=== PATIENT | female | born 1955 | race Caucasian/White ===

== ENCOUNTER 2022-12-27 07:24 | Outpatient (OUT) | payer OTHER, SELFPAY ==
--- NOTE | 2022-12-27 07:26 | MM_ITS ---
Patient: SEVERIANO ROBERSON Exam Date: 12/27/2022 : 1955 Gender:F Ordering : DR MIKE GOMEZ Admission #: [id number] Family : Order #: [id number] CLICK HERE TO VIEW EXAM RADIOLOGY REPORT PROCEDURE: MM TOMOSYNTHESIS SCREENING BI COMPARISON: MG MAMM SCREEN 3D DANAY CAD, 04/20/2021. MG MAMM SCREEN DANAY W CAD, 01/14/2020. INDICATIONS: Screening mammogram Calculator Name NCI Breast Cancer Risk Assessment Tool 5 Year Breast Cancer Risk 1.70% Lifetime Breast Cancer Risk 5.20% Personal Breast Cancer No Personal Ovarian Cancer No Treatments None Family Cancers Mother with brain cancer at age 57; Sister with lymphoma cancer at age 19; Sister with uterine cancer at age 40. LOCATION: [facility] BREAST COMPOSITION: Scattered areas fibroglandular density. FINDINGS: DIAGNOSTIC CATEGORY 1--NEGATIVE. NO CHANGE FROM COMPARISON ASSESSMENT. Scattered benign-appearing calcifications are present. Scattered benign-appearing lymph nodes are present. RIGHT BREAST: No significant suspicious finding. LEFT BREAST: No significant suspicious finding. RECOMMENDATIONS: ROUTINE MAMMOGRAM AND CLINICAL EVALUATION IN 12 MONTHS. PLEASE NOTE: A NORMAL MAMMOGRAM DOES NOT EXCLUDE THE POSSIBILITY OF BREAST CANCER. A CLINICALLY SUSPICIOUS PALPABLE LUMP SHOULD BE BIOPSIED. Dictated by: Jhonatan Love MD on 12/27/2022 at 09:57 Approved by: Jhonatan Love MD on 12/27/2022 at 09:58
== END 2022-12-27 07:25 | disposition home or self-care (01) ==
LOC: MAMMO 07:24
PROVIDERS: PCP Nurse Practitioner Family; Visit Provider Nurse Practitioner Family
DX: Z12.31 Encounter for screening mammogram for malignant neoplasm of breast (principal); Z80.7 Family history of other malignant neoplasms of lymphoid, hematopoietic and related tissues; Z80.8 Family history of malignant neoplasm of other organs or systems
CPT/HCPCS: 77063; 77067

== ENCOUNTER 2024-01-02 07:56 | Outpatient (OUT) | payer OTHER, SELFPAY ==
--- NOTE | 2024-01-02 07:58 | MM_ITS ---
Patient Name: SEVERIANO ROBERSON MR#: [id number] : 1955 Exam Date: 01/02/2024 Ordering Doctor: YASMINE VARGHESE RADIOLOGY REPORT PROCEDURE: MM TOMOSYNTHESIS SCREENING BI COMPARISON: MG MAMM SCREEN 3D DANAY CAD, 04/20/2021. MM TOMOSYNTHESIS SCREENING BI, 12/27/2022. INDICATIONS: Screening Calculator Name NCI Breast Cancer Risk Assessment Tool 5 Year Breast Cancer Risk 1.70% Lifetime Breast Cancer Risk 5.00% Personal Breast Cancer No Personal Ovarian Cancer No Treatments None Family Cancers Mother with brain cancer at age 57; Sister with lymphoma cancer at age 19; Sister with uterine cancer at age 40. LOCATION: [facility] BREAST COMPOSITION: There are scattered areas of fibroglandular density. FINDINGS: DIAGNOSTIC CATEGORY 1--NEGATIVE. NO CHANGE FROM COMPARISON ASSESSMENT. Scattered benign-appearing nodules are present. Scattered benign-appearing calcifications are present. Scattered benign-appearing lymph nodes are present. RIGHT BREAST: No significant suspicious finding. LEFT BREAST: No significant suspicious finding. RECOMMENDATIONS: ROUTINE MAMMOGRAM AND CLINICAL EVALUATION IN 12 MONTHS. PLEASE NOTE: A NORMAL MAMMOGRAM DOES NOT EXCLUDE THE POSSIBILITY OF BREAST CANCER. A CLINICALLY SUSPICIOUS PALPABLE LUMP SHOULD BE BIOPSIED. Dictated by: Jhonatan Love MD on 01/02/2024 at 10:30 Approved by: Jhonatan Love MD on 01/02/2024 at 10:32
--- OUTSIDE RECORDS SUMMARY | 2024-01-02 08:03 | XMS_ITS | CCD ---
Author Organization [facility] Inform ion [facility] Care Team Providers Care Weather Strip Mechanic Name Role Phone FURLONG, DR JYOTI Fatima Primary Care Unavailable PATRICIA, DR LILIANA Bergman Attending Unavailable PATRICIA, DR LILIANA Bergman Admitting Unavailable ZIEBMOOK, DR MARK Bergman Consulting Unavailable PATRICIA, DR LILIANA Bergman Consulting Unavailable Alix Tavera Unavailable Patricia GENETIC TECHNOLOGIST-CROSS ENTERPRISE INTEGRATOR, Liliana Galindo Primary Care Provider JOSE ROBERTO COLBY Attending Unavailable LILIANA FALCON Referring Unavailable KUNS, ARLETTE Primary Care Unavailable WHEELER, MARCEL Mayela Attending Unavailable WHEELER, MARCEL E Referring Unavailable KUNS, ARLETTE Primary Care Unavailable WHEELER, MARCEL E Admitting Unavailable WHEELER, MARCEL Pedro Attending Unavailable ANUSHA MARCEL Mayela Referring Unavailable KUNS, ARLETTE Primary Care Unavailable LAISHA ANTONIO Attending Unavailable KUNS, ARLETTE Primary Care Unavailable JOSE ROBERTO COLBY Attending Unavailable JOSE ROBERTO COLBY Referring Unavailable KUNS, ARLETTE Primary Care Unavailable JOSE ROBERTO COLBY Attending Unavailable LILIANA FALCON Referring Unavailable KUNS, ARLETTE Primary Care Unavailable JOSE ROBERTO COLBY Attending Unavailable LILIANA FALCON Referring Unavailable KUNS, ARLETTE Primary Care Unavailable NIJOSE ROBERTO PEREZ Attending Unavailable LILIANA FALCON Referring Unavailable MICHELLE, AI L Primary Care Unavailable WHEELER, MARCEL E Attending Unavailable WHEELER, MARCEL E Referring Unavailable YASMINE VILLA Primary Care Unavailable WHEELER, MARCEL E Admitting Unavailable WHEELER, MARCEL Mayela Attending Unavailable LILIANA FALCON Referring Unavailable MICHELLE, AI L Primary Care Unavailable JANET JONES Attending Unavailable YASMINE VILLA Primary Care Unavailable JOSE ROBERTO COLBY Attending Unavailable LILIANA FALCON Referring Unavailable KUNS, ARLETTE Primary Care Unavailable NIENBERGJOSE ROBERTO Attending Unavailable LILIANA FALCON Referring Unavailable LILIANA FALCON Primary Care Unavailable LILIANA FALCON Attending Unavailable LILIANA FALCON Referring Unavailable LILIANA FALCON Primary Care Unavailable YASMINE VILLA Attending Unavailable AI MARTINEZ Referring Unavailable VILLA, YASMINE J Primary Care Unavailable VILLAYASMINE ESCAMILLA J Attending Unavailable VILLA, YASMINE J Referring Unavailable VLILA, YASMINE J Primary Care Unavailable Villa GENETIC TECHNOLOGIST-SHIFT PRODUCTION ASSOCIATE, Yasmine J Primary Care Provid er LILIANA FALCON Referring Unavailable LILIANA FALCON Primary Care Unavailable SELIN VILLAERIE J Referring Unavailable VILLASELIN ESCAMILLAERIE J Primary Care Unavailable LAN VILLAE J Referring Unavailable VILLA, YASMINE J Primary Care Unavailable Rudolph Chicas MD Primary Care Provider Allergies Allergy Classification Reported Allergen(s) Allergy Type Date of Onset Reaction(s) Facility (15 sources) Codeine; Translations: [CODEINE] Drug Allergy 11-13-19 21 Other (See Comments) [employer] Phone: (12 sources) Succinylcholine; Translations: [SUCCINYLCHOLINE] Drug Allergy 11-13-19 anaphylaxis, Other (See Comments), [facility] Other (2 sources) Succinylcholine Drug Allergy 11-13-19 21 [facility] Medications Current Medications Medication Drug Class(es) Dates Sig (Normalized) Sig (Original) acetaminophen 325 mg oral tablet (8 sources) acetaminophen (TYLENOL) 325 mg tablet Take 2 tablets (650 mg total) by mouth as needed. As needed Active [id number] 200 actuat albuterol 0.09 mg/actuat metered dose inhaler (1 source) beta2-Adrenergic Agonist Start: 01-05-2022 take 2 puff(s) by inhalation every four to six hours as needed Albuterol Sulfate HFA 108 (90 Base) MCG/ACT 2 puffs as needed Inhalation every 4-6 hours for 14 days Dec, Active benzonatate 100 mg oral capsule (2 sources) Non-narcotic Antitussive Start: 01-05-2022 take 1 capsule by mouth every eight hours Tessalon Perles 100 MG 1 capsule as needed Orally Three times a day for 7 days Dec, Active Start: 09-24-2021 take 1 capsule by mo ut three times daily as needed Tessalon Perles 100 MG 1 capsule as needed Orally Three times a day for 7 days Aug, Active Budesonide / formoterol (12 sources) Corticosteroid, beta2-Adrenergic Agonist Start: 05-23-2022 take 2 puff(s) by inhalation in the morning budesonide-formoteroL (SYMBICORT) 160-4.5 mcg/actuation inhaler Indications: Mild intermittent asthma without complication Inhale 2 puffs in the morning and 2 puffs before bedtime. 10.2 g 5 05/23/2022 Active budesonide-formo terol (Symbicort) 160-4.5 MCG/ACT inhaler Inhalation for 90 Active take 2 puff(s) by in halation once daily Symbicort 160-4.5 MCG/ACT 2 puffs Inhala tion Once a day Active empagliflozin 25 mg oral tablet (13 sources) Sodium-Glucose Cotransporter 2 Inhibitor Start: 10-15-2023 End: 12-10-2023 take 25 mg by mouth in the morning empagliflozin (Jardiance) 25 MG Take 25 mg by mouth in the morning. 12/10/2023 Active Start: 04-30-2023 take 1 tablet by vargas once daily in the morning JARDIANCE 25 mg tablet tablet take 1 tablet by mouth every morning 30 tablet 5 04/30/2023 Active Start: 11-13-2022 End: 04-30-2023 take 1 tablet by mouth once daily in the morning JARDIANCE 25 mg tablet tablet take 1 tablet by mouth every morning 30 tablet 5 11/13/2022 04/30/2023 Discontinued Jardiance Active losartan potassium 25 mg oral tablet (12 sources) Angiotensin 2 Receptor Gissel Start: 10-15-2023 End: 12-10-2023 take 1 tablet by mouth in the morning losartan (Cozaar) 25 MG tablet Take 25 mg by mouth in the morning. 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 21 tablet 12/18/2023 Active Start: 01-04-2023 End: 04-12-2023 methylPREDNISolone (MEDROL, RICHA,) 4 mg tablet follow package directions 21 tablet 0 01/04/2023 04/12/2023 Discontinued (Therapy completed) Start: 01-04-2023 methylPREDNISo lone (MEDROL, RICHA,) 4 mg tablet follow package directions 21 tablet 0 01/04/2023 Active rosuvastatin calcium 20 mg oral tablet (14 sources) HMG-CoA Reductase Inhibitor Start: 10-15-2023 End: 12-10-2023 take 1 tablet by mouth in the morning rosuvastatin (Crestor) 20 MG tablet Take 20 mg by mouth in the morning. 12/10/2023 Active Start: 12-11-2022 End: 03-05-2023 take 1 tablet by mouth once daily rosuvastatin (CRESTOR) 20 mg tablet take 1 tablet by mouth once daily 30 tablet 5 03/05/2023 Active take 1 tablet by vargas th every twenty-four hours Crestor 20 MG 1 tablet Orally Once a day Active sertraline 100 mg oral tablet (14 sources) Serotonin Reuptake Inhibitor Start: 10-15-2023 End: 12-10-2023 take 1 tablet by mouth in the morning sertraline (Zoloft) 100 MG tablet Take 100 mg by mouth in the morning. 12/10/2023 Active Start: 11-13-2022 End: 04-25-2023 take 1 tablet by mouth once daily in the evening sertraline (ZOLOFT) 100 mg tablet Indications: Depressive disorder take 1 tablet by mouth every evening 30 tablet 5 04/25/2023 Active take 1 tablet by vargas th once daily Sertraline HCl 50 MG 1 tablet Orally Once a day Active Problems Active Problems Problem Classification Problem Date Documented Date Episodic/Chronic Anxiety disorders (8 sources) Anxiety; Translations: [Anxiety disorder, unspecified] Onset: 11-14-2021 11-14-2021 Chronic Asthma (8 sources) Asthma; Translations: [Unspecified asthma, uncomplicated] Onset: 11-14-2021 11-14-2021 Chronic Chronic kidney disease (2 sources) Chronic kidney disease, stage 2 (mild); Translations: [Chronic kidney disease, stage 2 (mild)] Onset: 11-14-2021 Chronic Diabetes mellitus with complications (14 sources) Chronic kidney disease stage 2 due to type 2 diabetes mellitus; Translations: [Type 2 diabetes mellitus with diabetic chronic kidney disease] Onset: 05-23-2021 11-14-2021 Chronic Diabetes mellitus without complication (1 source) Diabetes mellitus Onset: 06-25-2023 Chronic Disorders of lipid metabolism (10 sources) Hyperlipidemia; Translations: [Hyperlipidemia, unspecified] Onset: 11-14-2021 11-14-2021 Chronic Diverticulosis and diverticulitis (8 sources) Diverticulosis of large intestine; Translations: [Diverticulosis of large intestine without perforation or abscess without bleeding] Onset: 12-02-2021 12-02-2021 Chronic Essential hypertension (9 sources) Essential hypertension; Translations: [Essential (primary) hypertension] Onset: 11-14-2021 11-14-2021 Chronic Genitourinary symptoms and ill-defined conditions (1 source) Dysuria; Translations: [Dysuria] Onset: 10-15-2023 Episodic Headache; including migraine (8 sources) Migraine; Translations: [Migraine, unspecified, not intractable, without status migrainosus] Onset: 11-14-2021 11-14-2021 Chronic Hypertension with complications and secondary hypertension (8 sources) Chronic kidney disease stage 2 due to hypertension; Translations: [Hypertensive chronic kidney disease with stage 1 through stage 4 chronic kidney disease, or unspecified chronic kidney disease] Onset: 05-23-2021 11-14-2021 Chronic Mood disorders (10 sources) Depressive disorder; Translations: [Depressive disorder] Onset: 11-14-2021 11-14-2021 Chronic Mood disorders (9 sources) Mood disorders; Translations: [Depression, unspecified] Onset: 12-11-2022 Resolved: 06-25-2023 12-11-2022 Osteoarthritis (15 sources) Osteoarthritis of right knee joint; Translations: [Unilateral primary osteoarthritis, right knee] Onset: 11-14-2021 02-15-2023 Chronic Other acquired deformities (2 sources) Equinus contracture of the ankle; Translations: [Contracture, right ankle] 12-18-2023 Chronic Other connective tissue disease (2 sources) Plantar fasciitis; Translations: [Plantar fascial fibromatosis] 12-18-2023 Episodic Other connective tissue disease (2 sources) Nontraumatic rupture of muscle; Translations: [Other rupture of muscle (nontraumatic), unspecified site] 12-18-2023 Episodic Other connective tissue disease (2 sources) Pain in right foot; Translations: [Pain in right foot] 12-18-2023 Episodic Other nutritional; endocrine; and metabolic disorders (8 sources) Obesity; Translations: [Obesity, unspecified] Onset: 11-14-2021 11-14-2021 Chronic Other nutritional; endocrine; and metabolic disorders (1 source) Body mass index (BMI) 36.0-36.9, adult; Translations: [Body mass index (BMI) 36.0-36.9, adult] Onset: 06-25-2023 Chronic Other screening for suspected conditions (not mental disorders or infectious disease) (6 sources) Encounter for screening mammogram for malignant neoplasm of breast; Translations: [Patient encounter status] Onset: 04-20-2021 Episodic Other skin disorders (1 source) Disorder of pigmentation, unspecified; Translations: [Disorder of pigmentation, unspecified] Onset: 12-10-2023 Episodic Other skin disorders (1 source) Changing color of pigmented skin lesion; Translations: [Disorder of pigmentation, unspecified] 12-10-2023 Episodic Other upper respiratory disease (2 sources) Seasonal allergic rhinitis; Translations: [Seasonal allergic rhinitis] Chronic Residual codes; unclassified (8 sources) Obstructive sleep apnea syndrome; Translations: [Obstructive sleep apnea (adult) (pediatric)] Onset: 11-14-2021 11-14-2021 Chronic Residual codes; unclassified (1 source) Family history of malignant neoplasm of other genital organs; Translations: [FAM HX MALIG NEOPLSM OTH GENIT ORGN] Onset: 04-21-2021 Episodic Residual codes; unclassified (1 source) Family history of other malignant neoplasms of lymphoid, hematopoietic and related tissues; Translations: [FAM HX OTH MAL ALEXIA LYMPH HEMATPOETC] Onset: 04-21-2021 Episodic Residual codes; unclassified (1 source) Family history of malignant neoplasm of other organs or systems; Translations: [FAM HX MALIG NEOPLASM OTH ORGN/SYS] Onset: 04-21-2021 Episodic Spondylosis; intervertebral disc disorders; other back problems (2 sources) Spondylosis without myelopathy or radiculopathy, lumbosacral region; Translations: [Other intervertebral disc displacement, lumbar region] Onset: 06-21-2023 Chronic Unclassified (1 source) Primary osteoarthritis of right knee [M17.11] Onset: 06-29-2023 Unclassified (1 source) discuss medication Onset: 10-15-2023 Urinary tract infections (2 sources) Acute cystitis without hematuria; Translations: [Acute cystitis without hematuria] Onset: 10-15-2023 Episodic Viral infection (2 sources) Viral disease; Translations: [Viral illness] Episodic Past or Other Problems Problem Classification Problem Date Documented Da te Episodic/Chronic Joint disorders and dislocations; trauma-related (8 sources) Tear of meniscus of knee; Translations: [Unspecified tear of unspecified meniscus, current injury, unspecified knee, initial encounter] Onset: 11-14-2021 11-14-2021 Episodic Other and unspecified benign neoplasm (8 sources) Polyp of ascending colon; Translations: [Polyp of colon] Onset: 12-02-2021 12-02-2021 Episodic Other and unspecified benign neoplasm (8 sources) Polyp of transverse colon; Translations: [Polyp of colon] Onset: 12-02-2021 12-02-2021 Episodic Other bone disease and musculoskeletal deformities (8 sources) Osteopenia; Translations: [Other specified disorders of bone density and structure, unspecified site] Onset: 10-29-2015 11-14-2021 Episodic Other non-traumatic joint disorders (1 source) Knee pain Onset: 06-21-2023 Episodic Other non-traumatic joint disorders (1 source) Hip pain Onset: 06-21-2023 Episodic Other upper respiratory infections (1 source) Acute upper respiratory infection, unspecified Onset: 09-24-2021 Resolved: 09-24-2021 Episodic Spondylosis; intervertebral disc disorders; other back problems (2 sources) Backache; Translations: [Sacrococcygeal disorders, not elsewhere classified] Onset: 06-21-2023 Episodic Unclassified (2 sources) Cough R05.9 Onset: 09-24-2021 Resolved: 07-30-2022 Unclassified (8 sources) Onset: 12-11-2022 Resolved: 12-10-2023 12-11-2022 Viral infection (1 source) COVID-19 Results Test Name Value Interpretation Reference Range Facility XR Foot - left 3 [facility] Result: AP, medial oblique, lateral views are weight-bearing. Small enthesophyte at the insertion of the plantar fascia. Mild joint space narrowing and periarticular osteophytes as well as subchondral sclerosis of the midfoot especially the 2nd and 3rd tarsometatarsal joints. Slight metatarsus adductus. [facility] Radiology Study observation (narrative) [facility] CBC AND AUTO DIFFon 12-10-19 ABSOLUTE BASOPHIL 0.0 X10E9/L Normal 0.0-0.2 [facility] Comment on above: Performed By: #### Ania DHALIWAL CMP, 25024-7, 3016-3 #### [facility] ([id number]) [address], [address] [place] [address] ABSOLUTE NEUTROPHIL 2.5 X10E9/L Normal 1.5-6.6 Comment on above: Performed By: #### Ania DHALIWAL CMP, 89713-1, 3016-3 #### [facility] ([id number]) [address], [address] [place] [address] Basophils/100 WBC (Bld) 0.7 % Normal Comment on above: Performed By: #### Ania DHALIWAL CMP, 29267-8, 6-3 #### [facility] ([id number]) [address], [address] [place] [address] Eosinophils (Bld) [#/Vol] 0.1 10*3/uL Normal 0.0-0.4 Comment on above: Performed By: #### Ania DHALIWAL CMP, 13191-1, 3016-3 #### [facility] ([id number]) [address], [address] [place] [address] Eosinophils/100 WBC (Bld) 1.9 % Normal Comment on above: Performed By: #### C JULIAN DHALIWAL, , 3015-04 #### [facility] ([id number]) [address] [address] [place] [address] Erythrocyte distribution width (RBC) [Ratio] 17.3 % High 11.5-15.0 Comment on above: Performed By: #### C JULAIN DHALIWAL, , 3015-3 #### [facility] ([id number]) [address], [facility] [address] [place] [address] Hematocrit (Bld) [Volume fraction] 38.3 % Normal 35-47 [facility] Comment on above: Performed By: #### Ania DHALIWAL CMP, , 3015-04 #### [facility] ([id number]) [address] [place] [address] Hemoglobin (Bld) [Mass/Vol] 12.3 g/dL Normal 11.7-15.5 Comment on above: Performed By: #### Ania DHALIWAL CMP, , 3015-04 #### [facility] ([id number]) [address] [address] [place] [address] Lymphocytes (Bld) [#/Vol] 1.0 10*3/uL Normal 1.0-3.5 Comment on above: Performed By: #### C ISRA CMP, , 3015-04 #### [facility] ([id number]) [address], [address] [place] [address] Lymphocytes/100 WBC (Bld) 26.3 % Normal Comment on above: Performed By: #### C ISRA CMP, , 3015- #### [facility] ([id number]) [address], [address] [place] [address] MCH (RBC) [Entitic mass] 25.8 pg Low 27-34 Comment on above: Performed By: #### C ISRA CMP, 67208-7, 3015-3 #### [facility] ([id number]) [address], [address] [place] [address] MCHC (RBC) [Mass/Vol] 32.0 g/dL Normal 32-36 Comment on above: Performed By: #### C ISRA, CMP, 22173-5, 3015- #### [facility] ([id number]) [address], [facility] [address] [place] [address] MCV (RBC) [Entitic vol] 81 fL Normal 80-100 Comment on above: Performed By: #### C ISRA CMP, , 3015-04 #### [facility] ([id number]) [address], [address] [place] [address] Monocytes (Bld) [#/Vol] 0.3 10*3/uL Normal 0-0.9 Comment on above: Performed By: #### C ISRA, CMP, , 3015-04 #### [facility] ([id number]) [address], [address] [place] [address] Monocytes/100 WBC (Bld) 7.0 % Normal Comment on above: Performed By: #### C BCA, CMP, , 3015-04 #### [facility] ([id number]) [address], [address] [place] [address] Neutrophils/100 WBC (Bld) 64.1 % Normal Comment on above: Performed By: #### C BCA, CMP, , 3015-3 #### [facility] ([id number]) [address], [address] [place] [address] Platelet mean volume (Bld) [Entitic vol] 9.7 fL Normal 7-12 Comment on above: Performed By: #### C BCA, CMP, 68318-5, 3015-3 #### [facility] ([id number]) [address], [address] [place] [address] Platelets (Bld) [#/Vol] 196 10*3/uL Normal 150-450 Comment on above: Performed By: #### C BCA, CMP, 77072-7, 3015-3 #### [facility] ([id number]) [address], [address] [place] [address] RBC COUNT 4.76 X10E12/L Normal 3.80-5.20 [facility] Comment on above: Performed By: #### C BCA, CMP, 43747-0, 3015-3 #### [facility] ([id number]) [address], [address] [place] [address] WBC (Bld) [#/Vol] 4.0 10*3/uL Normal 4.0-11.0 [facility] Comment on above: Performed By: #### C BCA, CMP, 94158-2, 3015-3 #### [facility] ([id number]) [address], [address] [place] [address] COMPREHENSIVE METABOLIC PANE Clint 12-10-2023 Albumin [Mass/Vol] 4.1 g/dL Normal 3.2-5.3 [facility] Comment on above: Performed By: #### C BCA, CMP, 35534-5, 3015-3 #### [facility] ([id number]) [address], [address] [place] [address] ALP [Catalytic activity/Vol] 71 U/L Normal 39-130 Comment on above: Performed By: #### C BCA, CMP, 52573-0, 6-3 #### [facility] ([id number]) [address], [address] [place] [address] ALT [Catalytic activity/Vol] 20 U/L Normal 0-31 Comment on above: Performed By: #### C BCA, CMP, 12426-9, 3016-3 #### [facility] ([id number]) [address], [address] [place] [address] Anion gap [Moles/Vol] 8 mmol/L Normal 5-15 Comment on above: Performed By: #### C BCA, CMP, 73832-0, 6-3 #### [facility] ([id number]) [address], [address] [place] [address] AST [Catalytic activity/Vol] 21 U/L Normal 0-41 Comment on above: Performed By: #### C BCA, CMP, 74731-2, 6-3 #### [facility] ([id number]) [address], [address] [place] [address] Bilirubin [Mass/Vol] 0.3 mg/dL Normal 0.3-1.2 Comment on above: Performed By: #### C BCA, CMP, 38495-8, 3015-3 #### [facility] ([id number]) [address], [address] [place] [address] Calcium [Mass/Vol] 9.1 mg/dL Normal 8.5-10.5 [facility] Comment on above: Performed By: #### C BCA, CMP, 58001-3, 6-3 #### [facility] ([id number]) [address], [address] [place] [address] Chloride [Moles/Vol] 104 mmol/L Normal 98-109 Comment on above: Performed By: #### C BCA, CMP, 64744-3, 6-3 #### [facility] ([id number]) [address], [address] [place] [address] CO2 [Moles/Vol] 30 mmol/L Normal 22-32 Comment on above: Performed By: #### C JULIAN DHALIWAL, 09899-2, 3015-3 #### [facility] ([id number]) [address], [address] [place] [address] Creatinine [Mass/Vol] 0.76 mg/dL Normal 0.40-1.00 Comment on above: Result Comment: METH OD TRACEABLE TO IDMS STANDARD Performed By: #### C JULIAN DHALIWAL, 57014-5, 3015- #### [facility] ([id number]) [address] [address] [place] [address] GFR/1.73 sq M.predicted among non-blacks MDRD (S/P/Bld) [Vol rate/Area] 84 mL/min/{1.73_m2} Normal >59 [facility] Comment on above: Result Comment: Reported eGFR is based on the CKD-EPI 2020 equation that does not use a race coefficient. Performed By: #### C JULIAN DHALIWAL, , 3015-3 #### [facility] ([id number]) [address] [address] [place] [address] Glucose [Mass/Vol] 94 mg/dL Normal 65-99 [facility] Comment on above: Performed By: #### C JULIAN DHALIWAL, , 3015-3 #### [facility] ([id number]) [address] [address] [place] [address] Potassium [Moles/Vol] 3.8 mmol/L Normal 3.5-5.0 Comment on above: Performed By: #### C JULIAN DHALIWAL, 52918-9, 3015-3 #### [facility] ([id number]) [address], [address] [place] [address] Protein [Mass/Vol] 6.8 g/dL Normal 6.0-8.0 [facility] Comment on above: Performed By: #### C JULIAN DHALIWAL, 08065-4, 6-3 #### [facility] ([id number]) [address], [address] [place] [address] Sodium [Moles/Vol] 142 mmol/L Normal 134-146 [facility] Comment on above: Performed By: #### C ISRA, CMP, 75837-1, 3015-3 #### [facility] ([id number]) [address], [facility] [address] [place] [address] Urea nitrogen [Mass/Vol] 12 mg/dL Normal 5-27 Comment on above: Performed By: #### C JULIAN DHALIWAL, 40240-2, 6-3 #### [facility] ([id number]) [address], [address] [place] [address] Lipid 1996 panelon 4 Cholesterol [Mass/Vol] 223 mg/dL High 150-200 Comment on above: Performed By: #### Ania DHALIWAL, JULIAN, 65350-6, 3016-3 #### [facility] ([id number]) [address], [address] [address] Cholesterol in HDL [Mass/Vol] 99 mg/dL Normal >39 Comment on above: Result Comment: HDL <40 mg/dL - High Risk HDL > or = 40mg/dL- Desirable HDL >60 mg/dL - Negative Risk Performed By: #### C BCA, CMP, 79229-6, 6-3 #### [facility] ([id number]) [address], [address] [place] [address] Cholesterol in LDL [Mass/Vol] 103 mg/dL Normal <130 Comment on above: Result Comment: LDL <100 mg/dL - Desirable LDL >160 mg/dL - High Risk Performed By: #### C BCA, CMP, 22512-9, 3016-3 #### [facility] ([id number]) [address] [address] [place] [address] Cholesterol in VLDL [Mass/Vol] 21 mg/dL Normal 0-30 Comment on above: Performed By: #### C BCA, CMP, 86708-0, 3016-3 #### [facility] ([id number]) [address] [address] CHOLESTEROL:HDL 2.3 Normal 1.0-5.0 Comment on above: Performed By: #### C BCA, CMP, 35072-7, 3016-3 #### [facility] ([id number]) [address] [address] Triglyceride [Mass/Vol] 103 mg/dL Normal 27-150 Comment on above: Performed By: #### C BCA, CMP, 03284-6, 3016-3 #### [facility] ([id number]) [address] [address] MICROALBUMIN - ALBUMIN:CREAT ININE URINE RATIOon 12-10-2023 ALB/CREAT RATIO 16.8 mg/g creat Normal 0.0-30.0 [facility] Comment on above: Performed By: #### M ALBU #### [facility] ([id number]) [address] [place] [address] Albumin DL <= 20 mg/L (U) [Mass/Vol] 2.1 mg/dL High 0.0-1.9 Comment on above: Performed By: #### M ALBU #### [facility] ([id number]) [address] [place] [address] URINE CREAT 124.87 mg/dL Normal [facility] Comment on above: Performed By: #### M ALBU #### [facility] ([id number]) [address] [place] [address] POCT Hemoglobin Z0vDhqwion B y: Corin Emerita on 12-10-2023 HbA1c (Bld) [Mass fraction] 6.4 % 4 - 7 % [facility] TSH Qnon 12-10-2023 TSH 2.07 uIU/mL Normal 0.49-4.67 [facility] Comment on above: Performed By: #### C BCA, [facility], 66503-9, 3016-3 #### [facility] ([id number]) [address], [address] [place] [address] Glucose Glucometer (BldC) [M ass/Vol]on 11-09-2023 Glucose [Mass/Vol] 101 mg/dL High 65-99 [facility] URINE CULTUREon 10-15-2023 Bacteria identified Cx Nom (U) CULTURE RESULTS >100,000 ORGANISMS/mL STREPTOCOCCUS AGALACTIAE (GROUP B) <10,000 ORGANISMS/mL NORMAL URO GENITAL FRAN Normal Comment on above: Performed By: #### 6 30-4 #### [facility] ([id number]) [address], [address] [place] [address] MR LUMBAR SPINE WO CONTon MR LUMBAR SPINE WO CONT MR LUMBAR SPINE WO CONT HISTORY: A 68-year-old female with the history of the chronic low back pain. Spondyloarthropathy is suspected. Disc degenerative disease. TECHNIQUE: Multiplanar and multisequence MRI examination of the lumbar spine is performed. COMPARISON: No relevant prior studies are available for comparison. FINDINGS: Vertebral heights are normal. There is a minimal anterolisthesis at L5-S1. There is increased lumbar lordosis. There are degenerative changes in the lumbar spine. There is a heterogeneous marrow signal from degenerative arthritis. No acute bony pathology is identified. Bone marrow changes in the L1 vertebral body suggestive of benign hemangioma. Both sacroiliac joints are intact. No significant paravertebral soft tissue abnormality seen. At L1-L2, there is no evidence of disc herniation, spinal stenosis or narrowing of the neural foramina. At L2-L3, there is a disc bulging without evidence of significant spinal stenosis or narrowing of the neural foramina. At L3-L4, there is a broad-based disc bulging causing mild degree of central canal narrowing but neural foramina are patent. At L4-L5, there is some minimal anterolisthesis. No evidence of disc herniation is seen. Neural foramina are patent. Facet arthropathy seen bilaterally with mild degree of central canal narrowing. At L5-S1, there is no evidence of disc herniation. Facet arthropathy seen bilaterally with mild degree of spinal stenosis but neural foramina are patent. Conus is seen at the level of L1. No intrathecal signal abnormality seen. 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 Mild degree of spinal stenosis is seen at a few levels as described above. * Disc bulging at L2-L3 and L3-L4. No masood disc herniation is seen in the lumbar region. * Minimal anterolisthesis at L4-L5 and L5-S1. Finalized by Lan Salas MD on 07/03/2023 8:22 PM Normal [facility] Glucose Glucometer (BldC) [M ass/Vol]on 06-29-2023 Glucose [Mass/Vol] 89 mg/dL Normal 65-99 [facility] COMPREHENSIVE METABOLIC PANE Clint 06-25-2023 Albumin [Mass/Vol] 4.3 g/dL Normal 3.2-5.3 [facility] Comment on above: Performed By: #### C , 60910-0, 3016-3, HA1C #### [facility] ([id number]) [address], [address] [place] [address] ALP [Catalytic activity/Vol] 74 U/L Normal 39-130 Comment on above: Performed By: #### C JASMIN, 47583-8, 3015-3, HA1C #### [facility] ([id number]) [address], [address] [place] [address] ALT [Catalytic activity/Vol] 20 U/L Normal 0-31 Comment on above: Performed By: #### C JASMIN, 25033-3, 3015-3, HA1C #### [facility] ([id number]) [address], [address] [place] [address] Anion gap [Moles/Vol] 11 mmol/L Normal 5-15 Comment on above: Performed By: #### C JASMIN, 63269-8, 3015-3, NABEEL #### [facility] ([id number]) [address], [address] [place] [address] AST [Catalytic activity/Vol] 21 U/L Normal 0-41 Comment on above: Performed By: #### C JASMIN, 51906-2, 3015-3, HAJc #### [facility] ([id number]) [address], [address] [place] [address] Bilirubin [Mass/Vol] 0.4 mg/dL Normal 0.3-1.2 Comment on above: Performed By: #### C JASMIN, 71853-2, 3015-3, SPENCER1C #### [facility] ([id number]) [address], [address] [place] [address] Calcium [Mass/Vol] 9.1 mg/dL Normal 8.5-10.5 [facility] Comment on above: Performed By: #### C JASMIN, 79765-2, 3015-3, NABEEL #### [facility] ([id number]) [address], [address] [place] [address] Chloride [Moles/Vol] 104 mmol/L Normal 98-109 Comment on above: Performed By: #### Ania CASTELLANOS, 46575-1, 3015-3, SPENCER1C #### [facility] ([id number]) [address], [address] [place] [address] CO2 [Moles/Vol] 28 mmol/L Normal 22-32 Comment on above: Performed By: #### Ania CASTELLANOS, 44324-1, 3015-, SPENCER1C #### [facility] ([id number]) [address], [address] [place] [address] Creatinine [Mass/Vol] 0.79 mg/dL Normal 0.40-1.00 Comment on above: Result Comment: METH OD TRACEABLE TO IDMS STANDARD Performed By: #### Ania CASTELLANOS, 74032-9, 3015-04, NABEEL #### [facility] ([id number]) [address] [place] [address] GFR/1.73 sq M.predicted among non-blacks MDRD (S/P/Bld) [Vol rate/Area] 80 mL/min/{1.73_m2} Normal >59 [facility] Comment on above: Result Comment: Reported eGFR is based on the CKD-EPI 2020 equation that does not use a race coefficient. Performed By: #### Ania CASTELLANOS, 32052-2, 3015-3, NABEEL #### [facility] ([id number]) [address], [address] [place] [address] Glucose [Mass/Vol] 96 mg/dL Normal 65-99 [facility] Comment on above: Performed By: #### Ania CASTELLANOS, 00324-6, 3015-, NABEEL #### [facility] ([id number]) [address], [address] [place] [address] Potassium [Moles/Vol] 4.0 mmol/L Normal 3.5-5.0 Comment on above: Performed By: #### C JASMIN, 31128-2, 6-3, HA1C #### [facility] ([id number]) [address], [facility] [address] [place] [address] Protein [Mass/Vol] 7.0 g/dL Normal 6.0-8.0 [facility] Comment on above: Performed By: #### Ania CASTELLANOS, 45733-5, 6-3, HA1C #### [facility] ([id number]) [address], [facility] [address] [place] [address] Sodium [Moles/Vol] 143 mmol/L Normal 134-146 [facility] Comment on above: Performed By: #### Ania CASTELLANOS, 95376-4, 3015-3, HA1C #### [facility] ([id number]) [address], [facility] [address] [place] [address] Urea nitrogen [Mass/Vol] 15 mg/dL Normal 5-27 Comment on above: Performed By: #### Ania CASTELLANOS, 00952-0, 3015-3, HA1C #### [facility] ([id number]) [address], [facility] [address] [place] [address] HGB A1C (GLYCO-HGB)on 2023 Glucose [Mass/Vol] 137 mg/dL Normal [facility] Comment on above: Performed By: #### Ania CASTELLANOS, 07757-2, 3015-3, HA1C #### [facility] ([id number]) [address] [place] [address] HbA1c (Bld) [Mass fraction] 6.4 % High 4.4-5.6 Comment on above: Result Comment: NOTE ADA Guidelines Result HgbA1c Normal : less than 5.7 % Prediabetes : 5.7 % to 6.4 % Diabetes : > 6.4 % Use with caution in patients with abnormal hemoglobin variants as the half-life of red blood cells and in vivo glycation rates are affected. Performed By: #### Ania CASTELLANOS, 99205-2, 3015-3, NABEEL #### [facility] ([id number]) [address] [place] [address] Lipid 1996 panelon 4 Cholesterol [Mass/Vol] 206 mg/dL High 150-200 Comment on above: Performed By: #### Ania CASTELLANOS, 99920-9, 3015-, NABEEL #### [facility] ([id number]) [address], [facility] [address] [place] [address] Cholesterol in HDL [Mass/Vol] 94 mg/dL Normal >39 Comment on above: Result Comment: HDL <40 mg/dL - High Risk HDL > or = 40mg/dL- Desirable HDL >60 mg/dL - Negative Risk Performed By: #### Ania CASTELLANOS, 03388-2, 3015-04, NABEEL #### [facility] ([id number]) [address], [facility] [address] [place] [address] Cholesterol in LDL [Mass/Vol] 95 mg/dL Normal <130 Comment on above: Result Comment: LDL <100 mg/dL - Desirable LDL >160 mg/dL - High Risk Performed By: #### Ania CASTELLANOS, 76279-6, 3, SPENCER1C #### [facility] ([id number]) [address], [facility] [address] [place] [address] Cholesterol in VLDL [Mass/Vol] 17 mg/dL Normal 0-30 Comment on above: Performed By: #### C JASMIN, 29307-7, 3016-3, HA1C #### [facility] ([id number]) [address], [address] [place] [address] CHOLESTEROL:HDL 2.2 Normal 1.0-5.0 Comment on above: Performed By: #### C JASMIN, 86339-8, 3016-3, HA1C #### [facility] ([id number]) [address] [place] [address] Triglyceride [Mass/Vol] 85 mg/dL Normal 27-150 Comment on above: Performed By: #### C JASMIN, 48599-2, 3016-3, HA1C #### [facility] ([id number]) [address], [address] [place] [address] TSH Qnon 06-25-2023 TSH 2.49 uIU/mL Normal 0.49-4.67 [facility] Comment on above: Performed By: #### C JASMIN, 57304-6, 3016-3, HA1C #### [facility] ([id number]) [address], [address] [place] [address] COVID/FLU/RSV RT-PCRon 01-05 SARS-CoV-2 (COVID-19) RNA DOMINIC+probe Ql (Unsp spec) Positive [employer] [facility] [employer] Other COVID/FLU/RSV RT-PCR Negative [employer] [facility] [employer] Other COVID/FLU/RSV RT-PCR [employer] Other COVID Quick Testingon 2021 Result Negative [employer] [facility] [employer] Other COMPREHENSIVE METABOLIC PANE Clint 05-23-2021 Albumin [Mass/Vol] 4.2 g/dL Normal 3.6-5.1 [facility] Comment on above: Performed By: #### 7 600, 86771, 496 #### [facility] of [address], [address] [place] [address] Fuse Maker: Madhav Ornelas MD Albumin/Globulin [Mass ratio] 1.8 {ratio} Normal 1.0-2.5 [facility] Comment on above: Performed By: #### 7 600, 00525, 496 #### [facility] of [address], [address] [place] [address] Fuse Maker: Madhav Ornelas MD ALP [Catalytic activity/Vol] 115 U/L Normal 37-153 [facility] Comment on above: Performed By: #### 7 600, 68435, 496 #### [facility] of [place] [address] Fuse Maker: Madhav Ornelas MD ALT [Catalytic activity/Vol] 14 U/L Normal 6-29 [facility] Comment on above: Performed By: #### 7 600, 16176, 496 #### [facility] of [place] [address] Fuse Maker: Madhav Ornelas MD AST [Catalytic activity/Vol] 16 U/L Normal 10-35 [facility] Comment on above: Performed By: #### 7 600, 04727, 496 #### [facility] of [place] [address] Fuse Maker: Madhav Ornelas MD Bilirubin [Mass/Vol] 0.4 mg/dL Normal 0.2-1.2 [facility] Comment on above: Performed By: #### 7 600, 68531, 496 #### [facility] of [place] [address] Fuse Maker: Madhav Ornelas MD BUN/CREATININE RATIO NOT APPLICABLE Normal 6-22 [facility] Comment on above: Performed By: #### 7 600, 64129, 496 #### [facility] of [place] [address] Fuse Maker: Madhav Ornelas MD Calcium [Mass/Vol] 9.5 mg/dL Normal 8.6-10.4 [facility] Comment on above: Performed By: #### 7 600, 18491, 496 #### [facility] [place] [address] Fuse Maker: Madhav Ornelas MD Chloride [Moles/Vol] 103 mmol/L Normal 98-110 [facility] Comment on above: Performed By: #### 7 600, 77647, 496 #### [facility] [place] [address] Fuse Maker: Madhav Ornelas MD CO2 [Moles/Vol] 33 mmol/L High 20-32 [facility] Comment on above: Performed By: #### 7 600, 27662, 496 #### [facility] [place] [address] Fuse Maker: Madhav Ornelas MD Creatinine [Mass/Vol] 0.74 mg/dL Normal 0.50-0.99 [facility] Comment on above: Result Comment: For patients >49 years of age, the reference limit for Creatinine is approximately 13% higher for people identified as -Jordanian. Performed By: #### 7 600, 87561, 496 #### [facility] [place] [address] Fuse Maker: Madhav Ornelas MD eGFR NON-AFR. NEPALESE 83 mL/min/1.73m2 Normal > OR = 60 [facility] Comment on above: Performed By: #### 7 600, 50558, 496 #### [facility] [place] [address] Fuse Maker: Madhav Ornelas MD GFR/1.73 sq M.predicted among blacks MDRD (S/P/Bld) [Vol rate/Area] 96 mL/min/{1.73_m2} Normal > OR = 60 [facility] Comment on above: Performed By: #### 7 600, 53454, 496 #### [facility] [place] [address] Fuse Maker: Madhav Ornelas MD Globulin (S) [Mass/Vol] 2.4 g/dL Normal 1.9-3.7 [facility] Comment on above: Performed By: #### 7 600, 17565, 496 #### [facility] [place] [address] Fuse Maker: Madhav Ornelas MD Glucose [Mass/Vol] 95 mg/dL Normal 65-99 [facility] Comment on above: Result Comment: Fasting reference interval Performed By: #### 7 600, 32740, 496 #### [facility] [place] [address] Fuse Maker: Madhav Ornelas MD Potassium [Moles/Vol] 3.8 mmol/L Normal 3.5-5.3 [facility] Comment on above: Performed By: #### 7 600, 74034, 496 #### [facility] [place] [address] Fuse Maker: Madhav Ornelas MD Protein [Mass/Vol] 6.6 g/dL Normal 6.1-8.1 [facility] Comment on above: Performed By: #### 7 600, 04303, 496 #### [facility] [place] [address] Fuse Maker: Madhav Ornelas MD Sodium [Moles/Vol] 141 mmol/L Normal 135-146 [facility] Comment on above: Performed By: #### 7 600, 22014, 496 #### [facility] [place] [address] Fuse Maker: Madhav Ornelas MD Urea nitrogen [Mass/Vol] 11 mg/dL Normal 7-25 [facility] Comment on above: Performed By: #### 7 600, 98474, 496 #### [facility] of [place] [address] Fuse Maker: Madhav Ornelas MD HEMOGLOBIN A1con 05-23-2021 HEMOGLOBIN A1c 6.2 % of total Hgb High <5.7 [facility] Comment on above: Result Comment: For someone without known diabetes, a hemoglobin A1c value between 5.7% and 6.4% is consistent with prediabetes and should be confirmed with a follow-up test. For someone with known diabetes, a value <7% indicates that their diabetes is well controlled. A1c targets should be individualized based on duration of diabetes, age, comorbid conditions, and other considerations. This assay result is consistent with an increased risk of diabetes. Currently, no consensus exists regarding use of hemoglobin A1c for diagnosis of diabetes for children. Performed By: #### 7 600, 81132, 496 #### [facility] [address], [address] [place] [address] Fuse Maker: Madhav Ornelas MD LIPID PANEL, [facility] 04-27 Cholesterol [Mass/Vol] 303 mg/dL High <200 [facility] Comment on above: Order Comment: FASTI NG:YES FASTING: YES Performed By: #### 7 600, 68355, 496 #### [facility] [address], [address] [place] [address] Fuse Maker: Madhav Ornelas MD Cholesterol in HDL [Mass/Vol] 88 mg/dL Normal > OR = 50 [facility] Comment on above: Order Comment: FASTI NG:YES FASTING: YES Performed By: #### 7 600, 94878, 496 #### [facility] [address], [address] [place] [address] Fuse Maker: Madhav Ornelas MD Cholesterol in LDL [Mass/Vol] 193 mg/dL High [facility] Comment on above: Order Comment: FASTI NG:YES FASTING: YES Result Comment: LDL- C levels > or = 190 mg/dL may indicate familial hypercholesterolemia (FH). Clinical assessment and measurement of blood lipid levels should be considered for all first degree relatives of patients with an FH diagnosis. For questions about testing for familial hypercholesterolemia, please call [employer] at [phone]. Iza Herbert, et al. J National Lipid Association Recommendations for Patient-Centered Management of Dyslipidemia: Part 1 Journal of Clinical Lipidology 2015;9(2), 129-169. Reference range: <100 Desirable range <100 mg/dL for primary prevention; <70 mg/dL for patients with CHD or diabetic patients with > or = 2 CHD risk factors. LDL-C is now calculated using the Armida calculation, which is a validated novel method providing better accuracy than the Friedewald equation in the estimation of LDL-C. Ash CRAWLEY et al. LISBETH. 2013;310(19): 5770-6983 (http://education.FAB BAG/faq/NSF328) Performed By: #### 7 600, 87873, 496 #### [facility] [address], [address] [place] [address] Fuse Maker: Madhav Ornelas MD Cholesterol.total/ Cholesterol in HDL [Mass ratio] 3.4 {ratio} Normal <5.0 [facility] Comment on above: Order Comment: FASTI NG:YES FASTING: YES Performed By: #### 7 600, 84539, 496 #### [facility] [address], [address] [place] [address] Fuse Maker: Madhav Ornelas MD NON HDL CHOLESTEROL 215 mg/dL (calc) High <130 [facility] Comment on above: Order Comment: FASTI NG:YES FASTING: YES Result Comment: For patients with diabetes plus 1 major ASCVD risk factor, treating to a non-HDL-C goal of <100 mg/dL (LDL-C of <70 mg/dL) is considered a therapeutic option. Performed By: #### 7 600, 03051, 496 #### [facility] [address], [address] [place] [address] Fuse Maker: Madhav Ornelas MD Triglyceride [Mass/Vol] 97 mg/dL Normal <150 [facility] Comment on above: Order Comment: FASTI NG:YES FASTING: YES Performed By: #### 7 600, 69584, 496 #### [facility] [place] [address] Fuse Maker: Madhav Ornelas MD MG MAMM SCREEN 3D BALJIT CADon 04-20-2021 MG MAMM SCREEN 3D BALJIT CAD Patient: SEVERIANO ROBERSON Exam Date: 04/20/2021 : 1955 Gender:F Ordering : DR LILIANA FALCON Admission #: [id number] Family : Order #: [id number] CLICK HERE TO VIEW EXAM RADIOLOGY REPORT PROCEDURE: MAMMOGRAM SCREENING 3D BILATERAL CAD COMPARISON: MG MAMM SCREEN BALJIT W CAD, 01/14/2020. MG MAMM SCREEN BALJIT W CAD, 06/05/2018. INDICATIONS: Screening mammography Calculator Name NCI Breast Cancer Risk Assessment Tool 5 Year Breast Cancer Risk 1.70% Lifetime Breast Cancer Risk 5.50% Personal Breast Cancer No Personal Ovarian Cancer No Treatments None Family Cancers Mother with brain cancer at age 57; Sister with lymphoma cancer at age 19; Sister with uterine cancer at age 40. LOCATION: [facility] BREAST COMPOSITION: Scattered areas fibroglandular density. FINDINGS: DIAGNOSTIC CATEGORY 2--BENIGN FINDING: RIGHT BREAST: No significant suspicious finding. Scattered benign-appearing lymph nodes are present. No significant change has occurred. LEFT BREAST: No significant suspicious finding. No significant change has occurred. RECOMMENDATIONS: ROUTINE MAMMOGRAM AND CLINICAL EVALUATION IN 12 MONTHS. PLEASE NOTE: A NORMAL MAMMOGRAM DOES NOT EXCLUDE THE POSSIBILITY OF BREAST CANCER. A CLINICALLY SUSPICIOUS PALPABLE LUMP SHOULD BE BIOPSIED. Dictated by: Mark Rosales M.D. on 04/20/2021 at 10:46 Approved by: Mark Rosales M.D. on 04/20/2021 at 10:56 Normal [facility] ALBUMIN, RANDOM URINE W/CREA ISABELLmaurice 11-11-2020 ALBUMIN, URINE 1.2 mg/dL Normal See Note: [facility] Comment on above: Result Comment: Refe rence Range: Reference Range Not established Performed By: #### 1 0231, 6160, 8117 #### [facility] [address] [address] Fuse Maker: Madhav Ornelas MD #### 28824, 32762 #### [facility] [place] [address] Fuse Maker: Madhav Ornelas MD ALBUMIN/CREATININE RATIO, RANDOM URINE 5 mcg/mg creat Normal <30 [facility] Comment on above: Result Comment: The ADA defines abnormalities in albumin excretion as follows: Albuminuria Category Result (mcg/mg creatinine) Normal to Mildly increased <30 Moderately increased 30-299 Severely increased > OR = 300 The ADA recommends that at least two of three specimens collected within a 3-6 month period be abnormal before considering a patient to be within a diagnostic category. Performed By: #### 1 230, 7599, 17 #### [facility] [address], [address] [place] [address] Fuse Maker: Madhav Ornelas MD #### 40446, 67497 #### [facility] [address] Fuse Maker: Madhav Ornelas MD Creatinine (U) [Mass/Vol] 228 mg/dL Normal 20-275 [facility] Comment on above: Performed By: #### 1 230, 7599, 17 #### [facility] [place] [address] Fuse Maker: Madhav Ornelas MD #### 90099, 84531 #### [facility], [address] [place] [address] Fuse Maker: Madhav Ornelas MD [facility] METABOLIC PANE [facility] 11-11-2020 Albumin [Mass/Vol] 4.3 g/dL Normal 3.6-5.1 [facility] Comment on above: Performed By: #### 1 230, 7599, 17 #### [facility] [place] [address] Fuse Maker: Madhav Ornelas MD #### 71120, 59281 #### [facility] [address] Fuse Maker: Madhav Ornelas MD Albumin/Globulin [Mass ratio] 1.8 {ratio} Normal 1.0-2.5 [facility] Comment on above: Performed By: #### 1 230, 7599, 6517 #### [facility] [address], [address] [place] [address] Fuse Maker: Madhav Ornelas MD #### 61962, 56803 #### [facility]-[address], [address] [place] [address] Fuse Maker: Madhav Ornelas MD ALP [Catalytic activity/Vol] 107 U/L Normal 37-153 [facility] Comment on above: Performed By: #### 1 0231, 7600, 6517 #### [facility] [address], [address] [place] [address] Fuse Maker: Madhav Ornelas MD #### 73422, 60566 #### [facility]-[address], [address] [place] [address] Fuse Maker: Madhav Ornelas MD ALT [Catalytic activity/Vol] 14 U/L Normal 6-29 [facility] Comment on above: Performed By: #### 1 0231, 1520, 6517 #### [facility] [address], [address] [place] [address] Fuse Maker: Madhav Ornelas MD #### 34828, 45018 #### [facility]-[address], [address] [place] [address] Fuse Maker: Madhav Ornelas MD AST [Catalytic activity/Vol] 16 U/L Normal 10-35 [facility] Comment on above: Performed By: #### 1 0231, 0, 9517 #### [facility] [address], [address] [place] [address] Fuse Maker: Madhav Ornelas MD #### 34995, 87354 #### [facility]-[address], [address] [place] [address] Fuse Maker: Madhav Ornelas MD Bilirubin [Mass/Vol] 0.4 mg/dL Normal 0.2-1.2 [facility] Comment on above: Performed By: #### 1 0231, 7600, 6517 #### [facility] [address], [address] [place] [address] Fuse Maker: Madhav Ornelas MD #### 36434, 29753 #### [facility], [address] [place] [address] Fuse Maker: Madhav Ornelas MD BUN/CREATININE RATIO NOT APPLICABLE Normal 6-22 [facility] Comment on above: Performed By: #### 1 0231, 0, 6517 #### [facility] [address], [address] [place] [address] Fuse Maker: Madhav Ornelas MD #### 60025, 34275 #### [facility]-[address], [address] [place] [address] Fuse Maker: Madhav Ornelas MD Calcium [Mass/Vol] 9.6 mg/dL Normal 8.6-10.4 [facility] Comment on above: Performed By: #### 1 023, 7599, 6517 #### [facility] [address], [address] [place] [address] Fuse Maker: Madhav Ornelas MD #### 97787, 11688 #### [facility] [address] Fuse Maker: Madhav Ornelas MD Chloride [Moles/Vol] 105 mmol/L Normal 98-110 [facility] Comment on above: Performed By: #### 1 023, 7599, 6517 #### [facility] [address], [address] [place] [address] Fuse Maker: Madhav Ornelas MD #### 83020, 84671 #### [facility]-[address], [address] [place] [address] Fuse Maker: Madhav Ornelas MD CO2 [Moles/Vol] 29 mmol/L Normal 20-32 [facility] Comment on above: Performed By: #### 1 0231, 0, 6517 #### [facility] [facility] [address], [address] [place] [address] Fuse Maker: Madhav Ornelas MD #### [id number], [id number] #### [facility] [address] Fuse Maker: Madhav Ornelas MD Creatinine [Mass/Vol] 0.94 mg/dL Normal 0.50-0.99 [facility] Comment on above: Result Comment: For patients >49 years of age, the reference limit for Creatinine is approximately 13% higher for people identified as -Jordanian. Performed By: #### 1 230, 7599, 6517 #### [facility] [address], [address] [place] [address] Fuse Maker: Madhav Ornelas MD #### [id number], [id number] #### [facility] [address] Fuse Maker: Madhav Ornelas MD eGFR NON-AFR. NEPALESE 63 mL/min/1.73m2 Normal > OR = 60 [facility] Comment on above: Performed By: #### 1 230, 7599, 6517 #### [facility] [address], [address] [place] [address] Fuse Maker: Madhav Ornelas MD #### [id number], [id number] #### [facility] [address] Fuse Maker: Madhav Ornelas MD GFR/1.73 sq M.predicted among blacks MDRD (S/P/Bld) [Vol rate/Area] 73 mL/min/{1.73_m2} Normal > OR = 60 [facility] Comment on above: Performed By: #### 1 230, 7599, 6517 #### [facility] [address], [address] [place] [address] Fuse Maker: Madhav Ornelas MD #### [id number], [id number] #### [facility] [address] Fuse Maker: Madhav Ornelas MD Globulin (S) [Mass/Vol] 2.4 g/dL Normal 1.9-3.7 [facility] Comment on above: Performed By: #### 1 230, 7599, 6517 #### [facility] [address], [address] [place] [address] Fuse Maker: Madhav Ornelas MD #### [id number], [id number] #### [facility] [address] Fuse Maker: Madhav Ornelas MD Glucose [Mass/Vol] 100 mg/dL High 65- [facility] Comment on above: Result Comment: Fasting reference interval For someone without known diabetes, a glucose value between 100 and 125 mg/dL is consistent with prediabetes and should be confirmed with a follow-up test. Performed By: #### 1 230, 7599, 17 #### [facility] [address], [address] [place] [address] Fuse Maker: Madhav Ornelas MD #### [id number], [id number] #### [facility] [address] Fuse Maker: Madhav Ornelas MD Potassium [Moles/Vol] 4.0 mmol/L Normal 3.5-5.3 [facility] Comment on above: Performed By: #### 1 230, 7599, 17 #### [facility] [place] [address] Fuse Maker: Madhav Ornelas MD #### [id number], [id number] #### [facility] [address] Fuse Maker: Madhav Ornelas MD Protein [Mass/Vol] 6.7 g/dL Normal 6.1-8.1 [facility] Comment on above: Performed By: #### 1 230, 7599, 6517 #### [facility] [address], [address] [place] [address] Fuse Maker: Madhav Ornelas MD #### [id number], [id number] #### [facility], [address] [place] [address] Fuse Maker: Madhav Ornelas MD Sodium [Moles/Vol] 142 mmol/L Normal 135-146 [facility] Comment on above: Performed By: #### 1 0231, 7600, 6517 #### [facility] [address], [address] [place] [address] Fuse Maker: Madhav Ornelas MD #### [id number], 69090 #### [facility], [address] [place] [address] Fuse Maker: Madhav Ornelas MD Urea nitrogen [Mass/Vol] 13 mg/dL Normal 7-25 [facility] Comment on above: Performed By: #### 1 0231, 7600, 6517 #### [facility] [address], [address] [place] [address] Fuse Maker: Madhav Ornelas MD #### [id number], [id number] #### [facility], [address] [place] [address] Fuse Maker: Madhav Ornelas MD IMAGE-GUIDED PAP W/AGE BASED SCR PROTOCOLSon 11-11-2020 COMMENT Normal [facility] Comment on above: Result Comment: This order for age-based cervical cancer and STI screening follows ACOG guidelines(PB 168, 140, VJX727). See individual assays for performing site location. Performed By: #### 1 0231, 7600, 6517 #### [facility] [address], [address] [place] [address] Fuse Maker: Madhav Ornelas MD #### [phone], [id number] #### [facility], [address] [place] [address] Fuse Maker: Madhav Ornelas MD Result Comment: EXPL ANATORY NOTE: The Pap is a screening test for cervical cancer. It is not a diagnostic test and is subject to false negative and false positive results. It is most reliable when a satisfactory sample, regularly obtained, is submitted with relevant clinical findings and history, and when the Pap result is evaluated along with historic and current clinical information. NO COLLECTION DATE RECEIVED. WE HAVE USED THE DATE THE SPECIMEN WAS RECEIVED BY THIS LABORATORY THE COLLECTION DATE. IF THIS IS INCORRECT, PLEASE CONTACT CLIENT SERVICES. PHONE NUMBER: [phone] LIPID PANEL, STANDARDon 10-27 Cholesterol [Mass/Vol] 234 mg/dL High <200 [facility] Comment on above: Performed By: #### 1 0231, 7600, 6517 #### [facility] [address], [address] [place] [address] Fuse Maker: Madhav Ornelas MD #### [id number], [id number] #### [facility] [address] Fuse Maker: Madhav Ornelas MD Cholesterol in HDL [Mass/Vol] 100 mg/dL Normal > OR = 50 [facility] Comment on above: Performed By: #### 1 0231, 0, 6517 #### [facility] [address], [address] [place] [address] Fuse Maker: Madhav Ornelas MD #### [id number], [phone] #### [facility] [address] Fuse Maker: Madhav Ornelas MD Cholesterol in LDL [Mass/Vol] 112 mg/dL High [facility] Comment on above: Result Comment: Refe rence range: <100 Desirable range <100 mg/dL for primary prevention; <70 mg/dL for patients with CHD or diabetic patients with > or = 2 CHD risk factors. LDL-C is now calculated using the Armida calculation, which is a validated novel method providing better accuracy than the Friedewald equation in the estimation of LDL-C. Ash CRAWLEY et al. LISBETH. 2013;310(19): 7024-8145 (http://education.[employer]/faq/JZF703) Performed By: #### 1 0231, 7600, 6517 #### [facility] [address], [address] [place] [address] Fuse Maker: Madhav Ornelas MD #### [phone], [id number] #### [facility] [address] Fuse Maker: Madhav Ornelas MD Cholesterol.total/ Cholesterol in HDL [Mass ratio] 2.3 {ratio} Normal <5.0 [facility] Comment on above: Performed By: #### 1 230, 7599, 17 #### [facility] [address], [address] [place] [address] Fuse Maker: Madhav Ornelas MD #### [id number], [id number] #### [facility], [address] [place] [address] Fuse Maker: Madhav Ornelas MD NON HDL CHOLESTEROL 134 mg/dL (calc) High <130 [facility] Comment on above: Result Comment: For patients with diabetes plus 1 major ASCVD risk factor, treating to a non-HDL-C goal of <100 mg/dL (LDL-C of <70 mg/dL) is considered a therapeutic option. Performed By: #### 1 230, 7599, 17 #### [facility] [address], [address] [place] [address] Fuse Maker: Madhav Ornelas MD #### [phone], 50662 #### [facility], [address] [place] [address] Fuse Maker: Madhav Ornelas MD Triglyceride [Mass/Vol] 110 mg/dL Normal <150 [facility] Comment on above: Performed By: #### 1 230, 7599, 17 #### [facility] [address], [address] [place] [address] Fuse Maker: Madhav Ornelas MD #### [id number], [id number] #### [facility], [address] [place] [address] Fuse Maker: Madhav Ornelas MD THINPREP TIS PAPon CLINICAL INFORMATION: Normal [facility] Comment on above: Result Comment: Rout ine exam Performed By: #### 1 230, 7599, 65 #### [facility] [address], [address] [place] [address] Fuse Maker: Madhav Ornelas MD #### [phone], 65579 #### [facility], [address] [place] [address] Fuse Maker: Madhav Ornelas MD COMMENT: Normal [facility] Comment on above: Result Comment: This Pap test has been evaluated with computer assisted technology. Parabasal cells in smears that lack maturation due to atrophy or other hormonal reasons cannot be differentiated from transformation zone cells. Accordingly, presence or absence of endocervical or transformation zone components cannot be reported in this patient. Performed By: #### 1 230, 7599, 6516 #### [facility] [address], [address] [place] [address] Fuse Maker: Madhav Ornelas MD #### [id number], 60609 #### [facility] [address] Fuse Maker: Madhav Ornelas MD FILTER MACHINE OPERATOR: Normal [facility] Comment on above: Result Comment: BGG, SCT(ASCP) CT screening location: [place] [address]. Performed By: #### 1 230, 7599, 6516 #### [facility] [address], [address] [place] [address] Fuse Maker: Madhav Ornelas MD #### [id number], [phone] #### [facility], [address] [place] [address] Fuse Maker: Madhav Ornelas MD INTERPRETATION/RES ULT: Normal [facility] Comment on above: Result Comment: Nega tive for intraepithelial lesion or malignancy. Atrophic pattern; predominantly parabasal cells Performed By: #### 1 0231, 7600, 6517 #### [facility] [address], [address] [place] [phone] Fuse Maker: Madhav Ornelas MD #### [phone], 64737 #### [facility], [address] [place] [phone] Fuse Maker: Madhav Ornelas MD LMP: Normal [facility] Comment on above: Result Comment: None given Performed By: #### 1 0231, 7600, 6517 #### [facility] [address], [address] [place] [phone] Fuse Maker: Madhav Ornelas MD #### [id number], 59491 #### [facility], [address] [place] [phone] Fuse Maker: Madhav Ornelas MD PREV. BX: Normal [facility] Comment on above: Result Comment: None given Performed By: #### 1 0231, 7600, 6517 #### [facility] [address], [address] [place] [phone] Fuse Maker: Madhav Ornelas MD #### [id number], 45710 #### [facility], [address] [place] [phone] Fuse Maker: Madhav Ornelas MD PREV. PAP: Normal [facility] Comment on above: Result Comment: None given Performed By: #### 1 0231, 7600, 6517 #### [facility] [address], [address] [place] [phone] Fuse Maker: Madhav Ornelas MD #### [phone], [id number] #### [facility], [address] [place] [phone] Fuse Maker: Madhav Ornelas MD REVIEW FILTER MACHINE OPERATOR: Normal [facility] Comment on above: Result Comment: JEH, CT(ASCP) CT screening location: [place] [address]. Performed By: #### 1 0231, 7600, 6517 #### [facility] [address], [address] [place] [address] Fuse Maker: Madhav Ornelas MD #### [id number], [phone] #### [facility], [address] [place], [place] [id number] Fuse Maker: Madhav Ornelas MD SOURCE: Normal [facility] Comment on above: Result Comment: None given Performed By: #### 1 0231, 7600, 6517 #### [facility] [address], [address] [place] [address] Fuse Maker: Madhav Ornelas MD #### [id number], [phone] #### [facility], [address] [place] [address] Fuse Maker: Madhav Ornelas MD STATEMENT OF ADEQUACY: Normal [facility] Comment on above: Result Comment: SATI SFACTORY FOR EVALUATION Performed By: #### 1 0231, 7600, 6517 #### [facility] [address], [address] [place] [address] Fuse Maker: Madhav Ornelas MD #### [id number], [phone] #### [facility], [address] [place] [address] Fuse Maker: Madhav Ornelas MD Vital Signs Date Time Vital Sign Value Performing Clinician Facility 12-18-2023 15:16-0400 Body height 160 cm Josue Church DPM Work Phone: [facility] 12-18-2023 15:16-0400 Body mass index (BMI) [Ratio] 36.31 kg/m2 Josue Church DPM Work Phone: [facility] 12-18-2023 15:16-0400 Body weight 92.99 kg Josue Church DPM Work Phone: [facility] 12-10-2023 09:06-0400 Body height 160 cm Yasmine Villa APRN-ALEKSANDR Work Phone: [facility] [employer] [facility] 12-10-2023 09:06-0400 Body mass index (BMI) [Ratio] 37.06 kg/m2 Yasmine Villa APRN-ALEKSANDR Work Phone: [facility] [employer] [facility] 12-10-2023 09:06-0400 Body temperature 97.9 [degF] Yasmine Villa APRN-ALEKSANDR Work Phone: [facility] [employer] [facility] 12-10-2023 09:06-0400 Body weight 94.89 kg Yasmine Villa APRN-ALEKSANDR Work Phone: [facility] [employer] [facility] 12-10-2023 09:06-0400 Diastolic blood pressure 70 mm[Hg] Yasmine Villa APRN-ALEKSANDR Work Phone: [facility] [employer] [facility] 12-10-2023 09:06-0400 Heart rate 55 /min Yasmine Villa APRN-ALEKSANDR Work Phone: [facility] [employer] [facility] 12-10-2023 09:06-0400 Respiratory rate 18 /min Yasmine Villa APRN-ALEKSANDR Work Phone: [facility] [employer] [facility] 12-10-2023 09:06-0400 SaO2% (BldA) [Mass fraction] 98 % Yasmine Villa APRN-ALEKSANDR Work Phone: [facility] [employer] [facility] 12-10-2023 09:06-0400 Systolic blood pressure 120 mm[Hg] Yasmine Villa APRN-ALEKSANDR Work Phone: [facility] [employer] [facility] 04-12-2023 09:19-0500 Diastolic blood pressure 74 mm[Hg] Jose Roberto CASEY [facility] 04-12-2023 09:19-0500 Systolic blood pressure 144 mm[Hg] Jose Roberto CASEY [facility] 04-12-2023 09:10-0500 Body height 160 cm Jose Roberto Nienberg PA Work Phone: [facility] [employer] [facility] 04-12-2023 09:10-0500 Body mass index (BMI) [Ratio] 35.61 kg/m2 Jose Roberto Nienberg PA Work Phone: [facility] [employer] [facility] 04-12-2023 09:10-0500 Body weight 91.17 kg Jose Roberto Nienberg PA Work Phone: [facility] [employer] 04-12-2023 09:10-0500 Heart rate 66 /min Jose Roberto Nienberg PA Work Phone: [facility] [employer] 04-12-2023 09:10-0500 Respiratory rate 18 /min Jose Roberto Nienberg PA Work Phone: [facility] [employer] [facility] 04-12-2023 09:10-0500 SaO2% (BldA) [Mass fraction] 98 % Jose Roberto Nienberg PA Work Phone: [facility] [employer] [facility] 03-01-2023 08:11-0500 Diastolic blood pressure 78 mm[Hg] Jose Roberto Nienberg PA Work Phone: [facility] [employer] [facility] 03-01-2023 08:11-0500 Heart rate 57 /min Jose Roberto Nienberg PA Work Phone: [facility] [employer] [facility] 03-01-2023 08:11-0500 Respiratory rate 20 /min Jose Roberto Nienberg PA Work Phone: [facility] [employer] [facility] 03-01-2023 08:11-0500 Systolic blood pressure 144 mm[Hg] Jose Roberto Nienberg PA Work Phone: [facility] [employer] [facility] 02-15-2023 09:48-0500 Body height 160 cm Jose Roberto Nienberg PA [facility] 02-15-2023 09:48-0500 Body mass index (BMI) [Ratio] 34.72 kg/m2 Jose Roberto Nienberg PA [facility] 02-15-2023 09:48-0500 Body weight 88.91 kg Jose Roberto Nienberg PA Work Phone: [employer] 02-15-2023 09:48-0500 Diastolic blood pressure 69 mm[Hg] Jose Roberto CASEY Work Phone: [employer] 02-15-2023 09:48-0500 Heart rate 62 /min Jose Roberto Colby PA Work Phone: [employer] 02-15-2023 09:48-0500 SaO2% (BldA) [Mass fraction] 95 % Jose Roberto Colby PA Work Phone: [employer] 02-15-2023 09:48-0500 Systolic blood pressure 149 mm[Hg] Jose Roberto Colby PA Work Phone: [employer] 01-05-2022 12:20-0500 Body height 160.02 cm Alix Tavera Other [employer] Other 01-05-2022 12:20-0500 Body mass index (BMI) [Ratio] 38.97 kg/m2 Alix Tavera Other [employer] Other 01-05-2022 12:20-0500 Body temperature 99.7 [degF] Alix Tavera Other [employer] Other 01-05-2022 12:20-0500 Body weight 99.79 kg Alix Tavera Other [employer] Other 01-05-2022 12:20-0500 Respiratory rate 18 /min Alix Tavera Other [employer] Other 01-05-2022 12:20-0500 SaO2% (BldA) [Mass fraction] 92 % Alix Tavera Other [employer] Other 09-24-2021 10:15-0400 Body height 160.02 cm Alix Tavera Other [employer] Other 09-24-2021 10:15-0400 Body temperature 99.1 [degF] Alix Tavera Other [employer] Other 09-24-2021 10:15-0400 Respiratory rate 18 /min Alix Tavera Other [employer] Other 09-24-2021 10:15-0400 SaO2% (BldA) [Mass fraction] 93 % Alix Tavear Other [employer] Other Encounters Encounter Date Encounter Type Care Provider Facility Start: 12-18-2023 End: 12-18-2023 Office outpatient new 45 minutes Josue Church DPM Work Phone: [facility] Comment on above: Plantar fasciitis (P rimary Dx); Rupture of muscle, nontraumatic; Right foot pain; Equinus contracture of right ankle Start: 12-18-2023 End: 12-18-2023 Bamboo flowsheet Josue Church DPM Work Phone: [facility] Start: 12-18-2023 End: 12-18-2023 Bamboo flowsheet Josue Church DPM Work Phone: [facility] Start: 12-10-2023 End: 12-10-2023 ambulatory YASMINE VILAL Start: 12-10-2023 End: 12-10-2023 Office outpatient visit 25 minutes Yasmine Villa GENETIC TECHNOLOGIST-SHIFT PRODUCTION ASSOCIATE Work Phone: [facility] Comment on above: 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 (CMS-HCC) (Primary Dx); Type 2 diabetes mellitus with hyperglycemia, without long-term current use of insulin ([facility]); Depressive disorder; Primary osteoarthritis of both knees; Change in color of pigmented skin lesion; Encounter for screening mammogram for malignant neoplasm of breast Start: 12-10-2023 End: 12-10-2023 ambulatory [facility] Start: 11-10-2023 End: 11-10-2023 ambulatory JANET JONES [facility] Start: 11-09-2023 End: 11-09-2023 ambulatory [facility] Start: 10-15-2023 End: 10-15-2023 ambulatory [facility] Start: 10-15-2023 End: 10-15-2023 ambulatory [facility] Start: 09-18-2023 End: 09-18-2023 ambulatory [facility] Start: 08-02-2023 End: 08-02-2023 ambulatory [facility] Start: 07-03-2023 End: 07-03-2023 ambulatory [facility] Start: 06-30-2023 End: 06-30-2023 ambulatory LAISHA ANTONIO [facility] Start: 06-29-2023 End: 06-29-2023 ambulatory [facility] Start: 06-25-2023 End: 06-25-2023 ambulatory LILIANA GALINDO [facility] Start: 06-25-2023 End: 06-25-2023 ambulatory [facility] Start: 06-21-2023 End: 06-21-2023 ambulatory [facility] Start: 04-29-2023 Refill Liliana Sandovaljing GENETIC TECHNOLOGIST-CROSS ENTERPRISE INTEGRATOR Work Phone: [facility] Start: 04-25-2023 Refill Liliana Falcon GENETIC TECHNOLOGIST-CROSS ENTERPRISE INTEGRATOR Work Phone: [facility] Comment on above: Depressive disorder; 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 ([facility]) Start: 04-20-2023 Orders Only Liliana Falcon GENETIC TECHNOLOGIST-CROSS ENTERPRISE INTEGRATOR Work Phone: [facility] Comment on above: Special screening fo r malignant neoplasm of colon (Primary Dx) Start: 04-12-2023 End: 04-12-2023 Office outpatient visit 15 minutes Jose Roberto Colby PA Work Phone: [facility] Comment on above: Localized osteoarthr itis of right knee (Primary Dx) Start: 04-12-2023 End: 04-12-2023 ambulatory [facility] Start: 03-02-2023 Refill Liliana Sandovaljing GENETIC TECHNOLOGIST-CROSS ENTERPRISE INTEGRATOR Work Phone: [facility] Start: 03-01-2023 End: 03-01-2023 Office outpatient visit 25 minutes Jose Roberto Colby PA Work Phone: [facility] Comment on above: Localized osteoarthr itis of right knee (Primary Dx) Start: 03-01-2023 End: 03-01-2023 ambulatory [facility] Start: 02-15-2023 End: 02-15-2023 ambulatory [facility] Start: 02-15-2023 End: 02-15-2023 Office outpatient visit 15 minutes Jose Roberto Colby PA Work Phone: [facility] Comment on above: Localized osteoarthr itis of right knee (Primary Dx) Start: 01-05-2022 End: 01-05-2022 ambulatory Alix Benderler Other [employer] [facility] [employer] Other Start: 01-05-2022 Office outpatient vi sit 25 minutes Alix Liang [facility] Start: 09-24-2021 End: 09-24-2021 ambulatory Alix Tavera Other [employer] Other Start: 09-24-2021 Office outpatient vi sit 25 minutes Alix Tavera [facility] Start: 04-20-2021 End: 04-21-[address] JYOTI العراقي Facility:[facility] Procedures Date Procedure Procedure Detail Performing Clinician Start: 12-18-2023 Radex foot complete minimum 3 views Josue Church DPM Work Phone: Start: 12-10-2023 Hemoglobin glycosyla rogers a1c Yasmine Villa GENETIC TECHNOLOGIST-SHIFT PRODUCTION ASSOCIATE Work Phone: Start: 06-25-2023 Adult depression scr eening assessment Yasmine Villa GENETIC TECHNOLOGIST-SHIFT PRODUCTION ASSOCIATE Work Phone: Start: 12-27-2022 Mammography Jose Roberto perez PA Work Phone: Start: 12-11-2022 Adult depression scr eening assessment Jose Roberto CASEY Work Phone: Start: 07-13-2022 Diabetic retinal eye exam Jose Roberto CASEY Work Phone: Start: 12-02-2021 Colonoscopy Jose Roberto CASEY Work Phone: Plan of Treatment Date Care Activity Detail Author Start: 12-03-2031 Screening for malign ant neoplasm of colon [facility] Start: 09-23-2025 DTaP,Tdap and Td Vaccines (2 - Td or Tdap) DTaP,Tdap and Td Vaccines (2 - Td or Tdap) [facility] Start: 12-09-2024 Adult BMI Screening Adult BMI Screen ing [facility] Start: 12-09-2024 Tobacco Screening Tobacco Screening [facility] Start: 10-14-2024 Adult BMI Follow Up Plan Adult BMI F ollow Up Plan [facility] Start: 06-24-2024 Depression Screening Depression Scre ening [facility] Start: 06-24-2024 Diabetic foot examination Diabetic Foot Exam [facility] Start: 06-24-2024 Fall Risk Screening Fall Risk Screen ing [facility] Start: 06-09-2024 End: 06-09-2024 Patient encounter procedure 06/09/2024 8:20 AM EDT Office Visit [facility] [address] [place] [id number] Yasmine Villa, GENETIC TECHNOLOGIST-SHIFT PRODUCTION ASSOCIATE [address] [place] [phone] [facility] Start: 04-12-2024 Adult BMI Screening Adult BMI Screen ing [facility] Start: 04-12-2024 Tobacco Screening Tobacco Screening [facility] Start: 03-01-2024 Tobacco Screening Tobacco Screening [facility] Start: 02-16-2024 Adult BMI Screening Adult BMI Screen ing [facility] Start: 2024 End: 2024 Patient encounter procedure 2024 3:15 PM EST Office Visit [facility] [address] [place] [address] Josue Church, DAVIDM [address] [place] [address] [facility] Start: 01-05-2024 Tobacco Screening Tobacco Screening [facility] Start: 12-28-2023 Screening for malign ant neoplasm of breast Mammogram [facility] Start: 12-18-2023 End: 12-18-2023 Patient encounter procedure 12/18/2023 3:15 PM EDT Office Visit [facility] [address] [place] [id number] Josue hCurch, DAVIDM [address] [place] [address] Arrived [facility] Comment on above: Arrived Start: 12-12-2023 Adult BMI Follow Up Plan Adult BMI F ollow Up Plan [facility] Start: 12-12-2023 Depression Screening Depression Scre ening [facility] Start: 12-12-2023 Fall Risk Screening Fall Risk Screen ing [facility] Start: 12-10-2023 End: 12-09-2024 DBT Breast - bilateral screening Mammography screening bilateral with CAD Imaging Routine Encounter for screening mammogram for malignant neoplasm of breast Expected: 12/10/2023, Expires: 12/09/2024 [facility] Comment on above: Expected: 12/10/2023 , Expires: 12/09/2024 Start: 12-10-2023 Medicare Annual Well ness Visit Medicare Annual Wellness Visit [facility] Comment on above: Postponed from 01/15 (Patient Refused) Start: 10-28-2023 Influenza vaccination Influenza Vacc ine (#1) [facility] Start: 07-14-2023 Glaucoma screening Diabetic Op hthalmology Exam [facility] Start: 06-25-2023 End: 06-25-2023 Patient encounter procedure 06/25/2023 8:00 AM EDT Office Visit [facility] - [facility] Medicine [address] [place] [address] Liliana Falcon, GENETIC TECHNOLOGIST-CROSS ENTERPRISE INTEGRATOR [address] [place] [address] [facility] Start: 06-03-2023 Administration of varicella zoster vaccine Zoster (Shingles) Vaccine (2 of 3) [facility] Comment on above: Postponed from 04/02 (Insurance / Financial) Start: 05-31-2023 Diabetic foot examination Diabetic Foot Exam [facility] Start: 03-29-2023 End: 03-29-2023 Patient encounter procedure 03/29/2023 9:30 AM EST Office Visit [facility] [address] [place] [id number] Jose Roberto Colby PA [address] [facility], [address] [place], [place] [id number] [facility] Start: 11-03-2022 Screening for malign ant neoplasm of colon FIT-DNA [facility] Start: 01-23-2022 Pneumococcal Vaccine : 65+ Years (3 of 3 - PPSV23 or PCV20) Pneumococcal Vaccine: 65+ Years (3 of 3 - PPSV23 or PCV20) [facility] Start: 04-02-2013 Administration of varicella zoster vaccine Zoster (Shingles) Vaccine (2 of 3) [facility] Start: [facility] Screening for malign ant neoplasm of breast Mammogram [facility] Start: 1955 Screening for malign ant neoplasm of colon [facility] End: 12-09-2024 CBC W Auto Differential panel - Blood CBC auto differential Lab Routine 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 ([facility]) 1 Occurrences starting 12/10/2023 until 12/09/2024 [facility] [employer] [facility] Comment on above: 1 Occurrences starti ng 12/10/2023 until 12/09/2024 Cologuard [facility] Cologuar d [facility] Lab Routine Special screening for malignant neoplasm of colon Ordered: 04/20/2023 [facility] Work Phone: Comment on above: Ordered: 04/20/2023 End: 12-09-2024 Comprehensive metabolic 2000 panel - Serum or Plasma Comprehensive metabolic panel Lab Routine 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 ([facility]) 1 Occurrences starting 12/10/2023 until 12/09/2024 [facility] Work Phone: Comment on above: 1 Occurrences starti ng 12/10/2023 until 12/09/2024 Destruction neurolyt ic agt genicular nerve w/img RADIOFREQUENCY ABLATION GENICULAR Localized osteoarthritis of right knee [facility] End: 12-09-2024 Lipid 1996 panel - Serum or Plasma Lipid profile Lab Routine 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 ([facility]) 1 Occurrences starting 12/10/2023 until 12/09/2024 [facility] [employer] Comment on above: 1 Occurrences starti ng 12/10/2023 until 12/09/2024 End: 12-09-2024 Microalbumin - Albumin: Creatinine Urine Ratio Microalbumin - Albumin: Creatinine Urine Ratio Lab Routine 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 ([facility]) 1 Occurrences starting 12/10/2023 until 12/09/2024 [facility] [employer] Comment on above: 1 Occurrences starti ng 12/10/2023 until 12/09/2024 End: 12-09-2024 Thyrotropin [Units/volume] in Serum or Plasma TSH Lab Routine 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 ([facility]) 1 Occurrences starting 12/10/2023 until 12/09/2024 [facility] Comment on above: 1 Occurrences starti ng 12/10/2023 until 12/09/2024 Immunizations Immunization Date Immunization Notes Care Provider Fa [facility] 11-23-2020 Influenza, High-dose , Quadrivalent Jose Roberto CASEY Work Phone: [facility] 11-23-2020 influenza virus vacc ine, unspecified formulation Josue Church DPM Work Phone: [facility] 05-18-2020 COVID-19, mRNA, LNP- S, PF, 30mcg/0.3mL Dose Jose Roberto CASEY Work Phone: [facility] 05-11-2020 COVID-19, mRNA, LNP- S, PF, 30mcg/0.3mL Dose Jose Roberto CASEY Work Phone: [facility] 04-27-2020 COVID-19, mRNA, LNP- S, PF, 30mcg/0.3mL Dose Jose Roberto CASEY Work Phone: [facility] 04-20-2020 COVID-19, mRNA, LNP- S, PF, 30mcg/0.3mL Dose Jose Roberto CASEY Work Phone: [facility] 04-24-2018 Influenza, injectabl e, Madin [place] Canine Kidney, preservative free, quadrivalent Jose Roberto CASEY Work Phone: [facility] 01-23-2017 pneumococcal polysaccharide vaccine, 23 valent Jose Roberto CASEY Work Phone: [facility] 01-22-2017 Influenza, injectabl e, Madin [place] Canine Kidney, preservative free, quadrivalent Jose Roberto CASEY Work Phone: [facility] 01-03-2017 influenza, injectabl e, quadrivalent, preservative free Jose Roberto CASEY Work Phone: [facility] 02-06-2016 influenza, seasonal, injectable, preservative free Jose Roberto Colby PA Work Phone: [facility] 10-28-2015 influenza, injectabl e, quadrivalent, preservative free Jose Roberto Colby PA Work Phone: [facility] 09-24-2015 tetanus toxoid, redu petey diphtheria toxoid, and acellular pertussis vaccine, adsorbed Jose Roberto Colby PA Work Phone: [facility] 11-13-2014 influenza, seasonal, injectable, preservative free Jose Roberto Colby PA Work Phone: [facility] 04-08-2013 pneumococcal conjuga te vaccine, 13 valent Jose Roberto CASEY Work Phone: [facility] 02-05-2013 zoster vaccine, live Jose Roberto CASEY Work Phone: [facility] 02-05-2013 zoster vaccine, unspecified formulation Jose Roberto Colby PA Work Phone: [facility] 01-28-2013 zoster vaccine, live Jose Roberto Colby PA Work Phone: [facility] 11-19-2012 influenza virus vacc ine, unspecified formulation Jose Roberto CASEY Work Phone: [facility] 04-19-2009 novel influenza-H1N1 -09, preservative-free, injectable Jose Roberto CASEY Work Phone: [facility] 04-01-2004 pneumococcal polysaccharide vaccine, 23 valent Jose Roberto Colby PA Work Phone: [facility] Payers Date Payer Category Payer Private Health Insurance [employer] [id number] 2016 Unknown [facility] [employer] [id number] 2016-Present [phone] [address] [place] [address] [id number] 2016 Unknown [id number] 1959 Unknown [id number] 1953 Unknown [id number] 2.16.840.1.733601.3.579.2. 593 1953 Unknown [id number] 2.16840.1.427382.3.579.2. 128 1953 Unknown [id number] 2.16840.1.137308.3.579.2. 1286 1953 Unknown [id number] 2.16.840.1.717566.3.579.2. 128 1953 Unknown [id number] 2.16.840.1.643997.3.579.2. 128 1953 Unknown [id number] 2.16840.1.725108.3.579.2. 128 1953 Unknown [id number] 2.16.840.1.064987.3.579.2. 128 1953 Unknown [id number] 2.16.840.1.868549.3.579.2. 128 1953 Unknown [id number] 2.16.840.1.559964.3.579.2. 128 1953 Unknown [id number] 2.16840.1.468927.3.579.2. 128 1953 Unknown [id number] 2.16.840.1.461188.3.579.2. 1286 1953 Unknown [id number] 2.16.840.1.115010.3.579.2. 6 1953 Unknown [id number] 2.16.840.1.510116.3.579.2. 6 1953 Unknown [id number] 2.16.840.1.822373.3.579.2. 1286 1953 Unknown [id number] 2.16.840.1.694506.3.579.2. 1285 1953 Unknown [id number] 2.16.840.1.655867.3.579.2. 1285 1953 Unknown [id number] 2.16.840.1.577199.3.579.2. 128 1953 Unknown [id number] 2.16.840.1.102120.3.579.2. 1285 1953 Unknown [id number] 2.16.840.1.443272.3.579.2. 1285 1953 Unknown [id number] 2.16.840.1.495237.3.579.2. 1285 1953 Unknown [id number] 2.16.840.1.220398.3.579.2. 1285 1953 Unknown [id number] 2.16.840.1.134620.3.579.2. 1286 Social History Date Type Detail Facility Unknown if ever smoked [employer] Other Start: 11-23-2021 End: 09-18-2023 Sex Assigned At [facility] [employer] Start: 11-14-2021 End: 11-24-2022 Tobacco smoking status CAIS Never smoked tobacco [facility] Start: 11-14-2021 Tobacco use and exposure Smokeless tobacco non-user [facility] Start: 02-15-2023 End: 12-18-2023 Alcohol intake Lifetime non-drinker (finding) [facility] [employer] [facility] Start: 11-23-2021 End: 09-18-2023 History of Social function [facility] Do you belong to any clubs or organizations such as nondenominational groups, unions, fraternal or athletic groups, or school groups? Yes [facility] Are you now , , , , never or living with a partner? [facility] How often to you hav e a drink containing alcohol? Never [facility] How many standard dr inks containing alcohol do you have on a typical day? Patient does not drink [facility] Do you feel stress - tense, restless, nervous, or anxious, or unable to sleep at night because your mind is troubled all the time - these days [OSQ] Not at all [facility] Start: 11-23-2021 Education 12 [facility] [employer] Start: 1955 [facility] 09-24-2021 to 12-18-2023 Josue Church DPM - 12/18/2023 3:15 PM ALISON Marin - 12/10/2023 9:20 AM CARMELA Hernandez - 04/12/2023 9:00 AM CARMELA Louie - 03/01/2023 8:00 AM EST Note Date & Type Note Facility 12-18-2023 History of Present illness Narrative Images from the original note were not included. Subjective Patient ID: Severiano Roberson is a 68 y.o. female who presents for Foot Pain (Severiano Roberson 68yo New patient relates right foot pain, patient heard a pop while walking 12/09/2023. lainey Isaac, resting. Patient typically wears tennis shoes, slippers with powersteps because of Plantar Fasciitis history. BS 6.4 Yuhas 12/10/2023 SS7). HPI This is a new patient who presents to clinic with concern of right foot pain. Patient states that about a week and a half ago she was walking and felt a popping sensation on the plantar aspect of the right foot. She had immediate pain to the area and difficulty bearing weight. She had some slight swelling but no significant bruising. She states that she stayed off of it and iced her foot for about 4 days. It started to feel slightly better. She continues to have pain daily especially with walking, standing. Review of Systems Constitutional: Positive for activity change. Negative for appetite change. Respiratory: Negative for chest tightness and shortness of breath. Cardiovascular: Negative for chest pain. Musculoskeletal: Positive for arthralgias and gait problem. Skin: Negative for color change and wound. Neurological: Negative for weakness and numbness. Psychiatric/Behavioral: Negative for agitation and behavioral problems. Hematological: Does not bruise/bleed easily. Endocrine: Negative for cold intolerance and heat intolerance. Allergic/Immunologic: Negative for immunocompromised state. Past medical History Past Medical History: Diagnosis Date Asthma ([facility]) Diabetes ([facility]) Diverticulitis History of bariatric surgery 08/2017 Hyperlipidemia ([facility]) Medications Current Outpatient Medications: empagliflozin (Jardiance) 25 MG, Take 25 mg by mouth in the morning., Disp: , Rfl: losartan (Cozaar) 25 MG tablet, Take 25 mg by mouth in the morning., Disp: , Rfl: rosuvastatin (Crestor) 20 MG tablet, Take 20 mg by mouth in the morning., Disp: , Rfl: sertraline (Zoloft) 100 MG tablet, Take 100 mg by mouth in the morning., Disp: , Rfl: budesonide-formoterol (Symbicort) 160-4.5 MCG/ACT inhaler, Inhalation for 90, Disp: , Rfl: methylPREDNISolone (Medrol Dospak) 4 MG tablets, Take as directed on package., Disp: 21 tablet, Rfl: 0 Allergies Codeine and Succinylcholine Past Surgical History Past Surgical History: Procedure Laterality Date CHOLECYSTECTOMY COLONOSCOPY 5 polyps removed [place] KNEE SCOPE,DIAGNOSTIC Right 2005 Dr. Jimenez STEROID INJECTION KNEE Right 2022 3 places in knee TONSILLECTOMY TUBAL LIGATION Family History Family History Problem Relation Name Age of Onset Cancer Mother Cancer Father Objective Physical Exam Constitutional: Appearance: She is obese. Comments: Presents to clinic with antalgic gait favoring the right foot. Presents in sandals. HENT: Head: Normocephalic and atraumatic. Cardiovascular: Comments: DP, PT pulses palpable 1/4. Pulmonary: Effort: Pulmonary effort is normal. No respiratory distress. Abdominal: Palpations: There is no mass. Musculoskeletal: Cervical back: No rigidity. Comments: Weightbearing examination reveals rectus morphology. Unable to perform double heel rise test due to tenderness on the right foot. Right foot: Isolated and maximal tenderness along the medial and central bands of the plantar fascia at the mid arch. Mild edema of the right midfoot. No ecchymosis. Muscle strength 5/5 for all quadrants with tenderness on resisted inversion. Ankle dorsiflexion 0 degrees with the knee extended, flexed. Mild tenderness to the medial calcaneal tubercle. Negative heel squeeze test. Very minimal tenderness to the posterior tibial tendon and spring ligament complex. Skin: Capillary Refill: Capillary refill takes less than 2 seconds. Findings: No lesion or rash. Neurological: Mental Status: She is alert. Comments: No loss of protective sensation, gross sensation intact. Psychiatric: Mood and Affect: Mood normal. Behavior: Behavior normal. XR foot 3+ views left Imaging Result: AP, medial oblique, lateral views are weight-bearing. Small enthesophyte at the insertion of the plantar fascia. Mild joint space narrowing and periarticular osteophytes as well as subchondral sclerosis of the midfoot especially the 2nd and 3rd tarsometatarsal joints. Slight metatarsus adductus. Assessment/Plan ICD-10-CM 1. Plantar fasciitis M72.2 XR foot 3+ views left methylPREDNISolone (Medrol Dospak) 4 MG tablets 2. Rupture of muscle, nontraumatic M62.10 XR foot 3+ views left 3. Right foot pain M79.671 XR foot 3+ views left 4. Equinus contracture of right ankle M24.571 Patient examined and evaluated. Three views of the right foot taken in office and I discussed my findings. Clinical exam concerning for partial tear of the plantar fascia. Symptoms seem to be improving but she does continue to have pain on a daily basis with difficulty walking. In light of this I recommend moving forward with a Medrol Dosepak. I will hold off on meloxicam given her kidney failure stage II. I recommend ice and heat of the plantar fascia daily to help reduce inflammatory changes of the fascia. Discussed the importance of orthotic therapy. Patient wears power steps daily and I recommend that she wear these and avoid barefoot walking. Lastly I recommend home exercise program focusing on gastrocnemius contracture and intrinsic muscle strengthening. Home exercise program printed off and given to the patient today. Follow up 1 month. This note was created with the assistance of a speech recognition program. While intending to generate a timely document that accurately reflects the content of the visit, no guarantee can be provided that every grammatical or spelling mistake has been or will be identified or corrected. Thank you for your understanding. Josue Church DPM documented in this encounter [facility] 12-10-2023 History of Present illness Narrative Images from the original note were not included. [address] [place] [address] SUBJECTIVE: Patient ID: Severiano Roberson is a 68 y.o. female. Chief Complaint Patient presents with Diabetes Presents for DM follow up today. She is taking Jardiance for treatment of her DM. Tolerating well. She would like a referral to dermatology for skin check for change in lesions. Diabetes She presents for her follow-up diabetic visit. She has type 2 diabetes mellitus. Her disease course has been stable. There are no hypoglycemic associated symptoms. There are no diabetic associated symptoms. Pertinent negatives for diabetes include no chest pain. There are no hypoglycemic complications. Symptoms are stable. There are no diabetic complications. Risk factors for coronary artery disease include diabetes mellitus, dyslipidemia, family history, hypertension, obesity and post-menopausal. Current diabetic treatment includes oral agent (monotherapy). She is compliant with treatment all of the time. She is following a low fat/cholesterol and generally healthy diet. Meal planning includes avoidance of concentrated sweets. She participates in exercise intermittently. Home blood sugar record trend: Does not routinely check blood sugars. Eye exam is current. Hypertension This is a chronic problem. The current episode started more than 1 year ago. The problem is controlled. Pertinent negatives include no chest pain, palpitations or shortness of breath. There are no associated agents to hypertension. Risk factors for coronary artery disease include diabetes mellitus, dyslipidemia, family history, obesity and post-menopausal state. Past treatments include calcium channel blockers. The current treatment provides significant improvement. There are no compliance problems. Hyperlipidemia This is a chronic problem. Recent lipid tests were reviewed and are variable. Exacerbating diseases include diabetes and obesity. There are no known factors aggravating her hyperlipidemia. Pertinent negatives include no chest pain or shortness of breath. Current antihyperlipidemic treatment includes statins. The current treatment provides significant improvement of lipids. There are no compliance problems. The following portions of the patient's history were reviewed and updated as appropriate: allergies, current medications, past family history, past medical history, past social history, past surgical history and problem list. Past Surgical History: Procedure Laterality Date COLONOSCOPY 07/15/2009 COLONOSCOPY N/A 12/02/2021 Performed by Rudolph Chicas DO at [facility] 09/11/2017 INJECTION BLOCK NERVE KNEE Right Genicular - Therapeutic Right 06/29/2023 Performed by Marcel Wheeler MD at [facility] INJECTION BLOCK NERVE KNEE Right Genicular Right 12/08/2022 Performed by Marcel Wheeler MD at [facility] INJECTION BLOCK NERVE KNEE Right Genicular Right 09/15/2022 Performed by Marcel Wheeler MD at [facility] INJECTION BLOCK NERVE KNEE: right genicular Right 11/09/2023 Performed by Marcel Wheeler MD at [facility] KNEE ARTHROSCOPY Right 01/2005 OTHER SURGICAL HISTORY 10/07/2019 Repair of Left Retina TUBAL LIGATION 07/03/2000 Past Medical History: Diagnosis Date Asthma Chronic pain disorder CKD stage 2 due to type 2 diabetes mellitus ([facility]) Depression Hyperlipidemia Joint pain Migraine Neck pain Obesity Osteoarthritis of knee Osteopenia Rheumatoid arthritis ([facility]) Stage 2 chronic kidney disease due to benign hypertension Tear of meniscus of knee Visual impairment Immunization History Administered Date(s) Administered COVID-19, mRNA, LNP-S, PF, 30mcg/0.3mL Dose 04/20/2020, 04/27/2020, 05/11/2020, 05/18/2020, 11/23/2020 H1N1 Inj Preservative Free 04/19/2009 Influenza (IM) Preservative Free 11/13/2014, 02/06/2016 Influenza, High-dose, Quadrivalent 11/23/2020 Influenza, Injectable, Mdck, Preservative Free, Quad 01/22/2017, 04/24/2018 Influenza, Injectable, quadrivalent (PF) 10/28/2015, 01/03/2017 Influenza, Unspecified 11/19/2012 Pneumococcal Conjugate 13-Valent 04/08/2013 Pneumococcal Polysaccharide 04/01/2004, 01/23/2017 Tdap 09/24/2015 Zoster Live 01/28/2013, 02/05/2013 REVIEW OF SYSTEMS: Review of Systems Constitutional: Negative for chills and fever. HENT: Negative. Eyes: Negative for visual disturbance. Respiratory: Negative for chest tightness and shortness of breath. Cardiovascular: Negative for chest pain and palpitations. Gastrointestinal: Negative. Endocrine: Negative. Genitourinary: Negative for menstrual problem and pelvic pain. Musculoskeletal: Negative. Skin: Negative. Allergic/Immunologic: Negative. Neurological: Negative for syncope and facial asymmetry. Hematological: Does not bruise/bleed easily. Psychiatric/Behavioral: Negative. PHYSICAL EXAMINATION: Vitals: 12/10/23 0906 BP: 120/70 BP Site: Left Arm BP Postition: Sitting Pulse: 55 Resp: 18 Temp: 36.6 C (97.9 F) TempSrc: Oral SpO2: 98% Weight: 94.9 kg (209 lb 3.2 oz) Height: 160 cm (5' 3 ) Patient noted to have elevated BMI and the following intervention(s) were applied: encouragement to exercise. Physical Exam Vitals and nursing note reviewed. Constitutional: General: She is not in acute distress. Appearance: She is well-developed. She is not diaphoretic. HENT: Head: Normocephalic and atraumatic. Right Ear: Tympanic membrane and external ear normal. Left Ear: Tympanic membrane and external ear normal. Nose: Nose normal. Mouth/Throat: Mouth: Mucous membranes are moist. Pharynx: No oropharyngeal exudate. Eyes: General: Right eye: No discharge. Left eye: No discharge. Conjunctiva/sclera: Conjunctivae normal. Pupils: Pupils are equal, round, and reactive to light. Neck: Thyroid: No thyromegaly. Vascular: No JVD. Cardiovascular: Rate and Rhythm: Normal rate and regular rhythm. Heart sounds: Normal heart sounds. No murmur heard. No friction rub. No gallop. Pulmonary: Effort: Pulmonary effort is normal. Breath sounds: Normal breath sounds. Abdominal: General: Bowel sounds are normal. There is no distension. Palpations: Abdomen is soft. There is no mass. Tenderness: There is no abdominal tenderness. Musculoskeletal: General: Normal range of motion. Cervical back: Normal range of motion and neck supple. Lymphadenopathy: Cervical: No cervical adenopathy. Skin: General: Skin is warm and dry. Capillary Refill: Capillary refill takes less than 2 seconds. Neurological: Mental Status: She is alert and oriented to person, place, and time. Deep Tendon Reflexes: Reflexes are normal and symmetric. Psychiatric: Mood and Affect: Mood normal. Behavior: Behavior normal. Thought Content: Thought content normal. Judgment: Judgment normal. ASSESSMENT/PLAN: Severiano was seen today for diabetes. 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 - losartan (COZAAR) 25 mg tablet; Take 1 tablet (25 mg total) by mouth in the morning. Type 2 diabetes mellitus with hyperglycemia, without long-term current use of insulin ([facility]) - rosuvastatin (CRESTOR) 20 mg tablet; Take 1 tablet (20 mg total) by mouth every morning. Depressive disorder - sertraline (ZOLOFT) 100 mg tablet; Take 1 tablet (100 mg total) by mouth in the morning. Primary osteoarthritis of both knees - Disability/Handicap Placard Change in color of pigmented skin lesion - Ambulatory referral to Dermatology (Non[facility]); Future Encounter for screening mammogram for malignant neoplasm of breast - Mammography screening bilateral with CAD; Future Depression: Not at risk (06/25/2023) PHQ-2 PHQ-2 Score: 0 Mood is stable Continue sertraline 100 mg oral daily Type 2 DM A1c 6.4%. Stable Continue empagliflozin 25 mg oral daily Patient is taking statin Encourage routine home blood sugar monitoring, diet modification, and exercise regimen. Is taking statin Encourage yearly eye exams or as directed by eye provider Daily self skin foot checks TSH, CBC, CMP drawn today Microalbumin creatine ratio urine collected Mixed hyperlipidemia Lipid panel Continue rosuvastatin 20 mg oral daily HTN Controlled 120/70 Continue losartan 25 mg oral daily Body mass index is 37.06 kg/m . Patient noted to have elevated BMI and the following intervention(s) were applied: Discussed current weight today. Consider healthy food choices, portion control. Avoid sugary beverages and high concentrated sweets. Routine exercise regimen encouraged. Labs drawn in office today Mammogram ordered Declined influenza and COVID vaccines today ALL QUESTIONS ANSWERED Total time spent was 30 minutes: Preparing to see the patient (e.g., review of tests) Obtaining and/or reviewing separately obtained history Performing a medically appropriate examination and/or evaluation Counseling and educating the patient/family/caregiver Ordering medications, tests, or procedures Follow-up: 6 months Type 2 DM. Patient is overdue for Medicare wellness- schedule with ALISON Cat 12/10/23 1010 documented in this encounter [facility] 04-12-2023 History of Present illness Narrative [facility] [address] [place] [address] Patient: Severiano Roberson Sex: female : 1955 Age: 68 y.o. PCP: EFRAIN MOLINA 04/12/2023 Severiano Roberson is here for a(n) follow up for right knee pain and left hip pain. Patient brought in denial papers for Right Genicular RFA ordered at last visit. Papers were given to insurance staff member. Patient reports she has filed an appeal with her insurance and is awaiting a decision. Chief Complaint Patient presents with Hip Pain Knee Pain HPI: PT/HEP (aquatics too) 2019 with little relief Knee: 09/15/22 Rt Gen NB w/100% relief for 1 day, 90% relief continued 12/08/22 Right Gen NB 60% lasting relief Knee Pain Incident location: 2003. There was no injury mechanism. The pain is present in the right knee. The quality of the pain is described as aching. The pain is at a severity of 7/10 (increases to 9/10 with activity). The pain is moderate. The pain has been Worsening (increases w/walking) since onset. Associated symptoms include an inability to bear weight and muscle weakness (right knee). Pertinent negatives include no numbness or tingling. She reports no foreign bodies present. The symptoms are aggravated by movement and weight bearing (standing, walking, stairs, bending, lifting, twisting, pushing/pulling). She has tried acetaminophen, ice, heat and NSAIDs (HEP, ibuprofen, voltaren gel, PT(2019 aqua- [facility]), dolterra, 06/26/22 inj with ortho, MDP) for the symptoms. The treatment provided moderate relief. Hip Pain Incident onset: 2-3 months ago 2022. There was no injury mechanism. The pain is present in the left hip and right hip. The quality of the pain is described as aching. The pain is at a severity of 7/10. The pain is mild. The pain has been Improving (worse at night) since onset. Associated symptoms include an inability to bear weight and muscle weakness (right knee). Pertinent negatives include no numbness or tingling. She reports no foreign bodies present. The symptoms are aggravated by movement and weight bearing. She has tried acetaminophen, NSAIDs and ice (HEP, voltaren gel, MDP) for the symptoms. The treatment provided moderate relief. The effect of pain on patient's ADLS: Moderate Impairment. Past Medical History: Diagnosis Date Asthma Chronic pain disorder CKD stage 2 due to type 2 diabetes mellitus ([facility]) Depression Hyperlipidemia Joint pain Migraine Neck pain Obesity Osteoarthritis of knee Osteopenia Rheumatoid arthritis ([facility]) Stage 2 chronic kidney disease due to benign hypertension Tear of meniscus of knee Visual impairment Past Surgical History: Procedure Laterality Date COLONOSCOPY 07/15/2009 COLONOSCOPY N/A 12/02/2021 Performed by Rudolph Chicas DO at [facility]IC BYPASS 09/11/2017 INJECTION BLOCK NERVE KNEE Right Genicular Right 12/08/2022 Performed by Marcel Wheeler MD at [facility] INJECTION BLOCK NERVE KNEE Right Genicular Right 09/15/2022 Performed by Marcel Weheler MD at [facility] KNEE ARTHROSCOPY Right 01/2005 OTHER SURGICAL HISTORY 10/07/2019 Repair of Left Retina TUBAL LIGATION 07/03/2000 Allergies Allergen Reactions Codeine Other (See Comments) Succinylcholine Other (See Comments) and pain Family History Problem Relation Age of Onset Prostate cancer Father Hodgkin's lymphoma Sister Uterine cancer Sister Cancer Brother Malignant Lymphoma Heart attack Brother Cancer Brother Cancer Brother Social History Socioeconomic History Marital status: Spouse name: Not on file Number of children: Not on file Years of education: Not on file Highest education level: 12th grade Occupational History Not on file Tobacco Use Smoking status: Never Smokeless tobacco: Never Vaping Use Vaping Use: Never used Substance and Sexual Activity Alcohol use: Never Drug use: Never Sexual activity: Defer Partners: Male control/protection: None Other Topics Concern Not on file Social History Narrative Not on file Social Determinants of Health Financial Resource Strain: Not on file Food Insecurity: No Food Insecurity (04/12/2023) Hunger Screening Food Insecurity - Worry: Never True Food Insecurity - Inability: Never True Transportation Needs: No Transportation Needs (11/23/2021) PRAPARE - Transportation Lack of Transportation (Medical): No Lack of Transportation (Non-Medical): No Physical Activity: Sufficiently Active (11/23/2021) Exercise Vital Sign Days of Exercise per Week: 3 days Minutes of Exercise per Session: 70 min Stress: No Stress Concern Present (11/23/2021) [employer] - Occupational Stress Questionnaire Feeling of Stress : Not at all Social Connections: Socially Integrated (11/23/2021) Social Connection and Isolation Panel [NHANES] Frequency of Communication with Friends and Family: More than three times a week Frequency of Social Gatherings with Friends and Family: Twice a week Attends Denominational Services: More than 4 times per year Active Member of Clubs or Organizations: Yes Attends Club or Organization Meetings: More than 4 times per year Marital Status: Interpersonal Safety: Not At Risk (11/23/2021) Humiliation, Afraid, Rape, and Kick questionnaire Fear of Current or Ex-Partner: No Emotionally Abused: No Physically Abused: No Sexually Abused: No Housing Instability: Not on file Review of Systems Constitutional: Negative. Negative for chills, fatigue and fever. HENT: Negative. Eyes: Negative. Respiratory: Negative. Negative for cough and shortness of breath. Cardiovascular: Negative. Negative for chest pain. Gastrointestinal: Negative. Endocrine: Negative. Genitourinary: Negative. Musculoskeletal: Positive for arthralgias (Rt knee, Baljit Hips). Skin: Negative. Negative for wound. Allergic/Immunologic: Negative. Neurological: Negative. Negative for tingling, weakness and numbness. Hematological: Negative. Does not bruise/bleed easily. Psychiatric/Behavioral: Negative. Negative for suicidal ideas. Vital Signs: BP 144/74 Pulse 66 Resp 18 Ht 160 cm (5' 3 ) Wt 91.2 kg (201 lb) SpO2 98% BMI 35.61 kg/m Physical Exam: GENERAL - Healthy patient that appears stated age. HEENT - Normocephalic / Atraumatic, Extraoccular movements intact, trachea midline, thyroid within normal limits. CV - pulse regular, Warm extremities with appropriate color of nailbeds. RESP - No obvious wheezing, No Shortness of Breath, No overexertion response to exam maneuvers. COORDINATION - remains intact. PSYCH - Alert and Oriented x4, Attentive and appropriate, constitutionally normal, displays normal mood and affect per situation, answered questions appropriately during examination, demonstrated appropriate attention during discussion, demonstrated appropriate cognitive reasoning and understanding of the medical condition by asking appropriate questions regarding the diagnosis and risks/benefits/alternatives of treatment modalities. No obvious deficits in memory, reasoning, or intellect. Distal Joint Exam - Lower Extremity: SKIN - No rashes or bruising in the area of the patient s pain. EXTREMITIES - Lower extremities are warm, with minimal edema and palpable pulses. Strength is 5/5 all muscle groups of the bilateral lower extremities. There is no obvious atrophy, fasciculations, or spasms. There are no notable sensory deficits in the overlying dermatomal distributions. Gait remains normal. Examination of the Right knee reveals tenderness to palpation over the superior, inferior, lateral, and medial aspect of the knee. Some swelling is noted without significant erythema. Pain is elicited with flexion and extension of the knee both actively and passively. Some grinding is noted with these motions. There is no notable ligamental laxity or instability and drawer test is negative. Assessment/Treatment Plan: Severiano was seen today for hip pain and knee pain. Diagnoses and all orders for this visit: Localized osteoarthritis of right knee Await insurance appeal decision Follow up PRN The medications prescribed have been reviewed for medication interactions/contraindications and/or for upcoming procedures: continue current medication regimen without any changes. DISCUSSION: Treatment options discussed with patient and all questions answered to patient's satisfaction. Discussed the rules and regulations surrounding prescription of opioids and compliance at length. Failure to follow the rules and regulation will result in tapering and discontinuation of medications if applicable. Prescribed medication that requires intensive monitoring for toxicity We do not currently prescribe any controlled substance from this practice. Treatment plans discussed but not opted for at this time: Repeat Genicular nerve block injections. Patient would like to proceed with the current outlined treatment plan before moving forward with any other options. At this time it does not appear that the patient s pain is under adequate control with conservative care. Her insurance has denied request for Right Genicular RFA. Patient has filed an appeal and we are awaiting that decision. It is felt that we should continue this approach and continue to monitor these symptoms and address them again in the future if they become more problematic. This approach was discussed with the patient and they are in agreement. Xray was reviewed and used to explain the condition. OARRS: Reviewed. Scribe Statement: Scribed for and in the presence of CARMELA LOERA by Arlen Farah CNA. Provider Statement: I, CARMELA LOERA, personally performed the services described in the documentation, as scribed by Arlen Farah CNA in my presence, and it is both accurate and complete. Arlen Farah CNA 04/12/23 1139 CARMELA Loera 04/12/23 1205 documented in this encounter [facility] 03-01-2023 History of Present illness Narrative [facility] [address] [place] [address] Patient: Severiano Roberson Sex: female : 1955 Age: 68 y.o. PCP: EFRAIN MOLINA 03/01/2023 Severiano Pacheco Kobi is here for a(n) follow up. Chief Complaint Patient presents with Knee Pain HPI: PT/HEP (aquatics too) 2018 with little relief Knee: 09/15/22 Rt Gen NB w/100% relief for 1 day, 90% relief continued 12/08/22 Right Gen NB 60% lasting relief Knee Pain Incident location: 2003. There was no injury mechanism. The pain is present in the right knee. The quality of the pain is described as aching. Pain scale: 5/10 currently but increases to 9/10 with activity. The pain is moderate. The pain has been Worsening (increases w/walking) since onset. Associated symptoms include an inability to bear weight and muscle weakness (right knee). Pertinent negatives include no numbness or tingling. She reports no foreign bodies present. The symptoms are aggravated by movement and weight bearing (standing, walking, stairs, bending, lifting, twisting, pushing/pulling). She has tried acetaminophen, ice, heat and NSAIDs (HEP, ibuprofen, voltaren gel, PT(2019 aqua- [facility]), dolterra, 06/26/22 inj with ortho, MDP) for the symptoms. The treatment provided moderate relief. Hip Pain Incident onset: 2-3 months ago 2022. There was no injury mechanism. The pain is present in the left hip and right hip. The quality of the pain is described as aching. The pain is at a severity of 4/10. The pain is mild. The pain has been Improving (worse at night) since onset. Associated symptoms include an inability to bear weight and muscle weakness (right knee). Pertinent negatives include no numbness or tingling. She reports no foreign bodies present. The symptoms are aggravated by movement and weight bearing. She has tried acetaminophen, NSAIDs and ice (HEP, voltaren gel, MDP) for the symptoms. The treatment provided moderate relief. The effect of pain on patient's ADLS: Moderate Impairment. Past Medical History: Diagnosis Date Asthma Chronic pain disorder CKD stage 2 due to type 2 diabetes mellitus ([facility]) Depression Hyperlipidemia Joint pain Migraine Neck pain Obesity Osteoarthritis of knee Osteopenia Rheumatoid arthritis ([facility]) Stage 2 chronic kidney disease due to benign hypertension Tear of meniscus of knee Visual impairment Past Surgical History: Procedure Laterality Date COLONOSCOPY 07/15/2009 COLONOSCOPY N/A 12/02/2021 Performed by Rudolph Chicas DO at [facility] 09/11/2017 INJECTION BLOCK NERVE KNEE Right Genicular Right 12/08/2022 Performed by Marcel Wheeler MD at [facility] INJECTION BLOCK NERVE KNEE Right Genicular Right 09/15/2022 Performed by Marcel [facility] MD at [facility] KNEE ARTHROSCOPY Right 01/2005 OTHER SURGICAL HISTORY 10/07/2019 Repair of Left Retina TUBAL LIGATION 07/03/2000 Allergies Allergen Reactions Codeine Other (See Comments) Succinylcholine Other (See Comments) and pain Family History Problem Relation Age of Onset Prostate cancer Father Hodgkin's lymphoma Sister Uterine cancer Sister Cancer Brother Malignant Lymphoma Heart attack Brother Cancer Brother Cancer Brother Social History Socioeconomic History Marital status: Spouse name: Not on file Number of children: Not on file Years of education: Not on file Highest education level: 12th grade Occupational History Not on file Tobacco Use Smoking status: Never Smokeless tobacco: Never Vaping Use Vaping Use: Never used Substance and Sexual Activity Alcohol use: Never Drug use: Never Sexual activity: Defer Partners: Male control/protection: None Other Topics Concern Not on file Social History Narrative Not on file Social Determinants of Health Financial Resource Strain: Not on file Food Insecurity: No Food Insecurity (03/01/2023) Hunger Screening Food Insecurity - Worry: Never True Food Insecurity - Inability: Never True Transportation Needs: No Transportation Needs (11/23/2021) PRAPARE - Transportation Lack of Transportation (Medical): No Lack of Transportation (Non-Medical): No Physical Activity: Sufficiently Active (11/23/2021) Exercise Vital Sign Days of Exercise per Week: 3 days Minutes of Exercise per Session: 70 min Stress: No Stress Concern Present (11/23/2021) [employer] - Occupational Stress Questionnaire Feeling of Stress : Not at all Social Connections: Socially Integrated (11/23/2021) Social Connection and Isolation Panel [NHANES] Frequency of Communication with Friends and Family: More than three times a week Frequency of Social Gatherings with Friends and Family: Twice a week Attends Denominational Services: More than 4 times per year Active Member of Clubs or Organizations: Yes Attends Club or Organization Meetings: More than 4 times per year Marital Status: Interpersonal Safety: Not At Risk (11/23/2021) Humiliation, Afraid, Rape, and Kick questionnaire Fear of Current or Ex-Partner: No Emotionally Abused: No Physically Abused: No Sexually Abused: No Review of Systems Constitutional: Negative. Negative for chills, fatigue and fever. HENT: Negative. Eyes: Negative. Respiratory: Negative. Negative for cough and shortness of breath. Cardiovascular: Negative. Negative for chest pain and palpitations. Gastrointestinal: Negative. Endocrine: Negative. Genitourinary: Negative. Musculoskeletal: Rt knee, Baljit Hips Skin: Negative. Allergic/Immunologic: Negative. Neurological: Negative. Negative for tingling and numbness. Hematological: Negative. Psychiatric/Behavioral: Negative. Vital Signs: BP 144/78 (BP Site: Right Arm, BP Postition: Sitting) Pulse 57 Resp 20 Physical Exam: GENERAL - Healthy patient that appears stated age. HEENT - Normocephalic / Atraumatic, Extraoccular movements intact, trachea midline, thyroid within normal limits. CV - pulse regular, Warm extremities with appropriate color of nailbeds. RESP - No obvious wheezing, No Shortness of Breath, No overexertion response to exam maneuvers. COORDINATION - remains intact. PSYCH - Alert and Oriented x4, Attentive and appropriate, constitutionally normal, displays normal mood and affect per situation, answered questions appropriately during examination, demonstrated appropriate attention during discussion, demonstrated appropriate cognitive reasoning and understanding of the medical condition by asking appropriate questions regarding the diagnosis and risks/benefits/alternatives of treatment modalities. No obvious deficits in memory, reasoning, or intellect. Distal Joint Exam - Lower Extremity: SKIN - No rashes or bruising in the area of the patient s pain. EXTREMITIES - Lower extremities are warm, with minimal edema and palpable pulses. Strength is 5/5 all muscle groups of the bilateral lower extremities. There is no obvious atrophy, fasciculations, or spasms. There are no notable sensory deficits in the overlying dermatomal distributions. Gait remains antalgic. Examination of the Right knee reveals tenderness to palpation over the superior, inferior, lateral, and medial aspect of the knee. Some swelling is noted without significant erythema. Pain is elicited with flexion and extension of the knee both actively and passively. Some grinding is noted with these motions. There is no notable ligamental laxity or instability and drawer test is negative. Assessment/Treatment Plan: Severiano was seen today for knee pain. Diagnoses and all orders for this visit: Localized osteoarthritis of right knee - Case request operating room: RADIOFREQUENCY ABLATION GENICULAR: right Right Genicular Radiofrequency Ablation - under fluoroscopy It is hopeful that the described procedure will provide symptomatic pain relief. It is felt to be medically necessary noting that the patient has tried and failed more conservative modalities of therapy and this is the next most appropriate step. The procedure was described in detail to the patient as well as the potential benefits of pain reduction alongside risks of the procedure and alternatives. Risks were described as including, but not limited to bleeding, infection, nerve damage, spinal cord injury, paralysis, stroke, dural puncture headache, and medication reaction. The patient expressed understanding regarding the risks and benefits and wishes to proceed. The patient has undergone diagnostic Genicular Nerve injections targeting their knee pain. Following the injection, there was significant improvement in the patient s pain and functionality for the duration of the local anesthetic (approximately 2 hours) with return of the original symptoms after that time. For this reason, it is felt that the patient is a good candidate to undergo thermal Radio Frequency Lesioning of the Superior-medial, superior-lateral, and inferior-medial genicular nerves at 80 degrees celsius for 90 seconds. This will effectively denervate the area previously targeted with the diagnostic injection. It is noted that the procedure often requires 3-4 weeks to provide benefit, but the benefit usually lasts for approximately 1 year and can then be repeated if necessary. Patients undergoing this procedure often have mild post-procedural pain for 3-4 days which is generally relieved with application of heat and over the counter pain relievers. Follow up 4 weeks after procedure The medications prescribed have been reviewed for medication interactions/contraindications and/or for upcoming procedures: continue current medication regimen without any changes. DISCUSSION: Treatment options discussed with patient and all questions answered to patient's satisfaction. Discussed the rules and regulations surrounding prescription of opioids and compliance at length. Failure to follow the rules and regulation will result in tapering and discontinuation of medications if applicable. Prescribed medication that requires intensive monitoring for toxicity We do not currently prescribe any controlled substance from this practice. Xray was reviewed and used to explain the condition. Chronic conditions not treated during this visit that affected my overall medical decision making: Comorbidity- Obesity The patient does have a comorbid condition of obesity. This will be taken into account in that obesity will contribute to certain pain conditions. It can contribute to pain from degenerative disc disease as well as osteoarthritis of the joints. Many neuropathic symptoms are also amplified due to axial spine loading. Special benefits will also need to be given to procedures. Many procedures are technically more difficult in the light of severe obesity. I will also consider the possibility of undiagnosed obstructive sleep apnea (which often accompanies obesity) when prescribing any narcotic medications. I will weigh the risks and benefits and fully discuss them with the patient for these reasons. Comorbidity- Diabetes The patient has a history of diabetes mellitus currently managed with medications. This will need to be considered prior to any procedure that would require the injection of steroid in that the patient may experience a transient increase in glucose as a result. Additional consideration will need to be given to timing the procedure early in the morning in that the patient will need to be fasting prior to the administration of anesthesia. Every effort will be made to perform the procedure as a 1st case due to this condition. And the patient will be instructed to hold their diabetic medications on that morning. If necessary, a blood glucose test can also be performed that morning. The risks/ benefits/ and alternatives will be weighed and explained to the patient prior to any procedure. OARRS: Reviewed. Scribe Statement: Scribed for and in the presence of CARMELA LOERA by Arlen Farah CNA. Provider Statement: I, CARMELA LOERA, personally performed the services described in the documentation, as scribed by Arlen Farah CNA in my presence, and it is both accurate and complete. Arlen Farah CNA 03/01/23 0923 CARMELA Loera 03/01/23 1420 documented in this encounter [facility] 03-01-2023 Instructions Arlen Farah CNA - 03/01/2023 8:00 AM EST Radiofrequency Ablation (RFA) Radiofrequency ablation (or RFA) is a procedure used to reduce pain. An electrical current produced by a radio wave is used to heat up a small area of nerve tissue, thereby decreasing pain signals from that specific area. Which Conditions Are Treated With Radiofrequency Ablation? RFA can be used to help patients with chronic (long-lasting) back and neck pain and pain related to the degeneration of joints from arthritis. How Long Does Pain Relief from Radiofrequency Ablation Last? The degree of pain relief varies, depending on the cause and location of the pain. Pain relief from RFA can last from six to 12 months and in some cases, relief can last for years. More than 70% of patients treated with RFA experience pain relief. Is Radiofrequency Ablation Safe? RFA has proven to be a safe and effective way to treat some forms of pain. It also is generally well-tolerated, with very few associated complications. There is a slight risk of infection and bleeding at the insertion site. Your doctor can advise you about your particular risk. Can I Resume My Normal Activities After Radiofrequency Ablation? You will have a few restrictions immediately following radiofrequency ablation: Do not drive or operate machinery for at least 24 hours after the procedure. You may resume your normal diet and prescribed medications (including blood thinners) when you get home. Do not engage in any strenuous activity for the first 24 hours after the procedure. You may remove any bandages in the evening before going to bed. You may experience the following effects after RFA: Leg numbness: If you have any leg numbness, walk only with assistance. This should only last a few hours and is due to the local anesthesia given during the procedure. Mild back discomfort: This may occur when the local anesthetic wears off and usually lasts two or three days. Apply heat to the area the day of the procedure and the day after the procedure. You may also use your usual pain medications and NSAID medications such as ibuprofen, naproxen, Aleve, Motrin, etc. if you are able. Expectations: Results will be gradual. It may take 3-4 weeks for full relief. If you feel severe pain at the injection site with swelling and redness, increased leg weakness, a fever of 101 or higher, headache (or worsening headache), changes in vision or urinary retention: Please call the office at , or have someone take you to the nearest emergency room. Tell the emergency room staff that you just had RFA. A doctor must evaluate you for bleeding and injection complications. If you lose control over bowel, bladder, or legs: Go to the nearest emergency room. If you are diabetic, the steroids used in this procedure can increase your blood sugar. If your blood sugar is 250mg/dL or higher, contact your primary care physician, or the doctor who manages your diabetes, to discuss how to get it back to normal. documented [facility] History of Present illness Narrative [facility] [address] [address] Patient: Severiano Roberson Sex: female : 1955 Age: 68 y.o. PCP: EFRAIN MOLINA 02/15/2023 Severiano Roberson is here for a(n) follow up after completing hip Xrays. She reports good relieffrom Ice, Voltaren gel and Medrol dose pack prescribed at last visit. Chief Complaint Patient presents with Hip Pain Knee Pain HPI: PT/HEP (aquatics too) 2018 with little relief Knee: . 09/15/22 Rt Gen NB w/100% relief for 1 day, 90% relief continued 12/08/22 Right Gen NB 60% lasting relief Hip Pain Incident onset: 2-3 months ago 2022. There was no injury mechanism. The pain is present in the left hip and right hip (Lt > Rt). The quality of the pain is described as aching (especially with stairs or lying on Left side). The pain is at a severity of 4/10. The pain is moderate. The pain has been Improving (increases w/lying down or stairs) since onset. Associated symptoms include an inability to bear weight. Pertinent negatives include no muscle weakness, numbness or tingling. She reports no foreign bodies present. The symptoms are aggravated by movement and weight bearing. She has tried acetaminophen, NSAIDs and ice (HEP, voltaren gel, MDP) for the symptoms. The treatment provided moderate relief. Knee Pain Incident location: 2003. There was no injury mechanism. The pain is present in the right knee. The quality of the pain is described as aching and stabbing. The pain is at a severity of 2/10. The pain is mild. The pain has been Fluctuating (increases w/walking) since onset. Associated symptoms include an inability to bear weight. Pertinent negatives include no muscle weakness, numbness or tingling. She reports no foreign bodies present. The symptoms are aggravated by movement and weight bearing (standing, walking, stairs, bending, lifting, twisting, pushing/pulling). She has tried acetaminophen, ice, heat and NSAIDs (HEP, ibuprofen, voltaren gel, PT(2019 aqua- [place]), dolterra, 06/26/22 inj with ortho, MDP) for the symptoms. The treatment provided moderate relief. The effect of pain on patient's ADLS: Mild Impairment. Past Medical History: Diagnosis Date Asthma Chronic pain disorder CKD stage 2 due to type 2 diabetes mellitus ([facility]) Depression Hyperlipidemia Joint pain Migraine Neck pain Obesity Osteoarthritis of knee Osteopenia Rheumatoid arthritis ([facility]) Stage 2 chronic kidney disease due to benign hypertension Tear of meniscus of knee Visual impairment Past Surgical History: Procedure Laterality Date COLONOSCOPY 07/15/2009 COLONOSCOPY N/A 12/02/2021 Performed by Rudolph Chicas DO at [facility] ENDOSCOPY GASTRIC BYPASS 09/11/2017 INJECTION BLOCK NERVE KNEE Right Genicular Right 12/08/2022 Performed by Marcel Wheeler MD at [facility] PAIN INJECTION BLOCK NERVE KNEE Right Genicular Right 09/15/2022 Performed by Marcel Wheeler MD at [facility] PAIN KNEE ARTHROSCOPY Right 01/2005 OTHER SURGICAL HISTORY 10/07/2019 Repair of Left Retina TUBAL LIGATION 07/03/2000 Allergies Allergen Reactions Codeine Other (See Comments) Succinylcholine Other (See Comments) and pain Family History Problem Relation Age of Onset Prostate cancer Father Hodgkin's lymphoma Sister Uterine cancer Sister Cancer Brother Malignant Lymphoma Heart attack Brother Cancer Brother Cancer Brother Social History Socioeconomic History Marital status: Spouse name: Not on file Number of children: Not on file Years of education: Not on file Highest education level: 12th grade Occupational History Not on file Tobacco Use Smoking status: Never Smokeless tobacco: Never Vaping Use Vaping Use: Never used Substance and Sexual Activity Alcohol use: Never Drug use: Never Sexual activity: Defer Partners: Male control/protection: None Other Topics Concern Not on file Social History Narrative Not on file Social Determinants of Health Financial Resource Strain: Not on file Food Insecurity: No Food Insecurity (02/15/2023) Hunger Screening Food Insecurity - Worry: Never True Food Insecurity - Inability: Never True Transportation Needs: No Transportation Needs (11/23/2021) PRAPARE - Transportation Lack of Transportation (Medical): No Lack of Transportation (Non-Medical): No Physical Activity: Sufficiently Active (11/23/2021) Exercise Vital Sign Days of Exercise per Week: 3 days Minutes of Exercise per Session: 70 min Stress: No Stress Concern Present (11/23/2021) [employer] - Occupational Stress Questionnaire Feeling of Stress : Not at all Social Connections: Socially Integrated (11/23/2021) Social Connection and Isolation Panel [NHANES] Frequency of Communication with Friends and Family: More than three times a week Frequency of Social Gatherings with Friends and Family: Twice a week Attends Denominational Services: More than 4 times per year Active Member of Clubs or Organizations: Yes Attends Club or Organization Meetings: More than 4 times per year Marital Status: Interpersonal Safety: Not At Risk (11/23/2021) Humiliation, Afraid, Rape, and Kick questionnaire Fear of Current or Ex-Partner: No Emotionally Abused: No Physically Abused: No Sexually Abused: No Review of Systems Constitutional: Negative for chills and fever. HENT: Negative. Eyes: Negative. Respiratory: Negative for cough and shortness of breath. Cardiovascular: Negative for chest pain. Gastrointestinal: Negative. Endocrine: Negative. Genitourinary: Negative. Musculoskeletal: Rt knee, Baljit Hips Skin: Negative. Allergic/Immunologic: Negative. Neurological: Negative. Negative for tingling and numbness. Hematological: Negative. Psychiatric/Behavioral: Negative. Vital Signs: BP 149/69 Pulse 62 Ht 160 cm (5' 3 ) Wt 88.9 kg (196 lb) SpO2 95% BMI 34.72 kg/m Physical Exam: GENERAL - Healthy patient that appears stated age. HEENT - Normocephalic / Atraumatic, Extraoccular movements intact, trachea midline, thyroid within normal limits. CV - pulse regular, Warm extremities with appropriate color of nailbeds. RESP - No obvious wheezing, No Shortness of Breath, No overexertion response to exam maneuvers. COORDINATION - remains intact. PSYCH - Alert and Oriented x4, Attentive and appropriate, constitutionally normal, displays normal mood and affect per situation, answered questions appropriately during examination, demonstrated appropriate attention during discussion, demonstrated appropriate cognitive reasoning and understanding of the medical condition by asking appropriate questions regarding the diagnosis and risks/benefits/alternatives of treatment modalities. No obvious deficits in memory, reasoning, or intellect. Distal Joint Exam - Lower Extremity: SKIN - No rashes or bruising in the area of the patient s pain. EXTREMITIES - Lower extremities are warm, with minimal edema and palpable pulses. Strength is 5/5 all muscle groups of the bilateral lower extremities. There is no obvious atrophy, fasciculations, or spasms. There are no notable sensory deficits in the overlying dermatomal distributions. Gait remains normal. Examination of the Right knee reveals tenderness to palpation over the superior, inferior, lateral, and medial aspect of the knee. Some swelling is noted without significant erythema. Pain is elicited with flexion and extension of the knee both actively and passively. Some grinding is noted with these motions. There is no notable ligamental laxity or instability and drawer test is negative. Assessment/Treatment Plan: Severiano was seen today for hip pain and knee pain. Diagnoses and all orders for this visit: Localized osteoarthritis of right knee Monitor Follow up 4-6 weeks The medications I have prescribed have been reviewed for medication interactions/contraindications and/or for upcoming procedures: continue current medication regimen without any changes. DISCUSSION: Treatment options discussed with patient and all questions answered to patient's satisfaction. Discussed the rules and regulations surrounding prescription of opioids and compliance at length. Failure to follow the rules and regulation will result in tapering and discontinuation of medications if applicable. Prescribed medication that requires intensive monitoring for toxicity We do not currently prescribe any controlled substance from this practice. Treatment plans discussed but not opted for at this time: Gennicular RFA. Pain is under adequate control. At this time it does appear that the patient s pain is under adequate control with conservative care. It is felt that we should continue this approach and continue to monitor these symptoms and address them again in the future if they become more problematic. This approach was discussed with the patient and they are in agreement. Xray was reviewed and used to explain the condition. OARRS: Reviewed. Scribe Statement: Scribed for and in the presence of CARMELA LOERA by Arlen Farah CNA. Provider Statement: I, CARMELA LOERA, personally performed the services described in the documentation, as scribed by Arlen Farah CNA in my presence, and it is both accurate and complete. Arlen Farah CNA 02/15/23 1048 CARMELA Loera 02/22/23 1158 documented in this encounter [facility]2022 Evaluation note Encounter Date Diagnosis Assessment Notes Dec, Cough (ICD-10 - R05.9) Dec, COVID-19 (ICD-10 - U07.1) COVID test performed in office today. Advised patient that test was positive. Influenza A/B test negative. Instructed patient to isolate per CDC guidelines for 5 days from symptom onset, mask 5 days following. May return to work/activities outside home after isolation period as long as symptoms are improving and has been afebrile for 24 hours without use of antipyretic. Advised patient that treatment of COVID is with viral supportive care, OTC cold medications as directed, Tylenol/Motrin as needed for body aches/fever, rx of Tessalon Perles and Albuterol Inhaler as needed. Increase fluids and rest. Encouraged use of cool mist humidifier. Follow-up with PCP to advise of positive result and further management and to see if she is candidate for Paxlovid medication. Immediate eval for SOB, difficulty, chest pain, fevers that do not break with antipyretic or any other concerning symptoms as reviewed on patient education handout. Patient verbalizes understanding and is agreeable to treatment plan. Patient left in stable condition [employer] Other 07-30-2022 Evaluation note* Encounter Date Diagnosis Assessment Notes Treatment Notes Treatment Clinical Notes Aug, Cough (ICD-10 - R05.9) Aug, Viral URI (ICD-10 - J06.9) Advised patient that COVID antigen test was negative today. Advised patient that will treat as viral URI. Supportive care as directed, increase fluids and rest, Tylenol/Motrin as directed, OTC cough/cold remedies as directed on packaging, cool mist humidifier, throat lozenges. May use rx of Tessalon Perles as directed as needed. Discussed infection control practices such as good hand washing and mask wearing. Patient to follow up with PCP if symptoms persist or worsen despite treatment. Immediate eval for SOB, difficulty, chest pain, fevers that do not break with antipyretic or any other concerning symptoms as reviewed on patient education handout. Patient verbalizes understanding and is agreeable to treatment plan. Patient left in stable condition [employer] Other Evaluation note* Diagnosis Localized osteoarthritis of right knee- Primary [facility] Diagnosis Localized osteoarthritis of right knee- Primary documented in this encounter [facility] [employer] SystemEvaluation note* Diagnosis Localized osteoarthritis of right knee- Primary [facility]* Diagnosis Special screening for malignant neoplasm of colon- Primary Special screening for malignant neoplasms, colon [facility]* Diagnosis Depressive disorder Depressive disorder, not elsewhere classified 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 ([facility]) [facility]* Diagnosis 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 ([facility])- Primary Type 2 diabetes mellitus with hyperglycemia, without long-term current use of insulin ([facility]) Depressive disorder Depressive disorder, not elsewhere classified Primary osteoarthritis of both knees Change in color of pigmented skin lesion Encounter for screening mammogram for malignant neoplasm of breast documented in this encounter [facility]* Diagnosis Plantar fasciitis- Primary Plantar fascial fibromatosis Rupture of muscle, nontraumatic Right foot pain Pain in soft tissues of limb Equinus contracture of right ankle documented [facility] this encounter [facility] N[facility] - Reported* Type Description Date Medical History Depression Medical History Hypercholesterolemia Medical History Diabetes Medical History asthma Medical History Hx of pneumonia X3 Surgical History cholecystectomy Surgical History tubal ligation Surgical History knee arthroscopy Surgical History gastric sleeve Hospitalization History see above [employer] Other InstructionsNot on filedocumented in this encounter [facility] in [facility] filedocumented in this encounter [facility] filedocumented in this encounter [facility] on filedocumented in this encounter [facility] System[facility]ructionsNot on filedocumented in this encounter [facility]* Attachments The following attachments cannot be sent through Care Everywhere. * Moles on the Skin ([place]) [facility] for [facility] (narrative)* Consultation (Routine) - Pending Review Specialty Diagnoses / Procedures Referred By Luna herbert Referred To Contact Dermatology Diagnoses Change in color of pigmented skin lesion Yasmine Villa, GENETIC TECHNOLOGIST-SHIFT PRODUCTION ASSOCIATE [address] [place] [address] Tali Dunn MD [address], [facility] [address] [place] [address] Referral ID Status Reason Start Date Expiration Date Visits Requested Visits Authorized [id number] Pending Review Specialty Services Required 12/09/2024 1 1 * Misc (Routine) - Pending Review Specialty Diagnoses / Procedures Referred By Luna t Referred To Contact Diagnoses Primary osteoarthritis of both knees Procedures Disability/Handicap Yasmine Ortega, GENETIC TECHNOLOGIST-SHIFT PRODUCTION ASSOCIATE [address] [place] [address] Referral ID Status Reason Start Date Expiration Date V isits Requested Visits Authorized [id number] Pending Review 12/10/2023 12/09/2024 1 1 [facility] Summary Purpose Family History No Family History Records FoundNo Family History Records FoundNo Family History Records FoundNo Family History Records FoundNo Family History Records Found Advance Directives No Advanced Directives Records FoundNo Advanced Directives Records FoundNo Advanced Directives Records FoundNo Advanced Directives Records FoundNo Advanced Directives Records Found Reason for Referral Specialty Diagnoses / Procedures Referred By Luna t Referred To Contact Diagnoses Localized osteoarthritis of right knee Procedures Case request operating room: RADIOFREQUENCY ABLATION GENICULAR: right Jose Roberto Colby PA [address] [facility] [place] [address] Referral ID Status Reason Start Date Expiration Date V isits Requested Visits Authorized [id number] Pending Review 03/01/2023 02/29/2024 1 1 Additional Source Comments INFORMATION SOURCE (unrecogn ized section and content) DATE CREATED AUTHOR 04/21/2021 [facility] DATE CREATED AUTHOR AUTHOR'S ORGANIZ ATION 05/22/2021 [facility] DATE CREATED AUTHOR AUTHOR'S ORGANIZ ATION 11/11/2023 [facility] DATE CREATED AUTHOR AUTHOR'S ORGANIZ ATION 12/11/2023 [facility] DATE CREATED AUTHOR AUTHOR'S ORGANIZ ATION 12/12/2023 REASON FOR VISIT (unrecogniz ed section and content) Reason Comments Hip Pain Knee Pain Reason Comments Knee Pain Reason Comments Med Refill Reason Comments Diabetes Reason Comments Foot Pain Severiano Kobi 68yo Ne w patient relates right foot pain, patient heard a pop while walking 12/09/2023. Icing, voltaren, resting. Patient typically wears tennis shoes, slippers with powersteps because of Plantar Fasciitis history. BS 6.4 Yuhas 12/10/2023 SS7 Care Teams (unrecognized sec tion and content) Weather Strip Mechanic Relationship Specialty Start Date End Date Liliana Falcon GENETIC TECHNOLOGIST-CROSS ENTERPRISE INTEGRATOR [address] [place] [address] PCP - General 05/25/17 Weather Strip Mechanic Relationship Specialty Start Date End Date Liliana FalconROSEMARY-CROSS ENTERPRISE INTEGRATOR [address] [place] [address] PCP - General 05/25/17 Weather Strip Mechanic Relationship Specialty Start Date End Date Liliana Falcon GENETIC TECHNOLOGIST-CROSS ENTERPRISE INTEGRATOR [address] [facility] [place] [address] PCP - General 05/25/17 Weather Strip Mechanic Relationship Specialty Start Date End Date Liliana FalconROSEMARY-CROSS ENTERPRISE INTEGRATOR [address] [facility] [place] [address] PCP - General 05/25/17 Weather Strip Mechanic Relationship Specialty Start Date End Date Liliana Falcon GENETIC TECHNOLOGIST-CROSS ENTERPRISE INTEGRATOR [address] [facility] [place] [address] PCP - General 05/25/17 Weather Strip Mechanic Relationship Specialty Start Date End Date Liliana Falcon GENETIC TECHNOLOGIST-CROSS ENTERPRISE INTEGRATOR [address] [place] [place] [address] PCP - General 05/25/17 Weather Strip Mechanic Relationship Specialty Start Date End Date Yasmine Villa, GENETIC TECHNOLOGIST-SHIFT PRODUCTION ASSOCIATE [address] [place] [address] PCP - General Family Medicine 10/15/23 Weather Strip Mechanic Relationship Specialty Start Date End Date Rudolph Chicas MD [address] [place] [address] PCP - General Internal Medicine 12/14/23 Weather Strip Mechanic Relationship Specialty Start Date End Date Rudolph Chicas MD [address] [place] [address] PCP - General Internal Medicine 12/14/23 FOR RECORDS PERTAINING TO PATIENTS WHO ARE OR HAVE BEEN ENROLLED IN A CHEMICAL DEPENDENCY/SUBSTANCEABUSE PROGRAM, SOME INFORMATION MAY BE OMITTED. This clinical summary was aggregated from multiple sources. Caution should be exercised in using it in the provision of clinical care. This summary normalizes information from multiple sources, and as a consequence, information in this document may materially change the coding, format and clinical context of patient data. In addition, data may be omitted in some cases. CLINICAL DECISIONS SHOULD BE BASED ON THE PRIMARY CLINICAL RECORDS. [employer] [facility]. provides no warranty or guarantee of the accuracy or completeness of information in this document.
== END 2024-01-02 07:57 | disposition home or self-care (01) ==
LOC: MAMMO 07:56
PROVIDERS: PCP Nurse Practitioner Family; Visit Provider Nurse Practitioner
DX: Z12.31 Encounter for screening mammogram for malignant neoplasm of breast (principal); Z80.7 Family history of other malignant neoplasms of lymphoid, hematopoietic and related tissues; Z80.8 Family history of malignant neoplasm of other organs or systems
CPT/HCPCS: 77063; 77067

== ENCOUNTER 2025-01-14 07:55 | Outpatient (OUT) | payer OTHER, SELFPAY ==
--- OUTSIDE RECORDS SUMMARY | 2024-12-31 07:58 | XMS_ITS | Clinical Summary ---
Author Organization [employer] [facility] [employer] tem Address [facility] [id number] [address] [place] [address] Care Team Providers Care Management Architect Name Role Phone William Payton APRN-DIESEL AUTOMOTIVE TECHNICIAN Primary Care Provider + Allergies Active AllergyReactionsCriticalityNoted DateCommentsCodeineOther (See Comments) 11/12/2020Oxycodone-EyuktywcumxabCirgnzsZxtbdg74/08/2025 Medications MedicationSigDispense QuantityRefillsLast FilledStart DateEnd DateStatus acetaminophen (TYLENOL) 325 mg tablet Take 2 tablets (650 mg total) by mouth as needed. As neededActive budesonide-formoteroL (SYMBICORT) 160-4.5 mcg/actuation inhaler Indications:Mild intermittent asthma without complicationInhale 2 puffs in the morning and 2 puffs before bedtime. 10.2 g 5Active semaglutide (OZEMPIC) 0.25 mg or 0.5 mg (2 mg/3 mL) pen injector Indications:DM type 2 with diabetic mixed hyperlipidemia ([facility])Inject 0.5 mg under the skin once a week. 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 90 tablet 5Active rosuvastatin (CRESTOR) 20 mg tablet Indications:Type 2 diabetes mellitus with hyperglycemia, without long-term current use of insulin ([facility])Take 1 tablet (20 mg total) by mouth every morning. 90 tablet 5Active sertraline (ZOLOFT) 100 mg tablet Indications:Depressive disorderTake 1 tablet (100 mg total) by mouth in the morning. 90 tablet 5Active amLODIPine (NORVASC) 5 mg tablet Indications:Essential hypertensionTake 1 tablet (5 mg total) by mouth in the morning. REFILL. 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 90 tablet Discontinued rosuvastatin (CRESTOR) 20 mg tablet Indications:Type 2 diabetes mellitus with hyperglycemia, without long-term current use of insulin ([facility])Take 1 tablet (20 mg total) by mouth every morning. 90 tablet Discontinued sertraline (ZOLOFT) 100 mg tablet Indications:Depressive disorderTake 1 tablet (100 mg total) by mouth in the morning. 90 tablet Discontinued amLODIPine (NORVASC) 5 mg tablet Take 1 tablet (5 mg total) by mouth in the morning. REFILL.12/16/2024 Discontinued(Reorder) Active Problems ProblemNoted DateDiagnosed DateLocalized osteoarthritis of right knee09/18/2023 Polyp of ascending colon12/02/2021olyp of transverse colon12/02/2021 Diverticulosis large intestine w/o perforation or abscess w/o spxigkgq71/07/2022 Yzzzfsk3511/14/20217195Kfejkg33/19/2022Essential erufdzgvrvco47/19/2022Hyperlipidemia 11/14/2021Migraine cyzwjdip61/19/2022lass 3 severe obesity due to excess calories with serious comorbidity and body mass index (BMI) of40.0 to 44.9 in adult11/14/2021bstructive sleep apnea wlhpktra82/19/2022steoarthritis of knee 11/14/2021Tear of meniscus of knee11/14/2021Hypertensive kidney disease, stage II05/23/2021KD stage 2 due to type 2 diabetes cgvyblzy36/28/2022steopenia 10/29/2015 Resolved Problems ProblemNoted DateDiagnosed DateResolved DateDepressive fwyavdqh07/19/2022 12/10/2023 Encounters DateTypeDepartmentCare MfbaKlbzkzqnkbt76/21/2025 9:00 AM EDTOffice Visit [facility] [address] [place] [address] William Payton, ORNAMENTAL METAL WORKER-DIESEL AUTOMOTIVE TECHNICIAN DM type 2 with diabetic mixed hyperlipidemia ([facility]) (Primary Dx); Essential hypertension; 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 ([facility]); Type 2 diabetes mellitus with hyperglycemia, without long-term current use of insulin ([facility]); Depressive disorder; Encounter for screening mammogram for malignant neoplasm of breast; Class 2 obesity due to excess calories without serious comorbidity with body mass index (BMI) of 37.0 to 37.9 in adult12/16/20240957Dwuubi22/10/2025 12:30 PM EDT [facility] [address] [place] [address] Rudolph Chicas DO Conjunctival hemorrhage of left eye (Primary Dx); Essential hypertension; Ocular imohueum95/08/2025 6:28 AM EDT - 11/03/2024 10:[address] [facility] [address] [place] [address] Luca Clark MD Subconjunctival hemorrhage of left eye (Primary Dx); Secondary hypertension Discharge Disposition: Home11/03/2024Travelfrom Last 3 Months Immunizations ImmunizationAdministration DatesNext DueCOVID-19, mRNA, LNP-S, PF, 30mcg/0.3mL Dose05/18/2020,05/11/2020,04/27/2020,04/20/2020H1N1 Inj Preservative Free 04/19/2009Influenza (IM) Preservative Free02/06/2016,11/13/2014Influenza, High- dose, Quuolkvgyohi42/28/2021Influenza, Injectable, Mdck, Preservative Free, Quad 04/24/2018,01/22/2017Influenza, Injectable, quadrivalent (PF)01/03/2017, 10/28/2015Influenza, Jhpqleoaine89/24/2013Pneumococcal Conjugate 13-Valent 04/08/2013Pneumococcal Wdhncotfsumffb19/28/2017,04/01/2004Tdap09/24/2015Zoster Live02/05/2013,01/28/2013 Family History Medical HistoryRelationNameCommentsCancerBrother 1Malignant LymphomaHeart attack Brother 1CancerBrother 2CancerBrother 3Prostate cancerFatherHodgkin's lymphoma SisterUterine cancerSisterRelationNameStatusCommentsBrother 1DeceasedBrother 2 AliveBrother 3AliveFatherSister Social History Tobacco UseTypesPacks/DayYears UsedDateSmoking Tobacco: NeverSmokeless Tobacco: Never Tobacco Cessation:Counseling Given: Not Answered Alcohol UseStandard Drinks/WeekCommentsNever0 (1 standard drink = 0.6 oz pure alcohol)Social Connection and Isolation PanelAnswerDate RecordedIn a typical week, how many times do you talk on the phone with family, friends, or neighbors?More than three times a week11/23/2021How often do you get together with friends or relatives?Twice a week11/23/2021How often do you attend jew or methodist services?More than 4 times per year2Do you belong to any clubs or organizations such as jew groups, unions, fraternal or athletic corie ups, or school groups?Yes11/23/2021How often do you attend meetings of the clubs or organizations you belong to?More than 4 times per year11/23/2021re you , , , , never , or living with a partner? Ccmmbuv5711/23/2021UDIT-CAnswerDate RecordedQ1: How often do you have a drink containing alcohol?Never11/23/2021Q2: How many drinks containing alcohol do you have on a typical day when you are drinking?Patient does not drink11/23/2021Q3: How often do you have six or more drinks on one occasion?Never2Overall Financial Resource Strain (CARDIA)AnswerDate RecordedHow hard is it for you to pay for the very basics like food, housing, medical care, and heating?Not hard at all06/20/2023HQ-2AnswerDate RecordedTotal Hbnvj164Finuniversity of [facility] [place] of Occupational Health - Occupational Stress QuestionnaireAnswerDate RecordedDo you feel stress - tense, restless, nervous, or anxious, or unable to sleep at night because yourmind is troubled all the time - these days?Not at all 11/23/2021Exercise Vital SignAnswerDate RecordedOn average, how many days per week do you engage in moderate to strenuous exercise (like a brisk walk)?3 days 11/23/2021n average, how many minutes do you engage in exercise at this level? 70 min11/23/2021RAPARE - TransportationAnswerDate RecordedIn the past 12 months, has lack of transportation kept you from medical appointments or from getting medications?No06/20/2023In the past 12 months, has lack of transportation kept you from meetings, work, or from getting things needed for daily living?No06/20/2023Housing InstabilityAnswerDate RecordedAre you worried or concerned that in the next two months you may not have stable housing that you own, rent or stay in as a part of a household?No06/20/2023hildcareAnswer Date RecordedDo problems getting children librarian make it difficult for you to work or study?No11/23/2021EmploymentAnswerDate RecordedDo you need help finding a local career center and/or a training program?No11/23/2021Hunger ScreeningAnswerDate RecordedWithin the past 12 months we worried whether our food would run out before we got money to buy more.Never True12/16/2024Within the past 12 months the food we bought just didn't last and we didn't have money to get more.Never True12/16/2024Purpose - LifeAnswerDate RecordedI have a purpose and direction in my life.Strongly Agree11/23/2021EducationAnswerDate RecordedWhat is the highest level of school you have completed or the highest degree you have received?12th grade09/28/2022CommentsNoSex and Gender InformationValueDate RecordedSex Assigned at BirthNot on fileLegal HxmHfmqnp97/06/2015 11:58 AM EDTGender IdentityNot on fileSexual OrientationNot on file Last Filed Vital Signs Vital SignReadingTime TakenCommentsBlood Qvzchxnt507/7012/16/2024 8:54 AM EDT Zrybr577812/16/2024 8:54 AM AMERifjlogfdrw71.7 ??C (98 ??F)12/16/2024 8:54 AM EDT Respiratory Oozw3630 8:54 AM EDTOxygen Jwdtqdayyx72%12/16/2024 8:54 AM EDTInhaled Oxygen Concentration--Wrdqkv16.4 kg (212 lb 9.6 oz)12/16/2024 8:54 AM KJPSebfvz375 cm (5' 2.99 )12/16/2024 8:54 AM EDTBody Mass Index37.6712/16/2024 8:54 AM EDT Plan of Treatment DateTypeDepartmentCare Team (Latest Contact Info)Idbaoriuaoj46/11/2025 8:[address] [facility] [address] [place] [address] Zane Colby, PA [address] [facility], [address] [place] [address] 03/19/2025 7:30 AM ESTOffice Visit [facility] [address] [place] [address] William Payton, ORNAMENTAL METAL WORKER-DIESEL AUTOMOTIVE TECHNICIAN [address], [address] [address] Health MaintenanceDue DateLast DoneCommentsRSV ( or age 60+ yrs) (1 - Risk 60-74 years 1-dose series)2013Zoster (Shingles) Vaccine (2 of 3) , 01/28/2013Diabetic Ophthalmology Exam/ Diabetic Foot Exam504/, 06/25/2023, 05/30/2022, Additional history upyxtkPfqllqcnc38/06/202511/07/2023, 12/27/2022, 04/20/2021dult BMI Follow Up PlanDTaP,Tdap and Td Vaccines (2 - Td or Tdap) Adult BMI Znhgopyuj98Depression Screening Fall Risk Lqyqjwuul93Statin Use: Diabetic Tobacco Lcwdqvyja775Colonoscopy12/03/2031 12/02/2021, 12/02/2021OVID-19 AcjktqpKsmehfuvooeo16/28/2021, 05/18/2020, 05/11/2020, Additional history existsInfluenza AigkdrkFnahmqwjwhzn36/12/2025, 11/23/2020, 04/24/2018, Additional history exists Medical Devices Not on file Procedures Procedure NamePriorityDate/TimeAssociated DiagnosisCommentsPOCT HEMOGLOBIN A1C Igazmxf3312/16/2024 9:03 AM EDT DM type 2 with diabetic mixed hyperlipidemia ([facility]) TROP I, HIGH SENSITIVITY 1 STDBMDZG33/08/2025 7:48 AM EDT ECG 12-QLGYLQLA83/08/2025 6:[address] CTA DXENBGKBEMU07/08/2025 6:[address] CTA IJIZBQHH09/08/2025 6:[address] BRAIN WO CONT STROKE EILUTVQFY91/08/2025 6:47 AM EDT PM ED CRITICAL BTXGLzoygzx40/08/2025 6:41 AM EDT ED PHYSICIAN NIHSS AND THROMBOLYTIC YHKQRAXNIhhimla70/08/2025 6:41 AM EDT C-REACTIVE PROTEINAdd-On11/03/2024 6:37 AM EDT ERYTHROCYTE SEDIMENTATION RATE (ESR)Add-On11/03/2024 6:37 AM EDT NYZPWSTKPJBQH57/08/2025 6:37 AM EDT LIVER YTIZLZRIG65/08/2025 6:37 AM EDT TROPONIN I, HIGH SENSITIVITY 0 FSBBLPZJ33/08/2025 6:37 AM EDT CBC WITH AUTO USLELWVURFPGVENG83/08/2025 6:37 AM EDT VGLOQUPI13/08/2025 6:37 AM EDT PROTIME & SSVGMDS6111/03/2024 6:37 AM EDT BASIC METABOLIC LMQUHAQRZ07/08/2025 6:37 AM EDT TROPONIN I, HIGH SENSITIVITY 0 KAUIQWJY75/08/2025 6:37 AM EDT BEDSIDE OAXBKVNUfnjpyv51/08/2025 6:28 AM EDT MAMM SCREENING BILATERAL W DTKCeqxccw60/06/2024 7:33 AM EST Encounter for screening mammogram for malignant neoplasm of breast [facility] DIABET[facility] E[facility] ACYDGnwucmh87/18/2023PROVATION CSMBUQQCNHRSjjhwwx12/07/2022 9:14 AM EDT from Last 3 Months or Most Recently Relevant to Health Maintenance Results * POCT Hemoglobin A1c (12/16/2024 9:03 AM EDT)ComponentValueRef RangeTest Method Analysis TimePerformed AtPathologist SignatureExternal Poct Hgb A1C6.04 - 7 % MANUALLY TRANSCRIBED RESULTSSpecimen (Source)Anatomical Location / Laterality Collection Method / VolumeCollection TimeReceived HyzjLhrsb77/21/2025 9:03 AM EDT Narrative Authorizing ProviderResult TypeResult Diogo Payton ORNAMENTAL METAL WORKER-CNPPOINT OF CARE TEST ORDERABLESFinal ResultPerforming OrganizationAddressCity/State/ZIP Code Phone Number MANUALLY TRANSCRIBED RESULTS * Troponin I, High Sensitivity 1 Hour (11/03/2024 7:48 AM EDT)ComponentValueRef RangeTest MethodAnalysis TimePerformed AtPathologist SignatureTROPONIN I, HIGH SENSITIVITY5<16 ng/L11/03/2024 8:20 AM EDTPROM[facility] Specimen (Source)Anatomical Location / LateralityCollection Method / Volume Collection TimeReceived TimeBloodVenous blood / UnknownVenipuncture / Unknown 11/03/2024 7:48 AM EDT11/03/2024 7:53 AM EDT Narrative Authorizing ProviderResult TypeResult StatusLuca Clark MDLAB BLOOD ORDERABLESFinal ResultPerforming OrganizationAddressty/State/ZIP CodePhone Number [place] [phone] [place] [address], * EKG 12 lead (11/03/2024 6:57 AM EDT)Specimen (Source)Anatomical Location / LateralityCollection Method / VolumeCollection TimeReceived Time11/03/2024 6:57 AM EDT Narrative [facility] - 11/03/2024 7:53 AM EDT Authorizing ProviderResult TypeResult Gerardo Clark MDECG ORDERABLES Final ResultPerforming OrganizationAddressCity/State/ZIP CodePhone Number TRACEMASTERVUE * CT angiogram head (11/03/2024 6:54 AM EDT)Anatomical RegionLateralityModality Head, Neuro, Vascular, Head and Neck, Neuro CoveraN/AComputed Tomography Specimen (Source)Anatomical Location / LateralityCollection Method / Volume Collection TimeReceived Time11/03/2024 7:11 AM EDT Narrative 11/03/2024 7:11 AM EDT History: L decreased vision, headache, hypertension, dizziness, eval stroke Procedure: CT CTA HEAD Multidetector CT angiogram performed with IV contrast through the [place] using 3 -D Maximum intensity projection reconstructions constructed under concurrent physician supervision on a independent workstation. Arterial blood flow was measured to assist the stroke clinical team in the diagnosis of large vessel occlusion in patients undergoing screening for acute ischemic stroke using Rapid AI software when clinically indicated. Automated exposure control was utilized. All CT scans at this facility use dose modulation, iterative reconstruction, and/or weight based dosing when appropriate to reduce radiation dose to as low as reasonably achievable. Findings: ?? There is grossly no aneurysm or major vessel occlusion of the [place], within limitations of CT. Flow is demonstrated within the vertebral arteries, basilar artery, bilateral posterior cerebral arteries, middle cerebral arteries and anterior cerebral arteries. ?? 3D reformatted images confirm the source data findings. IMPRESSION: * ??Unremarkable CT angiogram [place]. * ??If you have high clinical suspicion for occult process such as an infarct consider CT perfusionand brain MRI and MRA. Finalized by Francesco Champagne MD on 11/03/2024 7:11 AM Procedure Note Francesco Champagne MD - 11/03/2024 History: L decreased vision, headache, hypertension, dizziness, eval stroke Procedure: CT CTA HEAD Multidetector CT angiogram performed with IV contrast through the circleof [place] using 3 -D Maximum intensity projection reconstructionsconstructed under concurrent physician supervision on a independentworkstation. Arterial blood flow was measured to assist the strokeclinical team in the diagnosis of large vessel occlusion in patients undergoing screening foracute ischemic stroke using Rapid AI software when clinically indicated.Automated exposure control was utilized. All CT scans at this facility use dose modulation, iterativereconstruction, and/or weight based dosing when appropriate to reduceradiation dose to as low as reasonably achievable. Findings: There is grossly no aneurysm or major vessel occlusion of the [place], within limitations of CT. Flow is demonstrated within the vertebral arteries, basilar artery,bilateral posterior cerebral arteries, middle cerebral arteries andanterior cerebral arteries. 3D reformatted images confirm the source data findings. IMPRESSION: * Unremarkable CT angiogram [place]. * If you have high clinical suspicion for occult process such as aninfarct consider CT perfusion and brain MRI and MRA. Finalized by Francesco Champagne MD on 11/03/2024 7:11 AM Authorizing ProviderResult TypeResult StatusLuca Clark MDKushal CT ORDERABLES Final Result * CT angiogram carotid (11/03/2024 6:54 AM EDT)Anatomical RegionLaterality ModalityNeuro, Neck, Vascular, Neuro CoveraN/AComputed TomographySpecimen (Source)Anatomical Location / LateralityCollection Method / VolumeCollection TimeReceived Time11/03/2024 7:04 AM EDT Narrative 11/03/2024 7:07 AM EDT Examination: ??CTA carotids Clinical History: L decreased vision, headache, hypertension, dizziness, eval stroke Comparison: ??None CT CTA CAROTID Procedure: Multidetector CT angiogram performed through the cervical portion of the carotid arteries without complication, including source images and maximum intensity projection 3-D images displayed and reviewed on an independent PACS workstation by the radiologist. Automated exposure control was utilized. The [place] Symptomatic Carotid Endarterectomy Trial (NASCET)calculation of ICA stenosis percentage using the following formula with a threshold of 60 to 70%: % ICA stenosis = (1 - [narrowest ICA diameter/diameter normal distal cervical ICA]) x 100 Findings: ?? 3-D images confirm the source images. Within the limitations of CT angiography, the vessels are normal in course and caliber with no aneurysm, dissection, or occlusion. No hemodynamically significant stenosis of the cervical portion of internal carotid artery relativeto the distal internal carotid artery diameter. Flow is demonstrated within bilateral vertebral arteries, and bilateral internal, external, and common carotid arteries. IMPRESSION: No hemodynamically significant stenosis of the cervical portion of the internal carotid artery identified. All CT scans at this facility use dose modulation, iterative reconstruction, and/or weight based dosing when appropriate to reduce radiation dose to as low as reasonably achievable. For Reference: Carotid Doppler: For Carotid doppler reports, click Chart review, then cardiovascular tab at top Normal: 0% - PSV <150 cm/sec (No visible atherosclerosis) Plaque with no significant stenosis: (<50% ICA stenosis: PSV < 150 cm/sec ( <50% stenosis carotid atherosclerosis by B-mode image 50-69% ICA Stenosis: PSV > 150 cm /sec and EDV < 100 cm/sec; ICA/CCA Ratio < 4.0 > 70% ICA Stenosis: PSV > 230 cm/sec and EDV > 100 cm/sec; ICA/CCA Ratio > 4.0 ICA Occlusion: ??Absent PW Doppler and color flow signal; ??High resistive CCA flow velocity signal >70 % Post Cartoid Endarterectomy Stenosis: PSV >275 cm/sec and EDV >110 cm/sec >70 Post Carotid Stent Stenosis: PSV >325 cm/sec and EDV >120 cm/sec *PSV- Peak Systolic Velocity *EDV- End Diastolic Velocity Finalized by Francesco Champagne MD on 11/03/2024 7:07 AM Procedure Note Francesco Champagne MD - 11/03/2024 Examination: CTA carotids Clinical History: L decreased vision, headache, hypertension, dizziness, eval stroke Comparison: None CT CTA CAROTID Procedure: Multidetector CT angiogram performed through the cervicalportion of the carotid arteries without complication, including sourceimages and maximum intensity projection 3-D images displayed and reviewedon an independent PACS workstation by the radiologist. Automated exposure control was utilized. The [place] Symptomatic Carotid Endarterectomy Trial(NASCET)calculation of ICA stenosis percentage using the following formulawith a threshold of 60 to 70%: % ICA stenosis = (1 - [narrowest ICA diameter/diameter normal distalcervical ICA]) x 100 Findings: 3-D images confirm the source images. Within the limitations of CT angiography, the vessels are normal in courseand caliber with no aneurysm, dissection, or occlusion. No hemodynamically significant stenosis of the cervical portion ofinternal carotid artery relative to the distal internal carotid arterydiameter. Flow is demonstrated within bilateral vertebral arteries, and bilateralinternal, external, and common carotid arteries. IMPRESSION: No hemodynamically significant stenosis of the cervical portion of theinternal carotid artery identified. All CT scans at this facility use dose modulation, iterativereconstruction, and/or weight based dosing when appropriate to reduceradiation dose to as low as reasonably achievable. For Reference: Carotid Doppler: For Carotid doppler reports, click Chart review, then cardiovascular tabat top Normal: 0% - PSV <150 cm/sec (No visible atherosclerosis) Plaque with no significant stenosis: (<50% ICA stenosis: PSV < 150 cm/sec( <50% stenosis carotid atherosclerosis by B-mode image 50-69% ICA Stenosis: PSV > 150 cm /sec and EDV < 100 cm/sec; ICA/CCARatio < 4.0 > 70% ICA Stenosis: PSV > 230 cm/sec and EDV > 100 cm/sec; ICA/CCA Ratio> 4.0 ICA Occlusion: Absent PW Doppler and color flow signal; High resistiveCCA flow velocity signal >70 % Post Cartoid Endarterectomy Stenosis: PSV >275 cm/sec and EDV >110cm/sec >70 Post Carotid Stent Stenosis: PSV >325 cm/sec and EDV >120 cm/sec *PSV- Peak Systolic Velocity *EDV- End Diastolic Velocity Finalized by Francesco Champagne MD on 11/03/2024 7:07 AM Authorizing ProviderResult TypeResult StatusLuca Clark MDTHE [facility]ILDR[facility] ORDERABLES Final Result * CT brain without contrast stroke alert (11/03/2024 6:47 AM EDT)Anatomical RegionLateralityModalityNeuro, Head, Head and Neck, Neuro CoveraN/AComputed TomographySpecimen (Source)Anatomical Location / LateralityCollection Method / VolumeCollection TimeReceived Time11/03/2024 6:50 AM EDT Narrative 11/03/2024 6:[address] BRAIN WO CONT STROKE ALERT CLINICAL HISTORY: Lightheadedness. Headache. COMPARISON: ??No relevant prior studies available. TECHNIQUE: CT brain without intravenous contrast. ??Automated exposure control was utilized. All CTscans at this facility use dose modulation, iterative reconstruction, and/or weight based dosing when appropriate to reduce radiation dose to as low as reasonably achievable. FINDINGS: No acute intracranial hemorrhage, mass effect, shift of midline structures, or abnormal extra axialfluid collection. No evidence of acute large vessel territorial ischemia. Mild overall brain volumeloss. Patchy areas of hypoattenuation within the supratentorial white matter are nonspecific but most commonly associated with chronic microvascular ischemic change. Ventricular system size and morphology are normal, basal cisterns are patent. Orbits are symmetric. No depressed or displaced calvarial fracture. Hyperostosis frontalis interna.Mucosal thickening of the right greater than left maxillary alveolar recess. Mastoid air cells are well-aerated. Degenerative changes of the temporomandibular joints. IMPRESSION: * ??No acute intracranial findings, by CT. * ??Nonspecific patchy areas of hypoattenuation within the supratentorial white matter, most commonly associated with chronic microvascular ischemic change. If there is concern for acute ischemia/infarct, MRI can be considered. Finalized by Jonh Liao MD on 11/03/2024 6:53 AM Procedure Note Jonh Liao MD - 11/03/2024 CT BRAIN WO CONT STROKE ALERT CLINICAL HISTORY: Lightheadedness. Headache. COMPARISON: No relevant prior studies available. TECHNIQUE: CT brain without intravenous contrast. Automated exposurecontrol was utilized. All CT scans at this facility use dose modulation,iterative reconstruction, and/or weight based dosing when appropriate toreduce radiation dose to as low as reasonably achievable. FINDINGS: No acute intracranial hemorrhage, mass effect, shift of midlinestructures, or abnormal extra axial fluid collection. No evidence of acutelarge vessel territorial ischemia. Mild overall brain volume loss. Patchyareas of hypoattenuation within the supratentorial white matter arenonspecific but most commonly associated with chronic microvascular ischemic change.Ventricular system size and morphology are normal, basal cisterns arepatent. Orbits are symmetric. No depressed or displaced calvarial fracture.Hyperostosis frontalis interna. Mucosal thickening of the right greaterthan left maxillary alveolar recess. Mastoid air cells are well-aerated.Degenerative changes of the temporomandibular joints. IMPRESSION: * No acute intracranial findings, by CT. * Nonspecific patchy areas of hypoattenuation within the supratentorialwhite matter, most commonly associated with chronic microvascular ischemicchange. If there is concern for acute ischemia/infarct, MRI can beconsidered. Finalized by Jonh Liao MD on 11/03/2024 6:53 AM Authorizing ProviderResult TypeResult StatusLuca Clark MDKushal CT ORDERABLES Final Result * Critical Care (11/03/2024 6:41 AM EDT) Luca Madden MD - 11/03/2024 6:41 AM EDT Luca Clark MD 11/05/2024 3:55 AM Critical Care Performed by: Luca Clark MD Authorized by: Luca Clark MD ?? Critical care provider statement: ??Critical care time (minutes): ??31 ??Critical care time was exclusive of: ??Separately billable procedures and treating other patients and teaching time ??Critical care was necessary to treat or prevent imminent or life-threatening deterioration of the following conditions: ??MANAGER IN TRAINING failure or compromise ??Critical care was time spent personally by me on the following activities: ??Development of treatment plan with patient or surrogate, discussions with consultants, evaluation of patient's response to treatment, examination of patient, obtaining history from patient or surrogate, ordering and performing treatments and interventions, ordering and review of radiographic studies, ordering and review of laboratory studies, pulse oximetry, re-evaluation of patient's condition, review of old charts and blood draw for specimens ??I assumed direction of critical care for this patient from another provider in my specialty: no ?Care discussed with: admitting provider ?? Authorizing ProviderResult TypeResult StatusLuca Clark MDPROCEDURE/MINOR SURGICAL ORDERABLESFinal Result * ED NIHSS And Thrombolytic MD Screening (11/03/2024 6:41 AM EDT) Luca Madden MD - 11/03/2024 6:41 AM EDT Luca Clark MD 11/05/2024 3:55 AM ED NIHSS And Thrombolytic MD Screening Performed by: Luca Clark MD Authorized by: Luca Clark MD ?? Interval: ??Baseline LOC: 0 - Alert ?? LOC Questions: 0 - Answers both correctly ?? LOC Commands: 0 - Performs both tasks correctly ?? Best Gaze: 0 - Normal horizontal movements ?? Visual Nunez: 1 - Partial hemianopia ?? Facial Movements: 0 - Normal ?? Motor Function Right Arm: 0 - No drift right arm holds for 10 seconds ?? Motor Function Left Arm: 0 - No drift left arm holds for 10 seconds ?? Motor Function Right Le - No drift right leg holds for full 5 seconds ?? Motor Function Left Le - No drift left leg, holds for full 5 seconds ?? Limb Ataxia: 0 - No limb ataxia ?? Sensory: 0 - No sensory loss ?? Language: 0 - Language normal ?? Articulation: 0 - Articulation normal ?? Extinction or Inattention: 0 - Extinction or inattention absent ?? Confirmed Time of Onset or Last Known Well: Date: ??11/02/2024 ?? Time: ??22:30 EDT NIHSS stroke scale completed ?? TOTAL NIHSS SCORE: ??1 Do presenting disabilities interfere with lifestyle(i.e. work, hobbies, entertainment etc.?: No ?? Stroke team initiated ?? Absolute Contraindications: ??Onset greater than 4.5 hours - Patient not eligible for Thrombolytic. Other Contraindications: ??Low NIHSS with s/s that do not interfere with quality of life Decision for Thrombolytics: ??Thrombolytics will not be given based on the history and assessment of the patient. Authorizing ProviderResult TypeResult StatusLuca Clark MDPROCEDURE/MINOR SURGICAL ORDERABLESFinal Result * Troponin I, High Sensitivity 0 Hour (11/03/2024 6:37 AM EDT)ComponentValueRef RangeTest MethodAnalysis TimePerformed AtPathologist SignatureTROPONIN I, HIGH SENSITIVITY5<16 ng/L11/03/2024 7:11 AM [facility] Specimen (Source)Anatomical Location / LateralityCollection Method / Volume Collection TimeReceived TimeBloodVenous blood / UnknownVenipuncture / Unknown 11/03/2024 6:37 AM EDT11/03/2024 6:39 AM EDT Narrative Authorizing ProviderResult TypeResult StatusLuca Clark MDLAB BLOOD ORDERABLESFinal ResultPerforming OrganizationAddressCity/State/ZIP CodePhone Number [facility] [address] [place] [address], * (ABNORMAL) Erythrocyte Sedimentation Rate (ESR) (11/03/2024 6:37 AM EDT) ComponentValueRef RangeTest MethodAnalysis TimePerformed AtPathologist SignatureESR, Erythrocyte Sedimentation Rate42(H)0 - 30 mm/h011/03/2024 1:37 PM [facility] LABORATORYSpecimen (Source)Anatomical Location / LateralityCollection Method / VolumeCollection TimeReceived TimeBloodVenous blood / UnknownVenipuncture / Josgfym6011/03/2024 6:37 AM EDT11/03/2024 6:39 AM EDT Narrative Authorizing ProviderResult TypeResult StatusLuca VASQUEZ BLOOD ORDERABLESFinal ResultPerforming OrganizationAddressCity/State/ZIP CodePhone Number [facility] [address] [place] [address], * (ABNORMAL) CBC auto differential (11/03/2024 6:37 AM EDT)ComponentValueRef RangeTest MethodAnalysis TimePerformed AtPathologist SignatureWBC5.54 - 11 x10E9/L11/03/2024 6:44 AM [facility]ENTERRBC Count4.66 3.8 - 5.2 X10E12/L11/03/2024 6:44 AM [facility] Vgdpokixpx37.011.7 - 15.5 g/dL11/03/2024 6:44 AM [facility]ENTERHematocrit37.135 - 47 %11/03/2024 6:44 AM [facility]ENTERMCV8080 - 100 fL11/03/2024 6:44 AM [facility]ENTERMCH25.7(L)27 - 34 pg11/03/2024 6:44 AM EDTPHENRY COUNTY HOSPITALMCHC32.332 - 36 g/dL11/03/2024 6:44 AM EDTPHENRY COUNTY HOSPITALRDW16.0(H)11.5 - 15 %11/03/2024 6:44 AM EDTPHENRY COUNTY HOSPITALPlatelet Arxeb179087 - 450 X10E9/L11/03/2024 6:44 AM EDT [facility]MPV9.07 - 12 fL11/03/2024 6:44 AM EDT [facility]ITALNeutrophils %58.5%11/03/2024 6:44 AM EDT [facility]ymphocytes %28.6%11/03/2024 6:44 AM EDT [facility] %7.8%11/03/2024 6:44 AM EDT [facility]osinophils %4.1%11/03/2024 6:44 AM EDT [facility]Basophils %1.0%11/03/2024 6:44 AM EDT [facility]ITALNeutrophils Absolute (A)3.21.5 - 6.6 10*3/uL11/03/2024 6:44 AM EDTPHENRY COUNTY HOSPITALLymphocytes Absolute1.61.0 - 3.5 10*3/uL11/03/2024 6:44 AM EDTPCLEVELAND CLINIC CHIL[facility]HABIL[facility]ATION HOSPITALMonocytes Absolute0.40.0 - 0.9 10*3/uL11/03/2024 6:44 AM EDTPCLEVELAND CLINIC CH[facility] REHABILITATION HOSPITALEosinophils Absolute0.20.0 - 0.4 10*3/uL11/03/2024 6:44 AM EDTPHENRY COUNTY HOSPITALBasophils Absolute0.10.0 - 0.2 10*3/uL11/03/2024 6:44 AM [facility] CENTERDifferential TypeAUTOMATED IHKBHGMKZUUO88/08/2025 6:44 AM [facility]ITALpecimen (Source)Anatomical Location / LateralityCollection Method / VolumeCollection TimeReceived TimeBloodVenous blood / UnknownVenipuncture / Cjihqwy0011/03/2024 6:37 AM EDT11/03/2024 6:39 AM EDT Narrative Authorizing ProviderResult TypeResult StatusEliadele Clark MDLAB BLOOD ORDERABLESFinal ResultPerforming OrganizationAddressCity/State/ZIP CodePhone Number [facility] [address] [place] [address], * APTT (11/03/2024 6:37 AM EDT)ComponentValueRef RangeTest MethodAnalysis Time Performed AtPathologist PdvhfsyqnYFDH8881 - 37 sec11/03/2024 6:52 AM EDT [facility] (Source)Anatomical Location / LateralityCollection Method / VolumeCollection TimeReceived TimeBloodVenous blood / UnknownVenipuncture / Cqorvua8911/03/2024 6:37 AM EDT11/03/2024 6:39 AM EDT Narrative Authorizing ProviderResult TypeResult StatusLuca VASQUEZ BLOOD ORDERABLESFinal ResultPerforming OrganizationAddressCity/State/ZIP CodePhone Number [address] [place] [address], [place] * Protime & INR (11/03/2024 6:37 AM EDT)ComponentValueRef RangeTest Method Analysis TimePerformed AtPathologist CqdluyusxBYHWXVQ34.89.8 - 13.2 sec 11/03/2024 6:[address] [facility] HOSPITALINR1.00.9 - 1.2 11/03/2024 6:52 AM [facility] (Source) Anatomical Location / LateralityCollection Method / VolumeCollection Time Received TimeBloodVenous blood / UnknownVenipuncture / Ukesrqd7411/03/2024 6:37 AM EDT11/03/2024 6:39 AM EDT Narrative Authorizing ProviderResult TypeResult StatusLuca VASQUEZ BLOOD ORDERABLESFinal ResultPerforming OrganizationAddressty/State/ZIP CodePhone Number [address] [place] [address], [place] * C-reactive protein (11/03/2024 6:37 AM EDT)ComponentValueRef RangeTest Method Analysis TimePerformed AtPathologist SignatureC REACTIVE PROTEIN<0.5<=0.7 mg/dL11/03/2024 8:13 AM [facility] (Source)Anatomical Location / LateralityCollection Method / VolumeCollection TimeReceived TimeBloodVenous blood / UnknownVenipuncture / Ugewmvh4411/03/2024 6:37 AM EDT09/09/2024 6:39 AM EDT Narrative Authorizing ProviderResult TypeResult StatusEliadeel Clark MDLAB BLOOD ORDERABLESFinal ResultPerforming OrganizationAddressty/State/ZIP CodePhone Number [address] [place] [address], [place] * Magnesium (11/03/2024 6:37 AM EDT)ComponentValueRef RangeTest MethodAnalysis TimePerformed AtPathologist SignatureMAGNESIUM2.21.8 - 2.6 mg/dL11/03/2024 7:06 AM [facility]ITALpecw[facility] centern (Source)Anatomical Location / LateralityCollection Method / VolumeCollection TimeReceived Time BloodVenous blood / UnknownVenipuncture / Nyipfda4611/03/2024 6:37 AM EDT 11/03/2024 6:39 AM EDT Narrative Authorizing ProviderResult TypeResult StatusLuca VASQUEZ BLOOD ORDERABLESFinal ResultPerforming OrganizationAddressty/State/ZIP CodePhone Number [address] [place] [address], [place] * Liver panel (11/03/2024 6:37 AM EDT)ComponentValueRef RangeTest MethodAnalysis TimePerformed AtPathologist SignatureTOTAL PROTEIN7.46.0 - 8.0 g/dL11/03/2024 7:06 AM [facility] CENTERALBUMIN3.93.2 - 5.3 g/dL 11/03/2024 7:06 AM [facility] CENTERBILIRUBIN,TOTAL0.50.3 - 1.2 mg/dL11/03/2024 7:06 AM [facility]ENTERALKALINE WGZECVMQSSP6558 - 130 U/L11/03/2024 7:06 AM [facility]ENTERAST24<=41 U/L11/03/2024 7:06 AM [facility] ALT25<=31 U/L11/03/2024 7:06 AM [facility] BILIRUBIN,DIRECT0.1<=0.4 mg/dL11/03/2024 7:06 AM [facility]ITALpecimen (Source)Anatomical Location / LateralityCollection Method / VolumeCollection TimeReceived TimeBloodVenous blood / UnknownVenipuncture / Ffrbgxa0111/03/2024 6:37 AM EDT11/03/2024 6:39 AM EDT Narrative Authorizing ProviderResult TypeResult StatusLuca VASQUEZ BLOOD ORDERABLESFinal ResultPerforming OrganizationAddressCity/State/ZIP CodePhone Number [facility] [address] [place] [address], * (ABNORMAL) Basic Metabolic Panel (11/03/2024 6:37 AM EDT)ComponentValueRef RangeTest MethodAnalysis TimePerformed AtPathologist ElogwitgfLCHASS424693 - 146 mmol/L11/03/2024 7:06 AM [facility] CENTERPOTASSIUM 4.03.5 - 5.0 mmol/L11/03/2024 7:06 AM [facility] OBTXPSLS61496 - 109 mmol/L11/03/2024 7:06 AM [facility] CENTERCARBON OIYLTBF9280 - 32 mmol/L11/03/2024 7:06 AM [facility] CENTERANION GAP75 - 15 mmol/L11/03/2024 7:06 AM [facility] CENTERBLOOD UREA ZTSVKPUU686 - 27 mg/dL11/03/2024 7:06 AM [facility] CENTERCREATININE0.800.40 - 1.00 mg/dL 11/03/2024 7:06 AM [facility] CENTERComment:METHOD TRACEABLE TO IDMS LXDITTLNJMXFXHQ690(H)65 - 99 mg/dL11/03/2024 7:06 AM EDT [facility]ITALCALCIUM9.08.5 - 10.5 mg/dL11/03/2024 7:06 AM [facility] CENTEREGFR Non-Race Yxaeletvf51>=60 ml/min/1.73sq.m011/03/2024 7:06 AM [facility] Comment: eGFR not reported due to non-numeric value for Creatinine. Reported eGFR is based on the CKD-EPI 2020 equation that does not use a race coefficient. Specimen (Source)Anatomical Location / LateralityCollection Method / Volume Collection TimeReceived TimeBloodVenous blood / UnknownVenipuncture / Unknown 11/03/2024 6:37 AM EDT11/03/2024 6:39 AM EDT Narrative Authorizing ProviderResult TypeResult StatusLuca VASQUEZ BLOOD ORDERABLESFinal ResultPerforming OrganizationAddressCity/State/ZIP CodePhone Number [address] [address], * (ABNORMAL) Bedside Glucose *Place/Obtain serum glucose if >500 per glucometer. (11/03/2024 6:28 AM EDT)ComponentValueRef RangeTest MethodAnalysis Time Performed AtPathologist SignatureBedside Glucose (POC)112(H)65 - 99 mg/dL 11/03/2024 6:34 AM EDTPROMEDICA KAIS[facility]REM[facility] CENTERpecimen (Source) Anatomical Location / LateralityCollection Method / VolumeCollection Time Received Timearterial/elylrlduc43/08/2025 6:28 AM EDT11/03/2024 6:34 AM EDT Narrative Authorizing ProviderResult TypeResult StatusPOINT OF CARE TEST ORDERABLESFinal ResultPerforming OrganizationAddressCity/State/ZIP CodePhone Number [address] [address], * Mammography screening bilateral with CAD (01/02/2024 7:33 AM EST)Anatomical RegionLateralityModalityBreastBilateralMammography Narrative Authorizing ProviderResult TypeResult StatusValeriruben Villa ORNAMENTAL METAL WORKER-CNPIMG MAMMOGRAPHY ORDERABLESFinal Result * DIABETES EYE EXAM (07/13/2022) Narrative Authorizing ProviderResult TypeResult StatusScanning Provider ExternalHEALTH MAINTENANCEFinal ResultPerforming OrganizationAddressCity/State/ZIP CodePhone Number MANUALLY TRANSCRIBED RESULTS * Colonoscopy Report (12/02/2021 9:14 AM EDT)Specimen (Source)Anatomical Location / LateralityCollection Method / VolumeCollection TimeReceived Time Narrative SYSTEMGENERATED, DOCUMENTATION - 12/02/2021 9:14 AM EDT This order has been auto-finalized for image and report archival in PACs. *For full report details, please reach out to your physician. ??Effective 07/13/20 this image will be visible to you in MyChart.* Authorizing ProviderResult TypeResult StatusJohn L Martins DOIMG OR IMG ORDERABLES Final Result from Last 3 Months or Most Recently Relevant to Health Maintenance Insurance Care Teams Team MemberRelationshipSpecialtyStart DateEnd Date William Payton, ORNAMENTAL METAL WORKER-DIESEL AUTOMOTIVE TECHNICIAN [address] [place] [address] PCP - GeneralInternal Medicine11/03/24
--- OUTSIDE RECORDS SUMMARY | 2024-12-31 07:58 | XMS_ITS | Clinical Summary ---
Author Organization [facility] Healthcare Address [address] [place] [address] Care Team Providers Care Supervisor Sterile Processing Name Role Phone Rudolph Chicas MD Primary Care Provider [phone] Allergies Active AllergyReactionsCriticalityNoted XtduRtuzmkzwOunpkmi83/17/2021 Other Reaction(s): makes me crazy, I want to climb the [place]aca , Other (See Comments), Unknown QsreivmpaihyfpaJun06/17/2021 Other Reaction(s): Other (See Comments), pain, Pain, Unknown Medications MedicationSigDispense QuantityRefillsLast FilledStart DateEnd DateStatus budesonide-formoterol (Symbicort) 160-4.5 MCG/ACT inhaler Inhalation for 90Active empagliflozin (Jardiance) 25 MG Take 25 mg by mouth in the morning.12/10/2023ctive losartan (Cozaar) 25 MG tablet Take 25 mg by mouth in the morning.12/10/2023ctive rosuvastatin (Crestor) 20 MG tablet Take 20 mg by mouth in the morning.12/10/2023ctive sertraline (Zoloft) 100 MG tablet Take 100 mg by mouth in the morning.12/10/2023ctive methylPREDNISolone (Medrol Dospak) 4 MG tablets Indications:Plantar fasciitisTake as directed on package. 21 tablet 12/18/2023ctive Family History Medical HistoryRelationNameCommentsCancerFatherCancerMotherRelationNameStatus CommentsFatherDeceasedMotherDeceased Social History Tobacco UseTypesPacks/DayYears UsedDateSmoking Tobacco: Never Tobacco Cessation:Counseling Given: Not Answered Alcohol UseStandard Drinks/WeekCommentsNever0 (1 standard drink = 0.6 oz pure alcohol)CommentsUnknownSex and Gender InformationValueDate RecordedSex Assigned at BirthNot on fileLegal WqaSjdlcr79/15/2023 7:29 PM EDTGender Identity Not on fileSexual OrientationNot on file Last Filed Vital Signs Vital SignReadingTime TakenCommentsBlood Kxnrgfwf919/7311 12:00 PM EST Pulse--Temperature--Respiratory Rate--Oxygen Saturation--Inhaled Oxygen Concentration--Ligazx23 kg (205 lb)12/18/2023 3:16 PM NEROasgwk790 cm (5' 3 ) 12/18/2023 3:16 PM EDTBody Mass Index36.311 3:16 PM EDT Plan of Treatment Not on file Insurance Care Teams Team MemberRelationshipSpecialtyStart DateEnd Rudolph Chicas MD PCP - GeneralInternal Zudyukok63/18/24
--- OUTSIDE RECORDS SUMMARY | 2024-12-31 08:02 | XMS_ITS | CCD ---
Author Organization [facility] InformReplaced by [facility] Care Team Providers Care Pyrotechnic Mixer Name Role Phone FURLONG, DR JYOTI Fatima Primary Care Unavailable PATRICIA, DR LILIANA Bergman Attending Unavailable PATRICIA, DR LILIANA Bergman Admitting Unavailable ZIEBER, DR MARK Bergman Consulting Unavailable PTARICIA, DR LILIANA Bergman Consulting Unavailable Alix Tavera Unavailable LILIANA GOMEZ Referring Unavailable LILIANA GOMEZ Primary Care Unavailable YASMINE VILLA Referring Unavailable YASMINE VILLA Primary Care Unavailable YASMINE VILLA Referring Unavailable YASMINE VILLA Primary Care Unavailable Pawel Culver MD Primary Care Provider [phone] Patricia POOLROOM TABLE ATTENDANT-TAKER OFF DRYING KILNLiliana Primary Care Provider Patricia POOLROOM TABLE ATTENDANT-TAKER OFF DRYING KILNLiliana Primary Care Provider Roberta POOLROOM TABLE ATTENDANT-WHEEL ALIGNERAi Primary Care Provider Allen POOLROOM TABLE ATTENDANT-WHEEL ALIGNERYasmine Primary Care Provid er Allen POOLROOM TABLE ATTENDANT-WHEEL ALIGNERYasmine Primary Care Provid er Allen POOLROOM TABLE ATTENDANT-WHEEL ALIGNERYasmine Primary Care Provid er YASMINE VILLA Primary Care Unavailable NEYMAR HIGGINS Attending Unavailable KATINA PROMCHARMAINE STROKE Consulting JOSE ROBERTO Hooks Attending Unavailable YASMINE VILLA Referring Unavailable YASMINE VILLA Primary Care Unavailable MARCEL WHEELER Admitting Unavailable MARCEL WHEELER Attending Unavailable YASMINE VILLA Referring Unavailable YASMINE VILLA Primary Care Unavailable JOSE ROBERTO CORONA Attending Unavailable YASMINE VILLA Referring Unavailable YASMINE VILLA Primary Care Unavailable JOSE ROBERTO CORONA Attending Unavailable VILLA, YASMINE J Referring Unavailable VILLA, YASMINE J Primary Care Unavailable JANET JONES Attending Unavailable VILLA, YASMINE J Primary Care Unavailable MARCEL WHEELER Admitting Unavailable MARCEL WHEELER Attending Unavailable LILIANA GOMEZ Referring Unavailable AI MARTINEZ Primary Care Unavailable ANUSHA, MARCEL Pedro Attending Unavailable ANUSHA, MARCEL Pedro Referring Unavailable VILLA, YASMINE Nunez Primary Care Unavailable WHEELER, MARCEL Pedro Attending Unavailable WHEELER, MARCEL Pedro Referring Unavailable VILLA, YASMINE J Primary Care Unavailable WHEELER, MARCEL Pedro Attending Unavailable WHEELER, MARCEL Pedro Referring Unavailable VILLA, YASMINE J Primary Care Unavailable WHEELER, MARCEL Perdo Admitting Unavailable WHEELER, MARCEL Pedro Attending Unavailable VILLA, YASMINE J Referring Unavailable VILLA, YASMINE J Primary Care Unavailable Krotzer ROSEMARY-ALEKSANDR Payton D Primary Care Provider YASMINE VILLA Attending Unavailable VILLA, YASMINE J Referring Unavailable VILLA, YASMINE J Primary Care Unavailable VILLA, YASMINE J Attending Unavailable VILLA, YASMINE J Referring Unavailable VILLA, YASMINE J Primary Care Unavailable VILLA, YASMINE J Attending Unavailable VILLA, YASMINE J Referring Unavailable VILLA, YASMINE J Primary Care Unavailable PAWEL CULVER Attending Unavailable KROTZER, PAYTON D Referring Unavailable KROTZER, PAYTON D Primary Care Unavailable KROTZER, PAYTON D Attending Unavailable KROTZER, PAYTON D Referring Unavailable KROTZER, PAYTON D Primary Care Unavailable Allergies Allergy ClassificationReported Allergen(s)Allergy TypeDate of OnsetReaction(s) Facility (20 sources)Codeine; Translations: [CODEINE]Drug Yxyuqbn62-25-5494Stvhh (See Comments)[facility] (20 sources)Succinylcholine; Translations: [SUCCINYLCHOLINE]Drug Allergy 94-67-9081ahqyeuwrtvp, Other (See Comments), painProMedica [facility]ository (2 sources)SuccinylcholineDrug Cyglddp30-04-1850[facility] (8 sources)Acetaminophen / oxyCODONE; Translations: [OXYCODONE-ACETAMINOPHEN] Drug Rnoihht76-23-6758DdxmrvbPekXditdj Health System Medications Current Medications MedicationDrug Class(es)DatesSig (Normalized)Sig (Original)acetaminophen 325 mg oral tablet (20 sources)acetaminophen (TYLENOL) 325 mg tablet Take 2 tablets (650 mg total) by mouth as needed. As needed [id number] 200 actuat albuterol 0.09 mg/actuat metered dose inhaler (1 source)beta2-Adrenergic AgonistStart: 15-48-0482fuvb 2 puff(s) by inhalation every four to six hours as neededAlbuterol Sulfate HFA 108 (90 Base) MCG/ACT 2 puffs as needed Inhalation every 4-6 hours for 14 days Dec, Active amLODIPine 5 mg oral tablet (3 sources)Dihydropyridine Calcium Channel BlockerStart: 08-57-0505pmwl 1 tablet by mouth in the morningamLODIPine (NORVASC) 5 mg tablet Indications: Essential hypertension Take 1 tablet (5 mg total) by mouth in the morning. REFILL. 90 tablet 1 12/16/2024 ActiveStart: 11-03-2024 End: 59-56-2090gywr 1 tablet by mouth in the morningamLODIPine (NORVASC) 5 mg tablet Take 1 tablet (5 mg total) by mouth in the morning for 10 days. 10tablet 11/03/2024 11/13/2024 Activebenzonatate 100 mg oral capsule (2 sources)Non-narcotic AntitussiveStart: 45-97-2403npvr 1 capsule by mouth every eight hoursTessalon Perles 100 MG 1 capsule as needed Orally Three times a day for 7 days Dec, ActiveStart: 77-74-5638luop 1 capsule by mouth three times daily as neededTessalon Perles 100 MG 1 capsule as needed Orally Three times a day for 7 days Aug, ActiveBudesonide / formoterol (20 sources)Corticosteroid, beta2-Adrenergic AgonistStart: 60-79-5750nrei 2 puff(s) by inhalation in the morningbudesonide-formoteroL (SYMBICORT) 160-4.5 mcg/actuation inhaler Indications: Mild intermittent asthma without complication Inhale 2 puffs in the morning and 2 puffs before bedtime. 10.2 g 5 04/14/2024 ActiveStart: 05-23-2022 End: 95-43-1885wbfr 2 puff(s) by inhalation in the morningbudesonide-formoteroL (SYMBICORT) 160-4.5 mcg/actuation inhaler Indications: Mild intermittent asthma without complication Inhale 2 puffs in the morning and 2 puffs before bedtime. 10.2 g 5 05/23/2022 04/14/2024 Discontinued (Reorder)Start: 28-11-1712vsop 2 puff(s) by inhalation in the morningbudesonide-formoteroL (SYMBICORT) 160-4.5 mcg/actuation inhaler Indications: Mild intermittent asthma without complication Inhale 2 puffs in the morning and 2 puffs before bedtime. 10.2 g 5 05/23/2022 Activebudesonide-formoterol (Symbicort) 160-4.5 MCG/ACT inhaler Inhalation for 90 Activetake 2 puff(s) by inhalation once dailySymbicort 160-4.5 MCG/ACT 2 puffs Inhalation Once a day Activelosartan potassium 25 mg oral tablet (20 sources)Angiotensin 2 Receptor BlockerStart: 89-78-4672ktgtdevm (COZAAR) 25 mg tablet Indications: 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 2 diabetes me llitus ([facility]) Take 1 tablet (25 mg total) by mouth in the morning. 90 tablet 1 12/16/2024 ActiveStart: 11-13-2022 End: 05-37-0415kamcebsj (COZAAR) 25 mg tablet Indications: 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 ([facility]) Take 1 tablet (25 mg total) by mouth in the morning. 90 tablet 1 04/14/2024 12/16/2024 Discontinued methylPREDNISolone (6 sources)CorticosteroidStart: 84-07-8119gjigksXQHZGYVgsszd (Medrol Dospak) 4 MG tablets Indications: Plantar fasciitis Take as directed on package. 21 tablet 12/18/2023 ActiveStart: 01-04-2023 End: 71-30-5700rgvonrYADGQDOpiapw (MEDROL, RICHA,) 4 mg tablet follow package directions 21 tablet 0 01/04/2023 04/12/2023 Discontinued (Therapy completed) Start: 75-15-7538gxzpchBDUVGLXoxonw (MEDROL, RICHA,) 4 mg tablet follow package directions 21 tablet 0 01/04/2023 Activenitrofurantoin, macrocrystals 25 mg / nitrofurantoin, monohydrate 75 mg oral capsule (1 source)Nitrofuran AntibacterialStart: 10-15-2023 End: 33-34-3757yuql 1 capsule by mouth in the morning, then take 1 capsule by mouth at bedtimenitrofurantoin, macrocrystal-monohydrate, (MACROBID) 100 mg capsule Indications: Acute cystitis without hematuria Take 1 capsule (100 mg total) by mouth in the morning and 1 capsule (100 mg total) before bedtime. Do all this for 7 days. 14 capsule 10/15/2023 10/22/2023 Activerosuvastatin calcium 20 mg oral tablet (20 sources)HMG-CoA Reductase InhibitorStart: 09-66-0966lchp 1 tablet by mouth once daily in the morningrosuvastatin (CRESTOR) 20 mg tablet Indications: Type 2 diabetes mellitus with hyperglycemia, without long-term current use of insulin ([facility]) Take 1 tablet (20 mg total) by mouth every morning. 90tablet 1 12/16/2024 ActiveStart: 12-11-2022 End: 51-32-6064brrn 1 tablet by mouth once daily in the morningrosuvastatin (CRESTOR) 20 mg tablet Indications: Type 2 diabetes mellitus with hyperglycemia, without long-term current use of insulin ([facility]) Take 1 tablet (20 mg total) by mouth every morning. 90tablet 1 04/14/2024 12/16/2024 Discontinuedtake 1 tablet by mouth every twenty-four hoursCrestor 20 MG 1 tablet Orally Once a day Activesemaglutide (OZEMPIC) 0.25 mg or 0.5 mg (2 mg/3 mL) pen injector (12 sources)Start: 93-09-4752jjhops 0.5 mg by subcutaneous injection every week semaglutide (OZEMPIC) 0.25 mg or 0.5 mg (2 mg/3 mL) pen injector Indications: DM type 2 with diabetic mixed hyperlipidemia ([facility]) Inject 0.5 mg under the skin once a week. 3 mL 6 07/03/2024 ActiveStart: 06-09-2024 End: 27-34-8639vogbsg 0.5 mg by subcutaneous injection every weeksemaglutide (OZEMPIC) 0.25 mg or 0.5 mg (2 mg/3 mL) pen injector Indications: DM type 2 with diabetic mixed hyperlipidemia (CMS-HCC) Inject 0.5 mg under the skin once a week. 3 mL 06/09/2024 07/03/2024 Discontinued (Reorder)Start: 09-45-8286qffndn 0.5 mg by subcutaneous injection every weeksemaglutide (OZEMPIC) 0.25 mg or 0.5 mg (2 mg/3 mL) pen injector Indications: DM type 2 with diabetic mixed hyperlipidemia (CMS-HCC) Inject 0.5 mg under the skin once a week. 3 mL 06/09/2024 ActiveStart: 04-14-2024 End: 31-62-3747llvikqebynv (OZEMPIC) 0.25 mg or 0.5 mg (2 mg/3 mL) pen injector Indications: Type 2 diabetes mellitus with hyperglycemia, without long-term current use of insulin (CMS-HCC) Inject 0.5 mg under the skin every 7 days. 3 mL 1 04/14/2024 06/09/2024 Discontinued (Duplicate Listing)Start: 04-14-2024 semaglutide (OZEMPIC) 0.25 mg or 0.5 mg (2 mg/3 mL) pen injector Indications: Type 2 diabetes mellitus with hyperglycemia, without long-term current use of insulin (CMS-HCC) Inject 0.5 mg under the skin every 7 days. 3 mL 1 04/14/2024 Activesertraline 100 mg oral tablet (20 sources)Serotonin Reuptake InhibitorStart: 33-18-8696rymj 1 tablet by mouth in the morningsertraline (ZOLOFT) 100 mg tablet Indications: Depressive disorder Take 1 tablet (100 mg total) by mouth in the morning. 90 tablet 1 12/16/2024 ActiveStart: 11-13-2022 End: 80-07-2590twld 1 tablet by mouth in the morningsertraline (ZOLOFT) 100 mg tablet Indications: Depressive disorder Take 1 tablet (100 mg total) by mouth in the morning. 90 tablet 1 04/14/2024 12/16/2024 Discontinuedtake 1 tablet by mouth once dailySertraline HCl 50 MG 1 tablet Orally Once a day Active Completed/Discontinued Medications MedicationDrug Class(es)DatesSig (Normalized)Sig (Original)empagliflozin 25 mg oral tablet (20 sources)Sodium-Glucose Cotransporter 2 InhibitorStart: 11-13-2022 End: 90-22-2569udqxxjphaxkxx (JARDIANCE) 25 mg tablet tablet Indications: 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 ([facility]) Take 1 tablet (25 mg total) by mouth in the morning. 90 tablet 1 04/14/2024 07/03/2024 Discontinued (Therapy completed)Jardiance Active Problems Active Problems Problem ClassificationProblemDateDocumented DateEpisodic/ChronicAnxiety disorders (20 sources)Anxiety; Translations: [Anxiety disorder, unspecified]Onset: 994545-03-9933TrzamnvQrthoc (20 sources)Asthma; Translations: [Unspecified asthma, uncomplicated]Onset: 946638-53-3349KdzunupMojkjmy kidney disease (2 sources)Chronic kidney disease, stage 2 (mild); Translations: [Chronic kidney disease, stage 2 (mild)]Onset: 27-46-4320SajnxisBebochkvtr associated with dizziness or vertigo (2 sources)Dizziness and giddiness; Translations: [Dizziness]Onset: 11-03-2024 EpisodicConditions associated with dizziness or vertigo (1 source)Conditions associated with dizziness or vertigoOnset: 11-03-2024 Diabetes mellitus with complications (20 sources)Type 2 diabetes mellitus with diabetic chronic kidney disease; Translations: [Chronic kidney disease stage 2 due to type 2 diabetes mellitus] Onset: 597487-61-1820KzzrdfrHyunlnuo mellitus without complication (1 source)Diabetes mellitusOnset: 54-18-5676RkakextWbhkaadrt of lipid metabolism (20 sources)Mixed hyperlipidemia; Translations: [Hyperlipidemia]Onset: 391846-42-9060AdmbsrnEqdvzwflgmfjkj and diverticulitis (20 sources)Diverticulosis of large intestine; Translations: [Diverticulosis of large intestine without perforation or abscess without bleeding]Onset: 745147-09-8485ZobzybzZvrxbrsxj hypertension (20 sources)Essential hypertension; Translations: [Essential (primary) hypertension]Onset: 939186-71-6399JdagprsDhblbntt; including migraine (20 sources)Migraine; Translations: [Migraine, unspecified, not intractable, without status migrainosus]Onset: 779082-47-1745TjuehqmExveaiyh; including migraine (1 source)HeadacheOnset: 75-67-4080OllqemunMoqzyuzmadkq with complications and secondary hypertension (20 sources)Chronic kidney disease stage 2 due to hypertension; Translations: [Hypertensive chronic kidney disease with stage 1 through stage 4 chronic kidney disease, or unspecified chronic kidney disease]Onset: ChronicMood disorders (20 sources)Depressive disorder; Translations: [Depressive disorder]Onset: 11-14-2021 Resolved: 834104-86-2000FtqldlaCcsr disorders (20 sources)Mood disorders; Translations: [Depression, unspecified]Onset: 12-11-2022 Resolved: 826728-30-3680Yypwujuzcglzcz (20 sources)Osteoarthritis of right knee joint; Translations: [Unilateral primary osteoarthritis, right knee]Onset: 637619-40-2429ZmtezxdIjgra acquired deformities (2 sources)Equinus contracture of the ankle; Translations: [Contracture, right ankle]15-23-0061WsmeqevLxmrv connective tissue disease (2 sources)Plantar fasciitis; Translations: [Plantar fascial fibromatosis] 63-65-4280AmggxldxIcvlj connective tissue disease (2 sources)Nontraumatic rupture of muscle; Translations: [Other rupture of muscle (nontraumatic), unspecified site]35-93-3069YuwcawvkYhrnm connective tissue disease (2 sources)Pain in right foot; Translations: [Pain in right foot]12-18-2023 EpisodicOther eye disorders (2 sources)Conjunctival hemorrhage, left eye; Translations: [Conjunctival hemorrhage, left eye]Onset: 58-71-1000ZdhycfdpGkymd eye disorders (1 source)Conjunctival hemorrhage of left eye; Translations: [Conjunctival hemorrhage, left eye]70-65-0574HgncasazVcgbk non-traumatic joint disorders (1 source)Hip painOnset: 53-48-6263DlgqexjeZyvld non-traumatic joint disorders (1 source)Knee painOnset: 66-52-0682AiylzmoaCagfi nutritional; endocrine; and metabolic disorders (19 sources)Obesity; Translations: [Obesity, unspecified]Onset: 11-14-2021 98-16-1550RupuljqWtjjn nutritional; endocrine; and metabolic disorders (1 source)Body mass index 30+ - obesity; Translations: [Body mass index (BMI) 36.0-36.9, adult]63-21-4643TafuppoQtcfc nutritional; endocrine; and metabolic disorders (12 sources)Severe obesity; Translations: [Class 3 severe obesity due to excess calories with serious comorbidity and body mass index (BMI) of 40.0 to 44.9 in adult ([facility])]Onset: 239122-46-2169GdqrqqqLloyw nutritional; endocrine; and metabolic disorders (1 source)Obesity caused by energy imbalance; Translations: [Class 2 obesity due to excess calories without serious comorbidity with body mass index (BMI) of 37.0 to 37.9 in adult]95-62-3235NxdeqvkOpksu nutritional; endocrine; and metabolic disorders (1 source)Other obesity due to excess calories; Translations: [Other obesity due to excess calories]Onset: 64-24-4680GzrvkppEgvjj nutritional; endocrine; and metabolic disorders (1 source)Body mass index (BMI) 37.0-37.9, adult; Translations: [Body mass index (BMI) 37.0-37.9, adult]Onset: 18-86-9466WyikqpeXqufw nutritional; endocrine; and metabolic disorders (1 source)Morbid (severe) obesity due to excess calories; Translations: [Morbid (severe) obesity due to excess calories]Onset: 14-98-8103YgqxclgQqyle nutritional; endocrine; and metabolic disorders (1 source)Body mass index (BMI) 40.0-44.9, adult; Translations: [Body mass index (BMI) 40.0-44.9, adult]Onset: 33-53-4373IqjywiqRpkkn screening for suspected conditions (not mental disorders or infectious disease) (8 sources)Encounter for screening mammogram for malignant neoplasm of breast; Translations: [Patient encounter status]Onset: 84-31-1150QxxwlzdxJggen upper respiratory disease (2 sources)Seasonal allergic rhinitis; Translations: [Seasonal allergic rhinitis]ChronicResidual codes; unclassified (20 sources)Obstructive sleep apnea syndrome; Translations: [Obstructive sleep apnea (adult) (pediatric)]Onset: 584142-19-2547MbqddmlWpfeufxp codes; unclassified (1 source)Family history of malignant neoplasm of other genital organs; Translations: [FAM HX CORIN NEOPLSM OT GENIT ORGN]Onset: 96-43-9217Tssgdzde Residual codes; unclassified (1 source)Family history of other malignant neoplasms of lymphoid, hematopoietic and related tissues; Translations: [FAM HX OTH MAL ALEXIA LYMPH HEMATPOETC]Onset: 35-28-2405TojxgtosLcjsbkda codes; unclassified (1 source)Family history of malignant neoplasm of other organs or systems; Translations: [FAM HX FERNANDOIG NEOPLASM OT ORGN/SYS]Onset: 56-40-1749Nbktqqao Spondylosis; intervertebral disc disorders; other back problems (3 sources)Lumbosacral spondylosis without myelopathy; Translations: [Spondylosis without myelopathy or radiculopathy, lumbosacral region]06-21-2023 ChronicUnclassified (1 source)Eye PainOnset: 83-47-2359Afgbsgvgxuhq (1 source)Obesity, class 2; Translations: [Obesity, class 2]Onset: 12-16-2024 Unclassified (1 source)Obesity, class 3; Translations: [Obesity, class 3]Onset: 04-14-2024 Unclassified (1 source)medicationsOnset: 23-76-2929Kxaiatg tract infections (2 sources)Acute cystitis without hematuria; Translations: [Acute cystitis] Onset: 883412-33-3774OocvupsuIigud infection (2 sources)Viral disease; Translations: [Viral illness]Episodic Past or Other Problems Problem ClassificationProblemDateDocumented DateEpisodic/ChronicJoint disorders and dislocations; trauma-related (20 sources)Tear of meniscus of knee; Translations: [Unspecified tear of unspecified meniscus, current injury, unspecified knee, initial encounter]Onset: 842809-66-3879GjczkttuGbqbn and unspecified benign neoplasm (20 sources)Polyp of ascending colon; Translations: [Polyp of colon]Onset: 153867-19-7091LubiixdhIhujw and unspecified benign neoplasm (20 sources)Polyp of transverse colon; Translations: [Polyp of colon]Onset: 295163-61-3659LrrbctgkQnuon bone disease and musculoskeletal deformities (20 sources)Osteopenia; Translations: [Other specified disorders of bone density and structure, unspecified site]Onset: 924694-93-8291KrjyzptjWeapr skin disorders (1 source)Changing color of pigmented skin lesion; Translations: [Disorder of pigmentation, unspecified]62-73-6925WuqrmjrmOfatp upper respiratory infections (1 source)Acute upper respiratory infection, unspecifiedOnset: 09-24-2021 Resolved: 26-62-9710FkamrxbxQkatifbtijb; intervertebral disc disorders; other back problems (2 sources)Disorder of sacrum; Translations: [Sacrococcygeal disorders, not elsewhere classified]Onset: 377856-93-9038NqedjrhoDjuiltnjvoxc (2 sources)Cough R05.9Onset: 09-24-2021 Resolved: 73-29-9253Cujeypvkwyor (20 sources)Onset: 12-11-2022 Resolved: Viral infection (1 source)COVID-19 Results Test NameValueInterpretationReference RangeFacilityPOCT Hemoglobin A1con 49-92-3396UuM4a (Bld) [Mass fraction]6.0 %4 - 7 %[facility] SystemAPTTon 82-35-6618bJBK Coag (Bld) [Time]27 hVpusga86-27 [facility] HospitalComment on above:Performed By: #### PTT #### [facility] ([facility]) [address] [place] [address] [place] [address] VIRBASIC METABOLIC PANELon 10-47-2117Gnikw gap [Moles/Vol]7 mmol/LNormal5-15[facility], SacramentoComment on above:Performed By: #### BMP #### [facility] ([address] [address] VIRCalcium [Mass/Vol]9.0 mg/dLNormal8.5-10.5PRegency Hospital Cleveland EastComment on above:Performed By: #### BMP #### [facility] ([address] [place] [address] VIRChloride [Moles/Vol]104 mmol/WAdwjqw44-946TviOtxokeDell Seton Medical Center At The University Of TexasComment on above:Performed By: #### BMP #### [facility] ([address] [place] [address] VIRCO2 [Moles/Vol]29 mmol/ACiyzsq50-72DnnZxtvuwRegency Hospital Cleveland EastComment on above:Performed By: #### BMP #### [facility] ([address] [address] VIRCreatinine [Mass/Vol]0.80 mg/dLNormal0.40-1.00ProDell [facility] Center At The University Of TexasComment on above:Result Comment: METHOD TRACEABLE TO IDMS STANDARDPerformed By: #### BMP #### [facility] ([address] [address] VIRGFR/1.73 sq M.predicted among non-blacks MDRD (S/P/Bld) [Vol rate/Area]79 mL/min/{1.73_m2}Normal>=60ProDell [facility] Center At The University Of TexasComment on above:Result Comment: eGFR not reported due to non-numeric value for Creatinine. Reported eGFR is based on the CKD-EPI 2021 equation that does not use a race coefficient.Performed By: #### BMP #### [facility] ([address] [address] VIRGlucose [Mass/Vol]107 mg/qVXxmm29-34NdsLnqnbpDell Set[facility] At The University Of TexasComment on above:Performed By: #### BMP #### [facility] ([address] [address] VIRPotassium [Moles/Vol]4.0 mmol/LNormal3.5-5.0ProDell [facility] The University Of TexasComment on above:Performed By: #### BMP #### [facility] ([address] [place] [address] VIRSodium [Moles/Vol]140 mmol/TPphhvb443-098DlsXnopfo Fremont HospitalComment on above:Performed By: #### BMP #### [facility] ([address] [place] [address] VIRUrea nitrogen [Mass/Vol]11 mg/dLNormal5-27ProDell [facility] The University Of TexasComment on above:Performed By: #### BMP #### [facility] ([address] [address] VIRBEDSIDE GLUCOSEon 43-61-0684Hmmwngc [Mass/Vol]112 mg/dLHigh 65-99ProDell [facility] The University Of TexasComment on above:Performed By: #### BEDG #### [facility] ([address] [address] VIRC-REACTIVE PROTEINon 47-03-2703VZO [Mass/Vol]mg/LNormal <=0.7[facility] HospitalComment on above:Performed By: #### CRP ####[facility] ([address] [address] VIRCBC WITH AUTO DIFFERENTIALon 76-09-6446YBSZWMLOH ABSOLUTE COUNT (10*3/UL) BY AUTOMATED COUNT0.1 10*3/uLNormal0.0-0.2PRegency Hospital Cleveland East Comment on above:Performed By: #### CBCA #### [facility] ([address] [address] VIRBASOPHILS RELATIVE PERCENT BY AUTOMATED COUNT1.0 %Normal [facility] HospitalComment on above:Performed By: #### CBCA #### [facility] ([address] [address] VIRCELLAVISION DIFFERENTIAL TYPEAUTOMATED DIFFERENTIALNormal [facility] HospitalComment on above:Performed By: #### CBCA #### [facility] ([address] [place] [address] VIREosinophils (Bld) [#/Vol]0.2 10*3/uLNormal0.0-0.4[facility] HospitalComment on above:Performed By: #### CBCA #### [facility] ([address] [place] [address] VIREOSINOPHILS RELATIVE PERCENT BY AUTOMATED COUNT4.1 %Normal [facility] HospitalComment on above:Performed By: #### CBCA #### [address] [place] [address] VIRErythrocyte distribution width (RBC) [Ratio]16.0 %High 11.5-15ProDell Seton Medical Center At The University Of TexasComment on above:Performed By: #### CBCA #### [facility] ([address] [place] [address] VIRHematocrit (Bld) [Volume fraction]37.1 %Vnzkxv37-33 [facility] HospitalComment on above:Performed By: #### CBCA #### [facility] ([address] [place] [address] VIRHemoglobin (Bld) [Mass/Vol]12.0 g/cSIlqoqj49.7-15.5 [facility] HospitalComment on above:Performed By: #### CBCA #### [facility] ([address] [place] [address] VIRLYMPHOCYTES ABSOLUTE COUNT (10*3/UL) BY AUTOMATED COUNT1.6 10*3/uLNormal1.0-3.5PRegency Hospital Cleveland EastComment on above:Performed By: #### CBCA #### [facility] (JAMIE) [address] [place] [address] [place] [address] VIRLYMPHOCYTES RELATIVE PERCENT BY AUTOMATED COUNT28.6 %Normal [facility] HospitalComment on above:Performed By: #### CBCA #### [facility] ([facility]) [address] [place] [address] [place] [address] VIRMCH (RBC) [Entitic mass]25.7 dcVda66-36BrqTxadwsDell Seton Medical Center At The University Of TexasComment on above:Performed By: #### CBCA #### [facility] ([address] [place] [address] VIRMCHC (RBC) [Mass/Vol]32.3 g/oVWsbukr62-79MonNrqojpDell Seton Medical Center At The University Of TexasComment on above:Performed By: #### CBCA #### [facility] ([address] [place] [address] VIRMCV (RBC) [Entitic vol]80 oWMqvwso89-992VwpBgvolq [facility] HospitalComment on above:Performed By: #### CBCA #### [facility] ([address] [place] [address] VIRMONOCYTES ABSOLUTE COUNT (10*3/UL) BY AUTOMATED COUNT0.4 10*3/uLNormal0.0-0.9[facility] HospitalComduane l. waters hospital on above:Performed By: #### CBCA #### [facility] ([address] [place] [address] VIRMONOCYTES RELATIVE PERCENT BY AUTOMATED COUNT7.8 %Normal [facility] HospitalComduane l. waters hospital on above:Performed By: #### CBCA #### [facility] ([address] [place] [address] VIRNEUTROPHILS ABSOLUTE COUNT BY AUTOMATED COUNT3.2 10*3/uL Normal1.5-6.6[facility] HospitalComment on above:Performed By: #### CBCA #### [facility] ([address] [place] [address] VIRNEUTROPHILS RELATIVE PERCENT BY AUTOMATED COUNT58.5 %Normal [facility] HospitalComment on above:Performed By: #### CBCA #### [facility] ([address] [place] [address] VIRPlatelet mean volume (Bld) [Entitic vol]9.0 fLNormal7-12 [facility] HospitalComment on above:Performed By: #### CBCA #### [facility] ([address] [place] [address] VIRPlatelets (Bld) [#/Vol]251 10*3/jRBtmfik942-853DsxXnslwk [facility], SacramentoComment on above:Performed By: #### CBCA #### [facility] ([address] [place] [address] VIRRBC COUNT4.66 X10E12/LNormal3.8-5.2ProMedica [facility], SacramentoComment on above:Performed By: #### CBCA #### [facility] ([address] [place] [address] VIRWBC (Bld) [#/Vol]5.5 10*3/uLNormal4-11ProDell Seton Medical Center At The University Of TexasComment on above:Performed By: #### CBCA #### [facility] ([address] [place] [address] VIRCT BRAIN WO CONT STROKE ALERTon 18-81-2120VA BRAIN WO CONT STROKE ALERTCT BRAIN WO CONT STROKE ALERT CT BRAIN WO CONT STROKE ALERT CLINICAL HISTORY: Lightheadedness. Headache. COMPARISON: No relevant prior studies available. TECHNIQUE: CT brain without intravenous contrast. Automated exposure control was utilized. All CT scans at this facility use dose modulation, iterative reconstruction, and/or weight based dosing whenappropriate to reduce radiation dose to as low [...] Nonspecific patchy areas of hypoattenuation within the supratentorial white matter, most commonlyassociated with chronic microvascular ischemic change. If there is concern for acute ischemia/infarct, MRI can be considered. Finalized by Jonh Liao MD on 11/03/2024 6:53 AMNormalProGalion Community Hospitalca [facility], SacramentoCT CTA CAROTIDon 50-23-9823RS CTA CAROTIDCT CTA CAROTID Examination: CTA carotids Clinical History: L decreased vision, headache, hypertension, dizziness, eval stroke Comparison: None CT CTA CAROTID Procedure: Multidetector CT angiogram performed through the cervical portion of the carotid arteries without complication, including source images and maximum intensity projection 3-D images displayed and reviewed on an independent PACS workstation by the radiologist. Automated exposure control was utilized. The [place] Symptomatic Carotid Endarterectomy Trial (NASCET)calculation of ICA stenosis percentage using the following formula with a threshold of 60 to 70%: % ICA stenosis = (1 - [narrowest ICA diameter/diameter normal distal cervical ICA]) x 100 Findings: 3-D images confirm [...] cm/sec; ICA/CCA Ratio > 4.0 ICA Occlusion: Absent PW Doppler and color flow signal; High resistive CCA flow velocity signal >70 % Post Cartoid Endarterectomy Stenosis: PSV >275 cm/sec and EDV >110 cm/sec >70 Post Carotid Stent Stenosis: PSV >325 cm/sec and EDV >120 cm/sec *PSV- Peak Systolic Velocity *EDV- End Diastolic Velocity Finalized by Francesco Champagne MD on 11/03/2024 7:[address] [facility] [address] CTA HEADon 51-58-4162QW CTA HEADCT CTA HEAD History: L decreased vision, headache, hypertension, dizziness, eval stroke Procedure: CT CTA HEAD Multidetector CT angiogram performed with IV contrast through the [place] using 3 -D Maximum intensity [...] aneurysm or major vessel occlusion of the [place], within limitations of CT. Flow is demonstrated within the vertebral arteries, basilar artery, bilateral posterior cerebral arteries, middle cerebral arteries and anterior cerebral arteries. 3D reformatted images confirm the source data findings. IMPRESSION: * Unremarkable CT angiogram [place]. * If you have high clinical suspicion for occult process such as an infarct consider CT perfusion and brain MRI and MRA. Finalized by Francesco Champagne MD on 11/03/2024 7:11 [facility] ERYTHROCYTE SEDIMENTATION RATE (ESR)on 45-35-8429IRQ, ERYTHROCYTE SEDIMENTATION RATE42 mm/hHigh0-30ProDell Seton Medical Center At The University Of TexasComment on above:Performed By: #### ESR ####[facility] (TT)[address], [place] [address] VIRLIVER PANELon 85-49-2292Lmtbxfb [Mass/Vol]3.9 g/dLNormal3.2-5.3 [facility] HospitalComment on above:Performed By: #### LIVR ####[facility] ([facility] [address] [place], [id number] VIRALP [Catalytic activity/Vol]85 U/LVtylun95-456PagIjrimnDell Seton Medical Center At The University Of TexasComment on above:Performed By: #### LIVR ####[facility] ([place] [address], [place] VIRALT [Catalytic activity/Vol]25 U/LNormal<=31 [facility] HospitalComment on above:Performed By: #### LIVR ####[facility] ([place] [address] [place], [id number] VIRAST [Catalytic activity/Vol]24 U/LNormal<=41ProDell Set[facility] Medical Center At The University Of TexasComment on above:Performed By: #### LIVR ####[facility] ([place] [address], [place] VIRBilirubin [Mass/Vol]0.5 mg/dLNormal0.3-1.2 [facility] HospitalComment on above:Performed By: #### LIVR ####[facility] ([address] [place], [id number] VIR Bilirubin.indirect [Mass/Vol]0.1 mg/dLNormal<=0.4[facility] on above:Performed By: #### LIVR ####[facility] ([address] [id number] VIRProtein [Mass/Vol]7.4 g/dLNormal 6.0-8.0ProDell Set[facility] Medical Center At The University Of TexasComment on above:Performed By: #### LIVR ####[facility] ([address], [place] VIRMAGNESIUMon 28-07-7569Engdklazx [Mass/Vol]2.2 mg/dLNormal1.8-2.6ProDell Set[facility] Medical Center At The University Of TexasComment on above:Performed By: #### MG #### [facility] ([address] [place] [address] VIRPROTIME AND INRon 02-65-7978WCC0.5Jqaaqz7.9-1.2PRegency Hospital Cleveland EastComment on above:Performed By: #### PINR #### [facility] ([address] [place] [address] VIRPT Coag (PPP) [Time]10.8 sNormal9.8-13.2PRegency Hospital Cleveland EastComment on above:Performed By: #### PINR #### [facility] ([address] [place] [address] VIRTROP I, HIGH SENSITIVITY 1 HOURon 47-48-3510HAKMITEY I, HIGH SENSITIVITY5 ng/LNormal<16ProDell [facility] Medical Center At The University Of TexasComment on above: Performed By: #### TNIHS1 ####[facility] ([address] [place] [address] VIRTROPONIN I, HIGH SENSITIVITY 0 HOURon 11-03-2024 TROPONIN I, HIGH SENSITIVITY5 ng/LNormal<16ProDell [facility] Center At The University Of TexasComment on above:Performed By: #### TNIHS0 ####[facility] ([address] [address] VIRBEDSIDE GLUCOSEon 19-08-6149Nqeacag [Mass/Vol]115 mg/fCNfmn18-12GyvZoqhxnDell Seton Medical Center At The University Of TexasComment on above:Performed By: #### BEDG #### [facility]) [address] [place] [address] VIRPOCT Hemoglobin A1con 13-10-7765SvD4e (Bld) [Mass fraction] 6.9 %4 - 7 %[facility] CenterProWayne Hospital SystemGlucose Glucometer (BldC) [Mass/Vol]on 60-34-8623Pdcpmye [Mass/Vol]88 mg/bHRpffqa32-54MyrCyiwuiMercy Health Perrysburg HospitalXR Foot - left 3 Viewson 02-89-9423Bfvdhtx Result: AP, medial oblique, lateral views are weight-bearing. Small enthesophyte at the insertion of the plantar fascia. Mild joint space narrowing and periarticular osteophytes as well as subchondral sclerosis of the midfoot especially the 2nd and 3rd tarsometatarsal joints. Slight metatarsus adductus.[facility] HealthcareRadiology Study observation (narrative) [facility] HospitalCBC AND AUTO DIFFon 26-98-5486DLACISAI BASOPHIL0.0 X10E9/LNormal 0.0-0.2ProMedAshtabula County Medical CenterComment on above:Performed By: #### JULIAN RUCKER, 88647-7, 3016-3 #### [facility] ([id number]) [address], [address] [place], [place] [address]HOCICFJB NEUTROPHIL2.5 X10E9/LNormal1.5-6.6ProAshtabula General HospitalComment on above:Performed By: #### JULIAN RUCKER, 27577-9, 3016-3 #### [facility] ([id number]) [address], [address] [place], [place] [address]Gkeppqfek/100 WBC (Bld)0.7 %NormalProCleveland Clinic Marymount Hospital Hospital Comment on above:Performed By: #### JULIAN RUCKER, 02381-3, 3016-3 #### [facility] ([id number]) [address], [address] [place], [place] [address]Ngreejyxggj (Bld) [#/Vol]0.1 10*3/uLNormal0.0-0.4ProCleveland Clinic Marymount Hospital HospitalComment on above:Performed By: #### CBCA, CMP, 92921-3, 6-3 #### [facility] ([id number]) [address], [address] [place], [place] [address]Rtvolsslsss/100 WBC (Bld)1.9 %NormalProCleveland Clinic Marymount Hospital Hospital Comment on above:Performed By: #### CBCA, CMP, 10548-6, 3015-3 #### [facility] ([id number]) [address], [address] [place], [place] [address]Qjwmqhukcij distribution width (RBC) [Ratio]17.3 %High11.5-15.0 [facility] HospitalComment on above:Performed By: #### CBCA, CMP, 16833-4, 3015-3 #### [facility] ([id number]) [address], [address] [place], [place] [address]Ivumyfidxu (Bld) [Volume fraction]38.3 %Jncwoe45-87WptOuvrji [place] HospitalComment on above:Performed By: #### CBCA, CMP, 08913-9, 6-3 #### [facility] ([id number]) [address], [address] [place], [place] [address]Pkgmlravat (Bld) [Mass/Vol]12.3 g/xNQjpelj95.7-15.5ProMedHarrison Community Hospital HospitalComment on above:Performed By: #### CBCA, CMP, 20383-9, 6-3 #### [facility] ([id number]) [address], [address] [place], [place] [address]Cypbnthcyrl (Bld) [#/Vol]1.0 10*3/uLNormal1.0-3.5ProMedHarrison Community Hospital HospitalComment on above:Performed By: #### CBCA, CMP, 62889-3, 3015-3 #### [facility] ([id number]) [address], [address] [place] [address]Ivaptlxawwb/100 WBC (Bld)26.3 %NormalLake County Memorial Hospital - West Comment on above:Performed By: #### CBCA, CMP, 55633-3, 3015-3 #### [facility] ([id number]) [address], [address] [place], [place] [address]XFC (RBC) [Entitic mass]25.8 rcXqf41-66KctWhcpxsLake County Memorial Hospital - West Comment on above:Performed By: #### CBCA, CMP, 80482-1, 3015- #### [facility] ([id number]) [address], [address] [place], [place] [address]WKPB (RBC) [Mass/Vol]32.0 g/sLXktmav54-64EsdYpirdp [place] HospitalComment on above:Performed By: #### CBCA, CMP, 62015-5, 3015-3 #### [facility] ([id number]) [address], [address] [place], [place] [address]QCB (RBC) [Entitic vol]81 ePSdetoy46-322UkzWrkzcc [place] HospitalComment on above:Performed By: #### CBCA, CMP, 99010-8, 3015-3 #### [facility] ([id number]) [address] [place], [place] [address]Gptrtlutv (Bld) [#/Vol]0.3 10*3/uLNormal0-0.9L[facility] Memorial Hospital - WestComment on above:Performed By: #### CBCA, CMP, 55162-2, 6-3 #### [facility] ([id number]) [address] [place], [place] [address]Kmfwgbpfm/100 WBC (Bld)7.0 %NormalLake County Memorial Hospital - West Comment on above:Performed By: #### CBCKaren CMP, 64804-8, 3015-3 #### [facility] ([id number]) [address] [place], [place] [address]Rqcmaqtsufh/100 WBC (Bld)64.1 %NormalLake County Memorial Hospital - West Comment on above:Performed By: #### CBCA, CMP, 37688-9, 3015-3 #### [facility] ([id number]) [address] [place], [place] [address]Mjxdzwdf mean volume (Bld) [Entitic vol]9.7 fLNormal7-12 [facility] HospitalComment on above:Performed By: #### CBCKaren, CMP, , 3015- #### [facility] ([id number]) [address] [place], [place] [address]Dhsltnvnp (Bld) [#/Vol]196 10*3/yBIffeyr842-418EieJjrkqz [place] HospitalComment on above:Performed By: #### CBCKaren, CMP, , 3015- #### [facility] ([id number]) [address] [place], [place] [address]JEH COUNT4.76 X10E12/LNormal3.80-5.20[facility] Comment on above:Performed By: #### CBCA, CMP, 20366-8, 3015-3 #### [facility] ([id number]) [address] [place], [place] [address]IUS (Bld) [#/Vol]4.0 10*3/uLNormal4.0-11.0ProCleveland Clinic [facility]mount Hospital HospitalComment on above:Performed By: #### CBCA, CMP, 94315-9, 3015-3 #### [facility] ([id number]) [address] [place], [place] [address]MZLIAFAYEFKQK METABOLIC PANELon 05-31-3845Kcdgbvt [Mass/Vol]4.1 g/dLNormal3.2-5.3Pro[facility]ica [facility] Jesus HospitalComment on above:Performed By: #### JULIAN RUCKER, 89232-7, 3016-3 #### [facility] ([id number]) [address] [place], [place] [address]POH [Catalytic activity/Vol]71 U/GJvwnfe64-796FmdAqczjn De Jesus HospitalComment on above:Performed By: #### JULIAN RUCKER, 14096-8, 6-3 #### [facility] ([id number]) [address] [place], [place] [address]EEL [Catalytic activity/Vol]20 U/LNormal0-31[facility] HospitalComment on above:Performed By: #### JULIAN RUCKER, 23615-5, 6-3 #### [facility] ([id number]) [address] [place], [place] [address]Zzdwj gap [Moles/Vol]8 mmol/LNormal5-15[facility] Comment on above:Performed By: #### JULIAN RUCKER, 28526-7, 3016-3 #### [facility] ([id number]) [address] [place], [place] [address]ATL [Catalytic activity/Vol]21 U/LNormal0-41[facility] HospitalComment on above:Performed By: #### CHAIM CMP, 29243-0, 3016-3 #### [facility] ([id number]) [address] [place], [place] [address]Mnyhqvozg [Mass/Vol]0.3 mg/dLNormal0.3-1.2Pro[facility]ica De Jesus HospitalComment on above:Performed By: #### CBCA, CMP, 26915-0, 3016-3 #### [facility] ([id number]) [address] [place], [place] [address]Tauqlus [Mass/Vol]9.1 mg/dLNormal8.5-10.5PTriHealth Bethesda Butler HospitalComment on above:Performed By: #### JULIAN RUCKER, 41517-2, 3015-3 #### [facility] ([id number]) [address] [place], [place] [address]Sfulmezf [Moles/Vol]104 mmol/VCxhcqq53-566ThxSbclfq [place] HospitalComment on above:Performed By: #### JULIAN RUCKER, 48182-9, 3015-04 #### [facility] ([id number]) [address] [place], [place] [address]BW4 [Moles/Vol]30 mmol/NNkgsjy90-70VnhKjkthl [facility] Comment on above:Performed By: #### JULIAN RUCKER, 36616-0, 3015-04 #### [facility] ([id number]) [address] [place], [place] [address]Mmverksalm [Mass/Vol]0.76 mg/dLNormal0.40-1.00ProAshtabula General HospitalComment on above:Result Comment: METHOD TRACEABLE TO IDMS STANDARD Performed By: #### JULIAN RUCKER, 78900-0, 3 #### [facility] ([id number]) [address] [place], [place] [address]UKG/1.73 sq M.predicted among non-blacks MDRD (S/P/Bld) [Vol rate/Area]84 mL/min/{1.73_m2}Normal>59ProAshtabula General HospitalComment on above: Result Comment: Reported eGFR is based on the CKD-EPI 2020 equation that does not use a race coefficient.Performed By: #### JULIAN RUCKER, 44913-3, 3015-3 #### [facility] ([id number]) [address] [place], [place] [address]Uoinqkg [Mass/Vol]94 mg/vKHtdjaz28-83BlbNkxxaj [facility] Comment on above:Performed By: #### JULIAN RUCKER, 74689-1, 3016-3 #### [facility] ([id number]) [address] [place], [place] [address]Yajojphjy [Moles/Vol]3.8 mmol/LNormal3.5-5.0ProGalion Community Hospitalca [place] HospitalComment on above:Performed By: #### JULIAN RUCKER, 31371-2, 6-3 #### [facility] ([id number]) [address], [address] [place], [place] [address]Sfmxfch [Mass/Vol]6.8 g/dLNormal6.0-8.0[facility] Comment on above:Performed By: #### JULIAN RUCKER, 93936-0, 3015-3 #### [facility] ([id number]) [address] [place], [place] [address]Adhixb [Moles/Vol]142 mmol/CMhsbem984-571JvqFzhvlz [place] HospitalComment on above:Performed By: #### JULIAN RUCKER, 43010-6, 3015-3 #### [facility] ([id number]) [address], [address] [place], [place] [address]Yyyf nitrogen [Mass/Vol]12 mg/dLNormal5-27ProC[facility] HospitalComment on above:Performed By: #### JULIAN RUCKER, 76103-0, 6-3 #### [facility] ([id number]) [address] [place], [place] [address]Cajav 1996 panelon 46-43-2420Lycjsenxpeg [Mass/Vol]223 mg/dLHigh 150-200Pro[facility]ica [facility]ville HospitalComment on above:Performed By: #### ÁNGELA, CMP, 13877-5, 3015- #### [facility] ([id number]) [address], [address] [place], [place] [address]Gfslzkxufui in HDL [Mass/Vol]99 mg/dLNormal>39Pro[facility] Jesus HospitalComment on above:Result Comment: HDL <40 mg/dL - High Risk HDL > or = 40mg/dL- Desirable HDL >60 mg/dL - Negative Risk Performed By: ###Chandler RUCKER CMP, 08377-1, 6- #### [facility] ([id number]) [address] [place], [place] [address]Jylplixiabv in LDL [Mass/Vol]103 mg/dLNormal<130ProMediKnox Community Hospital HospitalComment on above:Result Comment: LDL <100 mg/dL - Desirable LDL >160 mg/dL - High Risk Performed By: ###Chandler RUCKER CMP, 90672-2, 3015- #### [facility] ([id number]) [address] [place], [place] [address]Vxgceoqeakg in VLDL [Mass/Vol]21 mg/dLNormal0-30ProMediKnox Community Hospital HospitalComment on above:Performed By: ###Chandler RUCKER CMP, 17656-4, 3015- #### [facility] ([id number]) [address] [place], [place] [address]XTDWJUIALRV:HDL2.6Wfdtbi8.0-5.0Pro[facility]ica [facility] Jesus HospitalComment on above:Performed By: ###Chandler RUCKER CMP, 00782-6, 3015-3 #### [facility] ([id number]) [address] [address]Anmgehorwcrh [Mass/Vol]103 mg/bYNethom01-972LaxWcvbcd [place] HospitalComment on above:Performed By: #### CBCA, CMP, 52266-8, 6-3 #### [facility] ([id number]) [address] [address]VWYRGXJTTAJM - ALBUMIN:CREATININE URINE RATIOon 12-10-2023 ALB/CREAT RATIO16.8 mg/g creatNormal0.0-30.0Pro[facility] HospitalComment on above:Performed By: #### ANTHONY #### [facility] ([id number]) [address] [address]Kqbygdx DL <= 20 mg/L (U) [Mass/Vol]2.1 mg/dLHigh0.0-1.9 [facility] HospitalComment on above:Performed By: #### MALBU #### [facility] ([id number]) [address] [address]WLVLA LYABE306.87 mg/dLNormalProCleveland Clinic [facility] HospitalComment on above:Performed By: #### MALBU #### [facility] ([id number]) [address] [address]CVWA Hemoglobin V5xMonhequ By: Corin Felder on 57-63-3823QuD7m (Bld) [Mass fraction]6.4 %4 - 7 %[facility] CenterPro[facility] TSH Qnon 29-90-4431BQW6.07 uIU/mLNormal0.49-4.67Pro[facility] HospitalComment on above:Performed By: #### CBCA, CMP, 11063-9, 6-3 #### [facility] ([id number]) [address] [address]Ljuaoic Glucometer (BldC) [Mass/Vol]on 07-95-7958Updsboe [Mass/Vol]101 mg/aSJuhk02-32UkjZsahmlWVUMedicine [facility] Hospital urinalysis dipstick onlyOrdered By: Corin Felder on 91-02-3492Dagxhzpmvh (U)clearProWayne Hospital SystemExternal Poct Urine BilirubinNegativeCorey Hospital SystemExternal Poct Urine BloodNegativeCorey Hospital SystemExternal Poct Urine Coloryellow [facility] CenterExternal Poct Urine Glucose1+[facility] Comment on above:1000mgExternal Poct Urine KetonesNegativeCorey Hospital SystemExternal Poct Urine Leukocyte EsteraseTracePCherrington Hospital SystemExternal Poct Urine NitriteNegativeCorey Hospital SystemExternal Poct Urine Ph5.5 [facility] CenterExternal Poct Urine ProteinNegativeCorey Hospital SystemExternal Poct Urine Specific Gravity1.015[facility] SystemExternal Poct Urine Urobilinogen0.2PWashington Health SystemURINE CULTUREon 22-30-7520Dlrqmxkf identified Cx Nom (U)CULTURE RESULTS >100,000 ORGANISMS/mL STREPTOCOCCUS AGALACTIAE (GROUP B) <10,000 ORGANISMS/mL NORMAL URO GENITAL FLORANormalProAshtabula General HospitalComment on above: Performed By: #### 630-4 #### [facility] ([id number]) [address] [facility] [address] [place], [place] [address]QUDCRTOWPTFFH METABOLIC PANELon 64-66-2192Mxxmhdy [Mass/Vol]4.3 g/dLNormal3.2-5.3PTriHealth Bethesda Butler HospitalComment on above:Performed By: #### JULIAN, 83272-5, 3016-3, HA1C #### [facility] ([id number]) [address], [address] [place], [place] [address]MZL [Catalytic activity/Vol]74 U/FYtzriz86-042IkwZttafi [place] HospitalComment on above:Performed By: #### JULIAN, 67869-0, 3016-3, HA1C #### [facility] ([id number]) [address], [address] [place], [place] [address]UPU [Catalytic activity/Vol]20 U/LNormal0-31ProMedica De Jesus HospitalComment on above:Performed By: #### JULIAN, 76972-2, 6-3, HA1C #### [facility] ([id number]) [address], [address] [place], [place] [address]Fovao gap [Moles/Vol]11 mmol/LNormal5-15Pro[facility] De Jesus HospitalComment on above:Performed By: #### JULIAN, 70545-3, 3015-04, HA1C #### [facility] ([id number]) [address], [address] [place], [place] [address]QST [Catalytic activity/Vol]21 U/LNormal0-41Pro[facility] De Jesus HospitalComment on above:Performed By: #### JULIAN, , 3, HA1C #### [facility] ([id number]) [address], [address] [place], [place] [address]Hywsjoznq [Mass/Vol]0.4 mg/dLNormal0.3-1.2ProMedica De Jesus HospitalComment on above:Performed By: #### JULIAN, , 3, HA1C #### [facility] ([id number]) [address], [address] [place], [place] [address]Bionbkf [Mass/Vol]9.1 mg/dLNormal8.5-10.5ProMedica De Jesus HospitalComment on above:Performed By: #### JULIAN, 52013-1, 3015-3, HA1C #### [facility] ([id number]) [address], [address] [place], [place] [address]Eaelbjlo [Moles/Vol]104 mmol/ORtetxi27-862KmtKdgyjw De Jesus HospitalComment on above:Performed By: #### JULIAN, 32784-2, 3015-04, HA1C #### [facility] ([id number]) [address], [address] [place], [place] [address]GX7 [Moles/Vol]28 mmol/XUaoibn10-00MrgSwivqiTriHealth Bethesda Butler Hospital Comment on above:Performed By: #### JULIAN, 40224-9, 3015-, HA1C #### [facility] ([id number]) [address], [address] [place], [place] [address]Yqagdryrph [Mass/Vol]0.79 mg/dLNormal0.40-1.00ProAshtabula General HospitalComment on above:Result Comment: METHOD TRACEABLE TO IDMS STANDARD Performed By: #### JULIAN, 92088-8, 3015-04, NABEEL #### [facility] ([id number]) [address], [address] [place], [place] [address]AHN/1.73 sq M.predicted among non-blacks MDRD (S/P/Bld) [Vol rate/Area]80 mL/min/{1.73_m2}Normal>59ProAshtabula General HospitalComment on above: Result Comment: Reported eGFR is based on the CKD-EPI 2020 equation that does not use a race coefficient.Performed By: #### JULIAN, 61803-7, 3, SPENCER1C #### [facility] ([id number]) [address], [address] [place], [place] [address]Lingtas [Mass/Vol]96 mg/pQPilwxq78-41WubCmjtidLake County Memorial Hospital - West Comment on above:Performed By: #### JULIAN, 47866-0, 3, HA1C #### [facility] ([id number]) [address], [address] [place], [place] [address]Uvqlspyzf [Moles/Vol]4.0 mmol/LNormal3.5-5.0ProAshtabula General HospitalComment on above:Performed By: #### JULIAN, 86061-8, 3015-3, HA1C #### [facility] ([id number]) [address], [address] [place], [place] [address]Dvnhwpl [Mass/Vol]7.0 g/dLNormal6.0-8.0[facility] Comment on above:Performed By: #### JULIAN, 50532-7, 3016-3, HA1C #### [facility] ([id number]) [address], [address] [place], [place] [address]Nbxdwn [Moles/Vol]143 mmol/MHyhaww920-817RplYknmyi [place] HospitalComment on above:Performed By: #### JULIAN, 57544-9, 3016-3, HA1C #### [facility] ([id number]) [address], [address] [place], [place] [address]Ndkx nitrogen [Mass/Vol]15 mg/dLNormal5-27ProAshtabula General HospitalComment on above:Performed By: #### JULIAN, 75436-0, 3016-3, HA1C #### [facility] ([id number]) [address], [address] [place], [place] [address]Ysqgxreswweux metabolic panelon 74-66-6625Bjsxzoc [Mass/Vol]4.3 g/dL3.2 - 5.3 g/dLProMedica Health SystemALP [Catalytic activity/Vol]74 U/L39 - 130 U/LProMedica Health SystemALT No additional P-5'-P [Catalytic activity/Vol] 20 U/L0 - 31 U/LProMedica Health SystemAnion gap [Moles/Vol]11 mmol/L5 - 15 mmol/LProMedica Health SystemAST [Catalytic activity/Vol]21 U/L0 - 41 U/L ProMedica Health SystemBilirubin [Mass/Vol]0.4 mg/dL0.3 - 1.2 mg/dLProMedica Health SystemCalcium [Mass/Vol]9.1 mg/dL8.5 - 10.5 mg/dLProMedica Health System Chloride [Moles/Vol]104 mmol/L98 - 109 mmol/LProMedica Health SystemCO2 [Moles/Vol]28 mmol/L22 - 32 mmol/[facility] SystemCreatinine [Mass/Vol] 0.79 mg/dL0.40 - 1.00 mg/dLCoshocton Regional Medical CenterComment on above:METHOD TRACEABLE TO IDNH STANDARDeGFR (CKD-EPI)non-race rcseucgsh18- [facility] County Regional HealthcareComment on above: Reported eGFR is based on the CKD-EPI 2020 equation that does not use a race coefficient. Glucose [Mass/Vol]96 mg/dL65 - 99 mg/dLCoshocton Regional Medical CenterPotassium [Moles/Vol]4.0 mmol/L3.5 - 5.0 mmol/[facility] SystemProtein [Mass/Vol] 7.0 g/dL6.0 - 8.0 g/dLUNC Medical Centerodium [Moles/Vol]143 mmol/L134 - 146 mmol/[facility] SystemUrea nitrogen [Mass/Vol]15 mg/dL5 - 27 mg/dL [facility] Regional Medical CenterHGB A1C (GLYCO-HGB)on 16-84-5146Arhyulv [Mass/Vol]137 mg/dLNormalLake County Memorial Hospital - WestComment on above:Performed By: #### JULIAN, 61928-0, 3016-3, SPENCER1C #### [facility] ([id number]) [address] [place] [address], [facility] [address] [place], [place] [address]WxQ6l (Bld) [Mass fraction]6.4 %High4.4-5.6L[facility] County Memorial Hospital - WestComment on above:Result Comment: NOTE ADA Guidelines Result HgbA1c Normal : less than 5.7 % Prediabetes : 5.7 % to 6.4 % Diabetes : > 6.4 % Use with caution in patients with abnormal hemoglobin variants as the half-life of red blood cells and in vivo glycation rates are affected.Performed By: #### JULIAN, 00070-1, 3016-3, HA1C #### [facility] ([id number]) [address] [place] [address], [address] [place], [place] [address]Dsdghbvjoi A1con 80-94-2562Wysfhal glucose Estimated from glycated hemoglobin (Bld) [Mass/Vol]137 mg/dLCoshocton Regional Medical CenterHbA1c (Bld) [Mass fraction]6.4 %High4.4 - 5.6 %Cos[facility] Regional Medical CenterComment on above:NOTE ADA Guidelines Result HgbA1c Normal : less than 5.7 % Prediabetes : 5.7 % to 6.4 % Diabetes : > 6.4 % Use with caution in patients with abnormal hemoglobin variants as the half-life of red blood cells and in vivo glycation rates are affected. Interpretation and review of laboratory resultsAbGundersen Lutheran Medical CenterLipid 1996 panelon 29-62-0519Yufxvoafvey [Mass/Vol]206 mg/eGIhhq104 - 200 mg/dLCoshocton Regional Medical CenterCholesterol in HDL [Mass/Vol]94 mg/dL39 - PINF mg/dLCoshocton Regional Medical CenterComment on above: HDL <40 mg/dL - High Risk HDL > or = 40mg/dL- Desirable HDL >60 mg/dL - Negative Risk Cholesterol in LDL [Mass/Vol]95 mg/dLNINF - 130 mg/dLCoshocton Regional Medical Center Comment on above: LDL <100 mg/dL - Desirable LDL >160 mg/dL - High Risk Cholesterol in VLDL [Mass/Vol]17 mg/dL0 - 30 mg/dLCoshocton Regional Medical Center Cholesterol.total/Cholesterol in HDL [Mass ratio]2.2 {ratio}1.0 - 5.0Cos[facility] Regional Medical CenterInterpretation and review of laboratory resultsAbInterfaith Medical CenterTriglyceride [Mass/Vol]85 mg/dL27 - 150 mg/dLProMedica Health SystemCholesterol [Mass/Vol]206 mg/dCMosa733-136GvnAmkasr [place] HospitalComment on above:Performed By: #Nan JORDAN, 91963-5, 6-3, NABEEL #### [facility] ([id number]) [address], [address] [place], [place] [address]Ipprxxtiybt in HDL [Mass/Vol]94 mg/dLNormal>39ProAshtabula General HospitalComment on above:Result Comment: HDL <40 mg/dL - High Risk HDL > or = 40mg/dL- Desirable HDL >60 mg/dL - Negative Risk Performed By: Marimar JORDAN, 54437-2, 3015-3, NABEEL #### [facility] ([id number]) [address], [address] [place], [place] [address]Eubbxygkyng in LDL [Mass/Vol]95 mg/dLNormal<130ProAshtabula General HospitalComment on above:Result Comment: LDL <100 mg/dL - Desirable LDL >160 mg/dL - High Risk Performed By: ###Chandler JORDAN, 61683-9, 3015-3, NABEEL #### [facility] ([id number]) [address], [address] [place], [place] [address]Xqvrcwozjiz in VLDL [Mass/Vol]17 mg/dLNormal0-30ProAshtabula General HospitalComment on above:Performed By: #Nan JORDAN, 44879-3, 6-3, NABEEL #### [facility] ([id number]) [address], [address] [place], [place] [address]IJVWDBNAVUE:HDL2.6Otayge3.0-5.0ProCleveland Clinic Marymount Hospital HospitalComment on above:Performed By: #### JULIAN, 19278-3, 3016-3, HA1C #### [facility] ([id number]) [address] [facility], [address] [place], [place] [address]Qknvkgrninxr [Mass/Vol]85 mg/qAMypuqo04-766QklQdnupe [place] HospitalComment on above:Performed By: #### JULIAN, 67485-8, 3016-3, HA1C #### [facility] ([id number]) [address] [facility], [address] [place], [place] [address]Yh Panel Informationon 42-19-5764UuiBdsfpuLakeHealth Beachwood Medical CenterTS Qnon 55-91-8527RUP2.49 uIU/mLNormal0.49-4.67ProAshtabula General HospitalComment on above:Performed By: #### JULIAN, 61916-6, 3016-3, SPENCER1C #### [facility] ([id number]) [address] [facility], [address] [place], [place] [address]WZKTF/FLU/RSV RT-PCRon 23-10-8824KYWL-CoV-2 (COVID-19) RNA DOMINIC+probe Ql (Unsp spec)PositiveMarlow [facility] Other COVID/FLU/RSV RT-PCRNegativeMarlow [employer] [facility] Other COVID/FLU/RSV RT-PCRNosaint luke's [facility] [employer] Other COVID Quick Testingon 22-17-3160YkvgzxVitmjpcbRnteo [employer] Other COMPREHENSIVE METABOLIC PANELon 29-22-0963Eyhxmms [Mass/Vol]4.2 g/dLNormal3.6-5.1Quest DiagnosticsComment on above:Performed By: #### 7600, 24908, 496 #### [facility] [address], [address] [place] [address] Legal Librarian: Madhav Ornelas MDAlbumin/Globulin [Mass ratio]1.8 {ratio}Normal 1.0-2.5Quest DiagnosticsComment on above:Performed By: #### 7600, 57940, 496 #### [facility] [place] [address] Legal Librarian: Madhav Ornelas MDALP [Catalytic activity/Vol]115 U/LNormal 37-153Quest DiagnosticsComment on above:Performed By: #### 7600, 92283, 496 #### [facility] [place] [address] Legal Librarian: Madhav Ornelas MDALT [Catalytic activity/Vol]14 U/LNormal6-29 Quest DiagnosticsComment on above:Performed By: #### 7600, 43570, 496 #### [facility] [place] [address] Legal Librarian: Madhav Ornelas MDAST [Catalytic activity/Vol]16 U/NTlgnzk84-03 [facility] DiagnosticsComment on above:Performed By: #### 7600, 87332, 496 #### [facility] [place] [address] Legal Librarian: Madhav Ornelas MDBilirubin [Mass/Vol]0.4 mg/dLNormal0.2-1.2 Quest DiagnosticsComment on above:Performed By: #### 7600, 97101, 496 #### [facility] [place] [address] Legal Librarian: Madhav Ornelas MDBUN/CREATININE RATIONOT APPLICABLENormal6-22 Quest DiagnosticsComment on above:Performed By: #### 7600, 48207, 496 #### [facility] [place] [address] Legal Librarian: Madhav Ornelas MDCalcium [Mass/Vol]9.5 mg/dLNormal8.6-10.4Quest DiagnosticsComment on above:Performed By: #### 7600, 75854, 496 #### [facility] of [address], [address] [place] [address] Legal Librarian: Madhav ANDREWhloride [Moles/Vol]103 mmol/JNkxewe56-588 [facility] DiagnosticsComment on above:Performed By: #### 7600, 09811, 496 #### [facility] of [address], [address] [place] [address] Legal Librarian: Madhav Ornelas MDCO2 [Moles/Vol]33 mmol/EHhcj15-88Mpxia DiagnosticsComment on above:Performed By: #### 7600, 98265, 496 #### [facility] [place] [address] Legal Librarian: Madhav ANDREWreatinine [Mass/Vol]0.74 mg/dLNormal0.50-0.99 Quest DiagnosticsComment on above:Result Comment: For patients >49 years of age, the reference limit for Creatinine is approximately 13% higher for people identified as -[place].Performed By: #### 7600, 68181, 496 #### [facility] [place] [address] Legal Librarian: Madhav Ornelas MDeGFR NON-AFR. QQKCXTFU88 mL/min/1.66t5Qwlvhl> OR = 60Quest DiagnosticsComment on above:Performed By: #### 7600, 94588, 496 #### [facility] [address], [address] [place] [address] Legal Librarian: Madhav Ornelas MDGFR/1.73 sq M.predicted among blacks MDRD (S/P/Bld) [Vol rate/Area]96 mL/min/{1.73_m2}Normal> OR = 60[facility] Comment on above:Performed By: #### 7600, 35327, 496 #### [facility] [address], [address] [place] [address] Legal Librarian: Madhav Ornelas MDGlobulin (S) [Mass/Vol]2.4 g/dLNormal1.9-3.7 Quest DiagnosticsComment on above:Performed By: #### 7600, 47917, 496 #### [facility] [place] [address] Legal Librarian: Madhav Ornelas MDGlucose [Mass/Vol]95 mg/gKHecjwm37-09Ysxjh DiagnosticsComment on above:Result Comment: Fasting reference intervalPerformed By: #### 7600, 13924, 496 #### [facility] [place] [address] Legal Librarian: Madhav Ornelas MDPotassium [Moles/Vol]3.8 mmol/LNormal3.5-5.3 Quest DiagnosticsComment on above:Performed By: #### 7600, 85937, 496 #### [facility] [place] [address] Legal Librarian: Madhav Ornelas MDProtein [Mass/Vol]6.6 g/dLNormal6.1-8.1Quest DiagnosticsComment on above:Performed By: #### 7600, 32410, 496 #### [facility] [place] [address] Legal Librarian: Madhav Ornelas MDSodium [Moles/Vol]141 mmol/EQpywoa384-897Vberh DiagnosticsComment on above:Performed By: #### 7600, 71217, 496 #### [facility] [place] [address] Legal Librarian: Madhav Ornelas MDUrea nitrogen [Mass/Vol]11 mg/dLNormal7-25 Quest DiagnosticsComment on above:Performed By: #### 7600, 79413, 496 #### [facility] [place] [address] Legal Librarian: Madhav Ornelas MDHEMOGLOBIN A1con 85-60-5942DVTBDCARAK A1c6.2 % of total HgbHigh<5.7Quest DiagnosticsComment on above:Result Comment: For someone without known diabetes, a [...] hemoglobin A1c for diagnosis of diabetes for children.Performed By: #### 7600, 44992, 496 #### [facility] [address], [address] [place] [address] Legal Librarian: Madhav Ornelas MDLIPID PANEL, [facility] 41-79-6482Dvnmcizesqo [Mass/Vol]303 mg/dLHigh<200Quest DiagnosticsComment on above:Order Comment: FASTING:YES FASTING: YESPerformed By: #### 7600, 93230, 496 #### [facility] [address], [address] [place] [address] Legal Librarian: Madhav Ornelas MDCholesterol in HDL [Mass/Vol]88 mg/dLNormal> OR = 50Quest DiagnosticsComment on above:Order Comment: FASTING:YES FASTING: YESPerformed By: #### 7600, 07915, 496 #### [facility] [address], [address] [place] [address] Legal Librarian: Madhav Ornelas MDCholesterol in LDL [Mass/Vol]193 mg/dLHigh [facility] DiagnosticsComment on above:Order Comment: FASTING:YES FASTING: YESResult Comment: LDL-C levels > or = 190 mg/dL may indicate familial hypercholesterolemia (FH). Clinical assessment and measurement of blood lipid levels should be considered for all first degree relatives of patients with an FH diagnosis. For questions about testing for familial hypercholesterolemia, please call [employer] [facility] at [phone].GENE.INFO. Iza T, et al. J National Lipid Association Recommendations [...] equation in the estimation of LDL-C. Ash SS et al. LISBEHT. 2013;310(19): 6026-4012 (http://education.[facility]/faq/UWQ553)Performed By: #### 7600, 43640, 496 #### [facility] [address], [address] [place] [address] Legal Librarian: Madhav ANDREWholesterol.total/Cholesterol in HDL [Mass ratio]3.4 {ratio}Normal<5.0Quest DiagnosticsComment on above:Order Comment: FASTING:YES FASTING: YESPerformed By: #### 7600, 62136, 496 #### [facility] [address], [address] [place] [address] Legal Librarian: Madhav OROURKE HDL ZPYXBHTBAWI203 mg/dL (calc)High<130 Quest DiagnosticsComment on above:Order Comment: FASTING:YES FASTING: YESResult Comment: For patients with diabetes plus 1 major ASCVD risk factor, treating to a non-HDL-C goal of <100 mg/dL (LDL-C of <70 mg/dL) is considered a therapeutic option.Performed By: #### 7600, 77782, 496 #### [facility] [address], [address] [place] [address] Legal Librarian: Madhav Ornelas MDTriglyceride [Mass/Vol]97 mg/dLNormal<150Quest DiagnosticsComment on above:Order Comment: FASTING:YES FASTING: YESPerformed By: #### 7600, 60014, 496 #### [facility] [address], [address] [place] [address] Legal Librarian: Madhav Ornelas MDMG MAMM SCREEN 3D BALJIT CADon 07-50-8301JV MAMM SCREEN 3D BALJIT CADPatient: SEVERIANO PEACE Exam Date: 04/20/2021 : 1955 Gender:F Ordering : DR LILIANA GOMEZ Admission #: [id number] Family : Order #: [id number] CLICK HERE TO VIEW EXAM RADIOLOGY REPORT [...] uterine cancer at age 38. LOCATION: [facility] BREAST COMPOSITION: Scattered areas fibroglandular density. FINDINGS: [...] by: Mark Rosales M.D. on 04/20/2021 at 10:56[facility] HospitalALBUMIN, RANDOM URINE W/CREATININEon 05-18-8174ELDNGAU, URINE1.2 mg/dL NormalSee Note:Quest DiagnosticsComment on above:Result Comment: Reference Range: Reference Range Not establishedPerformed By: #### 22843, 7600, 6517 #### [facility]-[address], [address] [place] [address] Legal Librarian: Madhav Ornelas MD #### 43474, 45584 #### [facility]-[address] [place] [address] Legal Librarian: Madhav Ornelas MDALBUMIN/CREATININE RATIO, RANDOM URINE5 mcg/mg creatNormal<30Quest DiagnosticsComment on above:Result Comment: The ADA defines abnormalities in albumin excretion as follows: Albuminuria Category Result (mcg/mg creatinine) Normal to Mildly increased <30 Moderately increased 30-299 Severely increased > OR = 300 The ADA recommends that at least two of three specimens collected within a 3-6 month period be abnormal before considering a patient to be within a diagnostic category.Performed By: #### 93630, 7599, 6517 #### [facility] [address], [address] [place] [address] Legal Librarian: Madhav Ornelas MD #### 96357, 22[address] #### [facility] [address] Legal Librarian: Madhav Ornelas MDCreatinine (U) [Mass/Vol]228 mg/zTThxtxl83-121 [facility] DiagnosticsComment on above:Performed By: #### 88693, 7599, 6517 #### [facility] [address], [address] [place] [address] Legal Librarian: Madhav Ornelas MD #### 04375, 64233 #### [facility] [address] Legal Librarian: Madhav ANDREWOMPREHENSIVE METABOLIC PANELon 11-11-2020 Albumin [Mass/Vol]4.3 g/dLNormal3.6-5.1Quest DiagnosticsComment on above: Performed By: #### 19642, 7599, 6517 #### [facility] [address], [address] [place] [address] Legal Librarian: Madhav Ornelas MD #### 59820, 23640 #### [facility] [address] Legal Librarian: Madhav Ornelas MDAlbumin/Globulin [Mass ratio]1.8 {ratio}Normal 1.0-2.5Quest DiagnosticsComment on above:Performed By: #### 60420, 7599, 6517 #### [facility] [address], [address] [place], [place] [address] Legal Librarian: Madhav Ornelas MD #### 25117, 94841 #### [facility], [address] [place] [address] Legal Librarian: Madhav Ornelas MDALP [Catalytic activity/Vol]107 U/LNormal 37-153Quest DiagnosticsComment on above:Performed By: #### 57390, 7600, 6517 #### [facility] [address], [address] [place], [place] [address] Legal Librarian: Madhav Ornelas MD #### 59230, 64982 #### [facility], [address] [place], [place] [address] Legal Librarian: Madhav Ornelas MDALT [Catalytic activity/Vol]14 U/LNormal6-29 [facility] DiagnosticsComment on above:Performed By: #### 82397, 7600, 6517 #### [facility] [address], [address] [place], [place] [address] Legal Librarian: Madhav Ornelas MD #### 64020, 11372 #### [facility], [address] [place], [place] [address] Legal Librarian: Madhav Ornelas MDAST [Catalytic activity/Vol]16 U/GWygjty65-81 [facility] DiagnosticsComment on above:Performed By: #### 75783, 7600, 6517 #### [facility] [address], [address] [place], [place] [address] Legal Librarian: Madhav Ornelas MD #### 33264, 53484 #### [facility]-[address], [address] [place] [address] Legal Librarian: Madhav Ornelas MDBilirubin [Mass/Vol]0.4 mg/dLNormal0.2-1.2 [facility] DiagnosticsComment on above:Performed By: #### 77630, 7600, 6517 #### [facility] [address], [address] [place] [address] Legal Librarian: Madhav Ornelas MD #### 38704, 59402 #### [facility]-[address], [address] [place] [address] Legal Librarian: Madhav Ornelas MDBUN/CREATININE RATIONOT APPLICABLENormal6-22 [facility] DiagnosticsComment on above:Performed By: #### 27608, 7600, 6517 #### [facility] [address], [address] [place] [address] Legal Librarian: Madhav Ornelas MD #### 19902, 77223 #### [facility], [address] [place] [address] Legal Librarian: Madhav Ornelas MDCalcium [Mass/Vol]9.6 mg/dLNormal8.6-10.4Quest DiagnosticsComment on above:Performed By: #### 57870, 0, 6517 #### [facility] [address], [address] [place] [address] Legal Librarian: Madhav Ornelas MD #### 04504, 60101 #### [facility]-[address], [address] [place] [address] Legal Librarian: Madhav Ornelas MDChloride [Moles/Vol]105 mmol/PCsqwug07-207 [facility] DiagnosticsComment on above:Performed By: #### 26919, 7600, 6517 #### [facility] [address], [address] [place] [address] Legal Librarian: Madhav Ornelas MD #### 30797, 08539 #### [facility]-[address], [address] [place] [address] Legal Librarian: Madhav Ornelas MDCO2 [Moles/Vol]29 mmol/XKmhyqw20-26Ypfgr DiagnosticsComment on above:Performed By: #### 39189, 0, 6517 #### [facility] [address], [address] [place] [address] Legal Librarian: Madhav Ornelas MD #### 37002, 36003 #### [facility]-[place] [address] Legal Librarian: Madhav Ornelas MDCreatinine [Mass/Vol]0.94 mg/dLNormal0.50-0.99 [facility] DiagnosticsComment on above:Result Comment: For patients >49 years of age, the reference limit for Creatinine is approximately 13% higher for people identified as -[place].Performed By: #### 55642, 7599, 6517 #### [facility] [address], [address] [place] [address] Legal Librarian: Madhav Ornelas MD #### 97841, 80372 #### [facility]-[address], [address] [place] [address] Legal Librarian: Madhav Ornelas MDeGFR NON-AFR. CJVIHHFH82 mL/min/1.95t9Ajwcih> OR = 60Quest DiagnosticsComment on above:Performed By: #### 50586, 7599, 6517 #### [facility] [place] [address] Legal Librarian: Madhav Ornelas MD #### 21108, 35471 #### [facility]-[place] [address] Legal Librarian: Madhav Ornelas MDGFR/1.73 sq M.predicted among blacks MDRD (S/P/Bld) [Vol rate/Area]73 mL/min/{1.73_m2}Normal> OR = 60[facility] Comment on above:Performed By: #### 62292, 0, 6517 #### [facility] [address] [address], [address] [place] [address] Legal Librarian: Madhav Ornelas MD #### [id number], [id number] #### [facility], [address] [place] [address] Legal Librarian: Madhav Ornelas MDGlobulin (S) [Mass/Vol]2.4 g/dLNormal1.9-3.7 [facility]osticsComment on above:Performed By: #### 57124, 7600, 6517 #### [facility] [address], [address] [place] [address] Legal Librarian: Madhav Ornelas MD #### [id number], 45362 #### [facility], [address] [place] [address] Legal Librarian: Madhav Ornelas MDGlucose [Mass/Vol]100 mg/xUUnji24-70Wxnbd DiagnosticsComment on above:Result Comment: Fasting reference interval For someone without known diabetes, a glucose value between 100 and 125 mg/dL is consistent with prediabetes and should be confirmed with a follow-up test.Performed By: #### 80171, 7600, 6517 #### [facility] [address], [address] [place] [address] Legal Librarian: Madhav Ornelas MD #### [id number], 62503 #### [facility], [address] [place] [address] Legal Librarian: Madhav Ornelas MDPotassium [Moles/Vol]4.0 mmol/LNormal3.5-5.3 [facility] DiagnosticsComment on above:Performed By: #### 86553, 7600, 6517 #### [facility] [address], [address] [place] [address] Legal Librarian: Madhav Ornelas MD #### [id number], 53179 #### [facility], [address] [place] [address] Legal Librarian: Madhav Ornelas MDProtein [Mass/Vol]6.7 g/dLNormal6.1-8.1Quest DiagnosticsComment on above:Performed By: #### 09398, 7600, 6517 #### [facility] [address], [address] [place] [address] Legal Librarian: Madhav Ornelas MD #### [id number], 86482 #### [facility], [address] [place] [address] Legal Librarian: Madhav FOSTERodium [Moles/Vol]142 mmol/UQrukrh282-171Qhzba DiagnosticsComment on above:Performed By: #### 59807, 7600, 6517 #### [facility] [address], [address] [place] [address] Legal Librarian: Madhav Ornelas MD #### [id number], 92189 #### [facility], [address] [place] [address] Legal Librarian: Madhav Ornelas MDUrea nitrogen [Mass/Vol]13 mg/dLNormal7-25 [facility]osticsComment on above:Performed By: #### 64825, 7600, 6517 #### [facility] [place] [address] Legal Librarian: Madhav Ornelas MD #### 60025, 15336 #### [facility], [address] [place] [address] Legal Librarian: Madhav Ornelas MDIMAGE-GUIDED PAP W/AGE BASED SCR PROTOCOLSon [id number] DiagnosticsComment on above:Result Comment: This order for age-based cervical cancer and STI screening follows ACOG guidelines(PB 168, 140, AYE827). See individual assays for performing site location.Performed By: #### 10399, 7600, 6517 #### [facility] [address], [address] [place] [address] Legal Librarian: Madhav Ornelas MD #### 51226, 98597 #### [facility] [address] Legal Librarian: Madhav Del Castillo Comment: EXPLANATORY NOTE: The Pap is a screening test [...] INCORRECT, PLEASE CONTACT CLIENT SERVICES. PHONE NUMBER: [phone] PANEL, STANDARDon [id number] [Mass/Vol]234 mg/dLHigh<200Quest DiagnosticsComment on above:Performed By: #### 06356, 7600, 6517 #### [facility] [address], [address] [place] [address] Legal Librarian: Madhav Ornelas MD #### 11549, 30647 #### [facility] [address] Legal Librarian: Madhav Ornelas MDCholesterol in HDL [Mass/Vol]100 mg/dLNormal> OR = 50Quest DiagnosticsComment on above:Performed By: #### 81519, 3350, 6517 #### [facility] [place] [address] Legal Librarian: Madhav Ornelas MD #### 26874, 28778 #### [facility] [address] Legal Librarian: Madhav Ornelas MDCholesterol in LDL [Mass/Vol]112 mg/dLHigh [facility]osticsComment on above:Result Comment: Reference range: <100 Desirable range <100 mg/dL for primary prevention; <70 mg/dL for patients with CHD or diabetic patients with > or = 2 CHD risk factors. LDL-C is now calculated using the Ash-Steinberg calculation, which is a validated novel method providing better accuracy than the Friedewald equation in the estimation of LDL-C. Ash SS et al. LISBETH. 2013;310(19): 8389-7858 (http://education.BuzzDoes.[employer]/faq/MUQ940)Performed By: #### 49853, 0, 6517 #### [facility] [address], [address] [place] [address] Legal Librarian: Madhav Ornelas MD #### 53126, 26582 #### [facility]-[address], [address] [place] [address] Legal Librarian: Madhav ANDREWholesterol.total/Cholesterol in HDL [Mass ratio]2.3 {ratio}Normal<5.0Quest DiagnosticsComment on above:Performed By: #### 75185, 7599, 6517 #### [facility] [address], [address] [place] [address] Legal Librarian: Madhav Ornelas MD #### 12224, 96414 #### [facility] [address] Legal Librarian: Madhav Ornelas MDNON HDL PYNJSETWOUD705 mg/dL (calc)High<130 [facility] DiagnosticsComment on above:Result Comment: For patients with diabetes plus 1 major ASCVD risk factor, treating to a non-HDL-C goal of <100 mg/dL (LDL-C of <70 mg/dL) is considered a therapeutic option.Performed By: #### 42462, 760, 6517 #### [facility] [address], [address] [place] [address] Legal Librarian: Madhav Ornelas MD #### 69159, 69734 #### [facility], [address] [place] [address] Legal Librarian: Madhav Ornelas MDTriglyceride [Mass/Vol]110 mg/dLNormal<150 [facility]osticsComment on above:Performed By: #### 90203, 0, 6517 #### [facility] [address], [address] [place] [address] Legal Librarian: Madhav Ornelas MD #### 05919, 82955 #### [facility], [address] [place] [address] Legal Librarian: Madhav Ornelas MDTHINPREP TIS PAPon [id number] INFORMATION:NormalQuest DiagnosticsComment on above:Result Comment: Routine exam Performed By: #### 43679, 0, 6517 #### [facility] [address], [address] [place] [address] Legal Librarian: Madhav Ornelas MD #### 63163, 56890 #### [facility], [address] [place] [address] Legal Librarian: Madhav Ornelas MDCOMMENT:NormalQuest DiagnosticsComment on above:Result Comment: This Pap test has been evaluated with computer assisted technology. Parabasal cells in smears that lack maturation due to atrophy or other hormonal reasons cannot be differentiated from transformation zone cells. Accordingly, presence or absence of endocervical or transformation zone components cannot be reported in this patient.Performed By: #### 83202, 7599, 6517 #### [facility] [address], [address] [place] [address] Legal Librarian: Madhav Ornelas MD #### 14537, 78999 #### [facility], [address] [place] [address] Legal Librarian: Madhav Ornelas MDCYTOTECHNOLOGIST:NormalQuest [facility]ostics Comment on above:Result Comment: BGG, SCT(ASCP) CT screening location: [place] [address].Performed By: #### 03770, 7600, 6517 #### [facility] [address], [address] [place] [address] Legal Librarian: Madhav Ornelas MD #### 83091, 84790 #### [facility], [address] [place] [address] Legal Librarian: Madhav Ornelas MDINTERPRETATION/RESULT:NormalQuest [facility] Comment on above:Result Comment: Negative for intraepithelial lesion or malignancy. Atrophic pattern; predominantly parabasal cellsPerformed By: #### 67236, 7600, 6517 #### [facility] [address], [address] [place] [address] Legal Librarian: Madhav Ornelas MD #### 09852, 91545 #### [facility], [address] [place] [address] Legal Librarian: Madhav Ornelas MDLMP:NormalQuest DiagnosticsComment on above: Result Comment: None givenPerformed By: #### 54749, 7600, 6517 #### [facility] [address], [address] [place] [address] Legal Librarian: Madhav Ornelas MD #### 41274, 37025 #### [facility], [address] [place] [address] Legal Librarian: Madhav ALVARADO. BX:NormalQuest DiagnosticsComment on above:Result Comment: None givenPerformed By: #### 77967, 7600, 6517 #### [facility] [address], [address] [place] [address] Legal Librarian: Madhav Ornelas MD #### 78215, 30261 #### [facility], [address] [place] [address] Legal Librarian: Madhav ALVARADO. PAP:NormalQuest DiagnosticsComment on above:Result Comment: None givenPerformed By: #### 18990, 7600, 6517 #### [facility] [address], [address] [place] [address] Legal Librarian: Madhav Ornelas MD #### 36118, 15493 #### [facility], [address] [place], [place] [id number] Legal Librarian: Madhav FRANCO CHIP SILO TENDER:NormalQuest DiagnosticsComment on above:Result Comment: MARYAM CT(ASCP) CT screening location: [place] [address].Performed By: #### 68986, 7600, 6517 #### [facility] [address], [address] [place], [place] [id number] Legal Librarian: Madhav Ornelas MD #### 13567, 58939 #### [facility], [address] [place] [address] Legal Librarian: Madhav Ornelas MDSOURCE:NormalQuest DiagnosticsComment on above:Result Comment: None givenPerformed By: #### 74255, 7600, 6517 #### [facility] [address], [address] [place], [place] [id number] Legal Librarian: Madhav Ornelas MD #### 86394, 64002 #### [facility], [address] [place], [place] [id number] Legal Librarian: Madhav Ornelas MDSTATEMENT OF ADEQUACY:NormalQuest [facility] Comment on above:Result Comment: SATISFACTORY FOR EVALUATIONPerformed By: #### 63191, 7600, 6517 #### [facility] [address], [address] [place], [place] [id number] Legal Librarian: Madhav Ornelas MD #### 61879, 67684 #### [facility], [address] [place], [place] [id number] Legal Librarian: Madhav Ornelas MD Vital Signs Date TimeVital SignValuePerforming GcraypmlxDxzcalvb20-81-8928 08:54-0400Body lqmkij587 cmKyann Payton APRN-WHEEL ALIGNER Work Phone: [facility] Perhix47-71-3971 08:54-0400Body mass index (BMI) [Ratio]37.67 kg/m2Payton Payton POOLROOM TABLE ATTENDANT-WHEEL ALIGNER Work Phone: [facility] Eixtex86-85-1720 08:54-0400Body ultbtkydqyr15.01 [degF]Payton Payton POOLROOM TABLE ATTENDANT-WHEEL ALIGNER Work Phone: [facility] Gdjhob65-63-9627 08:54-0400Body bcuqxu85.44 kgPayton Payton POOLROOM TABLE ATTENDANT-WHEEL ALIGNER Work Phone: [facility] Iwfvzl63-81-5080 08:54-0400Diastolic blood opesaics55 mm[Hg]Payton Payton POOLROOM TABLE ATTENDANT-WHEEL ALIGNER Work Phone: [facility] Tikidk21-64-2469 08:54-0400Heart rate 76 /minPayton Mendezzer POOLROOM TABLE ATTENDANT-WHEEL ALIGNER Work Phone: [facility] Ziapmj97-24-0598 08:54-0400 Respiratory rate18 /minPayton Mendezzer POOLROOM TABLE ATTENDANT-WHEEL ALIGNER Work Phone: [facility] Nvxuvh39-54-7500 08:54-9659NbV8% (BldA) [Mass fraction]94 %Payton Payton POOLROOM TABLE ATTENDANT-WHEEL ALIGNER Work Phone: [facility] Tpsras23-92-4315 08:54-0400Systolic blood ewktenmo905 mm[Hg]Payton Payton POOLROOM TABLE ATTENDANT-WHEEL ALIGNER Work Phone: [facility] Orntfk12-93-2698 13:30-0400Diastolic blood gcmfabmv12 mm[Hg]Pawel Culver DO Work Phone: [facility] Dpyczb75-49-5261 13:30-0400Systolic blood tcgbjbud175 mm[Hg]Paewl Culver DO Work Phone: [facility] Ouassm74-83-1289 12:37-0400Body oimjgz798 cmJohn Yuhas DO Work Phone: [facility]09-10-2025 12:37-0400Body mass index (BMI) [Ratio]37.81 kg/m2Pawel Salazars DO Work Phone: [facility]09-10-2025 12:37-0400Body xbmqvppulxd15.49 [degF]Pawel Culver DO Work Phone: [facility]09-10-2025 12:37-0400Body utnujk01.8 kgJodamon Salazars DO Work Phone: [facility]09-10-2025 12:37-0400Heart rate 75 /minJodamon Salazars DO Work Phone: [facility]09-10-2025 12:37-0400 Respiratory rate20 /minJodamon Salazars DO Work Phone: [facility]09-10-2025 12:37-5268WdG2% (BldA) [Mass fraction]96 %Pawel Culver DO Work Phone: [facility]07-22-2025 08:39-0400Body mass index (BMI) [Ratio]38.2 kg/a1Nrzgdsf Nienberg PA Work Phone: [facility]07-22-2025 08:39-0400Body gryscq87.8 kgMatthew Nienberg PA Work Phone: [facility]07-22-2025 08:39-0400Diastolic blood ihzmrdla75 mm[Hg]Jose Roberto Corona PA Work Phone: [facility]07-22-2025 08:39-0400Heart rate 70 /minMatthew Nienberg PA Work Phone: [facility] CenterFooduc[facility] Kygxge66-09-2236 08:39-0400 Respiratory rate20 /minMatthew Nienberg PA Work Phone: [facility]07-22-2025 08:39-0439KeG4% (BldA) [Mass fraction]94 %Jose Roberto CASEY Work Phone: [facility]07-22-2025 08:39-0400Systolic blood lfoawvru432 mm[Hg]Jose Roberto CASEY Work Phone: [facility]05-08-2025 11:07-0400Body sckyis937 cmValejoshua Villa POOLROOM TABLE ATTENDANT-WHEEL ALIGNER Work Phone: [facility]05-08-2025 11:07-0400Body mass index (BMI) [Ratio]39.46 kg/r0GkekirkYasmine Hartillo POOLROOM TABLE ATTENDANT-WHEEL ALIGNER Work Phone: [facility]05-08-2025 11:07-0400Body eoyscdcofno04.01 [degF]Yasmine Hartillo POOLROOM TABLE ATTENDANT-WHEEL ALIGNER Work Phone: [facility]05-08-2025 11:07-0400Body uxwfhy811.02 kgYasmine Hartillo POOLROOM TABLE ATTENDANT-WHEEL ALIGNER Work Phone: [facility]05-08-2025 11:07-0400Diastolic blood xyawzgit63 mm[Hg]Yasmine Hartillo POOLROOM TABLE ATTENDANT-WHEEL ALIGNER Work Phone: [facility]05-08-2025 11:07-0400Heart rate 73 /minYasmine Hartillo POOLROOM TABLE ATTENDANT-WHEEL ALIGNER Work Phone: [facility]05-08-2025 11:07-0400 Respiratory rate18 /minAnnettee Villa POOLROOM TABLE ATTENDANT-WHEEL ALIGNER Work Phone: [facility]05-08-2025 11:07-1126IdU1% (BldA) [Mass fraction]96 %Yasmine Hartillo POOLROOM TABLE ATTENDANT-WHEEL ALIGNER Work Phone: [facility]05-08-2025 11:07-0400Systolic blood xvabfvxp690 mm[Hg]Yasmine Hartillo POOLROOM TABLE ATTENDANT-WHEEL ALIGNER Work Phone: [facility] Xvgwgz34-31-4780 08:23-0400Body cmMatthew Nienberg PA Work Phone: [facility] Rgzxai43-88-2660 08:23-0400Body mass index (BMI) [Ratio]39.68 kg/g9Cjzlpdj Nienberg PA Work Phone: [facility] Oflcun69-47-5452 08:23-0400Body akflsu774.61 kgMatthew Nienberg PA Work Phone: [facility] Qfnffj49-36-3028 08:23-0400Diastolic blood xlpmnenn08 mm[Hg]Jose Roberto Corona PA Work Phone: [facility] Zqlrse37-08-3014 08:23-0400Heart rate 70 /minMatthew Nienberg PA Work Phone: [facility] Nasqoh72-45-4319 08:23-0400 Respiratory rate18 /minMatthew Nienberg PA Work Phone: [facility] Cvslxu60-89-8372 08:23-9793GxX8% (BldA) [Mass fraction]99 %Jose Roberto Juliethmarj PA Work Phone: [facility] Nhijpl57-55-3479 08:23-0400Systolic blood pqfybsdl814 mm[Hg]Jose Roberto Corona PA Work Phone: [facility] Akyhxq02-14-2799 08:24-0400Body dzjsxi441 cmVjoão Villa POOLROOM TABLE ATTENDANT-WHEEL ALIGNER Work Phone: [facility] Nirvch46-02-3374 08:24-0400Body mass index (BMI) [Ratio]39.53 kg/y8EhbeeqtYasmine Villa POOLROOM TABLE ATTENDANT-WHEEL ALIGNER Work Phone: [facility] Mxoayl69-07-1357 08:24-0400Body hajznvhgxak51.2 [degF]Yasmine Villa POOLROOM TABLE ATTENDANT-WHEEL ALIGNER Work Phone: [facility] Rgbukj93-46-5540 08:24-0400Body .2 kgYasmine Villa APRN-WHEEL ALIGNER Work Phone: [facility] [employer] Gnsfgb77-63-4816 08:24-0400Diastolic blood uoxtnkqq84 mm[Hg]Yasmine Villa POOLROOM TABLE ATTENDANT-WHEEL ALIGNER Work Phone: [facility] [employer] Ouqtrv36-61-3353 08:24-0400Heart rate 71 /minYasmine Villa POOLROOM TABLE ATTENDANT-WHEEL ALIGNER Work Phone: [facility]04-14-2025 08:24-0400 Respiratory rate18 /minYasmine Villa POOLROOM TABLE ATTENDANT-WHEEL ALIGNER Work Phone: [facility]04-14-2025 08:24-1846QdI0% (BldA) [Mass fraction]96 %Yasmine Villa APRN-WHEEL ALIGNER Work Phone: [facility] [employer] Duvtsm79-31-2639 08:24-0400Systolic blood yylvnjbc903 mm[Hg]Yasmine Villa APRN-WHEEL ALIGNER Work Phone: [facility] [employer] Mjsxpj46-18-9344 13:20-0400Diastolic blood dghbsalf89 mm[Hg]Jose Roberto CASEY Work Phone: [facility]03-27-2025 13:20-0400Heart rate 67 /minMatthew Earnestine CASEY Work Phone: [facility] [employer] Yxxlot16-25-1247 13:20-0387UkQ6% (BldA) [Mass fraction]95 %Jose Roberto CASEY Work Phone: [facility]03-27-2025 13:20-0400Systolic blood gcwysysm139 mm[Hg]Jose Roberto CASEY Work Phone: [facility]02-17-2025 08:45-0500Body upzjby106 cmVjoão Villa APRN-WHEEL ALIGNER Work Phone: [facility] [employer] Iybceu84-79-7349 08:45-0500Body mass index (BMI) [Ratio]38.72 kg/k6AcpjucqYasmine Villa APRN-WHEEL ALIGNER Work Phone: [phone]02-17-2025 08:45-0500Body kjrnawosjgq55.81 [degF]Yasmine Villa APRN-WHEEL ALIGNER Work Phone: [phone]02-17-2025 08:45-0500Body etdvye17.16 kgYasmine Villa APRN-WHEEL ALIGNER Work Phone: [phone]02-17-2025 08:45-0500Diastolic blood rdfuanyv29 mm[Hg]Yasmine Villa APRN-WHEEL ALIGNER Work Phone: 1(530)552-[address] [place], [place] [address]402-17-2025 08:45-0500Heart rate 65 /minYasmine Villa APRN-WHEEL ALIGNER Work Phone: [phone] [place], [place] 30[address]-17-2025 08:45-0500 Respiratory rate18 /minYasmine Villa APRN-WHEEL ALIGNER Work Phone: [phone]02-17-2025 08:45-6195VdO0% (BldA) [Mass fraction]99 %Yasmine Villa APRN-WHEEL ALIGNER Work Phone: [phone]02-17-2025 08:45-0500Systolic blood wuixsthz316 mm[Hg]Yasmine Villa APRN-WHEEL ALIGNER Work Phone: [phone]10-22-2024 15:16-0400Body wyuonp471 cmAnthony Rusher DPM Work Phone: [phone]Vgiscsjktc05-07-6024 15:16-0400Body mass index (BMI) [Ratio]36.31 kg/k1Erpggdy Rusher DPM Work Phone: [phone] HospitalUvokuttrdi24-41-1579 15:16-0400Body ugkbps59.99 kgAnthony Rusher DPM Work Phone: [phone] HospitalUsqeemfmzl84-70-9555 09:06-0400Body exozto668 cm Yasmine Villa APRN-WHEEL ALIGNER Work Phone: [facility] [employer] Mcflov03-28-5050 09:06-0400Body mass index (BMI) [Ratio]37.06 kg/h3ZpagkxjYasmine Villa APRN-WHEEL ALIGNER Work Phone: [facility] [employer] Spvwtq19-31-6946 09:06-0400Body ofcnrujiwye72.9 [degF]Yasmine Villa APRN-WHEEL ALIGNER Work Phone: [facility]10-14-2024 09:06-0400Body mijlgs24.89 kgYasmine Villa APRN-WHEEL ALIGNER Work Phone: [facility]10-14-2024 09:06-0400Diastolic blood fjdibhid86 mm[Hg]Yasmine Villa APRN-WHEEL ALIGNER Work Phone: [facility] [employer] Jolbdg51-62-7663 09:06-0400Heart rate 55 /minYasmine Villa APRN-WHEEL ALIGNER Work Phone: [facility] [employer] Tbfzul92-28-4158 09:06-0400 Respiratory rate18 /minYasmine Villa APRN-WHEEL ALIGNER Work Phone: [facility]10-14-2024 09:06-8972CyN2% (BldA) [Mass fraction]98 %Yasmine Villa APRN-WHEEL ALIGNER Work Phone: [facility]10-14-2024 09:06-0400Systolic blood boihjdaa371 mm[Hg]Yasmine Villa APRN-WHEEL ALIGNER Work Phone: [facility] [employer] Wdytez25-43-1350 10:56-0400Body cmVjoão Villa APRN-WHEEL ALIGNER Work Phone: [facility]08-19-2024 10:56-0400Body mass index (BMI) [Ratio]36.88 kg/p6DjhmldgYasmine Villa APRN-WHEEL ALIGNER Work Phone: [facility]08-19-2024 10:56-0400Body gtahrbdfvyg99.71 [degF]Yasmine Villa APRN-WHEEL ALIGNER Work Phone: [facility]08-19-2024 10:56-0400Body upsctk31.44 kgYasmine Villa POOLROOM TABLE ATTENDANT-WHEEL ALIGNER Work Phone: [facility]08-19-2024 10:56-0400Diastolic blood lyxqvpgf85 mm[Hg]Yasmine Villa APRN-WHEEL ALIGNER Work Phone: [facility]08-19-2024 10:56-0400Heart rate 70 /minYasmine Villa APRN-WHEEL ALIGNER Work Phone: [facility]08-19-2024 10:56-0400 Respiratory rate18 /minYasmine Villa APRN-WHEEL ALIGNER Work Phone: [facility]08-19-2024 10:56-3056OmP6% (BldA) [Mass fraction]96 %Yasmine Villa APRN-WHEEL ALIGNER Work Phone: [facility] [employer] Abtbmu31-23-5934 10:56-0400Systolic blood mm[Hg]Yasmine Villa APRN-WHEEL ALIGNER Work Phone: [facility] [employer] Qqtfyk44-60-2584 09:22-0400Body cmMatttali CASEY Work Phone: [facility] [employer] Klhykk48-17-7287 09:22-0400Body mass index (BMI) [Ratio]36.67 kg/i3Vgxnkgdtali CASEY Work Phone: [facility] Ibdyag48-04-2054 09:22-0400Body ytkery39.89 kgMatttali CASEY Work Phone: [facility]07-23-2024 09:22-0400Diastolic blood gmveltmx94 mm[Hg]Jose Roberto CASEY Work Phone: [facility]07-23-2024 09:22-0400Heart rate 70 /minMatthew Nienberg PA Work Phone: [facility] [employer] Vbrzpt14-01-0472 09:22-0400 Respiratory rate18 /minMatthew Nienberg PA Work Phone: [facility]07-23-2024 09:22-3321VlA6% (BldA) [Mass fraction]95 %Jose Roberto Nienberg PA Work Phone: [facility]07-23-2024 09:22-0400Systolic blood vbbyleat752 mm[Hg]Jose Roberto Nienberg PA Work Phone: [facility]06-06-2024 09:40-0400Diastolic blood bccrmiet39 mm[Hg]Jose Roberto Nienberg PA Work Phone: [facility] [employer] Datwfe08-78-0024 09:40-0400Heart rate 60 /minMatthew Nienberg PA Work Phone: [facility]06-06-2024 09:40-0400 Respiratory rate18 /minMatthew Nienberg PA Work Phone: [facility]06-06-2024 09:40-2960JgC7% (BldA) [Mass fraction]95 %Jose Roberto Nienberg PA Work Phone: [facility] [employer] Rbevkd34-07-1385 09:40-0400Systolic blood feghqblt744 mm[Hg]Jose Roberto Nienberg PA Work Phone: [facility] [employer] Lafijv08-34-5874 08:02-0400Body njtuni533 cmLiliana Rodriguezjing POOLROOM TABLE ATTENDANT-TAKER OFF DRYING KILN Work Phone: [facility] Zouthv70-12-1981 08:02-0400Body mass index (BMI) [Ratio]36.53 kg/m2Liliana Rodriguezjing POOLROOM TABLE ATTENDANT-TAKER OFF DRYING KILN Work Phone: [facility] Zushxa41-79-4063 08:02-0400Body mqcshanqubq09.4 [degF]Liliana Gomez POOLROOM TABLE ATTENDANT-TAKER OFF DRYING KILN Work Phone: [facility] Zujcmv00-24-6707 08:02-0400Body iimbui24.53 kgLiliana Gomez POOLROOM TABLE ATTENDANT-TAKER OFF DRYING KILN Work Phone: [facility] Bpuauz37-80-1407 08:02-0400Diastolic blood twjidsgu99 mm[Hg]Liliana Gomez APRN-TAKER OFF DRYING KILN Work Phone: [facility] Ootxrp62-75-9024 08:02-0400Heart rate 73 /minLiliana oGmez APRN-TAKER OFF DRYING KILN Work Phone: [facility] [employer] Ojxgwt88-10-6313 08:02-0400 Respiratory rate24 /minLiliana Gmoez POOLROOM TABLE ATTENDANT-TAKER OFF DRYING KILN Work Phone: [facility] Hibfdd77-79-8314 08:02-9078OzA8% (BldA) [Mass fraction]97 %Liliana Gomez APRN-TAKER OFF DRYING KILN Work Phone: [facility] [employer] Ofhdce54-09-3718 08:02-0400Systolic blood hecihtkm660 mm[Hg]Liliana Gomez APRN-TAKER OFF DRYING KILN Work Phone: [facility] Sxxzxe64-50-3343 12:14-0400Body uuogtl942 cmMatthew Nienberg PA Work Phone: [facility] [employer] Dtabxw94-50-3106 12:14-0400Body mass index (BMI) [Ratio]36.31 kg/g2Nfwqemf Earnestine PA Work Phone: [facility] [employer] Aisakc12-92-6565 12:14-0400Body .99 kgMatthew Nienberg PA Work Phone: [facility] [employer] Imqnky31-15-4775 12:14-0400Diastolic blood onnsuxmx67 mm[Hg]Jose Roberto Corona PA Work Phone: [facility] [employer] Geawug53-14-2117 12:14-0400Heart rate 78 /minMatttail Clancyenberg PA Work Phone: [facility] [employer] Famdpb34-07-3639 12:14-0400 Respiratory rate18 /minMatthew Nienberg PA Work Phone: [facility] [employer] Tprssi82-31-9487 12:14-7675PqG3% (BldA) [Mass fraction]99 %Jose Roberto Nienberg PA Work Phone: [facility] [employer] Mfylyh11-89-8182 12:14-0400Systolic blood batmhbly056 mm[Hg]Jose Roberto Nienberg PA Work Phone: [facility] [employer] Yeslng75-75-9950 09:19-0500Diastolic blood uroxlgto20 mm[Hg]Jose Roberto Nienberg PA Work Phone: [facility] [employer] Hgwkcb80-90-7302 09:19-0500Systolic blood xnegypwj282 mm[Hg]Jose Roberto Nienberg PA Work Phone: [facility] [employer] Ortybj88-90-2809 09:10-0500Body egawpt559 cmMatthew Nienberg PA Work Phone: [facility] [employer] Tcyfly60-70-1891 09:10-0500Body mass index (BMI) [Ratio]35.61 kg/n7Zfxvczy Nienberg PA Work Phone: [facility] [employer] Znlfxn69-63-1227 09:10-0500Body etczcj29.17 kgMatthew Nienberg PA Work Phone: [facility] [employer] Wuzhld42-24-4845 09:10-0500Heart rate 66 /minMatthew Nienberg PA Work Phone: [facility] Tnimgx74-28-5760 09:10-0500 Respiratory rate18 /minMatthew Nienberg PA Work Phone: [facility] [employer] Ecsgbl82-85-9894 09:10-2445WtD9% (BldA) [Mass fraction]98 %Jose Roberto Nienberg PA Work Phone: [facility] [employer] Brktja33-31-0210 08:11-0500Diastolic blood izzlghxu15 mm[Hg]Jose Roberto Nienberg PA Work Phone: [facility]01-04-2024 08:11-0500Heart rate 57 /minMatthew Nienberg PA Work Phone: [facility] [employer]01-04-2024 08:11-0500 Respiratory rate20 /minMatthew Nienberg PA Work Phone: [facility]01-04-2024 08:11-0500Systolic blood lzbcravo649 mm[Hg]Jose Roberto Nienberg PA Work Phone: [facility] Center[facility]am[facility]ee12-21-2023 09:48-0500Body pkpioc421 cmMatthew Nienberg PA Work Phone: [facility]12-21-2023 09:48-0500Body mass index (BMI) [Ratio]34.72 kg/f8Gxzuboi Nienberg PA Work Phone: [facility]12-21-2023 09:48-0500Body ifjpcz64.91 kgMatthew Nienberg PA Work Phone: [facility]12-21-2023 09:48-0500Diastolic blood eqrhhprk95 mm[Hg]Jose Roberto Nienberg PA Work Phone: [facility]12-21-2023 09:48-0500Heart rate 62 /minMatthew Nienberg PA Work Phone: [facility]12-21-2023 09:48-5626ReY7% (BldA) [Mass fraction]95 %Jose Roberto Nienberg PA Work Phone: [facility]12-21-2023 09:48-0500Systolic blood gmsuwrge459 mm[Hg]Jose Roberto Nienberg PA Work Phone: [facility]11-10-2022 12:20-0500Body gwxwee134.02 Artie Tavera Other [facility] [employer] Other 11-10-2022 12:20-0500Body mass index (BMI) [Ratio] 38.97 kg/h2Obtsv Tavera Other [facility] [employer] Other 11-10-2022 12:20-0500Body znhzcatmssq93.7 [degF]Alix Tavera Other [employer] Other 11-10-2022 12:20-0500Body rqsxxi49.79 kgAlix Taevra Other [facility] [employer] Other 11-10-2022 12:20-0500Respiratory rate18 /minAlix Tavera Other [facility] [employer] Other 11-10-2022 12:20-1913AtW3% (BldA) [Mass fraction]92 % Alix Tavera Other [facility] [employer] Other 07-30-2022 10:15-0400Body icryqd441.02 cmAmbalan Tavera Other [facility] [employer] Other 07-30-2022 10:15-0400Body ysnbnhwawcg39.1 [degF]Alix Tavera Other [employer] Other 07-30-2022 10:15-0400Respiratory rate18 /minMauroer Tavera Other [employer] Other 07-30-2022 10:15-4670UoF9% (BldA) [Mass fraction]93 % Alix Tavera Other [facility] [employer] Other Encounters Encounter DateEncounter TypeCare ProviderFacilityStart: 12-16-2024 End: 27-76-1419Spiagw outpatient visit 25 Milton Payton POOLROOM TABLE ATTENDANT-WHEEL ALIGNER Work Phone: [facility] - Family MedicineComment on above:DM type 2 with diabetic mixed hyperlipidemia ([facility]) (Primary Dx); Essential hypertension; 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 ([facility]); Type 2 diabetes mellitus with hyperglycemia, without long-term current use of insulin ([facility]); Depressive disorder; Encounter for screening mammogram for malignant neoplasm of breast; Class 2 obesity due to excess calories without serious comorbidity with body mass index (BMI) of 37.0 to 37.9 in adultStart: 12-16-2024 End: 91-17-8015fqweosjglkDFDH D [facility] Ambulatory PPGStart: 11-05-2024 End: 22-64-7986wckajjjdrhODKJMaria [facility] Ambulatory PPGStart: 11-05-2024 End: 33-58-8281Kkoqkx outpatient visit 25 Darren Culver DO Work Phone: [facility] - Family MedicineComment on above:Conjunctival hemorrhage of left eye (Primary Dx); Essential hypertension; Ocular migraineStart: 11-03-2024 End: 22-05-3511Angnrfpeu department patient visitFRANKLINJOSHUA Nunez [facility] Centertart: 09-16-2024 End: 88-97-8622Aandvy outpatient visit 15 Ari CASEY Work Phone: [facility] - Pain Management ClinicComment on above:Localized osteoarthritis of right knee (Primary Dx)Start: 09-16-2024 End: 93-35-1900tmfuzlmklpXKKSPPO S NIENBERGPremier Healthtart: 08-15-2024 End: 81-26-3133gjqqsskwfiTOKJMHI E HOGANPremier Healthtart: 08-07-2024 End: 99-56-6347Bgatgjmdc encounterAnnabonnie SilvaParkview Health [facility] - Pain Management ClinicStart: 07-03-2024 End: 35-70-9665eftwahdhlwDWJFZGRNorthwest Hospital Ambulatory PPG Start: 07-03-2024 End: 86-67-4979Flijuj outpatient visit 15 minutesYasmine Villa POOLROOM TABLE ATTENDANT-WHEEL ALIGNER Work Phone: [facility] - Family MedicineComment on above:DM type 2 with diabetic mixed hyperlipidemia (CMS-HCC) Start: 06-24-2024 End: 67-77-0435Qxmvbsuyk encounterJerri Carter [facility] - Pain Management ClinicStart: 06-19-2024 End: 14-96-4948nhfpewtosqZOVADRWLane Regional Medical Center HospitalStart: 06-19-2024 End: 96-85-2760Bfrfsg outpatient visit 25 minutesJose Roberto CASEY Work Phone: [facility] - Pain Management ClinicComment on above:Primary osteoarthritis of right knee (Primary Dx)Start: 06-09-2024 End: 68-16-0536Jirnso outpatient visit 25 minutesYasmine Villa APRN-WHEEL ALIGNER Work Phone: [facility] - Family MedicineComment on above:CKD stage 2 due to type 2 diabetes mellitus (CMS-HCC) (Primary Dx); DM type 2 with diabetic mixed hyperlipidemia ([facility]) ; Depressive disorder; Essential hypertensionStart: 06-09-2024 End: 25-66-4263qlpwuggbnwACTHAMVNorthwest Hospital Ambulatory PPG Start: 06-06-2024 End: 04-36-4701qcralctiepREHQKCP E [facility]SAANSumma Health HospitalStart: 05-22-2024 End: 38-01-5273Wupayh outpatient visit 25 minutesJose Roberto CASEY Work Phone: [facility] - Pain Management ClinicComment on above:Primary osteoarthritis of right knee (Primary Dx)Start: 05-22-2024 End: 80-86-9424fbpqbscdncHCPPOGULane Regional Medical Center HospitalStart: 04-17-2024 End: 99-57-9652Edjbpimac encounterValejoshua Villa APRN-WHEEL ALIGNER Work Phone: [facility] - [facility] MedicineStart: 04-14-2024 End: 29-04-9069Yicqhr outpatient visit 25 minutesYasmine Villa APRN-WHEEL ALIGNER Work Phone: [facility] CenterComment on above:Type 2 diabetes mellitus with hyperglycemia, without long-term current use of insulin ([facility]) (Primary Dx); 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 ([facility]) ; Class 3 severe obesity due to excess calories with serious comorbidity and body mass index (BMI) of40.0 to 44.9 in adult ([facility]); Mild intermittent asthma without complication; Depressive disorderStart: 04-14-2024 End: 66-75-3513vlopjoivtoMLYTAODNorthwest Hospital Ambulatory PPG Start: 01-08-2024 End: 73-02-1893Rkocxnxrk encounterMeeta Lisa [facility]Pro[facility] MedicineStart: 12-18-2023 End: 67-64-1477Wtadin outpatient new 45 minutesAnthony S Rusher DPM Work Phone: noFREEMAN [facility] MED[facility] PODIATRYComment on above:Plantar fasciitis (Primary Dx); Rupture of muscle, nontraumatic; Right foot pain; Equinus contracture of right ankleStart: 12-18-2023 End: 23-26-7595Xachbe flowsheetAnthony S Rusher DPM Work Phone: noms PODIATRYStart: 12-18-2023 End: 60-84-3905Dqjenb flowsheetAnthony S Rusher DPM Work Phone: n[facility] PODIATRYStart: 12-10-2023 End: 42-05-7776qwgmkhxubxKPSVZCTFlower Hospitaltart: 12-10-2023 End: 36-88-2000Pkfutf outpatient visit 25 minutesYasmine Villa POOLROOM TABLE ATTENDANT-WHEEL ALIGNER Work Phone: [facility] - Family MedicineComment on above: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 ([facility]) (Primary Dx); Type 2 diabetes mellitus with hyperglycemia, without long-term current use of insulin ([facility]); Depressive disorder; Primary osteoarthritis of both knees; Change in color of pigmented skin lesion; Encounter for screening mammogram for malignant neoplasm of breastStart: 11-10-2023 End: 33-85-8208ydscbscdvgEBJMPYS S CONSOLOSumma Health HospitalStart: 11-09-2023 End: 71-79-7439rpkewxpwvhLTNMQYV Mayela ANUSHASumma Health HospitalStart: 10-15-2023 End: 64-89-5707tckkjokpagNVWTPMI J CASTILLOWooster Community Hospital HospitalStart: 10-15-2023 End: 82-23-8429Ujyimb outpatient visit 15 minutesYasmine Villa POOLROOM TABLE ATTENDANT-WHEEL ALIGNER Work Phone: [facility] - Family MedicineComment on above:Acute cystitis without hematuria (Primary Dx); 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 ([facility]) ; Depressive disorder; Type 2 diabetes mellitus with hyperglycemia, without long-term current use of insulin ([facility])Start: 10-05-2023 End: 45-68-4173Lzirqb Solo Martinez POOLROOM TABLE ATTENDANT-WHEEL ALIGNER Work Phone: [facility] - Family MedicineStart: 10-02-2023 End: 33-79-7288Thwpmdudl encounterBrigette OSULLIVANACMC Healthcare System - Pain Management ClinicStart: 09-18-2023 End: 77-13-1982Cxkvel outpatient visit 25 minutesJose Roberto CASEY Work Phone: [facility] - Pain Management ClinicComment on above:Localized osteoarthritis of right knee (Primary Dx)Start: 08-29-2023 End: 30-39-5382Xbhifnpep encounterLiliana Gomez POOLROOM TABLE ATTENDANT-TAKER OFF DRYING KILN Work Phone: [facility] - Family MedicineStart: 08-25-2023 End: 77-89-9870ZwlfbmEhze Rose Kuns POOLROOM TABLE ATTENDANT-TAKER OFF DRYING KILN Work Phone: [facility] - [facility] MedicineStart: 08-02-2023 End: 36-01-4877Pyrffb outpatient visit 15 minutesJose Roberto CASEY Work Phone: [facility] - Pain Management ClinicComment on above:Lumbosacral spondylosis without myelopathy (Primary Dx) Start: 06-25-2023 End: 91-35-2104jpkpmrnevaCOIP ROSE KUNSuburban Community Hospital & Brentwood Hospitaltart: 06-25-2023 End: 06-97-0072Wggsqq outpatient visit 25 minutesLiliana Gomez POOLROOM TABLE ATTENDANT-TAKER OFF DRYING KILN Work Phone: [facility] - Family MedicineComment on above: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 ([facility]) (Primary Dx); Essential hypertension; Mixed hyperlipidemia; Adult BMI 36.0-36.9 kg/sq m; Mild intermittent asthma without complication; Primary osteoarthritis of right kneeStart: 06-21-2023 End: 57-31-0220Zijtqn outpatient visit 25 minutesJose Roberto CASEY Work Phone: [facility] - Pain Management ClinicComment on above:Lumbosacral spondylosis without myelopathy (Primary Dx); Disc displacement, lumbar; Disorder of sacrumStart: 40-07-0110HjbirxRqas Rose Kuns POOLROOM TABLE ATTENDANT-TAKER OFF DRYING KILN Work Phone: [facility] - Family MedicineStart: 13-63-5532NqbvquNfev Rose Kuns POOLROOM TABLE ATTENDANT-TAKER OFF DRYING KILN Work Phone: [facility] - Family MedicineComment on above:Depressive disorder; 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 (CMS-HCC)Start: 27-80-1486ZnvjhkMasha Gomez POOLROOM TABLE ATTENDANT-TAKER OFF DRYING KILN Work Phone: [facility] - Family MedicineComment on above:Special screening for malignant neoplasm of colon (Primary Dx)Start: 04-13-2023 End: 93-38-7943Wccghhnzn encounterMattwerow S Nienberg PA Work Phone: [facility] - Pain Management ClinicStart: 04-12-2023 End: 84-66-9919Lqllzl outpatient visit 15 minutesMatthew S Nienberg PA Work Phone: [facility] - Pain Management ClinicComment on above:Localized osteoarthritis of right knee (Primary Dx)Start: 53-05-6252NpbygvRsje Rose Kuns POOLROOM TABLE ATTENDANT-TAKER OFF DRYING KILN Work Phone: [facility] - Family MedicineStart: 03-01-2023 End: 73-13-1303Rcselt outpatient visit 25 minutesMatthew S Nienberg PA Work Phone: [facility] - Pain Management ClinicComment on above:Localized osteoarthritis of right knee (Primary Dx)Start: 02-15-2023 End: 52-97-2419Jvlxez outpatient visit 15 minutesMatthew S Nienberg PA Work Phone: [facility] - Pain Management ClinicComment on above:Localized osteoarthritis of right knee (Primary Dx)Start: 01-05-2022 End: 57-80-0968zpwzrsakdwJcggd Keller Other [employer] Other Start: 97-50-2887Gwmwez outpatient visit 25 minutes Alix KellerFPG Urgent Care ClydeStart: 09-24-2021 End: 32-36-2782rbyazotwwjXjhrv Keller Other [employer] Other Start: 10-12-1266Qlwekc outpatient visit 25 minutes Alix KellerFPG Urgent Care ClydeStart: 04-20-2021 End: 88-09-0649ggrncasvqiNV DENNIS G FURLONGFacility:H1 Procedures DateProcedureProcedure DetailPerforming ClinicianStart: 09-01-6335Kipgeybkgc glycosylated g2lKekv Corrine Payton [facility] Work Phone: Start: 21-00-0179Xvjog depression screening assessment Payton Payton [facility] Work Phone: Start: 68-68-0965Bquaoy-up visitFollow-upJODAMON CULVER Start: 03-19-1256Bsofy depression screening assessmentPawel Culver DO Work Phone: Start: 68-61-1429Ftayd depression screening assessment Yasmine Villa [facility] Work Phone: Start: 72-62-0769Tixxfezmyb glycosylated h0rSwxawgo Enrique Villa [facility] Work Phone: Start: 59-75-2345Bzbzi depression screening assessment Yasmine Villa [facility] Work Phone: Start: 98-67-0145Ksaye depression screening assessment Yasmine Villa [facility] Work Phone: Start: 24-18-4102KlkgkbnbkprWuyzgyy Forrider CMAStart: 66-98-5234Jvjpk foot complete minimum 3 viewsAnthcolby Church DPM Work Phone: Start: 50-11-9126Lwpdoojanq glycosylated n7mJywcyyymayela Villa [facility] Work Phone: Start: 49-22-7863Cuqrxxndwret [Mass/volume] in Urine by Test stripYasmine Villa [facility] Work Phone: Start: 50-89-4873Uzkbk dip stick/tablet rgnt non-auto w/o micrscpValerie Enrique Villa [facility] Work Phone: Start: 76-34-3689Ncmex depression screening assessment Liliana Gomez [facility] Work Phone: Start: 22-14-0872RgvgltdpfrvEtmeakb Nienberg PA Work Phone: Start: 10-74-8810Wlzxt depression screening assessment Jose Roberto Earnestine CASEY Work Phone: Start: 21-12-4877Cmqpxtcw retinal eye examMatttali Earnestine CASEY Work Phone: Start: 68-24-3381VlqaehxemdzYbfiyyw Earnestine CASEY Work Phone: Plan of Treatment DateCare ActivityDetailAuthorStart: 07-92-7677Haqpebdtu for malignant neoplasm of colonNOMS HealthcareStart: 38-92-6348Acjqi BMI ScreeningAdult BMI Screening [facility] SystemStart: 69-12-4198Mrvapgiwvl ScreeningDepression Screening [facility] SystemStart: 91-62-2424Porr Risk ScreeningFall Risk Screening [facility] SystemStart: 39-58-3598Gnzoaa Use: DiabeticStatin Use: Diabetic [facility] SystemStart: 41-86-2634Ewfbuok ScreeningTobacco Screening [facility] SystemStart: 22-49-7713Njnmb BMI ScreeningAdult BMI Screening [facility] SystemStart: 81-15-9717Fmsjceinkx ScreeningDepression Screening [facility] SystemStart: 55-26-1901Lhbj Risk ScreeningFall Risk Screening [facility] SystemStart: 29-35-0686Inhypcr ScreeningTobacco Screening [facility] SystemStart: 69-39-0511ABaS,Tdap and Td Vaccines (2 - Td or Tdap)DTaP,Tdap and Td Vaccines (2 - Td or Tdap)[facility] SystemStart: 44-78-0179Ortpc BMI ScreeningAdult BMI ScreeningCorey Hospital SystemStart: 14-10-8489Xvrlzyw ScreeningTobacco ScreeningCorey Hospital SystemStart: 17-22-8046Usmucrt ScreeningTobacco ScreeningCorey Hospital SystemStart: 16-40-5503Ocmdf BMI Follow Up PlanAdult BMI Follow Up PlanCorey Hospital SystemStart: 03-19-2215Oesod BMI ScreeningAdult BMI ScreeningCorey Hospital SystemStart: 88-67-4827Ijqhroegtw ScreeningDepression ScreeningCorey Hospital SystemStart: 85-66-5989Dxfq Risk ScreeningFall Risk ScreeningCorey Hospital SystemStart: 64-72-2347Dtinkfq ScreeningTobacco ScreeningCorey Hospital System Start: 15-96-1522Reeiv BMI ScreeningAdult BMI [facility]eningCos[facility] Start: 23-60-6981Ojfstcr ScreeningTobacco ScreeningCorey Hospital SystemStart: 88-95-7686Jtwrr BMI Follow Up PlanAdult BMI Follow Up PlanCorey Hospital SystemStart: 24-97-8253Owmpf BMI ScreeningAdult BMI ScreeningCorey Hospital SystemStart: 50-98-7041Dyouqhufny ScreeningDepression ScreeningCorey Hospital SystemStart: 23-49-4987Wqpz Risk ScreeningFall Risk ScreeningCorey Hospital SystemStart: 53-54-0882Oxkujtk ScreeningTobacco ScreeningCoshocton Regional Medical Center Start: 49-33-6240Mvmuurp ScreeningTobacco ScreeningCorey Hospital SystemStart: 23-39-2568Gqduo BMI Follow Up PlanAdult BMI Follow Up [facility] SystemStart: 39-21-5340Zkcxj BMI ScreeningAdult BMI ScreeningCorey Hospital SystemStart: 02-76-3186Hfehenaphr ScreeningDepression ScreeningCorey Hospital SystemStart: 24-78-1195Mepexo Use: DiabeticStatin Use: DiabeticUNC Medical Centertart: 28-69-7602Qcbimnu ScreeningTobacco ScreeningCoshocton Regional Medical Center Start: 03-19-2025 End: 69-77-7661Hgozroj encounter /22/2026 7:30 AM EST Office Visit [facility] [address] [place] [address] Payton Payton, POOLROOM TABLE ATTENDANT-WHEEL ALIGNER [address], [address] [address] [facility] - Family MedicineStart: 72-02-9181Smlaergdz for malignant neoplasm of breastMammogramCorey Hospital SystemStart: 12-16-2024 End: 60-67-9489VQA Breast - bilateral screeningMammography screening bilateral with CAD Imaging Routine Encounter for screening mammogram for malignant neoplasm of breast Expected: 12/16/2024, Expires: 12/16/2025[facility] Work Phone: Comment on above:Expected: 12/16/2024, Expires: 12/16/2025Start: 12-16-2024 End: 31-41-9407Cdkrysd encounter /21/2025 9:00 AM EDT Office Visit [facility] [address] [place] [address] Payton Payton, POOLROOM TABLE ATTENDANT-WHEEL ALIGNER [address], [address] [id number] [facility] - Family MedicineStart: 28-93-9098Cplbh BMI Follow Up PlanAdult BMI Follow Up PlanVan [facility] SystemStart: 12-08-3831Xfbng BMI ScreeningAdult BMI ScreeningProGalion Community Hospitalca Health SystemStart: 98-54-2759Ysbsymf ScreeningTobacco ScreeningProGalion Community Hospitalca Health SystemStart: 76-18-6705Dmlgw screening for proteinUrine MicroalbuminVan Wert [facility] Hospital Health SystemStart: 11-08-2024 Tobacco ScreeningTobacco ScreeningProGalion Community Hospitalca Health SystemStart: 20-39-1825Twyyn BMI Follow Up PlanAdult BMI Follow Up PlanVan Wert [facility] Health SystemStart: 54-57-0067Nrxqr BMI ScreeningAdult BMI ScreeningProGalion Community Hospitalca Health SystemStart: 03-23-7369Eoaribu ScreeningTobacco ScreeningProGalion Community Hospitalca Health SystemStart: 32-77-9766Bhnbs BMI ScreeningAdult BMI ScreeningProGalion Community Hospitalca Health SystemStart: 26-48-9181Llzayce ScreeningTobacco ScreeningProGalion Community Hospitalca Health SystemStart: 09-09-2024 End: 36-71-2754Sltqqij encounter cnfiwukih92/15/2025 8:00 AM EDT Office Visit [facility] [address] [place] [address] Yasmine Villa, POOLROOM TABLE ATTENDANT-WHEEL ALIGNER [address] [place] [address] [facility] - [facility] MedicineStart: 09-02-2024 End: 11-04-7048Bpwoafu encounter astbytcjp25/08/2025 1:15 PM EDT Office Visit [facility] [address] [place] [phone] Jose Roberto Corona PA [address], [address] [place] [address] [facility] - Pain Management ClinicStart: 35-37-2579Mexpvze Screening Tobacco ScreeningCorey Hospital SystemStart: 08-01-2024 End: 05-73-8042Ltnobltap to same day surgery timexl6308/01/2024 12:07 PM EDT - 08/01/2024 12:19 PM EDT Surgery [facility] - Pain Procedures [address] [place] [phone] Marcel Wheeler MD [address] [place] [address] RADIOFREQUENCY ABLATION GENICULAR [69508 (CPT )][facility] - Pain ProceduresComment on above:RADIOFREQUENCY ABLATION GENICULAR [70199 (CPT )]Start: 08-01-2024 End: 23-72-1180Jzcnhjgjuiu neurolytic agt genicular nerve w/imgRADIOFREQUENCY ABLATION GENICULAR Primary osteoarthritis of right knee 08/01/2024 12:07 PM EDT [facility]Start: 26-83-4654Rsjreqkyol hospital visit by fdzoteriq14/06/2025 12:07 PM EDT Hospital Encounter [facility] [address] [place] [phone] Marcel Wheeler MD [address] [place] [address] [facility] ProceduresStart: 95-41-0035Bzjas BMI Follow Up PlanAdult BMI Follow Up PlanProWayne Hospital SystemStart: 06-24-2024 Adult BMI ScreeningAdult BMI ScreeningProWayne Hospital SystemStart: 06-24-2024 Depression ScreeningDepression ScreeningProWayne Hospital SystemStart: 06-24-2024 Diabetic foot examinationDiabetic Foot ExamProWayne Hospital SystemStart: 73-27-4684Ujmx Risk ScreeningFall Risk ScreeningCorey Hospital SystemStart: 30-81-3825Mlkov BMI ScreeningAdult BMI ScreeningProWayne Hospital SystemStart: 81-18-2787Ciexkvi ScreeningTobacco ScreeningProOhioHealth Pickerington Methodist Hospitaltart: 06-19-2024 End: 95-02-3459Gwvogov encounter gfumeagcx99/24/2025 8:15 AM EDT Office Visit [facility] [address] [place] [address] Jose Roberto Corona, CARMELA [address], [address] [place] [address] [facility] Pain Management ClinicStart: 06-09-2024 End: 01-88-5766Lnxuaii encounter wkuariahl97/14/2025 8:20 AM EDT Office Visit [facility] Internal Medicine - Family Medicine [address] [place] [address] Yasmine Villa, POOLROOM TABLE ATTENDANT-WHEEL ALIGNER [address] [place] [address] [facility] Internal Medicine - Family MedicineStart: 06-06-2024 End: 01-57-4741Mkdwdrmbj to same day surgery pnwiai3206/06/2024 10:37 AM EDT - 06/06/2024 10:47 AM EDT Surgery [facility] [address] [place] [address] Marcel Wheeler MD [address] [place] [address] INJECTION BLOCK NERVE KNEE Right Genicular [39699 (CPT )][facility] - Pain ProceduresComment on above:INJECTION BLOCK NERVE KNEE Right Genicular [55095 (CPT )]Start: 06-06-2024 End: 94-53-3468Qftausyaf aa&/strd genicular nrv branches w/imgINJECTION BLOCK NERVE KNEE Primary osteoarthritis of right knee 06/06/2024 10:37 AM EDTFREMONT PAINStart: 98-22-6913Ojhcvdafiw hospital visit by fgepgumqn41/11/2025 10:37 AM EDT Hospital Encounter [facility] [address] [place] [address] Marcel Wheeler MD [address] [place] [address] [facility] - Pain ProceduresStart: 73-13-1041Yszvn BMI ScreeningAdult BMI ScreeningCorey Hospital SystemStart: 14-02-7763Ivwdmea ScreeningTobacco ScreeningCorey Hospital SystemStart: 26-19-1645Xbetot Use: DiabeticStatin Use: DiabeticCorey Hospital SystemStart: 23-35-9504Azoaaiq ScreeningTobacco ScreeningCorey Hospital SystemStart: 91-41-2306Tmzci BMI ScreeningAdult BMI ScreeningCorey Hospital SystemStart: 2024 End: 84-24-0822Ngtxoxr encounter pfnrmajmi59/19/2024 3:15 PM EST Office Visit [facility] [address] [place] [address] Josue Church, DPM [address] [place], [place] [address] [facility]RYStart: 30-35-6885Qportpb ScreeningTobacco Screening [facility] SystemStart: 50-12-7310Stunxaqde for malignant neoplasm of breastMammogramUTAH STATE HOSPITAL HealthcareStart: 12-18-2023 End: 15-08-4517Nylmofk encounter asvrldngn73/22/2024 3:15 PM EDT Office Visit [facility] [address] [place] [address] Josue Church, DPM [address] [place] [address] ArrivedMERGED WITH [facility] PODIATRYComment on above:ArrivedStart: 47-70-1891Paciz BMI Follow Up PlanAdult BMI Follow Up PlanCorey Hospital SystemStart: 12-12-2023 Depression ScreeningDepression ScreeningCorey Hospital SystemStart: 12-12-2023 Fall Risk ScreeningFall Risk ScreeningUNC Medical Centertart: 12-10-2023 End: 51-43-7148UHZ Breast - bilateral screeningMammography screening bilateral with CAD Imaging Routine Encounter for screening mammogram for malignant neoplasm of breast Expected: 12/10/2023, Expires: 12/09/2024[facility] CenterComment on above:Expected: 12/10/2023, Expires: 12/09/2024Start: 10-14-2024Medicare Annual Wellness VisitMedicare Annual Wellness VisitCoshocton Regional Medical CenterComment on above:Postponed from 1955 (Patient Refused)Start: 12-10-2023 End: 86-58-1120Hwtmyva encounter steywpygy50/14/2024 9:00 AM EDT Office Visit [facility] - Family Medicine [address] [place] [address] Yasmine Villa, POOLROOM TABLE ATTENDANT-WHEEL ALIGNER [address] [place] [address] [facility] Internal Medicine - Family MedicineStart: 12-06-2023 End: 73-00-3103Klwmmbx encounter zctkxiefk97/10/2024 8:40 AM EDT Office Visit [facility] Internal Medicine - [facility] Medicine [address] [place] [address] Ai Martinez, POOLROOM TABLE ATTENDANT-WHEEL ALIGNER [address] [place] [address] [facility] Internal [facility] MedicineStart: 11-29-2023 End: 69-51-4246Tooshta encounter jcdpuppps15/03/2024 8:45 AM EDT Office Visit [facility] [address] [place] [address] Jose Roberto Corona PA [address] [place] [address] [facility] Pain Management ClinicStart: 11-09-2023 End: 68-55-6356Gglzqdiil to same day surgery mujqla5811/09/2023 8:03 AM EDT - 11/09/2023 8:12 AM EDT Surgery [facility] P rocedures [address] [place] [address] Marcel Wheeler MD [address] [place] [address] INJECTION BLOCK NERVE KNEE: right genicular [59363 (CPT )][facility] - Pain ProceduresComment on above:INJECTION BLOCK NERVE KNEE: right genicular [53843 (CPT )]Start: 11-09-2023 End: 84-82-5436Ehehtxjxd aa&/strd genicular nrv branches w/imgINJECTION BLOCK NERVE KNEE Localized osteoarthritis of right knee 11/09/2023 8:03 AM EDTFREMONT PAINStart: 28-20-0574Escztxitvz hospital visit by wpmxiplmy20/13/2024 8:03 AM EDT Hospital Encounter [facility] [address] [place] [address] Marcel Wheeler MD [address] [place] [address] [facility] - Pain ProceduresStart: 11-08-2023 End: 03-68-9279Rzvqpoz encounter jdlykjcww40/12/2024 8:45 AM EDT Office Visit [facility] [address] [place] [address] Jose Roberto Corona PA [address] [place], [place] [address] [facility] Pain Management ClinicStart: 97-57-6161Tbzqgbhzm vaccination Influenza Vaccine (#1)[facility] HealthcareStart: 10-12-2023 End: 90-21-0400Rpfexgize to same day surgery [facility] - Pain ProceduresComment on above:INJECTION BLOCK NERVE KNEE: right genic [31960 (CPT )]INJECTION BLOCK NERVE KNEE: right genicular [15810 (CPT )] Start: 10-12-2023 End: 11-29-3276Plvnuwniu aa&/strd genicular nrv branches w/imgFREMONT PAINStart: 10-61-5791Jjskhvhsjs hospital visit by physicianPrem[facility] - Pain ProceduresStart: 09-18-2023 End: 75-25-2029Lxyenrk encounter vbpkfttuq96/23/2024 9:15 AM EDT Office Visit [facility] [address] [place] [address] Jose Roberto Corona PA [address] [place], [place] [address] [facility] Management ClinicStart: 08-02-2023 End: 43-42-0780Czubstg encounter nhzsopibv10/06/2024 9:30 AM EDT Office Visit [facility] [address] [place] [address] Jose Roberto Corona PA [address] [place] [address] [facility] Pain Management ClinicStart: 83-55-8065Ujyuoclq screening Diabetic Ophthalmology ExamCorey Hospital SystemStart: 07-03-2023 End: 47-11-0340Xtfekdu encounter wyciglncx38/07/2024 7:15 AM EDT Appointment [facility] Imaging [address] [place] [address] Jose Roberto Corona, PA [address] [place] [address] [facility] - MRI ImagingStart: 06-29-2023 End: 55-55-7018Sdufigngk to same day surgery qymidq5106/29/2023 12:42 PM EDT - 06/29/2023 12:50 PM EDT Surgery [facility] [address] [place] [address] Marcel Wheeler MD [address] [place] [address] INJECTION BLOCK NERVE KNEE Right Genicular - Therapeutic [41421 (CPT )][facility] Pain ProceduresComment on above:INJECTION BLOCK NERVE KNEE Right Genicular - Therapeutic [31633 (CPT )]Start: 06-29-2023 End: 10-23-5376Eeoiknzjq aa&/strd genicular nrv branches w/imgINJECTION BLOCK NERVE KNEE Primary osteoarthritis of right knee 06/29/2023 12:42 PM EDTFREMONT PAINStart: 77-32-1715Ihlcvwnoqd hospital visit by xyimjkprm01/03/2024 12:42 PM EDT Hospital Encounter [facility] [address] [place] [address] Marcel Wheeler MD [address] [place], [place] [address] [facility] - Pain ProceduresStart: 06-25-2023 End: 66-36-6880Hnxcewp encounter kmydefxbd57/29/2024 8:00 AM EDT Office Visit [facility] Internal Medicine - Family Medicine [address] [place] [address] Liliana Gomez, POOLROOM TABLE ATTENDANT-TAKER OFF DRYING KILN [address] [place] [address] [facility] - Family MedicineStart: 93-41-7422Vcoggdkvdjcern of varicella zoster vaccineZoster (Shingles) Vaccine (2 of 3)[facility] Medical CenterComment on above:Postponed from 04/02/2013 (Insurance / Financial)Start: 15-52-4615Qkpxeyex foot examinationDiabetic Foot ExamKindred Healthcareca [facility] Start: 03-29-2023 End: 60-05-6899Cnydciq encounter jpntkmuto73/01/2024 9:30 AM EST Office Visit [facility] [address] [place] [address] Jose Roberto Corona PA [address] [place], [place] [address] [facility] Management ClinicStart: 90-49-9824Wcgelpqdl for malignant neoplasm of colonFORMERLY [facility] HealthcareStart: 27-43-7290Vuqcanzjenzp Vaccine: 65+ Years (3 of 3 - PPSV23 or PCV20)Pneumococcal Vaccine: 65+ Years (3 of 3 - PPSV23 or PCV20)[facility] HealthcareStart: 95-28-3870Fbqtfcjbylqgtw of varicella zoster vaccineZoster (Shingles) Vaccine (2 of 3)[facility] CenterMiralupa SystemStart: 73-64-6510Qhutdtmvd for malignant neoplasm of breastMammogramNOMS HealthcareStart: 91-10-5118Xnixinxsj for malignant neoplasm of colonNOMS Healthcare End: 51-20-7162Iwoswolx identified in Urine by CultureUrine culture (clean catch) Microbiology Routine Acute cystitis without hematuria 1 Occurrences star ting 10/15/2023 until 10/14/2024[employer] Work Phone: Comment on above:1 Occurrences starting 10/15/2023 until 10/14/2024 End: 33-06-5148POY W Auto Differential panel - BloodCBC auto differential Lab Routine 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 ([facility]) 1 Occurrences starting 12/10/2023 until 12/09/2024[facility] CenterComment on above:1 Occurrences starting 12/10/2023 until 12/09/2024ologuard Non-ProMedicaCologuard Non-[facility] Lab Routine Special screening for malignant neoplasm of colon Ordered: 04/20/2023[facility] Work Phone: Comment on above:Ordered: 04/20/2023 End: 42-18-7617Ottutcumwzqhm metabolic 2000 panel - Serum or PlasmaComprehensive metabolic panel Lab Routine 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 ([facility]) 1 Occurrences starting 12/10/2023 until 12/09/2024 [facility] Work Phone: Comment on above:1 Occurrences starting 12/10/2023 until 12/09/2024Destruction neurolytic agt genicular nerve w/imgRADIOFREQUENCY ABLATION GENICULAR Localized osteoarthritis of right kneeCorey Hospital System Destruction neurolytic agt genicular nerve w/imgRADIOFREQUENCY ABLATION GENICULAR Primary osteoarthritis of right kneeFREMONT PAINInjection aa&/strd genicular nrv branches w/imgINJECTION BLOCK NERVE KNEE Primary osteoarthritis of right kneeCoshocton Regional Medical Center End: 50-02-7157Cxfex 1996 panel - Serum or PlasmaLipid profile Lab Routine 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 ([facility]) 1 Occurrences starting 12/10/2023 until 12/09/2024ProCo[facility] Center [employer] SystemComment on above:1 Occurrences starting 12/10/2023 until 12/09/2024 End: 25-98-7911Hdmvjdjfxwdw - Albumin: Creatinine Urine RatioMicroalbumin - Albumin: Creatinine Urine Ratio Lab Routine 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 ([facility]) 1 Occurrences starting 12/10/2023 until 12/09/2024ProCo[facility] Medical Center [employer] SystemComment on above:1 Occurrences starting 12/10/2023 until 12/09/2024 End: 60-15-2749YL Lumbar spine WO contrastMR lumbar spine without contrast Imaging Routine Disc displacement, lumbar 1 Occurrences starting 06/21/2023 until 06/20/2024[facility] Work Phone: Comment on above:1 Occurrences starting 06/21/2023 until 06/20/2024 End: 84-12-4638Fachgnfyjlk [Units/volume] in Serum or PlasmaTSH Lab Routine 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 ([facility]) 1 Occurrences starting 12/10/2023 until 12/09/2024ProCoosa [facility] Medical Center [employer] SystemComment on above:1 Occurrences starting 12/10/2023 until 12/09/2024 Immunizations Immunization DateImmunizationNotesCare PvpqvzdaOaouheok03-62-8794Ziuchkgkr, High-dose, QuadrivalentMatttali CASEY Work Phone: [facility] CenterGzsrzw12-31-4900msjnwmanq virus vaccine, unspecified formulationJosue Church DPM Work Phone: [facility] HospitalEojhydyfjz45-29-1903NPNCH-60, mRNA, LNP-S, PF, 30mcg/0.3mL DoseMatttali CASEY Work Phone: [facility] CenterLyxlud19-98-9387SJZSJ-04, mRNA, LNP- S, PF, 30mcg/0.3mL DoseMatttali CASEY Work Phone: [facility] CenterCnsdjg31-52-7367QXAKO-88, mRNA, LNP- S, PF, 30mcg/0.3mL DoseMatthew Nienberg PA Work Phone: [facility] CenterNutwjw89-35-0135JZEQV-03, mRNA, LNP- S, PF, 30mcg/0.3mL DoseMatthew Nienberg PA Work Phone: [facility] CenterHaobza31-19-2406Lzgjwrkvm, injectable, Madin [place] Canine Kidney, preservative free, quadrivalentMatthew Nienberg PA Work Phone: [facility] CenterWmdgki97-94-2099xlkthdwuapbb polysaccharide vaccine, 23 valentMatthew Nienberg PA Work Phone: [facility] CenterPyivbp72-33-3404Qyrrqqpsr, injectable, Madin [place] Canine Kidney, preservative free, quadrivalentMatthew Nienberg PA Work Phone: [facility] CenterUlgqdq57-03-4972ypnfedzkd, injectable, quadrivalent, preservative freeMatthew Nienberg PA Work Phone: [facility] CenterYzever28-93-4052gwczwkfki, seasonal, injectable, preservative freeMatthew Nienberg PA Work Phone: [facility] CenterKacscb45-51-7992tloyyhato, injectable, quadrivalent, preservative freeMatthew Nienberg PA Work Phone: [facility]07-29-2016tetanus toxoid, reduced diphtheria toxoid, and acellular pertussis vaccine, adsorbedMatthew Nienberg PA Work Phone: [facility] CenterWzekmj26-80-5720ktxtrcnnh, seasonal, injectable, preservative freeMatthew Nienberg PA Work Phone: [facility] CenterAhnvig00-78-8373ladaeiwvruyx conjugate vaccine, 13 valentMatthew Nienberg PA Work Phone: [facility]12-11-2013zoster vaccine, live Jose Roberto Corona CARMELA Work Phone: [facility]12-11-2013zoster vaccine, unspecified formulationMajamie Earnestine PA Work Phone: [facility]12-03-2013zoster vaccine, live Jose Roberto Clancymarj PA Work Phone: [facility] CenterOzbqcb75-48-1905isorujjia virus vaccine, unspecified formulationMajamie CASEY Work Phone: [facility]02-22-2010novel hzdkdzgou-R6V0-30, preservative-free, injectableMatttali CASEY Work Phone: [facility] CenterZgwgev93-97-9468zgqwzzzislrv polysaccharide vaccine, 23 valentMamikaelatali CASEY Work Phone: [facility] Payers DatePayer CategoryPayerPolicy [id number] Care Other (unspecified) [id number] Health Insurance [employer] [id number] 2018MedicareMEDICARE [id number] [id number] 82-10-1253Bjdxyozqbt Managed Care - PPO [id number] 1.2.840.263517.1.13.424.2.7.3.660[id number] RoukisrN691[id number] 2.0.1.687437.3.579.2.593 [id number] 2.840.1.071428.3.579.2.777618-80-2557Bqipuab [id number] 2.0.1.176835.3.57[id number] 2.0.1.785692.3.57[id number] 2.0.1.867271.3.57[id number] 2.840.1.935192.3.57[id number] 2.840.1.924531.3.57[id number] 2.840.1.120433.3.57[id number] 2.840.1.443435.3.57[id number] 2.16.840.1.049985.3.57[id number] 2.16.840.1.079368.3.57[id number] 2.16.840.1.580723.3.57[id number] 2.16.840.1.112127.3.57[id number] 2.16.840.1.885413.3.57[id number] 2.16.840.1.089246.3.57[id number] 2.16.840.1.792857.3.57[id number] 2.16.840.1.326822.3.57[id number] 2.16.840.1.571436.3.57[id number] 2.840.1.867782.3.57[id number] 2..840.1.712321.3.57[id number] 2.840.1.270879.3.579.2.1286 Social History DateTypeDetailFacilityUnknown if ever smokedNort [employer] Other Start: 11-23-2021 End: 89-12-1300Vtd Assigned At BirthUNC Medical Centertart: 11-14-2021 End: 49-54-8674Focrjor smoking status NHISNever smoked tobaccoBarton County Memorial Hospital Start: 11-24-2022 End: 00-56-4090Xiobwzrzf beverage intakeLifetime non-drinker (finding)[facility] Centertart: 48-15-6658Kzc assigned at birthNot on fileUNC Medical Centertart: 81-54-7778Pllhvcb use and exposureSmokeless tobacco non-user [facility] Centertart: 11-23-2021 End: 76-02-1139Wfxvglm of Social functionCoshocton Regional Medical CenterDo you belong to any clubs or organizations such as sabianism groups, unions, fraBehance or athletic groups, or school groups?YesProPremier Health Miami [facility] Hospital NorthAre you now , , , , never or living with a partner? [facility] CenterHow often to you have a drink containing alcohol?Never [facility] CenterHow many standard drinks containing alcohol do you have on a typical day?Patient does not drinkCoshocton Regional Medical CenterDo you feel stress - tense, restless, nervous, or anxious, or unable to sleep at night because yourmind is troubled all the time - these days [OSQ]Not at allUNC Medical Centertart: 55-73-9188Viljgcaic67AgkXxstck Health SystemStart: 44-37-4623Fap Female (finding)[facility] Clinical Notes 09-24-2021 to 12-16-2024 Note Date & CtkmNjlgMiidekyn84-93-5306 History of Present illness Narrative* Payton Payton, ROSEMARY-WHEEL ALIGNER - 12/16/2024 9:00 AM EDT IM PROGRESS NOTE Patient - Severiano Peace Age - 69 y.o. - 1955 ASSESSMENT & PLAN 1. DM type 2 with diabetic mixed hyperlipidemia (CMS-HCC) (Primary) -A1c 6. Previous A1c 6.9. -significant improvement with Ozempic - POCT Hemoglobin A1c 2. Essential hypertension -normotensive -continue losartan amlodipine - amLODIPine (NORVASC) 5 mg tablet; Take 1 tablet (5 mg total) by mouth in the morning. REFILL. Dispense: 90 tablet; Refill: 1 3. 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 ([facility]) -refill - losartan (COZAAR) 25 mg tablet; Take 1 tablet (25 mg total) by mouth in the morning. Dispense: 90tablet; Refill: 1 4. Type 2 diabetes mellitus with hyperglycemia, without long-term current use of insulin ([facility]) -refill -we will get lipid panel at three-month follow up - rosuvastatin (CRESTOR) 20 mg tablet; Take 1 tablet (20 mg total) by mouth every morning. Dispense: 90 tablet; Refill: 1 5. Depressive disorder -no feelings of depression - sertraline (ZOLOFT) 100 mg tablet; Take 1 tablet (100 mg total) by mouth in the morning. Dispense: 90 tablet; Refill: 1 6. Encounter for screening mammogram for malignant neoplasm of breast - Mammography screening bilateral with CAD; Future 7. Class 2 obesity due to excess calories without serious comorbidity with body mass index (BMI) of37.0 to 37.9 in adult Body mass index is 37.67 kg/m . Weight change: Weight loss of 7 lb over the last month. Patient noted to have elevated BMI and the following intervention(s) were applied: -Discussed current weight today. -Consider healthy food choices, portion control. -Avoid sugary beverages and high concentrated sweets. -avoid fast foods -Routine exercise regimen encouraged. Subjective The following portions of the patient's history were reviewed and updated as appropriate: allergies, current medications, past family history, past medical history, past social history, past surgicalhistory and problem list. DIABETIC VISIT This is a follow up of a pre-existing problem. Patient self monitoring includes finger stick BG checkin time/day. Patient experiences hypoglycemia overnight will have some symptoms. When she checks it, the readingis in the 70s. Patient symptoms of hyperglycemia include: none. Current prescribed diet is could use some improvement and fairly healthy diet with limited sugars and fats. Patient is not following the prescribed diet plan. Home activity includes: Home exercise routine includes bicycle rides 4 times per week.. Patient does not experience numbness or burning in their hands or feet. Patient does have vision changes. Last eye exam was: 12/15/2024 Patient BP monitoring is done regularly. BP normally 130 - 139 mmHg / 70 - 79 mmHg. Patient reports: taking medications as instructed, no medication side effects noted, no chest pain on exertion, no dyspnea on exertion, no swelling of ankles, no orthostatic dizziness or lightheadedness, no palpitations, and no intermittent claudication symptoms Issues affecting compliance with diabetic self management include: A lot of fast food lately Review of Systems Constitutional: Negative for activity change, appetite change, chills, diaphoresis, fatigue and fever. HENT: Negative for tinnitus and trouble swallowing. Respiratory: Negative for cough, chest tightness, shortness of breath and wheezing. Cardiovascular: Negative for chest pain, palpitations and leg swelling. Gastrointestinal: Negative for abdominal pain, diarrhea, nausea and vomiting. Genitourinary: Negative for difficulty urinating. Musculoskeletal: Positive for arthralgias. Negative for gait problem. Skin: Negative for rash. Neurological: Negative for dizziness, syncope, speech difficulty, weakness, light-headedness, numbness and headaches. Psychiatric/Behavioral: Negative for sleep disturbance. Exam BP 130/70 (BP Site: Left Arm, BP Postition: Sitting, BP CUFF SIZE: L (13-17 inches)) Pulse 76 Temp 36.7 C (98 F) (Oral) Resp 18 Ht 160 cm (5' 2.99 ) Wt 96.4 kg (212 lb 9.6 oz) SpO2 94% BMI 37.67 kg/m Physical Exam Vitals and nursing note reviewed. Constitutional: General: She is not in acute distress. Appearance: She is obese. HENT: Mouth/Throat: Mouth: Mucous membranes are moist. Eyes: Conjunctiva/sclera: Conjunctivae normal. Pupils: Pupils are equal, round, and reactive to light. Cardiovascular: Rate and Rhythm: Normal rate and regular rhythm. Pulses: Normal pulses. Pulmonary: Effort: Pulmonary effort is normal. Breath sounds: Normal breath sounds. Abdominal: Palpations: Abdomen is soft. Tenderness: There is no abdominal tenderness. Musculoskeletal: Cervical back: Normal range of motion. Right lower leg: No edema. Left lower leg: No edema. Skin: General: Skin is warm and dry. Capillary Refill: Capillary refill takes less than 2 seconds. Neurological: General: No focal deficit present. Mental Status: She is alert and oriented to person, place, and time. Psychiatric: Mood and Affect: Mood normal. Behavior: Behavior normal. Meds Current Outpatient Medications: acetaminophen (TYLENOL) 325 mg tablet, Take 2 tablets (650 mg total) by mouth as needed. As needed,Disp: , Rfl: budesonide-formoteroL (SYMBICORT) 160-4.5 mcg/actuation inhaler, Inhale 2 puffs in the morning and 2 puffs before bedtime., Disp: 10.2 g, Rfl: 5 semaglutide (OZEMPIC) 0.25 mg or 0.5 mg (2 mg/3 mL) pen injector, Inject 0.5 mg under the skin oncea week., Disp: 3 mL, Rfl: 6 amLODIPine (NORVASC) 5 mg tablet, Take 1 tablet (5 mg total) by mouth in the morning. REFILL., Disp: 90 tablet, Rfl: 1 losartan (COZAAR) 25 mg tablet, Take 1 tablet (25 mg total) by mouth in the morning., Disp: 90 tablet, Rfl: 1 rosuvastatin (CRESTOR) 20 mg tablet, Take 1 tablet (20 mg total) by mouth every morning., Disp: 90 tablet, Rfl: 1 sertraline (ZOLOFT) 100 mg tablet, Take 1 tablet (100 mg total) by mouth in the morning., Disp: 90 tablet, Rfl: 1 Lab Results Office Visit on 12/16/2024 Component Date Value Ref Range Status External Poct Hgb A1C 12/16/2024 6.0 4 - 7 % Final Other Testing No results found. Return in about 3 months (around 03/18/2025) for Annual physical, A1c and labs. [facility] Physicians Office: [phone] This note is dictated with the use of M*Modal. Please note that this dictation was completed with computer voice recognition software. Quite often unanticipated grammatical, syntax, homophones, and other interpretive errors are inadvertently transcribed by the computer software. Please disregard these errors. Please excuse any errors that have escaped final proofreading. ALISON Gilliam 12/16/24 0929 documented in this [email or web address] [facility] [id number] History of Present illness Narrative* Pawel Dodson Juan Francisco, DO - 11/05/2024 12:30 PM EDT IM PROGRESS NOTE Patient - Severiano Peace Age - 69 y.o. - 1955 ASSESSMENT & PLAN 1. Conjunctival hemorrhage of left eye (Primary) -the results of recent ED visit with the patient -no additional treatment needed at this time other than monitoring -advised to start applying cool compresses to the eye for 30 minutes as much as desired -call if anything changes 2. Essential hypertension -history of high blood pressure on losartan 25 mg daily and generally well controlled -recently blood pressure is more elevated, and as I review her blood pressure trend line it has been increasing -will start double therapy with losartan 25 mg daily and amlodipine 5 mg daily -patient will monitor blood pressure over the next several weeks and report them to us -I reviewed the goal readings of < 130/80 mmHg 3. Ocular migraine -currently stable -if symptoms would return, may benefit from Imitrex or similar agent Subjective FOLLOW-UP: EMERGENCY DEPARTMENT-[place] Patient was discharged from the facility on: 11/03/2024 Diagnosis was: Conjunctival hemorrhage of the left eye Problem or symptoms started as: Patient woke on 11/03, and her left eye felt funny. Looked in the mirror and it was read and bloody. Had some slight visual changes. Presented to the ED with concern for stroke. Underwent stroke workup which was unremarkable. Did have intra-ocular pressures checked which were elevated at 21 cm H2O. Was noted to have elevated blood pressure readings above her baseline, and was given labetalol, and discharged home with a prescription for amlodipine Work-up and testing included: Surgery or biopsies? No Imaging / Xrays / Scans? Yes Blood work? Yes Consults? Yes Transfusions, injections or infusions? No This is a new problem. Was discharged with the following treatments or medications: Amlodipine 5 mg daily The problem is better than at discharge. However it is not resolved. New problems since discharge include: Continues to have elevated blood pressure readings, although not as severe as in the ED. readings generally 130-140/80-90 mmHg. Still has funny feeling in the left eye, like there is something there or a mild itching. However no visual changes and no scotoma orvisual field defect. A review of systems was negative except for the following: General: weight loss Ophthalmic: Has been seen by Optometry several months ago and told she had normal IOP. 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 Was not placed on any prophylactic treatment at that time. Gastrointestinal: Has been having problems with loose stools intermittently. This has been going onsince she had gastric sleeve surgery.. Exam BP 136/86 (BP Site: Left Arm, BP Postition: Sitting) Pulse 75 Temp 36.9 C (98.5 F) (Oral) Resp 20 Ht 160 cm (5' 2.99 ) Wt 96.8 kg (213 lb 6.4 oz) SpO2 96% BMI 37.81 kg/m Physical Exam Vitals reviewed. Constitutional: General: She is not in acute distress. Appearance: She is obese. She is not toxic-appearing. HENT: Head: Normocephalic. Right Ear: External ear normal. Left Ear: External ear normal. Nose: Nose normal. Mouth/Throat: Mouth: Mucous membranes are moist. Eyes: Extraocular Movements: Extraocular movements intact. Pupils: Pupils are equal, round, and reactive to light. Comments: Conjunctival hemorrhage noted across the entire left eye. No lid swelling or erythema. Cardiovascular: Rate and Rhythm: Normal rate and regular rhythm. Heart sounds: No murmur heard. No gallop. Pulmonary: Effort: Pulmonary effort is normal. Breath sounds: No wheezing or rales. Abdominal: Palpations: Abdomen is soft. Musculoskeletal: Right lower leg: No edema. Left lower leg: No edema. Lymphadenopathy: Cervical: No cervical adenopathy. Skin: General: Skin is warm and dry. Coloration: Skin is not jaundiced. Findings: No bruising. Neurological: General: No focal deficit present. Mental Status: She is alert and oriented to person, place, and time. Psychiatric: Mood and Affect: Mood normal. Behavior: Behavior normal. Meds Current Outpatient Medications: acetaminophen (TYLENOL) 325 mg tablet, Take 2 tablets (650 mg total) by mouth as needed. As needed,Disp: , Rfl: amLODIPine (NORVASC) 5 mg tablet, Take 1 tablet (5 mg total) by mouth in the morning for 10 days., Disp: 10 tablet, Rfl: 0 budesonide-formoteroL (SYMBICORT) 160-4.5 mcg/actuation inhaler, Inhale 2 puffs in the morning and 2 puffs before bedtime., Disp: 10.2 g, Rfl: 5 losartan (COZAAR) 25 mg tablet, Take 1 tablet (25 mg total) by mouth in the morning., Disp: 90 tablet, Rfl: 1 rosuvastatin (CRESTOR) 20 mg tablet, Take 1 tablet (20 mg total) by mouth every morning., Disp: 90 tablet, Rfl: 1 semaglutide (OZEMPIC) 0.25 mg or 0.5 mg (2 mg/3 mL) pen injector, Inject 0.5 mg under the skin oncea week., Disp: 3 mL, Rfl: 6 sertraline (ZOLOFT) 100 mg tablet, Take 1 tablet (100 mg total) by mouth in the morning., Disp: 90 tablet, Rfl: 1 Lab Results Admission on 11/03/2024, Discharged on 11/03/2024 Component Date Value Ref Range Status Bedside Glucose (POC) 11/03/2024 112 (H) 65 - 99 mg/dL Final SODIUM 11/03/2024 140 134 - 146 mmol/L Final POTASSIUM 11/03/2024 4.0 3.5 - 5.0 mmol/L Final CHLORIDE 11/03/2024 104 98 - 109 mmol/L Final CARBON DIOXIDE 11/03/2024 29 22 - 32 mmol/L Final ANION GAP 11/03/2024 7 5 - 15 mmol/L Final BLOOD UREA NITROGEN 11/03/2024 11 5 - 27 mg/dL Final CREATININE 11/03/2024 0.80 0.40 - 1.00 mg/dL Final GLUCOSE 11/03/2024 107 (H) 65 - 99 mg/dL Final CALCIUM 11/03/2024 9.0 8.5 - 10.5 mg/dL Final EGFR Non-Race Dependent 11/03/2024 79 >=60 ml/min/1.73sq.m Final PROTIME 11/03/2024 10.8 9.8 - 13.2 sec Final INR 11/03/2024 1.0 0.9 - 1.2 Final APTT 11/03/2024 27 26 - 37 sec Final WBC 11/03/2024 5.5 4 - 11 x10E9/L Final RBC Count 11/03/2024 4.66 3.8 - 5.2 X10E12/L Final Hemoglobin 11/03/2024 12.0 11.7 - 15.5 g/dL Final Hematocrit 11/03/2024 37.1 35 - 47 % Final MCV 11/03/2024 80 80 - 100 fL Final MCH 11/03/2024 25.7 (L) 27 - 34 pg Final MCHC 11/03/2024 32.3 32 - 36 g/dL Final RDW 11/03/2024 16.0 (H) 11.5 - 15 % Final Platelet Count 11/03/2024 251 150 - 450 X10E9/L Final MPV 11/03/2024 9.0 7 - 12 fL Final Neutrophils % 11/03/2024 58.5 % Final Lymphocytes % 11/03/2024 28.6 % Final Monocytes % 11/03/2024 7.8 % Final Eosinophils % 11/03/2024 4.1 % Final Basophils % 11/03/2024 1.0 % Final Neutrophils Absolute (A) 11/03/2024 3.2 1.5 - 6.6 10*3/uL Final Lymphocytes Absolute 11/03/2024 1.6 1.0 - 3.5 10*3/uL Final Monocytes Absolute 11/03/2024 0.4 0.0 - 0.9 10*3/uL Final Eosinophils Absolute 11/03/2024 0.2 0.0 - 0.4 10*3/uL Final Basophils Absolute 11/03/2024 0.1 0.0 - 0.2 10*3/uL Final Differential Type 11/03/2024 AUTOMATED DIFFERENTIAL Final TROPONIN I, HIGH SENSITIVITY 11/03/2024 5 <16 ng/L Final TROPONIN I, HIGH SENSITIVITY 11/03/2024 5 <16 ng/L Final TOTAL PROTEIN 11/03/2024 7.4 6.0 - 8.0 g/dL Final ALBUMIN 11/03/2024 3.9 3.2 - 5.3 g/dL Final BILIRUBIN,TOTAL 11/03/2024 0.5 0.3 - 1.2 mg/dL Final ALKALINE PHOSPHATASE 11/03/2024 85 39 - 130 U/L Final AST 11/03/2024 24 <=41 U/L Final ALT 11/03/2024 25 <=31 U/L Final BILIRUBIN,DIRECT 11/03/2024 0.1 <=0.4 mg/dL Final MAGNESIUM 11/03/2024 2.2 1.8 - 2.6 mg/dL Final ESR, Erythrocyte Sedimentation Rate 11/03/2024 42 (H) 0 - 30 mm/h Final C REACTIVE PROTEIN 11/03/2024 <0.5 <=0.7 mg/dL Final Other Testing No results found. Pawel Culver DO., [facility] Physicians Office: [phone] documented in this encounterCoshocton Regional Medical Center07-22-2025 History of Present illness Narrative* Jose Roberto Corona, CARMELA - 09/16/2024 8:45 AM EDT [facility] [address] [place] [address] Patient: Severiano Peace Sex: female : 1955 Age: 69 y.o. PCP: Yasmine Villa APRN-WHEEL ALIGNER 09/16/2024 Severiano Peace is here for a(n) post procedure follow up right genicular RFA with 90% relief that continues today. Patient reports feeling great. Has noticed a significant improvement to right knee pain since procedure. Date of onset of pain: pain has lasted greater than 3 months. Pain scale before treatment: 2-5/10 Percentage and duration of relief after treatment: 90% relief that continues Pain scale after treatment: 03/07 Chief Complaint Patient presents with Hip Pain Knee Pain HPI: PT/HEP (aquatics too) 2019 with little relief Knee: 09/15/22 Rt Gen NB w/100% relief for 1 day, 90% relief continued 12/08/22 Right Gen NB 60% lasting relief 06/29/2023 Right Gen NB with 80% relief continuing. Pre procedure pain 8/10. Post procedure pain 2/10. Pt states she is able to walk, but has pain with going up and down stairs. 11/09/2023 Right Gen NB with 100% relief for 1 day, slowly pain returned to base line within 3 weeks 06/06/24 Rt Gen NB with 90% relief continued. Preop pain 5/10 now to 1-2/10 continued. 08/15/24 Right genicular RFA with 90% relie that continues Knee Pain Incident location: 2003. There was no injury mechanism. The pain is present in the right knee. The quality of the pain is described as aching. The pain is at a severity of 1/10 (can increase depedning on activity). The pain is mild. The pain has been Improving (since genicular RFA) since onset. Associated symptoms include muscle weakness (right knee). Pertinent negatives include no inability to bear weight or numbness. She reports no foreign bodies present. The symptoms are aggravated by movement and weight bearing (standing, walking, stairs, bending, lifting, twisting, pushing/pulling). She has tried acetaminophen, ice, heat and NSAIDs (HEP, ibuprofen, voltaren gel, PT(2019 aqua- [place]),dolterra, 06/26/22 inj with ortho, MDP) for the symptoms. The treatment provided moderate relief. Hip Pain Incident onset: 2-3 months ago 2022. There was no injury mechanism. The pain is present in the lefthip and right hip (L>R, will occasionally feel acrosslow bakc if standing too long). The qualityof the pain is described as aching. The pain is at a severity of 2/10. The pain is mild. Pain course: unchanged. Associated symptoms include muscle weakness (right knee). Pertinent negatives include no inability to bear weight or numbness. She reports no foreign bodies present. The symptoms are aggravated by movement and weight bearing. She has tried acetaminophen, NSAIDs and ice (HEP, voltaren gel, MDP) for the symptoms. The treatment provided moderate relief. The effect of pain on patient's ADLS: Moderate Impairment. Past Medical History: Diagnosis Date Asthma Chronic pain disorder CKD stage 2 due to type 2 diabetes mellitus ([facility]) Depression Hyperlipidemia Joint pain Migraine Neck pain Obesity Osteoarthritis of knee Osteopenia Rheumatoid arthritis ([facility]) Skin cancer Stage 2 chronic kidney disease due to benign hypertension Tear of meniscus of knee Visual impairment Past Surgical History: Procedure Laterality Date COLONOSCOPY 07/15/2009 COLONOSCOPY N/A 12/02/2021 Performed by Pawel Culver DO at [facility] GASTRIC BYPASS 09/11/2017 INJECTION BLOCK NERVE KNEE Right Genicular - Therapeutic Right 06/29/2023 Performed by Marcel Wheeler MD at [facility] INJECTION BLOCK NERVE KNEE Right Genicular Right 06/06/2024 Performed by Marcel Wheeler MD at [facility] INJECTION BLOCK NERVE KNEE Right Genicular Right 12/08/2022 Performed by Marcel Wheeler MD at [facility] INJECTION BLOCK NERVE KNEE Right Genicular Right 09/15/2022 Performed by Marcel Wheeler MD at [facility] INJECTION BLOCK NERVE KNEE: right genicular Right 11/09/2023 Performed by Marcel Wheeler MD at [facility] KNEE ARTHROSCOPY Right 01/2005 OTHER SURGICAL HISTORY 10/07/2019 Repair of Left Retina RADIOFREQUENCY ABLATION GENICULAR Right 08/15/2024 Performed by Marcel Wheeler MD at [facility] SKIN CANCER EXCISION TUBAL LIGATION 07/03/2000 Allergies Allergen Reactions Percocet [Oxycodone-Acetaminophen] Itching Codeine Other (See Comments) Family History Problem Relation Age of Onset [...] Never Smokeless tobacco: Never Vaping Use Vaping status: Never Used Substance and Sexual Activity Alcohol use: Never Drug use: Never Sexual activity: Defer Partners: Male control/protection: None Other Topics Concern Not on file Social History Narrative Not on file Social Drivers of Health Financial Resource Strain: Low Risk (06/20/2023) Overall Financial Resource Strain (CARDIA) Difficulty of Paying Living Expenses: Not hard at all Food Insecurity: No Food Insecurity (09/16/2024) Hunger Screening Food Insecurity - Worry: Never True Food Insecurity - Inability: Never True Transportation Needs: No Transportation Needs (06/20/2023) PRAPARE - Transportation Lack of Transportation (Medical): No Lack of Transportation (Non-Medical): No Physical Activity: Sufficiently Active (11/23/2021) Exercise Vital Sign Days of Exercise per Week: 3 days Minutes of Exercise per Session: 70 min Stress: No Stress Concern Present (11/23/2021) [place] [place] [employer] - Occupational Stress Questionnaire Feeling of Stress : Not at all Social Connections: Socially Integrated (11/23/2021) Social Connection and Isolation Panel [NHANES] Frequency of Communication with Friends and Family: More than three times a week Frequency of Social Gatherings with Friends and Family: Twice a week Attends Scientologist Services: More than 4 times per year Active Member of Clubs or Organizations: Yes Attends Club or Organization Meetings: More than 4 times per year Marital Status: Interpersonal Safety: Not At Risk (11/23/2021) Humiliation, Afraid, Rape, and Kick questionnaire Fear of Current or Ex-Partner: No Emotionally Abused: No Physically Abused: No Sexually Abused: No Housing Instability: Low Risk (06/20/2023) Housing Instability Housing Instability: No Review of Systems Constitutional: Negative. Negative for chills, fatigue and fever. HENT: Negative. Negative for congestion. Eyes: Negative. Respiratory: Negative. Negative for cough, chest tightness and shortness of breath. Cardiovascular: Negative. Negative for chest pain. Gastrointestinal: Negative. Negative for abdominal pain. Genitourinary: Negative. Musculoskeletal: Positive for arthralgias and back pain. Skin: Negative. Negative for wound. Neurological: Negative. Negative for weakness and numbness. Hematological: Negative. Psychiatric/Behavioral: Negative. Negative for self-injury and suicidal ideas. Vital Signs: BP 143/76 (BP Site: Right Arm, BP Postition: Sitting) Pulse 70 Resp 20 Wt 97.8 kg (215 lb 9.6oz) SpO2 94% BMI 38.20 kg/m Physical Exam: GENERAL - Healthy patient [...] during discussion, demonstrated appropriate cognitive reasoning and understandingof the medical condition by asking appropriate questions [...] normal. Examination of the Right knee reveals no tenderness to palpation over the superior, inferior, lateral, and medial aspect of the knee. No swelling is noted without significant erythema. No pain is elicited with flexion and extension of the knee both actively and passively. Some grinding is noted with these motions. There is no notable ligamental laxity or instability and drawer test is negative. Assessment/Treatment Plan: Severiano was seen today for hip pain and knee pain. Diagnoses and all orders for this visit: Localized osteoarthritis of right knee Monitor Follow up PRN The medications I have prescribed have been [...] monitoring for toxicity We do not currently prescribeany controlled substance from this practice. At this time it does appear that the patient s pain is under adequate control with conservative care. It is felt that we should continue this approach and continue to monitor these symptoms and address them again in the future if they become more problematic. This approach was discussed with the patient and they are in agreement. The spine model was demonstrated and Xray and MRI was reviewed and used to explain the condition. OARRS: Reviewed. Scribe Statement: Bonnie Larose CNA, scribed for and in the presence of CARMELA LOERA who performed the above service. Bonnie Farah CNA 09/16/24 0856 CARMELA Loera 09/16/24 0857 documented in this encounterCoshocton Regional [facility] Center06-12-2025 Miscellaneous Notes* Telephone Encounter - Jerri Crump RN - 08/07/2024 12:22 PM EDT Courtesy call placed to remind patient of the need to hold their Ozempic x 7 days. The last dose will be 08/07/2024. Patient is to resume Ozempic after 07/2024 Right genicular RFA. No answer. Message left with the above information. documented in this encounterCoshocton Regional Medical Center06-12-2025 Telephone encounter Note* Telephone Encounter - Jerri Crump RN - 08/07/2024 12:22 PM EDT Courtesy call placed to remind patient of the need to hold their Ozempic x 7 days. The last dose will be 08/07/2024. Patient is to resume Ozempic after 07/2024 Right genicular RFA. No answer. Message left with the above information. [facility]05-08-2025 History of Present illness Narrative* Yasmine Villa APRN-ALEKSANDR - 07/03/2024 11:00 AM EDT Images from the original note were not included. [address] [facility] [address] SUBJECTIVE: Patient ID: Severiano Peace is a 69 y.o. female. Chief Complaint Patient presents with teaching about ozempic Patient presents for Ozempic teaching. Her last A1c was 6.9%. She was previously taking Jardiance. Diabetes She presents for her follow-up diabetic visit. She has type 2 diabetes mellitus. Her disease coursehas been stable. There are no hypoglycemic associated symptoms. There are no diabetic associated symptoms. Pertinent negatives for diabetes include no chest pain. There are no hypoglycemic complications. Symptoms are stable. There are no diabetic complications. Risk factors for coronary artery disease include diabetes mellitus, hypertension, dyslipidemia and family history. Current diabetic treatment includes oral agent (monotherapy). She is compliant with treatment all of the time. The following portions of the patient's history were reviewed and updated as appropriate: allergies, current medications, past family history, past medical history, past social history, past surgicalhistory and problem list. Past Surgical History: Procedure Laterality Date COLONOSCOPY 07/15/2009 COLONOSCOPY N/A 12/02/2021 Performed by Paewl Culver DO at [facility] GASTRIC BYPASS 09/11/2017 INJECTION BLOCK NERVE KNEE Right Genicular - Therapeutic Right 06/29/2023 Performed by Marcel Wheeler MD at [facility] INJECTION BLOCK NERVE KNEE Right Genicular Right 06/06/2024 Performed by Marcel Wheeler MD at [facility] INJECTION BLOCK NERVE KNEE Right Genicular Right 12/08/2022 Performed by Marcel Wheeler MD at [facility] INJECTION BLOCK NERVE KNEE Right Genicular Right 09/15/2022 Performed by Marcel Wheeler MD at [facility] INJECTION BLOCK NERVE KNEE: right genicular Right 11/09/2023 Performed by Marcel Wheeler MD at [facility] KNEE ARTHROSCOPY Right 01/2005 OTHER SURGICAL HISTORY 10/07/2019 Repair of Left Retina SKIN CANCER EXCISION TUBAL LIGATION 07/03/2000 Past Medical History: Diagnosis Date Asthma Chronic pain disorder 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 Psychiatric/Behavioral: Negative. Negative for agitation and dysphoric mood. PHYSICAL EXAMINATION: Vitals: 07/03/24 1107 BP: 130/68 BP Site: Left Arm BP Postition: Sitting BP CUFF SIZE: M (9-13 inches) Pulse: 73 Resp: 18 Temp: 36.7 C (98 F) TempSrc: Oral SpO2: 96% Weight: 101 kg (222 lb 11.2 oz) Height: 160 cm (5' 2.99 ) Patient noted to have elevated BMI and the following intervention(s) were applied: encouragement toexercise. Physical Exam Vitals and nursing note reviewed. [...] normal. ASSESSMENT/PLAN: Severiano was seen today for teaching about ozempic. Diagnoses and all orders for this visit: DM type 2 with diabetic mixed hyperlipidemia (CMS-HCC) - semaglutide (OZEMPIC) 0.25 mg or 0.5 mg (2 mg/3 mL) pen injector; Inject 0.5 mg under the skin once a week. DM2: Ozempic Education Administration technique - pen/cap priming - needle safety - injection site - disposal Administer on Thrusdays - 0.25mg for first 2 weeks - Increase to 0.5mg on week 3 Monitor hypo/hyperglycemia and notify provider if BS drop below 70 or greater than 300. Educated on other side effects including GI symptoms - call provider. Educated regarding Ozempic side effects, benefits. No personal or family history of thyroid conditions/cancer. Patient demonstrated proper administration today. Sample of Ozempic was provided today. ALL QUESTIONS ANSWERED Total time spent was 25 minutes: Preparing to see the patient (e.g., review of tests) Obtaining and/or reviewing separately obtained history Performing a medically appropriate examination and/or evaluation Counseling and educating the patient/family/caregiver Ordering medications, tests, or procedures Follow-up: August ALISON Ruano 07/03/24 1229 documented in this encounterCoshocton Regional Medical Center04-29-2025 Miscellaneous Notes* Telephone Encounter - Jerri Crump RN - 06/24/2024 2:09 PM EDT Approval received for patient to hold Ozempic x 7 days prior to ordered procedure with MAC (right genicular RFA). Await approval to hold Jardiance x 3 days prior to procedure with MAC sedation. * Telephone Encounter - Jerri Crump RN - 06/24/2024 2:09 PM EDT Per PCP note, patient is no longer on Jardiance. May schedule patient for procedure. * Telephone Encounter - Sylvia Mahan CNA - 06/24/2024 2:09 PM EDT Severiano is scheduled 08/01. Severiano confirmed that she is no longer taking Jardiance. Her last dose of Ozempic was 07/24 and she will hold until after her procedure documented in [facility] Telephone encounter Note* Telephone Encounter - Jerri Crump RN - 06/24/2024 2:09 PM EDT Approval received for patient to hold Ozempic x 7 days prior to ordered procedure with MAC (right genicular RFA). Await approval to hold Jardiance x 3 days prior to procedure with MAC sedation. [facility] [id number] Telephone encounter Note* Telephone Encounter - Jerri Crump RN - 06/24/2024 2:09 PM EDT Per PCP note, patient is no longer on Jardiance. May schedule patient for procedure. [facility]04-29-[facility] Telephone encounter Note* Telephone Encounter - Sylvia Mahan CNA - 06/24/2024 2:09 PM EDT Severiano is scheduled 08/01. Severiano confirmed that she is no longer taking Jardiance. Her last dose of Ozempic was 07/24 and she will hold until after her procedure [facility]04-[facility] History of Present illness Narrative* CARMELA Loera - 06/19/2024 8:15 AM EDT [facility] [address] [place] [address] Patient: Severiano Peace Sex: female : 1955 Age: 69 y.o. PCP: Yasmine Villa APRN-WHEEL ALIGNER 06/19/2024 Severiano Peace is here for a(n) post procedure follow up 06/06/24 Rt Gen NB with 90% relief continued. Pre-op pain 5/10 now to 1-2/10 continued.. . Date of onset of pain: 2003 , pain has lasted greater than 3 months. Pain scale before treatment: 5/10 Pre-op pain score: 5/10 Post-op pain score: 5/10 2 hour post-op pain score: 1/10 4 hour post-op pain score: 1/10 Percentage and duration of relief after treatment: see above Pain scale after treatment: 1-2 /10 Chief Complaint Patient presents with Back Pain Hip Pain Knee Pain HPI: PT/HEP (aquatics too) 2018 with little relief Knee: 09/15/22 Rt Gen NB w/100% relief for 1 day, 90% relief continued 12/08/22 Right Gen NB 60% lasting relief 06/29/2023 Right Gen NB with 80% relief continuing. Pre procedure pain 8/10. Post procedure pain 2/10. Pt states she is able to walk, but has pain with going up and down stairs. 11/09/2023 Right Gen NB with 100% relief for 1 day, slowly pain returned to base line within 3 weeks 06/06/24 Rt Gen NB with 90% relief continued. Preop pain 5/10 now to 1-2/10 continued. Back Pain This is a chronic (2022) problem. The current episode started more than 1 year ago. The problem occurs intermittently (intermittent back pain during day and pain at night). The problem has been gradually improving since onset. The pain is present in the gluteal, sacro-iliac and lumbar spine. The quality of the pain is described as aching. The pain radiates to the right knee (bilateral hips and lateral thighs). The pain is at a severity of 2/10 (up to 6/10). The pain is mild. The pain is Worse during the night. Exacerbated by: activity. Pertinent negatives include no abdominal pain, bladder incontinence, bowel incontinence, chest pain, fever, leg pain (bilateral lateral thighs), numbness, tingling or weakness. Risk factors include poor posture and obesity. Treatments tried: HEP, voltaren gel, MDP. The treatment provided moderate relief. Knee Pain Incident location: 2003. There was no injury mechanism. The pain is present in the right knee. The quality of the pain is described as aching. The pain is at a severity of 2/10 (up to 6/10 left greater than right). The pain is moderate. The pain has been Worsening (increases w/walking) since onset.Associated symptoms include an inability to bear weight and muscle weakness (right knee). Pertinentnegatives include no numbness or tingling. She reports [...] mechanism. The pain is present in the lefthip and right hip (and across back). The quality of the pain is described as aching. The pain is david severity of 1/10. The pain is mild. The pain has [...] 2 due to type 2 diabetes mellitus ([facility]) Depression Hyperlipidemia Joint pain Migraine Neck pain Obesity Osteoarthritis of knee Osteopenia Rheumatoid arthritis ([facility]) Skin cancer Stage 2 chronic kidney disease due to benign hypertension Tear of meniscus of knee Visual impairment Past Surgical History: Procedure Laterality Date COLONOSCOPY 07/15/2009 COLONOSCOPY N/A 12/02/2021 Performed by Pawel Culver DO at [facility] GASTRIC BYPASS 09/11/2017 INJECTION BLOCK NERVE KNEE Right Genicular - Therapeutic Right 06/29/2023 Performed by Marcel Wheeler MD at [facility] INJECTION BLOCK NERVE KNEE Right Genicular Right 06/06/2024 Performed by Marcel Wheeler MD at [facility] INJECTION BLOCK NERVE KNEE Right Genicular Right 12/08/2022 Performed by Marcel Wheeler MD at [facility] INJECTION BLOCK NERVE KNEE Right Genicular Right 09/15/2022 Performed by Marcel Wheeler MD at [facility] INJECTION BLOCK NERVE KNEE: right genicular Right 11/09/2023 Performed by Marcel Wheeler MD at [facility] KNEE ARTHROSCOPY Right 01/2005 OTHER SURGICAL HISTORY 10/07/2019 Repair of Left Retina SKIN CANCER EXCISION TUBAL LIGATION 07/03/2000 Allergies Allergen Reactions Codeine [...] Never Smokeless tobacco: Never Vaping Use Vaping status: Never Used Substance and Sexual Activity Alcohol use: Never Drug use: Never Sexual activity: Defer Partners: Male control/protection: None Other Topics Concern Not on file Social History Narrative Not on file Social Drivers of Health Financial Resource Strain: Low Risk (06/20/2023) Overall Financial Resource Strain (CARDIA) Difficulty of Paying Living Expenses: Not hard at all Food Insecurity: No Food Insecurity (06/19/2024) Hunger Screening Food Insecurity - Worry: Never True Food Insecurity - Inability: Never True Transportation Needs: No Transportation Needs (06/20/2023) PRAPARE - Transportation Lack of Transportation (Medical): No Lack of Transportation (Non-Medical): No Physical Activity: Sufficiently Active (11/23/2021) Exercise Vital Sign Days of Exercise per Week: 3 days Minutes of Exercise per Session: 70 min Stress: No Stress Concern Present (11/23/2021) [employer] - Occupational Stress Questionnaire Feeling of Stress : Not at all Social Connections: Socially Integrated (11/23/2021) Social Connection and Isolation Panel [NHANES] Frequency of Communication with Friends and Family: More than three times a week Frequency of Social Gatherings with Friends and Family: Twice a week Attends Scientologist Services: More than 4 times per year Active Member of Clubs or Organizations: Yes Attends Club or Organization Meetings: More than 4 times per year Marital Status: Interpersonal Safety: Not At Risk (11/23/2021) Humiliation, Afraid, Rape, and Kick questionnaire Fear of Current or Ex-Partner: No Emotionally Abused: No Physically Abused: No Sexually Abused: No Housing Instability: Low Risk (06/20/2023) Housing Instability Housing Instability: No Review of Systems Constitutional: Negative. Negative for chills, fatigue and fever. HENT: Negative. Negative for congestion. Eyes: Negative. Respiratory: Negative. Negative for cough, chest tightness and shortness of breath. Cardiovascular: Negative. Negative for chest pain. Gastrointestinal: Negative. Negative for abdominal pain and bowel incontinence. Genitourinary: Negative. Negative for bladder incontinence. Musculoskeletal: Positive for arthralgias and back pain. Skin: Negative. Negative for wound. Neurological: Negative. Negative for tingling, weakness and numbness. Hematological: Negative. Psychiatric/Behavioral: Negative. Negative for self-injury and suicidal ideas. Vital Signs: BP 147/56 Pulse 70 Resp 18 Ht 160 cm (5' 3 ) Wt 101.6 kg (224 lb) SpO2 99% BMI 39.68 kg/m Physical Exam: GENERAL - Healthy patient [...] during discussion, demonstrated appropriate cognitive reasoning and understandingof the medical condition by asking appropriate questions [...] tenderness to palpation over the superior, inferior, lateral,and medial aspect of the knee. Some swelling is noted without significant erythema. Pain is elicited with flexion and extension of the knee both actively and passively. Some grinding is noted with these motions. There is no notable ligamental laxity or instability and drawer test is negative. Assessment/Treatment Plan: Severiano was seen today for back pain, hip pain and knee pain. Diagnoses and all orders for this visit: Primary osteoarthritis of right knee - Case request operating room: RADIOFREQUENCY ABLATION GENICULAR Right Facet Radiofrequency Ablation - under fluoroscopy It is hopeful that the described procedure will provide symptomatic pain relief. It is felt to be medically necessary noting that the patient has tried and failed more conservative modalities of therapy and this is the next most appropriate step. The procedure was described in detail to the patientas well as the potential benefits of pain reduction alongside risks of the procedure and alternatives. Risks were described as including, but not limited to bleeding, infection, nerve damage, spinal cord injury, paralysis, stroke, dural puncture headache, and medication reaction. The patient expressed understanding regarding the risks and benefits and wishes to proceed. The patient has undergone diagnostic injections targeting the above mentioned facet joints. There was significant improvement in the patient s pain and functionality for the duration of the local anesthetic (approximately 2 hours) with return of the original symptoms after that time. For this reason, it is felt that the patient is a good candidate to undergo thermal Radio Frequency Lesioning of the Medial Branch Nerves at 80 degrees celsius for 90 seconds. This will effectively denervate the arthritic facet joints previously targeted with the diagnostic injection. It is noted that the procedure often requires 3-4 weeks to provide benefit, but the benefit usually lasts for approximately 1 year and can then be repeated if necessary. Patients undergoing this procedure often have mild post-procedural pain for 3-4 days which is generally relieved with application of heat and over the counterpain relievers. Follow up 4 weeks after procedure The medications I have prescribed have been [...] monitoring for toxicity We do not currently prescribeany controlled substance from this practice. Xray was [...] with the patient for these reasons. Comorbidity- Anxiety The patient describes a significant issue with anxiety. Although treatment is helpful with this regard, the patient is likely need special accommodation due to this condition. For this reason, necessary procedures will likely need to be performed under sedation to decrease procedural anxiety. Comorbidity- Depression The patient has an ongoing issue with depression and currently feels these symptoms are under control and further feels that appropriate pain management would also help these symptoms. The patient isoptimistic about the treatment plan we have laid out. We will continue to monitor these symptoms and remain cogniscent that they may affect the patients perceived improvement from the treatment and willingness to pursue further treatment. At this time the patient appears to be mentally and emotionally stable to undergo procedural and medical therapy. If any warning signs become present, I may refer the patient to a mental health professional for further evaluation. OARRS: Reviewed. Scribe Statement: I, Bonnie Farah CNA, scribed for and in the presence of CARMELA LOERA who performed the above service. Bonnie Farah CNA 06/19/24 0952 Bonnie Farah CNA 06/19/24 1030 CARMELA Loera 06/24/24 1432 documented in this encounterRutland [facility] CenterFooducate [id number] Instructions* Patient Instructions* Bonnie Farah CNA - 06/19/2024 8:15 AM EDT Radiofrequency Ablation (RFA) Radiofrequency ablation (or RFA) is a procedure used to reduce pain. An electrical current producedby a radio wave is used to heat up a small area of nerve tissue, thereby decreasing pain signals from that specific area. Which Conditions Are Treated With Radiofrequency Ablation? RFA can be used to help patients with chronic (long-lasting) back and neck pain and pain related tothe degeneration of joints from arthritis. How Long Does Pain Relief from Radiofrequency Ablation Last? The degree of pain relief varies, depending on the cause and location of the pain. Pain relief fromRFA can last from six to 12 months [...] a few restrictions immediately following radiofrequency ablation: If you had sedation, do not drive or operate machinery for at [...] may experience the following effects after RFA: Extremity numbness: If you have any leg numbness, [...] take you to the nearest emergency room. Tellthe emergency room staff that you just had [...] it back to normal. documented in this encounterRutland Regional Medical CenterFooducate [id number] History of Present illness Narrative* Yasmine Villa APRN-WHEEL ALIGNER - 06/09/2024 8:20 AM EDT Images from the original note were not included. [address] [place] [address] SUBJECTIVE: Patient ID: Severiano Peace is a 69 y.o. female. Chief Complaint Patient presents with Diabetes Patient would like to try Ozempic. Is currently taking Jardiance. Last A1c was 6.4%. Today, A1c is 6.9%. Overall she states is doing well. Moods have been stable with sertraline. Diabetes She presents for her follow-up diabetic visit. She has type 2 diabetes mellitus. Her disease coursehas been stable. There are no hypoglycemic associated symptoms. There are no diabetic associated symptoms. Pertinent negatives for diabetes include no chest pain. There are no hypoglycemic complications. Symptoms are stable. There are no diabetic complications. Risk factors for coronary artery disease include diabetes mellitus, obesity and post-menopausal. Current diabetic treatment includes oralagent (monotherapy). She is compliant with treatment all of the time. Her weight is stable. She is following a low fat/cholesterol and generally healthy diet. Meal planning includes avoidance of concentrated sweets. She participates in exercise intermittently. Home blood sugar record trend: Does not routinely check blood sugars. Depression Visit: Follow-up Initial visit: Symptoms: no chest pain, no palpitations and no shortness of breath Follow-up visit: Symptoms: no decrease in concentration and no depressed mood Frequency: Rarely Severity: Mild Current Treatment: SSRI's Response to treatment: Stable Hyperlipidemia This is a chronic problem. The current episode started more than 1 year ago. Recent lipid tests were reviewed and are variable. Exacerbating diseases include chronic renal disease, diabetes and obesity. There are no known factors aggravating her hyperlipidemia. Pertinent negatives include no chest pain or shortness of breath. Current antihyperlipidemic treatment includes statins. The current treatment provides significant improvement of lipids. There are no compliance problems. Hypertension This is a chronic problem. The current episode started more than 1 year ago. The problem is controlled. Pertinent negatives include no chest pain, palpitations or shortness of breath. There are no associated agents to hypertension. Risk factors for coronary artery disease include diabetes mellitus,dyslipidemia, family history, obesity and post-menopausal state. Past treatments include calcium channel blockers. The current treatment provides significant improvement. There are no compliance problems. Identifiable causes of hypertension include chronic renal disease. The following portions of the patient's history were reviewed and updated as appropriate: allergies, current medications, past family history, past medical history, past social history, past surgicalhistory and problem list. Past Surgical History: Procedure Laterality Date COLONOSCOPY 07/15/2009 COLONOSCOPY N/A 12/02/2021 Performed by Pawel Culver DO at [facility] GASTRIC BYPASS 09/11/2017 INJECTION BLOCK NERVE KNEE Right Genicular - Therapeutic Right 06/29/2023 Performed by Marcel Wheeler MD at [facility] INJECTION BLOCK NERVE KNEE Right Genicular Right 06/06/2024 Performed by Marcel Wheeler MD at [facility] INJECTION BLOCK NERVE KNEE Right Genicular Right 12/08/2022 Performed by Marcel Wheeler MD at [facility] INJECTION BLOCK NERVE KNEE Right Genicular Right 09/15/2022 Performed by Marcel Wheeler MD at [facility] INJECTION BLOCK NERVE KNEE: right genicular Right 11/09/2023 Performed by Marcel Wheeler MD at [facility] KNEE ARTHROSCOPY Right 01/2005 OTHER SURGICAL HISTORY 10/07/2019 Repair of Left Retina SKIN CANCER EXCISION TUBAL LIGATION 07/03/2000 Past Medical History: Diagnosis Date Asthma Chronic pain disorder CKD stage 2 due to type 2 diabetes mellitus ([facility]) Depression Hyperlipidemia Joint pain Migraine Neck pain Obesity Osteoarthritis of knee Osteopenia Rheumatoid arthritis ([facility]) Skin cancer Stage 2 chronic kidney disease due to [...] bruise/bleed easily. Psychiatric/Behavioral: Negative. PHYSICAL EXAMINATION: Vitals: 06/09/24 0824 BP: 130/60 BP Site: Left Arm BP Postition: Sitting BP CUFF SIZE: M (9-13 inches) Pulse: 71 Resp: 18 Temp: 36.8 C (98.2 F) TempSrc: Oral SpO2: 96% Weight: 101.2 kg (223 lb 1.6 oz) Height: 160 cm (5' 2.99 ) Patient noted to have elevated BMI and the following intervention(s) were applied: encouragement toexercise. Physical Exam Vitals and nursing note reviewed. [...] Diagnoses and all orders for this visit: CKD stage 2 due to type 2 diabetes mellitus ([facility]) DM type 2 with diabetic mixed hyperlipidemia ([facility]) - POCT Hemoglobin A1c - semaglutide (OZEMPIC) 0.25 mg or 0.5 mg (2 mg/3 mL) pen injector; Inject 0.5 mg under the skin once a week. Depressive disorder Essential hypertension Type 2 DM A1c is 6.9%, was 6.4% Continue Jardiance 25 mg oral daily Start Ozempic 0.50 mg subcutaneous weekly pending prior auth. Encourage routine home blood sugar monitoring, diet modification, and exercise regimen. Encourage yearly eye exams Daily self skin foot checks Depressive disorder Depression: Not at risk (06/09/2024) PHQ-2 PHQ-2 Score: 0 Moods are overall stable. Continue sertraline 100 mg oral daily Mixed hyperlipidemia Continue rosuvastatin 20 mg oral daily HTN Controlled 130/60 Continue losartan 25 mg oral daily Body mass index is 39.53 kg/m . Patient noted to have elevated BMI and the following intervention(s) were applied: Discussed current weight today. Consider healthy food choices, portion control. Avoid sugary beverages and high concentrated sweets. Routine exercise regimen encouraged. ALL QUESTIONS ANSWERED Total time spent was 30 minutes: Preparing to see the patient (e.g., review of tests) Obtaining and/or reviewing separately obtained history Performing a medically appropriate examination and/or evaluation Counseling and educating the patient/family/caregiver Ordering medications, tests, or procedures Follow-up: 3 months DM ALISON Ruano 06/09/24 0902 documented in this encounterCoshocton [facility] Center03-27-2025 History of Present illness Narrative* CARMELA Loera - 05/22/2024 1:15 PM EDT [facility] [address] [place] [address] Patient: Severiano Peace Sex: female : 1955 Age: 69 y.o. PCP: Yasmine Villa APRN-WHEEL ALIGNER 05/22/2024 Severiano Peace is here for a(n) follow up for right knee pain. Chief Complaint Patient presents with Knee Pain HPI: PT/HEP (aquatics too) 2018 with little relief Knee: 09/15/22 Rt Gen NB w/100% relief for 1 day, 90% relief continued 12/08/22 Right Gen NB 60% lasting relief 06/29/2023 Right Gen NB with 80% relief continuing. Pre procedure pain 8/10. Post procedure pain 2/10. Pt states she is able to walk, but has pain with going up and down stairs. 11/09/2023 Right Gen NB with 100% relief for 1 day, slowly pain returned to base line within 3 weeks Back Pain This is a chronic (2022) problem. The current episode started more than 1 year ago. The problem occurs intermittently (intermittent back pain during day and pain at night). The problem has been gradually improving since onset. The pain is present in the gluteal, sacro-iliac and lumbar spine. The quality of the pain is described as aching. The pain radiates to the right knee (bilateral hips and lateral thighs). The pain is at a severity of 1/10. The pain is mild. The pain is Worse during the night. Exacerbated by: activity. Pertinent negatives include no abdominal pain, bladder incontinence, bowel incontinence, chest pain, fever, leg pain (bilateral lateral thighs), numbness, tingling or weakness. Risk factors include poor posture and obesity. Treatments tried: HEP, voltaren gel, MDP. The treatment provided moderate relief. Knee Pain Incident location: 2003. There was no injury mechanism. The pain is present in the right knee. The quality of the pain is described as aching. The pain is at a severity of 5/10 (going up and down stairs 7/10; ambulation 3/10). The pain is moderate. The pain has [...] mechanism. The pain is present in the lefthip and right hip (and across back). The quality of the pain is described as aching. The pain is david severity of 1/10. The pain is mild. The pain has [...] 2 due to type 2 diabetes mellitus ([facility]) Depression Hyperlipidemia Joint pain Migraine Neck pain Obesity Osteoarthritis of knee Osteopenia Rheumatoid arthritis ([facility]) Skin cancer Stage 2 chronic kidney disease due to benign hypertension Tear of meniscus of knee Visual impairment Past Surgical History: Procedure Laterality Date COLONOSCOPY 07/15/2009 COLONOSCOPY N/A 12/02/2021 Performed by Pawel Culver DO at [facility] GA[facility] BYPASS 09/11/2017 INJECTION BLOCK NERVE KNEE Right Genicular - Therapeutic Right 06/29/2023 Performed by Marcel Wheeler MD at [facility] INJECTION BLOCK NERVE KNEE Right Genicular Right 12/08/2022 Performed by Marcel Wheeler MD at [facility] INJECTION BLOCK NERVE KNEE Right Genicular Right 09/15/2022 Performed by Marcel Wheeler MD at [facility] INJECTION BLOCK NERVE KNEE: right genicular Right 11/09/2023 Performed by Marcel Wheeler MD at [facility] KNEE ARTHROSCOPY Right 01/2005 OTHER SURGICAL HISTORY 10/07/2019 Repair of Left Retina SKIN CANCER EXCISION TUBAL LIGATION 07/03/2000 Allergies Allergen Reactions Codeine [...] Never Smokeless tobacco: Never Vaping Use Vaping status: Never Used Substance and Sexual Activity Alcohol use: Never Drug use: Never Sexual activity: Defer Partners: Male control/protection: None Other Topics Concern Not on file Social History Narrative Not on file Social Drivers of Health Financial Resource Strain: Low Risk (06/20/2023) Overall Financial Resource Strain (CARDIA) Difficulty of Paying Living Expenses: Not hard at all Food Insecurity: No Food Insecurity (05/22/2024) Hunger Screening Food Insecurity - Worry: Never True Food Insecurity - Inability: Never True Transportation Needs: No Transportation Needs (06/20/2023) PRAPARE - Transportation Lack of Transportation (Medical): No Lack of Transportation (Non-Medical): No Physical Activity: Sufficiently Active (11/23/2021) Exercise Vital Sign Days of Exercise per Week: 3 days Minutes of Exercise per Session: 70 min Stress: No Stress Concern Present (11/23/2021) [employer] [place] - Occupational Stress Questionnaire Feeling of Stress : Not at all Social Connections: Socially Integrated (11/23/2021) Social Connection and Isolation Panel [NHANES] Frequency of Communication with Friends and Family: More than three times a week Frequency of Social Gatherings with Friends and Family: Twice a week Attends Scientologist Services: More than 4 times per year Active Member of Clubs or Organizations: Yes Attends Club or Organization Meetings: More than 4 times per year Marital Status: Interpersonal Safety: Not At Risk (11/23/2021) Humiliation, Afraid, Rape, and Kick questionnaire Fear of Current or Ex-Partner: No Emotionally Abused: No Physically Abused: No Sexually Abused: No Housing Instability: Low Risk (06/20/2023) Housing Instability Housing Instability: No Review of Systems Constitutional: Negative for chills and fever. HENT: Negative for congestion, rhinorrhea and sore throat. Respiratory: Negative for cough, chest tightness and shortness of breath. Cardiovascular: Negative for chest pain. Gastrointestinal: Negative for abdominal pain, bowel incontinence and nausea. Genitourinary: Negative for bladder incontinence. Musculoskeletal: Positive for arthralgias and back pain. Neurological: Negative for tingling, weakness and numbness. Psychiatric/Behavioral: Negative. Vital Signs: BP 146/69 (BP Site: Right Arm, BP Postition: Sitting) Pulse 67 SpO2 95% Physical Exam: GENERAL - Healthy patient that [...] during discussion, demonstrated appropriate cognitive reasoning and understandingof the medical condition by asking appropriate questions [...] tenderness to palpation over the superior, inferior, lateral,and medial aspect of the knee. Some swelling is noted without significant erythema. Pain is elicited with flexion and extension of the knee both actively and passively. Some grinding is noted with these motions. There is no notable ligamental laxity or instability and drawer test is negative. Assessment/Treatment Plan: Severiano was seen today for knee pain. Diagnoses and all orders for this visit: Primary osteoarthritis of right knee - Case request operating room: INJECTION BLOCK NERVE KNEE Right Genicular Nerve Block - under fluoroscopy It is hopeful that the described procedure will provide symptomatic pain relief. It is felt to be medically necessary noting that the patient has tried and failed more conservative modalities of therapy and this is the next most appropriate step. The procedure was described in detail to the patientas well as the potential benefits of pain reduction alongside risks of the procedure and alternatives. Risks were described as including, but not limited to bleeding, infection, nerve damage, spinal cord injury, paralysis, stroke, dural puncture headache, and medication reaction. The patient expressed understanding regarding the risks and benefits and wishes to proceed. Diagnostic Genicular Nerve injections should provide information to confirm that the noted knee arthropathy and associated genicular neuritis is the most significant pain generator. If this provides significant but only temporary pain relief, the patient may in the future be a candidate for radiofrequency denervation of the Genicular Nerves to provide pain relief for approximately 1 year. Follow up 2 weeks post procedure The medications prescribed have been reviewed [...] monitoring for toxicity We do not currently prescribeany controlled substance from this practice. It is noted that the patient did have good response from the previously performed procedure. It is felt that the patient would benefit from an additional procedure of the same nature in that the samesymptoms have returned. It is hopeful that this additional injection will provide additional benefit and duration when combined with the previous injection. The spine model was demonstrated and Xray was reviewed and used to explain the condition. Chronic conditions not treated during this visit that affected my overall medical decision making: Comorbidity- Diabetes The patient has a history of diabetes mellitus currently managed with medications. This will need to be considered prior to any procedure that would require the injection of steroid in that the patient may experience a transient increase in glucose as a result. Additional consideration will need bertin given to timing the procedure early in [...] to the patient prior to any procedure. Comorbidity- Obesity The patient does have a [...] them with the patient for these reasons. OARRS: Reviewed. Scribe Statement: I, Jerri Crump RN, scribed for and in the presence of CARMELA LOERA who performed the above service. Jerri Crump RN 05/22/24 4839 CARMELA Loera 05/22/24 1543 documented in this [email or web address] [facility] [id number] Instructions* Patient Instructions* Jerri Crump RN - 05/22/2024 1:15 PM EDT Epidural Steroid Injection (CATRACHITO) / Nerve Root Injection / Nerve Block These procedure(s) involve the injection of a steroid and anesthetic into the epidural space or thenerve sheath that is both diagnostic and potentially therapeutic for alleviating discomfort of the legs and arms secondary to compression of the respective nerves due to bulging discs, bone spurs andother potential causes. Steroids are potent anti-inflammatory drugs that act to decrease the swollen and inflamed nerves thus relieving your clinical symptoms. How Long Will This Procedure Last? The extent and duration of pain relief may depend on the amount of inflammation and how many areas are involved. Other coexisting factors may be responsible for your pain. You and your physician will discuss expected results of procedure(s). After Your Injection You may experience soreness and tenderness at the area of treatment. This pain may not occur until later today after the numbing medicine wears off. The steroid can take 3-5 days to work and provide noticeable improvement. Activity You may feel temporary numbness, weakness or tingling: In the neck, arm, or fingertips (if your procedure was done in your neck) In the legs (if your procedure was done in your lower back) These symptoms are normal, and should subside within 3-4 hours. In that time, be careful to avoid falls. As a safety precaution, you must have a seasonal driver after a lumbar nerve root injection, even if you do not receive sedation. Resume activity as tolerated when function has returned. Medications Resume your routine medications after your procedure. You may resume blood thinners per your regular schedule after the procedure. If you received sedation: If you received sedation for your procedure, you may feel sleepy or not yourself for several hours today. For the next 24 hours avoid activities that requires alertness or coordination. This includes: Driving or operating heavy machinery Using power tools Consuming alcohol Do not make important or complex decisions or sign legal documents in the next 24 hours. Other Instructions: If you feel severe pain at the injection site with swelling and redness, increased leg weakness, a fever of 101 or higher, headache (or worsening headache), changes in vision or urinary retention: Please call the office at , or have someone take you to the nearest emergency room. Tellthe emergency room staff that you recently had a spine injection. A doctor must evaluate you for bleeding [...] it back to normal. documented in this encounterCos[facility]02-20-2025 Miscellaneous Notes* Telephone Encounter - Sunshine Jenkins - 04/17/2024 8:53 AM EST Jan needs a PA, I will look into it documented in this [facility]02-20-2025 Telephone encounter Note* Telephone Encounter - Sunshine Jenkins - 04/17/2024 8:53 AM EST Ozempic needs a PA, I will look into it [facility]02-17-2025 History of Present illness Narrative* Yasmine Villa APRN-ALEKSANDR - 04/14/2024 8:40 AM EST Images from the original note were not included. [address] [place] [address] SUBJECTIVE: Patient ID: Severiano Peace is a 69 y.o. female. Chief Complaint Patient presents with medications Presents today for discussion of weight. She would like to switch her Jardiance to Ozempic. She hasread about treatment for diabetes and feels Ozempic would be a better choice for her. She has history of mild intermittent asthma. No current exacerbation. Depression Initial visit: Symptoms: no chest pain, no palpitations and no shortness of breath Diabetes Pertinent negatives for diabetes include no chest pain. Hypertension This is a chronic problem. The current episode started more than 1 year ago. The problem is controlled. Pertinent negatives include no chest pain, palpitations or shortness of breath. There are no associated agents to hypertension. Risk factors for coronary artery disease include diabetes mellitus,dyslipidemia, family history, obesity and post-menopausal state. The following portions of the patient's history were reviewed and updated as appropriate: allergies, current medications, past family history, past medical history, past social history, past surgicalhistory and problem list. Past Surgical History: Procedure Laterality Date COLONOSCOPY 07/15/2009 COLONOSCOPY N/A 12/02/2021 Performed by Pawel Culver DO at [facility] 09/11/2017 INJECTION BLOCK NERVE KNEE Right Genicular - Therapeutic Right 06/29/2023 Performed by Marcel Wheeler MD at [facility] INJECTION BLOCK NERVE KNEE Right Genicular Right 12/08/2022 Performed by Marcel Wheeler MD at [facility] INJECTION BLOCK NERVE KNEE Right Genicular Right 09/15/2022 Performed by Marcel Wheeler MD at [facility] INJECTION BLOCK NERVE KNEE: right genicular Right 11/09/2023 Performed by Marcel Wheeler MD at [facility] KNEE ARTHROSCOPY Right 01/2005 OTHER SURGICAL HISTORY 10/07/2019 Repair of Left Retina TUBAL LIGATION 07/03/2000 Past Medical History: Diagnosis Date Asthma Chronic pain disorder CKD stage 2 due to type 2 diabetes mellitus ([facility]) Depression Hyperlipidemia Joint pain Migraine Neck pain Obesity Osteoarthritis of knee Osteopenia Rheumatoid arthritis ([facility]) Stage 2 chronic kidney disease due to [...] bruise/bleed easily. Psychiatric/Behavioral: Negative. PHYSICAL EXAMINATION: Vitals: 04/14/24 0845 BP: 140/70 BP Site: Left Arm BP Postition: Sitting Pulse: 65 Resp: 18 Temp: 36.6 C (97.8 F) TempSrc: Oral SpO2: 99% Weight: 99.2 kg (218 lb 9.6 oz) Height: 160 cm (5' 3 ) Patient noted to have elevated BMI and the following intervention(s) were applied: encouragement toexercise. Physical Exam Vitals and nursing note reviewed. [...] normal. ASSESSMENT/PLAN: Severiano was seen today for medications . Diagnoses and all orders for this visit: Type 2 diabetes mellitus with hyperglycemia, without long-term current use of insulin ([facility]) - semaglutide (OZEMPIC) 0.25 mg or 0.5 mg (2 mg/3 mL) pen injector; Inject 0.5 mg under the skin every 7 days. - rosuvastatin (CRESTOR) 20 mg tablet; Take 1 tablet (20 mg total) by mouth every morning. 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 ([facility]) - empagliflozin (JARDIANCE) 25 mg tablet tablet; Take 1 tablet (25 mg total) by mouth in the morning. - losartan (COZAAR) 25 mg tablet; Take 1 tablet (25 mg total) by mouth in the morning. Class 3 severe obesity due to excess calories with serious comorbidity and body mass index (BMI) of40.0 to 44.9 in adult ([facility]) Mild intermittent asthma without complication - budesonide-formoteroL (SYMBICORT) 160-4.5 mcg/actuation inhaler; Inhale 2 puffs in the morning and 2 puffs before bedtime. Depressive disorder - sertraline (ZOLOFT) 100 mg tablet; Take 1 tablet (100 mg total) by mouth in the morning. Body mass index is 38.72 kg/m . Patient noted to have elevated BMI and the following intervention(s) were applied: Discussed current weight today. Consider healthy food choices, portion control. Avoid sugary beverages and high concentrated sweets. Routine exercise regimen encouraged. Type 2 DM Last A1c was 6.4%. Doing well on Jardiance but would like to switch to Ozempic due to health benefits of medication. She would like to loose weight. Start Ozempic 0.5 mg weekly, pending insurance coverage. Encourage routine home blood sugar monitoring, diet modification, and exercise regimen. 2.Stage 2 CKD secondary to Type 2 DM Creatine 0.76, GFR 84 Small amount microalbumin in urine, 2.1 4. Depression Depression: Not at risk (04/14/2024) PHQ-2 PHQ-2 Score: 0 Doing well with sertraline. Moods are stable. 4. Mild intermittent asthma No current exacerbations Continue Symbicort 160-4.5 MCG 2 puffs twice daily. ALL QUESTIONS ANSWERED Total time spent was 30 minutes: Preparing to see the patient (e.g., review of tests) Obtaining and/or reviewing separately obtained history Performing a medically appropriate examination and/or evaluation Counseling and educating the patient/family/caregiver Ordering medications, tests, or procedures Follow-up: May ALISON Chowdhury 04/14/24 0917 documented in this encounterCoshoct[facility]11-12-2024 Miscellaneous Notes* Telephone Encounter - Meeta Lisa CMA - 01/08/2024 10:11 AM EST ----- Message from ALISON Angulo sent at 01/08/2024 8:51 AM EST ----- Reviewed. Inform patient mammogram is normal. * Telephone Encounter - Sunshine Jenkins - 01/08/2024 10:11 AM EST Patient notified documented in this encounterCoshocton [facility]11-12-2024 Telephone encounter Note* Telephone Encounter - Meeta Lisa CMA - 01/08/2024 10:11 AM EST ----- Message from ALISON Angulo sent at 01/08/2024 8:51 AM EST ----- Reviewed. Inform patient mammogram is normal. [facility]11-12-[facility] Telephone encounter Note* Telephone Encounter - Sunshine Jenkins - 01/08/2024 10:11 AM EST Patient notified [facility]10-22-[facility] History of Present illness Narrative* Josue Church DPM - 12/18/2023 3:15 PM EDT Images from the original note were not included. Subjective Patient ID: Severiano Peace is a 68 y.o. female who presents for Foot Pain (Severiano Peace 68yo New patient relates right foot pain, [...] popping sensation on the plantar aspect of theright foot. She had immediate pain to the [...] History Past Medical History: Diagnosis Date Asthma ([facility]) Diabetes ([facility]) Diverticulitis History of bariatric surgery 08/2017 Hyperlipidemia ([facility]) Medications Current Outpatient Medications: empagliflozin (Jardiance) 25 [...] Laterality Date CHOLECYSTECTOMY COLONOSCOPY [address] KNEE SCOPE,DIAGNOSTIC Right 2005 Dr. Jimenez STEROID [...] hold off on meloxicam given her kidney failurestage II. I recommend ice and heat of [...] understanding. Josue Church DPM documented in this encounterBarton County Memorial [id number] History of Present illness Narrative* Yasmine Villa, POOLROOM TABLE ATTENDANT-WHEEL ALIGNER - 12/10/2023 9:20 AM EDT Images from the original note were not included. [address] [facility] [id number] SUBJECTIVE: Patient ID: Severiano Peace is a 68 y.o. female. Chief Complaint Patient presents with Diabetes Presents for DM follow up today. She is taking Jardiance for treatment of her DM. Tolerating well. She would like a referral to dermatology for skin check for change in lesions. Diabetes She presents for her follow-up diabetic visit. She has type 2 diabetes mellitus. Her disease coursehas been stable. There are no hypoglycemic associated [...] She participates in exercise intermittently. Home blood sugarrecord trend: Does not routinely check blood sugars. Eye exam is current. Hypertension This is a chronic problem. The current episode started more than 1 year ago. The problem is controlled. Pertinent negatives include no chest pain, palpitations or shortness of breath. There are no associated agents to hypertension. Risk factors for coronary artery disease include diabetes mellitus,dyslipidemia, family history, obesity and post-menopausal state. Past treatments include calcium channel blockers. The current treatment provides significant improvement. There are no compliance problems. Hyperlipidemia This is a chronic problem. Recent lipid tests were reviewed and are variable. Exacerbating diseasesinclude diabetes and obesity. There are no known factors aggravating her hyperlipidemia. Pertinent negatives include no chest pain or shortness of breath. Current antihyperlipidemic treatment includes statins. The current treatment provides significant improvement of lipids. There are no complianceproblems. The following portions of the patient's history were reviewed and updated as appropriate: allergies, current medications, past family history, past medical history, past social history, past surgicalhistory and problem list. Past Surgical History: Procedure Laterality Date COLONOSCOPY 07/15/2009 COLONOSCOPY N/A 12/02/2021 Performed by Pawel Culver DO at [facility] 09/11/2017 INJECTION BLOCK NERVE KNEE Right Genicular - Therapeutic Right 06/29/2023 Performed by Marcel Wheeler MD at [facility] INJECTION BLOCK NERVE KNEE Right Genicular Right 12/08/2022 Performed by Marcel Wheeler MD at [facility] INJECTION BLOCK NERVE KNEE Right Genicular Right 09/15/2022 Performed by Marcel Wheeler MD at [facility] INJECTION BLOCK NERVE KNEE: right genicular Right 11/09/2023 Performed by Marcel Wheeler MD at [facility] KNEE ARTHROSCOPY Right 01/2005 OTHER SURGICAL HISTORY 10/07/2019 Repair of Left Retina TUBAL LIGATION 07/03/2000 Past Medical History: Diagnosis Date Asthma Chronic pain disorder CKD stage 2 due to type 2 diabetes mellitus ([facility]) Depression Hyperlipidemia Joint pain Migraine Neck pain Obesity Osteoarthritis of knee Osteopenia Rheumatoid arthritis ([facility]) Stage 2 chronic kidney disease due to [...] and the following intervention(s) were applied: encouragement toexercise. Physical Exam Vitals and nursing note reviewed. [...] disease due to type 2 diabetes mellitus ([facility]) - POCT Hemoglobin A1c - Comprehensive metabolic [...] hyperglycemia, without long-term current use of insulin ([facility]) - rosuvastatin (CRESTOR) 20 mg tablet; Take [...] ALISON Cat 12/10/23 1010 documented in this encounterCoshocton [facility]08-19-2024 History of Present illness Narrative* ALISON Ruano - 10/15/2023 11:00 AM EDT Images from the original note were not included. [address] [facility] [address] SUBJECTIVE: Patient ID: Severiano Peace is a 68 y.o. female. Chief Complaint Patient presents with discuss medication Previous patient of Liliana Gomez APRN Patient reports she has been experiencing dysuria on and off for almost two weeks. States she feelslike she has a UTI She is currently attending pain management for her knee. She would like to know if she is able to hold her Januvia for 3 days prior to procedure. Urinary Tract Infection This is a new problem. The current episode started 1 to 4 weeks ago. The problem occurs intermittently. The problem has been waxing and waning. The quality of the pain is described as burning. The pain is at a severity of 4/10. The pain is moderate. There has been no fever. Associated symptoms include frequency, hesitancy and urgency. Pertinent negatives include no chills. She has tried increasedfluids for the symptoms. The treatment provided no relief. The following portions of the patient's history were reviewed and updated as appropriate: allergies, current medications, past family history, past medical history, past social history, past surgicalhistory and problem list. Past Surgical History: Procedure Laterality Date COLONOSCOPY 07/15/2009 COLONOSCOPY N/A 12/02/2021 Performed by Pawel Culver DO at [facility] 09/11/2017 INJECTION BLOCK NERVE KNEE Right Genicular - Therapeutic Right 06/29/2023 Performed by Marcel Wheeler MD at [facility] INJECTION BLOCK NERVE KNEE Right Genicular Right 12/08/2022 Performed by Marcel Wheeler MD at [facility] INJECTION BLOCK NERVE KNEE Right Genicular Right 09/15/2022 Performed by Marcel Wheeler MD at [facility] KNEE ARTHROSCOPY Right 01/2005 OTHER SURGICAL HISTORY 10/07/2019 Repair of Left Retina TUBAL LIGATION 07/03/2000 Past Medical History: Diagnosis Date Asthma Chronic pain disorder CKD stage 2 due to type 2 diabetes mellitus ([facility]) Depression Hyperlipidemia Joint pain Migraine Neck pain Obesity Osteoarthritis of knee Osteopenia Rheumatoid arthritis ([facility]) Stage 2 chronic kidney disease due to [...] and palpitations. Gastrointestinal: Negative. Endocrine: Negative. Genitourinary: Positive for frequency, hesitancy and urgency. Negative for menstrual problem and pelvic pain. Musculoskeletal: Negative. Skin: Negative. Allergic/Immunologic: Negative. Neurological: Negative for syncope and facial asymmetry. Hematological: Does not bruise/bleed easily. Psychiatric/Behavioral: Negative. PHYSICAL EXAMINATION: Vitals: 10/15/23 1056 BP: 130/76 BP Site: Left Arm BP Postition: Sitting Pulse: 70 Resp: 18 Temp: 37.1 C (98.7 F) TempSrc: Oral SpO2: 96% Weight: 94.4 kg (208 lb 3.2 oz) Height: 160 cm (5' 3 ) Patient noted to have elevated BMI and the following intervention(s) were applied: encouragement toexercise. Physical Exam Vitals and nursing note reviewed. [...] normal. ASSESSMENT/PLAN: Severiano was seen today for discuss medication. Diagnoses and all orders for this visit: Acute cystitis without hematuria - POCT urinalysis dipstick only - nitrofurantoin, macrocrystal-monohydrate, (MACROBID) 100 mg capsule; Take 1 capsule (100 mg total) by mouth in the morning and 1 capsule (100 mg total) before bedtime. Do all this for 7 days. - Urine culture (clean catch); Future 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 ([facility]) - losartan (COZAAR) 25 mg tablet; Take 1 tablet (25 mg total) by mouth in the morning. - empagliflozin (JARDIANCE) 25 mg tablet tablet; Take 1 tablet (25 mg total) by mouth in the morning. Depressive disorder - sertraline (ZOLOFT) 100 mg tablet; Take 1 tablet (100 mg total) by mouth in the morning. Type 2 diabetes mellitus with hyperglycemia, without long-term current use of insulin ([facility]) - rosuvastatin (CRESTOR) 20 mg tablet; Take 1 tablet (20 mg total) by mouth every morning. Urine dip reveals small leukocyte esterase. Sent urine for culture Start Macrobid as directed Increase fluids Reorder routine medication Consent form signed today for pain management. Patient may hold Jardiance 3 days before each pain management procedure. A1c is 6.4% Body mass index is 36.88 kg/m . Patient noted to have elevated BMI and the following intervention(s) were applied: Discussed current weight today. Consider healthy food choices, portion control. Avoid sugary beverages and high concentrated sweets. Routine exercise regimen encouraged. ALL QUESTIONS ANSWERED Total time spent was 25 minutes: Preparing to see the patient (e.g., review of tests) Obtaining and/or reviewing separately obtained history Performing a medically appropriate examination and/or evaluation Counseling and educating the patient/family/caregiver Ordering medications, tests, or procedures Follow-up: Has an thomas with [facility]. Switch to me as I will be her provider. ALISON Ruano 10/15/23 1241 documented in this encounterCoshocton [facility] Center08-09-2024 History of Present illness Narrative* ALISON Horan - 10/05/2023 1:48 PM EDT PM requests a stop on her Jardiance for 3 days before injection. I have not seen this pt yet - she is from [facility] and needs to establish care first w/ me before this decision is made. ALISON Horan 10/05/23 1355 documented in this encounterCoshocton [facility] Center08-06-2024 Miscellaneous Notes* Telephone Encounter - Brigette Sevilla RN - 10/02/2023 3:21 PM EDT Pt is on jardiance oral medication. Letter sent to Ai for approval to hold jardiance due to new recommendations regarding MAC sedation in pts taking . Will need to f/u if not received soon. * Telephone Encounter - Sylvia Mahan CNA - 10/02/2023 3:21 PM EDT Please see Ai's note placed 10/03 * Telephone Encounter - Brigette Sevilla RN - 10/02/2023 3:21 PM EDT Received approval to hold jardiance x3 days. Last dose 11/04 * Telephone Encounter - Brigette Sevilla RN - 10/02/2023 3:21 PM EDT Called pt to remind last dose of jardiance is today and will restart after 11/09/2023 procedure. No answer. LM with information and requested pt call back with confirmation. documented in this encounter[facility] Telephone encounter Note* Telephone Encounter - Brigette Sevilla RN - 10/02/2023 3:21 PM EDT Pt is on jardiance oral medication. Letter sent to [facility] for approval to hold jardiance due to new recommendations regarding MAC sedation in pts taking . Will need to f/u if not received soon. [facility]08-[facility] Telephone encounter Note* Telephone Encounter - Sylvia Mahan CNA - 10/02/2023 3:21 PM EDT Please see Ai's note placed 10/03 [facility]08-06-[facility] Telephone encounter Note* Telephone Encounter - Brigette Sevilla RN - 10/02/2023 3:21 PM EDT Received approval to hold jardiance x3 days. Last dose 11/04 [facility]08-06-[facility] Telephone encounter Note* Telephone Encounter - Brigette Sevilla RN - 10/02/2023 3:21 PM EDT Called pt to remind last dose of jardiance is today and will restart after 11/09/2023 procedure. No answer. LM with information and requested pt call back with confirmation. [facility]07-[facility] History of Present illness Narrative* CARMELA Loera - 09/18/2023 9:15 AM EDT [facility] [address] [place] [address] Patient: Severiano Peace Sex: female : 1955 Age: 68 y.o. PCP: AI MARTINEZ, POOLROOM TABLE ATTENDANT-WHEEL ALIGNER 09/18/2023 Severiano Peace is here for a(n) follow up. She reports her right knee pain has been increasing recently. Chief Complaint Patient presents with Back Pain HPI: PT/HEP (aquatics too) 2018 with little relief Knee: 09/15/22 Rt Gen NB w/100% relief for 1 day, 90% relief continued 12/08/22 Right Gen NB 60% lasting relief 06/29/2023 Right Gen NB with 80% relief continuing. Pre procedure pain 8/10. Post procedure pain 2/10. Pt states she is able to walk, but has pain with going up and down stairs. Back Pain This is a chronic (2022) problem. The current episode started more than 1 year ago. The problem occurs intermittently (intermittent back pain during day and pain at night). The problem has been gradually improving since onset. The pain is present in the gluteal, sacro-iliac and lumbar spine. The quality of the pain is described as aching. The pain radiates to the right knee (bilateral hips and lateral thighs). The pain is at a severity of 1/10. The pain is mild. The pain is Worse during the night. Exacerbated by: activity. Pertinent negatives include no bladder incontinence, bowel incontinence, fever, leg pain (bilateral lateral thighs), numbness, tingling or weakness. Risk factors include poor posture and obesity. Treatments tried: HEP, voltaren gel, MDP. The treatment provided moderate relief. Knee Pain Incident location: 2003. There was no injury mechanism. The pain is present in the right knee. The quality of the pain is described as aching. The pain is at a severity of 7/10 (going up and down stairs 7/10; ambulation 3/10). The pain is moderate. The pain has [...] mechanism. The pain is present in the lefthip and right hip (and across back). The quality of the pain is described as aching. The pain is david severity of 1/10. The pain is mild. The pain has [...] 2 due to type 2 diabetes mellitus ([facility]) Depression Hyperlipidemia Joint pain Migraine Neck pain Obesity Osteoarthritis of knee Osteopenia Rheumatoid arthritis ([facility]) Stage 2 chronic kidney disease due to benign hypertension Tear of meniscus of knee Visual impairment Past Surgical History: Procedure Laterality Date COLONOSCOPY 07/15/2009 COLONOSCOPY N/A 12/02/2021 Performed by Pawel Culver DO at [facility] 09/11/2017 INJECTION BLOCK NERVE KNEE Right Genicular - Therapeutic Right 06/29/2023 Performed by Marcel Wheeler MD at [facility] INJECTION BLOCK NERVE KNEE Right Genicular Right 12/08/2022 Performed by Marcel Wheelre MD at [facility] INJECTION BLOCK NERVE KNEE Right Genicular Right 09/15/2022 Performed by Marcel Wheeler MD at [facility] KNEE ARTHROSCOPY Right 01/2005 OTHER SURGICAL [...] Never Smokeless tobacco: Never Vaping Use Vaping status: Never Used Substance and Sexual Activity Alcohol use: Never Drug use: Never Sexual activity: Defer Partners: Male control/protection: None Other Topics Concern Not on file Social History Narrative Not on file Social Determinants of Health Financial Resource Strain: Low Risk (06/20/2023) Overall Financial Resource Strain (CARDIA) Difficulty of Paying Living Expenses: Not hard at all Food Insecurity: No Food Insecurity (09/18/2023) Hunger Screening Food Insecurity - Worry: Never True Food Insecurity - Inability: Never True Transportation Needs: No Transportation Needs (06/20/2023) PRAPARE - Transportation Lack of Transportation (Medical): No Lack of Transportation (Non-Medical): No Physical Activity: Sufficiently Active (11/23/2021) Exercise Vital Sign Days of Exercise per Week: 3 days Minutes of Exercise per Session: 70 min Stress: No Stress Concern Present (11/23/2021) [employer] [place] - Occupational Stress Questionnaire Feeling of Stress : Not at all Social Connections: Socially Integrated (11/23/2021) Social Connection and Isolation Panel [NHANES] Frequency of Communication with Friends and Family: More than three times a week Frequency of Social Gatherings with Friends and Family: Twice a week Attends Scientologist Services: More than 4 times per year Active Member of Clubs or Organizations: Yes Attends Club or Organization Meetings: More than 4 times per year Marital Status: Interpersonal Safety: Not At Risk (11/23/2021) Humiliation, Afraid, Rape, and Kick questionnaire Fear of Current or Ex-Partner: No Emotionally Abused: No Physically Abused: No Sexually Abused: No Housing Instability: Low Risk (06/20/2023) Housing Instability Housing Instability: No Review of Systems Constitutional: Negative for fever. HENT: Negative. Eyes: Negative. Respiratory: Negative. Cardiovascular: Negative. Gastrointestinal: Negative. Negative for bowel incontinence. Genitourinary: Negative. Negative for bladder incontinence. Musculoskeletal: Positive for back pain. Skin: Negative. Neurological: Negative for tingling, weakness and numbness. Vital Signs: BP 151/68 (BP Site: Right Arm, BP Postition: Sitting) Pulse 70 Resp 18 Ht 160 cm (5' 3 ) Wt93.9 kg (207 lb) SpO2 95% BMI 36.67 kg/m Physical Exam: GENERAL - Healthy patient [...] during discussion, demonstrated appropriate cognitive reasoning and understandingof the medical condition by asking appropriate questions [...] tenderness to palpation over the superior, inferior, lateral,and medial aspect of the knee. Some swelling is noted without significant erythema. Pain is elicited with flexion and extension of the knee both actively and passively. Some grinding is noted with these motions. There is no notable ligamental laxity or instability and drawer test is negative. Assessment/Treatment Plan: Severiano was seen today for back pain. Diagnoses and all orders for this visit: Localized osteoarthritis of right knee - Case request operating room: INJECTION BLOCK NERVE KNEE: right genic Right Genicular Nerve Block - under fluoroscopy It is hopeful that the described procedure will provide symptomatic pain relief. It is felt to be medically necessary noting that the patient has tried and failed more conservative modalities of therapy and this is the next most appropriate step. The procedure was described in detail to the patientas well as the potential benefits of pain reduction alongside risks of the procedure and alternatives. Risks were described as including, but not limited to bleeding, infection, nerve damage, spinal cord injury, paralysis, stroke, dural puncture headache, and medication reaction. The patient expressed understanding regarding the risks and benefits and wishes to proceed. Diagnostic Genicular Nerve injections should provide information to confirm that the noted knee arthropathy and associated genicular neuritis is the most significant pain generator. If this provides significant but only temporary pain relief, the patient may in the future be a candidate for radiofrequency denervation of the Genicular Nerves to provide pain relief for approximately 1 year. Follow up 2 weeks after procedure The medications I have prescribed have been [...] monitoring for toxicity We do not currently prescribeany controlled substance from this practice. It is noted that the patient did have good response from the previously performed procedure. It is felt that the patient would benefit from an additional procedure of the same nature in that the samesymptoms have returned. It is hopeful that this additional injection will provide additional benefit and duration when combined with the previous injection. Xray was reviewed and used to explain [...] as a result. Additional consideration will need bertin given to timing the procedure early in [...] in the presence of CARMELA LOERA by Bonnie Farah CNA. Provider Statement: I, CARMELA LOERA, personally performed the services described in the documentation, as scribed by Bonnie Farah CNA in my presence, and it is both accurate and complete. Bonnie Farah CNA 09/18/23 0948 CARMELA Loera 09/18/23 1012 documented in this encounterCos[facility]07-23-[facility]24 Instructions* Patient Instructions* Bonnie Farah CNA - 09/18/2023 9:15 AM EDT Epidural Steroid Injection (CATRACHITO) / Nerve Root Injection / Nerve Block These procedure(s) involve the injection of a steroid and anesthetic into the epidural space or thenerve sheath that is both diagnostic and potentially therapeutic for alleviating discomfort of the legs and arms secondary to compression of the respective nerves due to bulging discs, bone spurs andother potential causes. Steroids are potent anti-inflammatory drugs that act to decrease the swollen and inflamed nerves thus relieving your clinical symptoms. How Long Will This Procedure Last? The extent and duration of pain relief may depend on the amount of inflammation and how many areas are involved. Other coexisting factors may be responsible for your pain. You and your physician will discuss expected results of procedure(s). After Your Injection You may experience soreness and tenderness at the area of treatment. This pain may not occur until later today after the numbing medicine wears off. The steroid can take 3-5 days to work and provide noticeable improvement. Activity You may feel temporary numbness, weakness or tingling: In the neck, arm, or fingertips (if your procedure was done in your neck) In the legs (if your procedure was done in your lower back) These symptoms are normal, and should subside within 3-4 hours. In that time, be careful to avoid falls. As a safety precaution, you must have a seasonal driver after a lumbar nerve root injection, even if you do not receive sedation. Resume activity as tolerated when function has returned. Medications Resume your routine medications after your procedure. You may resume blood thinners per your regular schedule after the procedure. If you received sedation: If you received sedation for your procedure, you may feel sleepy or not yourself for several hours today. For the next 24 hours avoid activities that requires alertness or coordination. This includes: Driving or operating heavy machinery Using power tools Consuming alcohol Do not make important or complex decisions or sign legal documents in the next 24 hours. Other Instructions: If you feel severe pain at the injection site with swelling and redness, increased leg weakness, a fever of 101 or higher, headache (or worsening headache), changes in vision or urinary retention: Please call the office at , or have someone take you to the nearest emergency room. Tellthe emergency room staff that you recently had a spine injection. A doctor must evaluate you for bleeding [...] it back to normal. documented in this encounterCos[facility]07-[facility]24 Miscellaneous Notes* Telephone Encounter - Sunshine Jenkins - 08/29/2023 8:49 AM EDT Please set her up for a 6 mo DM in Nov or with provider of choice. * Telephone Encounter - Sunshine Jenkins - 08/29/2023 8:49 AM EDT LM on VM * Telephone Encounter - Sunshine Jenkins - 08/29/2023 8:49 AM EDT LM on VM * Telephone Encounter - Sunshine Jenkins - 08/29/2023 8:49 AM EDT Scheduled documented in this encounterCos[facility]07-[facility]-2024 Telephone encounter Note* Telephone Encounter - Sunshine Jenkins - 08/29/2023 8:49 AM EDT Please set her up for a 6 mo DM in Oct or with provider of choice. [facility] Telephone encounter Note* Telephone Encounter - Sunshine Jenkins - 08/29/2023 8:49 AM EDT LM on VM [facility] Telephone encounter Note* Telephone Encounter - Sunshinerachael Jenkins - 08/29/2023 8:49 AM EDT LM on VM [facility]07-[facility] Telephone encounter Note* Telephone Encounter - Sunshine Jenkins - 08/29/2023 8:49 AM EDT Scheduled [facility] Miscellaneous Notes* Telephone Encounter - ALISON Horan - 08/25/2023 9:47 AM EDT Please set her up for a 6 mo DM in Nov or with provider of choice. documented in this encounterCoshocton [facility] Center06-29-2024 Telephone encounter Note* Telephone Encounter - ALISON Horan - 08/25/2023 9:47 AM EDT Please set her up for a 6 mo DM in Oct or with provider of choice. [facility] History of Present illness Narrative* CARMELA Loera - 08/02/2023 9:30 AM EDT [facility] [address] [place] [address] Patient: Severiano Peace Sex: female : 1955 Age: 68 y.o. PCP: EFRAIN MOLINA 08/02/2023 Severiano Peace is here for a(n) post procedure follow up 06/29/2023 Right Genicular Nerve Block with 80% relief continuing. . Date of onset of pain: 2022 , pain has lasted greater than 3 months. Pain scale before treatment: 8/10 Pre-op pain score: 8/10 Percentage of relief after and duration: 80% relief continuing today Pain scale after treatment: 2/10 Chief Complaint Patient presents with Back Pain HPI: PT/HEP (aquatics too) 2018 with little relief Knee: 09/15/22 Rt Gen NB w/100% relief for 1 day, 90% relief continued 12/08/22 Right Gen NB 60% lasting relief 06/29/2023 Right Gen NB with 80% relief continuing. Pre procedure pain 8/10. Post procedure pain 2/10. Pt states she is able to walk, but has pain with going up and down stairs. Back Pain This is a chronic (2022) problem. The current episode started more than 1 year ago. The problem occurs intermittently (intermittent back pain during day and pain at night). The problem has been gradually improving since onset. The pain is present in the gluteal, sacro-iliac and lumbar spine. The quality of the pain is described as aching. The pain radiates to the right knee (bilateral hips and lateral thighs). The pain is at a severity of 5/10 (3/10 now up to 8/10). The pain is moderate. The pain is Worse during the night. Exacerbated by: activity. Pertinent negatives include no bladder incontinence, bowel incontinence, fever, leg pain (bilateral lateral thighs), numbness, tingling or weakness. Risk factors include poor posture and obesity. Treatments tried: HEP, voltaren gel, MDP. The treatment provided moderate relief. Knee Pain Incident location: 2003. There was no injury mechanism. The pain is present in the right knee. The quality of the pain is described as aching. The pain is at a severity of 2/10 (1-2/10 unless going up or down stairs and then 3/10). The pain is mild. The pain has been Worsening (increases w/walking)since onset. Associated symptoms include an inability to bear weight and muscle weakness (right knee). Pertinent negatives include no numbness or tingling. She reports no foreign bodies present. The symptoms are aggravated by movement and weight bearing (standing, walking, stairs, bending, lifting,twisting, pushing/pulling). She has tried acetaminophen, ice, heat and NSAIDs (HEP, ibuprofen, voltaren gel, PT(2019 aqua- [facility]), dolterra, 06/26/22 inj with ortho, MDP) for the symptoms. The treatment provided moderate relief. Hip Pain Incident onset: 2-3 months ago 2022. There was no injury mechanism. The pain is present in the lefthip and right hip (and across back). The quality of the pain is described as aching. The pain is david severity of 5/10. The pain is moderate. The pain has been Improving (worse at night) since onset.Associated symptoms include an inability to bear weight [...] 2 due to type 2 diabetes mellitus ([facility]) Depression Hyperlipidemia Joint pain Migraine Neck pain Obesity Osteoarthritis of knee Osteopenia Rheumatoid arthritis ([facility]) Stage 2 chronic kidney disease due to benign hypertension Tear of meniscus of knee Visual impairment Past Surgical History: Procedure Laterality Date COLONOSCOPY 07/15/2009 COLONOSCOPY N/A 12/02/2021 Performed by Pawel Culver DO at [facility] 09/11/2017 INJECTION BLOCK NERVE KNEE Right Genicular - Therapeutic Right 06/29/2023 Performed by Marcel Wheeler MD at [facility] INJECTION BLOCK NERVE KNEE Right Genicular Right 12/08/2022 Performed by Marcel Wheeler MD at [facility] INJECTION BLOCK NERVE KNEE Right Genicular Right 09/15/2022 Performed by Marcel Wheeler MD at [facility] KNEE ARTHROSCOPY Right 01/2005 OTHER SURGICAL [...] Never Smokeless tobacco: Never Vaping Use Vaping status: Never Used Substance and Sexual Activity Alcohol use: Never Drug use: Never Sexual activity: Defer Partners: Male control/protection: None Other Topics Concern Not on file Social History Narrative Not on file Social Determinants of Health Financial Resource Strain: Low Risk (06/20/2023) Overall Financial Resource Strain (CARDIA) Difficulty of Paying Living Expenses: Not hard at all Food Insecurity: No Food Insecurity (08/02/2023) Hunger Screening Food Insecurity - Worry: Never True Food Insecurity - Inability: Never True Transportation Needs: No Transportation Needs (06/20/2023) PRAPARE - Transportation Lack of Transportation (Medical): No Lack of Transportation (Non-Medical): No Physical Activity: Sufficiently Active (11/23/2021) Exercise Vital Sign Days of Exercise per Week: 3 days Minutes of Exercise per Session: 70 min Stress: No Stress Concern Present (11/23/2021) [employer] [place] - Occupational Stress Questionnaire Feeling of Stress : Not at all Social Connections: Socially Integrated (11/23/2021) Social Connection and Isolation Panel [NHANES] Frequency of Communication with Friends and Family: More than three times a week Frequency of Social Gatherings with Friends and Family: Twice a week Attends Scientologist Services: More than 4 times per year Active Member of Clubs or Organizations: Yes Attends Club or Organization Meetings: More than 4 times per year Marital Status: Interpersonal Safety: Not At Risk (11/23/2021) Humiliation, Afraid, Rape, and Kick questionnaire Fear of Current or Ex-Partner: No Emotionally Abused: No Physically Abused: No Sexually Abused: No Housing Instability: Low Risk (06/20/2023) Housing Instability Housing Instability: No Review of Systems Constitutional: Negative. Negative for fever. HENT: Negative. Eyes: Negative. Respiratory: Negative. Cardiovascular: Negative. Gastrointestinal: Negative. Negative for bowel incontinence. Genitourinary: Negative. Negative for bladder incontinence. Musculoskeletal: Positive for back pain. Skin: Negative. Neurological: Negative for tingling, weakness and numbness. Vital Signs: BP 140/56 (BP Site: Left Arm, BP Postition: Sitting) Pulse 60 Resp 18 SpO2 95% Physical Exam: GENERAL - Healthy patient that [...] during discussion, demonstrated appropriate cognitive reasoning and understandingof the medical condition by asking appropriate questions regarding the diagnosis and risks/benefits/alternatives of treatment modalities. No obvious deficits in memory, reasoning, or intellect. Lumbar: SKIN - No rashes or bruising in the area of the patient s pain. LYMPH NODES - demonstrate no obvious enlargement. EXTREMITIES - Lower extremities are warm, with minimal edema and palpable pulses. Tenderness to palpation noted in the lumbar spine and paraspinal musculature. Pain is elicited withflexion, extension, and lateral rotation of the lumbar spine. Range of motion is diminished with these motions due to pain. Facet palpation is noted to be painful and facet loading maneuvers elicit pain that is concordant with the patient s normal pain complaints. Some muscle spasm is noted in the overlying musculature. STRENGTH - noted to be 5 out of 5 all muscle groups bilateral lower extremities including muscles involving hip flexion and abduction, knee flexion and extension, as well as foot dorsiflexion and plantarflexion. No notable atrophy, fasciculations or spasm. SENSORY - No notable sensory deficits in the bilateral lower extremities to touch or pinprick in all dermatomal distributions. Straight Leg Raise is negative bilaterally. Gait is normal. Assessment/Treatment Plan: Severiano was seen today for back pain. Diagnoses and all orders for this visit: Lumbosacral spondylosis without myelopathy Monitor Follow up 6-8 weeks The medications prescribed have been reviewed for [...] monitoring for toxicity We do not currently prescribeany controlled substance from this practice. Treatment plans discussed but not opted for at this time: Lumbar medial branch block injection. Pain is under adequate control. It does appear that the patient benefited from the previous injection and the benefit has continuedthrough this visit. At this time, we will monitor the patient s symptoms from an interventional standpoint and consider another injection in the future if the patient s symptoms return or intensify severely. The patient was made aware that they should call if symptoms worsen or if their pain beginsto have a negative impact on their quality of life and activities of daily living again. The spine model was demonstrated and MRI was reviewed and used to explain the condition. Chronic conditions not treated during this visit that affected my overall medical decision making: Comorbidity- Obesity OARRS: Reviewed. Scribe Statement: Scribed for and in the presence of CARMELA LOERA by Bonnie Farah CNA. Provider Statement: IJOSE ROBERTO PA, personally performed the services described in the documentation, as scribed by Bonnie Farah CNA in my presence, and it is both accurate and complete. Bonnie Farah CNA 08/02/23 1123 CARMELA Loera 08/02/23 1523 documented in this encounterCoshocton [facility]04-29-2024 History of Present illness Narrative* Liliana Gomez, POOLROOM TABLE ATTENDANT-TAKER OFF DRYING KILN - 06/25/2023 8:00 AM EDT Subjective Patient ID: Severiano Peace is a 68 y.o. female. Here for diabetes check She has been getting some low blood sugars in the 60s and 70s during bike rides and during the nights This has happened a few times in the past one to two months She has been going to pain management for her knee and also for her lower back, she has an MRI coming up in one week for that She has been riding her bike a lot lately She has lost weight over the past year, her bmi has dropped from 40 to 36 She has been taking protein with her on her bike rides for when she encounters her low blood sugars The following portions of the patient's history were reviewed and updated as appropriate: allergies, current medications, past family history, past medical history, past social history, past surgicalhistory, problem list, and medication reconciliation was completed including current medication andpost discharge medication. Review of Systems Constitutional: Negative. HENT: Negative. Eyes: Negative. Respiratory: Negative. Cardiovascular: Negative. Gastrointestinal: Negative. Endocrine: Negative. Genitourinary: Negative. Musculoskeletal: Positive for back pain, gait problem and myalgias. Skin: Negative. Allergic/Immunologic: Negative. Hematological: Negative. Psychiatric/Behavioral: Negative. Objective Physical Exam Vitals and nursing note reviewed. Constitutional: Appearance: She is obese. HENT: Head: Normocephalic. Eyes: Conjunctiva/sclera: Conjunctivae normal. Neck: Vascular: No carotid bruit. Cardiovascular: Rate and Rhythm: Normal rate and regular rhythm. Pulses: Normal pulses. Heart sounds: Normal heart sounds. No murmur heard. Pulmonary: Effort: Pulmonary effort is normal. Breath sounds: Normal breath sounds. Abdominal: General: Bowel sounds are normal. Palpations: Abdomen is soft. Musculoskeletal: Cervical back: Neck supple. No tenderness. Right lower leg: No edema. Left lower leg: No edema. Lymphadenopathy: Cervical: No cervical adenopathy. Skin: General: Skin is warm and dry. Capillary Refill: Capillary refill takes less than 2 seconds. Neurological: Mental Status: She is alert and oriented to person, place, and time. Psychiatric: Mood and Affect: Mood normal. Behavior: Behavior normal. Thought Content: Thought content normal. Judgment: Judgment normal. Assessment/Plan Diabetic foot exam: Visual exam was normal without lesions. Left: Pulses Dorsalis Pedis: present Vibratory sensation normal Filament test present Right: Pulses Dorsalis Pedis: present Vibratory sensation normal Filament test present Severiano was seen today for diabetes. Diagnoses and all orders for this visit: 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 ([facility]) - Diabetic foot exam performed - Hemoglobin A1c; Future - Cancel: TSH; Future - Comprehensive metabolic panel; Future - TSH; Future Essential hypertension Mixed hyperlipidemia - Comprehensive metabolic panel; Future - Lipid panel; Future Adult BMI 36.0-36.9 kg/sq m Mild intermittent asthma without complication Primary osteoarthritis of right knee Patient noted to have elevated BMI and the following intervention(s) were applied: encouragement toexercise. Lab work is drawn today to recheck her A1c although her blood sugars sound like they are doing well Her metabolic panel and lipids and tsh are also rechecked today Her microalbumin was reviewed and showed improvement with current medication in the fall Her bmi while still elevated has improved with medication and with exercise, she is encouraged to continue her efforts, she is reminded to be sure to hydrate well especially with exercise Her asthma is well managed at this time Her arthritis and back are currently managed with pain management and she is to continue to follow with them Will plan next f/u in 6 months, any further adjustments after reviewing lab work EFRAIN Crystal 06/25/23 1230 documented in this encounterCoshocton [facility]04-25-2024 History of Present illness Narrative* CARMELA Loera - 06/21/2023 12:15 PM EDT [facility] [address] [place] [address] Patient: Severiano Peace Sex: female : 1955 Age: 68 y.o. PCP: EFRAIN MOLINA 06/21/2023 Severiano Peace is here for a(n) follow up for back pain. Chief Complaint Patient presents with Knee Pain Hip Pain HPI: PT/HEP (aquatics too) 2018 with [...] mechanism. The pain is present in the lefthip and right hip (and across back). The quality of the pain is described as aching. The pain is david severity of 8/10 (3/10 now 8/10 at hs). The pain is mild. The pain has been Improving (worse at night) since onset. Associated symptoms include an inability to bear weight and muscle weakness (right knee). Pertinent negatives include no numbness or tingling. She reports no foreign bodies present.The symptoms are aggravated by movement and weight bearing. She has tried acetaminophen, NSAIDs andice (HEP, voltaren gel, MDP) for the symptoms. The treatment provided moderate relief. Back Pain This is a chronic (2022) problem. The current episode started more than 1 year ago. The problem occurs constantly. The problem has been gradually worsening since onset. The pain is present in the gluteal, sacro-iliac and lumbar spine. The quality of the pain is described as aching. The pain does not radiate (baljit hips). The pain is at a severity of 8/10 (3/10 now up to 8/10). The pain is severe. The pain is Worse during the day. Exacerbated by: activity. Pertinent negatives include no bladder incontinence, bowel incontinence, leg pain, numbness, tingling or weakness. Risk factors include poor posture and obesity. Treatments tried: HEP, voltaren gel, MDP. The treatment provided moderate relief . The effect of pain on patient's ADLS: Moderate Impairment. Past Medical History: Diagnosis Date Asthma Chronic pain disorder CKD stage 2 due to type 2 diabetes mellitus ([facility]) Depression Hyperlipidemia Joint pain Migraine Neck pain Obesity Osteoarthritis of knee Osteopenia Rheumatoid arthritis ([facility]) Stage 2 chronic kidney disease due to benign hypertension Tear of meniscus of knee Visual impairment Past Surgical History: Procedure Laterality Date COLONOSCOPY 07/15/2009 COLONOSCOPY N/A 12/02/2021 Performed by Pawel Culver DO at [facility] 09/11/2017 INJECTION BLOCK NERVE KNEE Right Genicular Right 12/08/2022 Performed by Marcel Wheeler MD at [facility] INJECTION BLOCK NERVE KNEE Right Genicular Right 09/15/2022 Performed by Marcel Wheeler MD at [facility] KNEE ARTHROSCOPY Right 01/2005 OTHER SURGICAL [...] Never Smokeless tobacco: Never Vaping Use Vaping status: Never Used Substance and Sexual Activity Alcohol use: Never Drug use: Never Sexual activity: Defer Partners: Male control/protection: None Other Topics Concern Not on file Social History Narrative Not on file Social Determinants of Health Financial Resource Strain: Low Risk (06/20/2023) Overall Financial Resource Strain (CARDIA) Difficulty of Paying Living Expenses: Not hard at all Food Insecurity: No Food Insecurity (06/21/2023) Hunger Screening Food Insecurity - Worry: Never True Food Insecurity - Inability: Never True Transportation Needs: No Transportation Needs (06/20/2023) PRAPARE - Transportation Lack of Transportation (Medical): No Lack of Transportation (Non-Medical): No Physical Activity: Sufficiently Active (11/23/2021) Exercise Vital Sign Days of Exercise per Week: 3 days Minutes of Exercise per Session: 70 min Stress: No Stress Concern Present (11/23/2021) [employer] - Occupational Stress Questionnaire Feeling of Stress : Not at all Social Connections: Socially Integrated (11/23/2021) Social Connection and Isolation Panel [NHANES] Frequency of Communication with Friends and Family: More than three times a week Frequency of Social Gatherings with Friends and Family: Twice a week Attends Scientologist Services: More than 4 times per year Active Member of Clubs or Organizations: Yes Attends Club or Organization Meetings: More than 4 times per year Marital Status: Interpersonal Safety: Not At Risk (11/23/2021) Humiliation, Afraid, Rape, and Kick questionnaire Fear of Current or Ex-Partner: No Emotionally Abused: No Physically Abused: No Sexually Abused: No Housing Instability: Low Risk (06/20/2023) Housing Instability Housing Instability: No Review of Systems HENT: Negative. Respiratory: Negative. Negative for cough and shortness of breath. Gastrointestinal: Negative for bowel incontinence. Genitourinary: Negative for bladder incontinence. Musculoskeletal: Positive for back pain. Neurological: Negative for tingling, weakness and numbness. Vital Signs: BP 143/69 Pulse 78 Resp 18 Ht 160 cm (5' 3 ) Wt 93 kg (205 lb) SpO2 99% BMI 36.31 kg/m Physical Exam: GENERAL - Healthy patient [...] during discussion, demonstrated appropriate cognitive reasoning and understandingof the medical condition by asking appropriate questions regarding the diagnosis and risks/benefits/alternatives of treatment modalities. No obvious deficits in memory, reasoning, or intellect. Lumbar: SKIN - No rashes or bruising in the area of the patient s pain. LYMPH NODES - demonstrate no obvious enlargement. EXTREMITIES - Lower extremities are warm, with minimal edema and palpable pulses. Tenderness to palpation noted in the lumbar spine and paraspinal musculature. Pain is elicited withflexion, extension, and lateral rotation of the lumbar spine. Range of motion is diminished with these motions due to pain. Facet palpation is noted to be somewhat tender and facet loading maneuvers are mildly positive, but not concordant with the patient s normal pain complaints. STRENGTH - noted to be 5 out of 5 all muscle groups bilateral lower extremities including muscles involving hip flexion and abduction, knee flexion and extension, as well as foot dorsiflexion and plantarflexion. No notable atrophy, fasciculations or spasm. SENSORY - No notable sensory deficits in the bilateral lower extremities to touch or pinprick in all dermatomal distributions. Straight Leg Raise is negative. Tenderness to palpation is noted over the Left SacroIliac Joint: Fabere sign (Charlie's Test) is significantly positive, as is compression and distraction of the sacroiliac joints, which is consistent with some of the patient's normal pain. Gait is normal. Assessment/Treatment Plan: Severiano was seen today for knee pain and hip pain. Diagnoses and all orders for this visit: Lumbosacral spondylosis without myelopathy Disc displacement, lumbar - MR lumbar spine without contrast; Future Disorder of sacrum Lumbar spine MRI - It is felt that additional diagnostic testing is necessary to further evaluate the patients currentpain pathology. For this reason, we will order additional imaging noted above. It is hopeful that this study will identify a significant pain generator that will be amenable to therapy. It is felt that this modality is necessary due to the severity and chronicity of symptoms and physical exam findings combined with the lack of recent imaging of the area. An MRI is specifically felt to be necessary due to the physical exam findings noted above and the patient s description of refractory pain in a neuropathic distribution that is not relieved by change in body position and interferes with the patient s activities of daily living Follow up after MRI The medications I have prescribed have been [...] monitoring for toxicity We do not currently prescribeany controlled substance from this practice. Treatment plans discussed but not opted for at this time: Lumbar medial branch block and/or epidural steroid injections. Patient would like to proceed with the current outlined treatment plan before moving forward with any other options. The spine model was demonstrated and Xray was reviewed and used to explain the condition. Chronic conditions not treated during this visit that affected my overall medical decision making: Obesity and Diabetes OARRS: Reviewed. Scribe Statement: Scribed for and in the presence of CARMELA LOERA by Bonnie Farah CNA. Provider Statement: I, CARMELA LOERA, personally performed the services described in the documentation, as scribed by Bonnie Farah CNA in my presence, and it is both accurate and complete. Bonnie Farah CNA 06/21/23 1313 CARMELA Loera 06/21/23 1353 documented in this encounterCoshocton [facility] Center02-16-2024 Miscellaneous Notes* Telephone Encounter - Will Matos - 04/13/2023 7:33 AM EST REVIEW DENIAL LETTER BROUGHT IN BY PATIENT, PEER TO PEER DONE BY RONNY 03/21/23. WILL AWAIT APPEAL RESULTS THAT PATIENT STARTED * Telephone Encounter - Jerri Crump RN - 04/13/2023 7:33 AM EST Patient called office today to follow up on insurance appeal. Patient states her insurance denied genicular RFA. She states she brought in denial paperwork to her last OV (04/12/2023) and gave it to Robert. Patient states she filed an appeal on her own and submitted it to her insurance on 04/11/2023. She had not heard anything from her insurance in the past 6 weeks so she called them this past Sundayand was told there is no record of her appeal. Patient also states that she was told by her insurance that the appeal has to come from the provider. They will not accept an appeal from the patient. How would you like to proceed? * Telephone Encounter - CARMELA Loera - 04/13/2023 7:33 AM EST Nothing further. Denied because it is experimental which means there is no recourse. They will not approve. Can submit for therapeutic right genicular nerve block. * Telephone Encounter - Jerri Crump RN - 04/13/2023 7:33 AM EST Call placed to patient and she was informed of provider's response. Patient verbalized understanding and is agreeable to therapeutic genicular nerve block. Case requested pended for review and signature. documented in this encounterCoshocton [facility] Center02-16-2024 Telephone encounter Note* Telephone Encounter - Will Matos - 04/13/2023 7:33 AM EST REVIEW DENIAL LETTER BROUGHT IN BY PATIENT, PEER TO PEER DONE BY RONNY 03/21/23. WILL AWAIT APPEAL RESULTS THAT PATIENT STARTED [facility]02-16-[facility] Telephone encounter Note* Telephone Encounter - Jerri Crump RN - 04/13/2023 7:33 AM EST Patient called office today to follow up on insurance appeal. Patient states her insurance denied genicular RFA. She states she brought in denial paperwork to her last OV (04/12/2023) and gave it to Robert. Patient states she filed an appeal on her own and submitted it to her insurance on 04/11/2023. She had not heard anything from her insurance in the past 6 weeks so she called them this past Sundayand was told there is no record of her appeal. Patient also states that she was told by her insurance that the appeal has to come from the provider. They will not accept an appeal from the patient. How would you like to proceed? [facility]02-16-[facility] Telephone encounter Note* Telephone Encounter - CARMELA Loera - 04/13/2023 7:33 AM EST Nothing further. Denied because it is experimental which means there is no recourse. They will not approve. Can submit for therapeutic right genicular nerve block. [facility]02-16-[facility] Telephone encounter Note* Telephone Encounter - Jerri Crump RN - 04/13/2023 7:33 AM EST Call placed to patient and she was informed of provider's response. Patient verbalized understanding and is agreeable to therapeutic genicular nerve block. Case requested pended for review and signature. [facility]02-15-[facility] History of Present illness Narrative* CARMELA Loera - 04/12/2023 9:00 AM EST [facility] [address] [place] [address] Patient: Severiano Peace Sex: female : 1955 Age: 68 y.o. PCP: LILIANA GOMEZ, ROSEMARY-MARK 04/12/2023 Severiano Terreller is here for a(n) follow up for right knee pain and left hip pain. Patient brought indenial papers for Right Genicular RFA ordered at [...] mechanism. The pain is present in the lefthip and right hip. The quality of the [...] bodies present. The symptoms are aggravated by movementand weight bearing. She has tried acetaminophen, NSAIDs and ice (HEP, voltaren gel, MDP) for the symptoms. The treatment provided moderate relief. The effect of pain on patient's ADLS: Moderate Impairment. Past Medical History: Diagnosis Date Asthma Chronic pain disorder CKD stage 2 due to type 2 diabetes mellitus ([facility]) Depression Hyperlipidemia Joint pain Migraine Neck pain Obesity Osteoarthritis of knee Osteopenia Rheumatoid arthritis ([facility]) Stage 2 chronic kidney disease due to benign hypertension Tear of meniscus of knee Visual impairment Past Surgical History: Procedure Laterality Date COLONOSCOPY 07/15/2009 COLONOSCOPY N/A 12/02/2021 Performed by Pawel Culver DO at [facility] 09/11/2017 INJECTION BLOCK NERVE KNEE Right Genicular Right 12/08/2022 Performed by Marcel Wheeler MD at [facility] INJECTION BLOCK NERVE KNEE Right Genicular Right 09/15/2022 Performed by Marcel Wheeler MD at [facility] KNEE ARTHROSCOPY Right 01/2005 OTHER SURGICAL [...] min Stress: No Stress Concern Present (11/23/2021) [employer] - Occupational Stress Questionnaire Feeling of Stress : Not at all Social Connections: Socially Integrated (11/23/2021) Social Connection and Isolation Panel [NHANES] Frequency of Communication with Friends and Family: More than three times a week Frequency of Social Gatherings with Friends and Family: Twice a week Attends Scientologist Services: More than 4 times per year [...] during discussion, demonstrated appropriate cognitive reasoning and understandingof the medical condition by asking appropriate questions [...] tenderness to palpation over the superior, inferior, lateral,and medial aspect of the knee. Some swelling [...] monitoring for toxicity We do not currently prescribeany controlled substance from this practice. Treatment plans discussed but not opted for at this time: Repeat Genicular nerve block injections. Patient would like to proceed with the current outlined treatment plan before moving forward with any other options. At this time it does not appear that the patient s pain is under adequate control with conservativecare. Her insurance has denied request for Right Genicular RFA. Patient has filed an appeal and we are awaiting that decision. It is felt that we should continue this approach and continue to monitorthese symptoms and address them again in the future if they become more problematic. This approach was discussed with the patient and they are in agreement. Xray was reviewed and used to explain the condition. OARRS: Reviewed. Scribe Statement: Scribed for and in the presence of CARMELA LOERA by Bonnie Farah CNA. Provider Statement: I, CARMELA LOERA, personally performed the services described in the documentation, as scribed by Bonnie Farah CNA in my presence, and it is both accurate and complete. Bonnie Farah CNA 04/12/23 [id number] CARMELA Loera 04/12/23 1205 documented in this encounterCoshocton [facility] Center01-04-2024 History of Present illness Narrative* CARMELA Loera - 03/01/2023 8:00 AM EST [facility] [address] [place] [address] Patient: Severiano Peace Sex: female : 1955 Age: 68 y.o. PCP: EFRAIN MOLINA 03/01/2023 Severiano Peace is here for a(n) follow up. Chief [...] MDP) for the symptoms. The treatment provided moderaterelief. Hip Pain Incident onset: 2-3 months ago 2022. There was no injury mechanism. The pain is present in the lefthip and right hip. The quality of the [...] bodies present. The symptoms are aggravated by movementand weight bearing. She has tried acetaminophen, NSAIDs and ice (HEP, voltaren gel, MDP) for the symptoms. The treatment provided moderate relief. The effect of pain on patient's ADLS: Moderate Impairment. Past Medical History: Diagnosis Date Asthma Chronic pain disorder CKD stage 2 due to type 2 diabetes mellitus ([facility]) Depression Hyperlipidemia Joint pain Migraine Neck pain Obesity Osteoarthritis of knee Osteopenia Rheumatoid arthritis ([facility]) Stage 2 chronic kidney disease due to benign hypertension Tear of meniscus of knee Visual impairment Past Surgical History: Procedure Laterality Date COLONOSCOPY 07/15/2009 COLONOSCOPY N/A 12/02/2021 Performed by Pawel Culver DO at [facility] 09/11/2017 INJECTION BLOCK NERVE KNEE Right Genicular Right 12/08/2022 Performed by Marcel Wheeler MD at [facility] INJECTION BLOCK NERVE KNEE Right Genicular Right 09/15/2022 Performed by Marcel Wheeler MD at [facility] KNEE ARTHROSCOPY Right 01/2005 OTHER SURGICAL [...] min Stress: No Stress Concern Present (11/23/2021) [employer] - Occupational Stress Questionnaire Feeling of Stress : Not at all Social Connections: Socially Integrated (11/23/2021) Social Connection and Isolation Panel [NHANES] Frequency of Communication with Friends and Family: More than three times a week Frequency of Social Gatherings with Friends and Family: Twice a week Attends Scientologist Services: More than 4 times per year [...] during discussion, demonstrated appropriate cognitive reasoning and understandingof the medical condition by asking appropriate questions [...] tenderness to palpation over the superior, inferior, lateral,and medial aspect of the knee. Some swelling [...] procedure was described in detail to the patientas well as the potential benefits of pain [...] Patients undergoing this procedure often have mild post- procedural pain for 3-4 days which is generally [...] monitoring for toxicity We do not currently prescribeany controlled substance from this practice. Xray was [...] as a result. Additional consideration will need bertin given to timing the procedure early in [...] in the presence of CARMELA LOERA by Bonnie Farah CNA. Provider Statement: I, CARMELA LOERA, personally performed the services described in the documentation, as scribed by Bonnie Farah CNA in my presence, and it is both accurate and complete. Bonnie Farah CNA 03/01/23 0926 CARMELA Loera 03/01/23 [id number] documented in this encounterCoshocton [facility] Center01-04-2024 Instructions* Patient Instructions* Bonnie Farah, ACTIVITIES DIRECTOR - 03/01/2023 8:00 AM EST Radiofrequency Ablation (RFA) Radiofrequency ablation (or RFA) is a procedure used to reduce pain. An electrical current producedby a radio wave is used to heat up a small area of nerve tissue, thereby decreasing pain signals from that specific area. Which Conditions Are Treated With Radiofrequency Ablation? RFA can be used to help patients with chronic (long-lasting) back and neck pain and pain related tothe degeneration of joints from arthritis. How Long Does Pain Relief from Radiofrequency Ablation Last? The degree of pain relief varies, depending on the cause and location of the pain. Pain relief fromRFA can last from six to 12 months [...] take you to the nearest emergency room. Tellthe emergency room staff that you just had [...] it back to normal. documented in this encounterRutland Regional Medical CenterYaBattle Br[facility] [id number] History of Present illness Narrative* CARMELA Loera - 02/15/2023 9:30 AM EST [facility] [address] [place] [address] Patient: Severiano Peace Sex: female : 1955 Age: 68 y.o. PCP: EFRAIN MOLINA 02/15/2023 Severiano Peace is here for a(n) follow up after [...] mechanism. The pain is present in the lefthip and right hip (Lt > Rt). The [...] by movement and weight bearing. She has triedacetaminophen, NSAIDs and ice (HEP, voltaren gel, MDP) for the symptoms. The treatment provided mode rate relief. Knee Pain Incident location: 2003. There was no injury mechanism. The pain is present in the right knee. The quality of the pain is described as aching and stabbing. The pain is at a severity of 2/10. The painis mild. The pain has been Fluctuating (increases [...] 2 due to type 2 diabetes mellitus ([facility]) Depression Hyperlipidemia Joint pain Migraine Neck pain Obesity Osteoarthritis of knee Osteopenia Rheumatoid arthritis ([facility]) Stage 2 chronic kidney disease due to benign hypertension Tear of meniscus of knee Visual impairment Past Surgical History: Procedure Laterality Date COLONOSCOPY 07/15/2009 COLONOSCOPY N/A 12/02/2021 Performed by Pawel Culver DO at [facility] GASTRIC BYPASS 09/11/2017 INJECTION BLOCK NERVE KNEE Right Genicular Right 12/08/2022 Performed by Marcel Wheeler MD at [facility] INJE[facility] BLOCK NERVE KNEE Right Genicular Right 09/15/2022 Performed by Marcel Wheeler MD at [facility] KNEE ARTHROSCOPY Right 01/2005 OTHER SURGICAL [...] min Stress: No Stress Concern Present (11/23/2021) [employer] [place] [employer] - Occupational Stress Questionnaire Feeling of Stress : Not at all Social Connections: Socially Integrated (11/23/2021) Social Connection and Isolation Panel [NHANES] Frequency of Communication with Friends and Family: More than three times a week Frequency of Social Gatherings with Friends and Family: Twice a week Attends Scientologist Services: More than 4 times per year [...] during discussion, demonstrated appropriate cognitive reasoning and understandingof the medical condition by asking appropriate questions [...] tenderness to palpation over the superior, inferior, lateral,and medial aspect of the knee. Some swelling [...] monitoring for toxicity We do not currently prescribeany controlled substance from this practice. Treatment plans [...] in the presence of CARMELA LOERA by Bonnie Farah CNA. Provider Statement: I, CARMELA LOERA, personally performed the services described in the documentation, as scribed by Bonnie Farah CNA in my presence, and it is both accurate and complete. Bonnie Farah CNA 02/15/23 1048 CARMELA Loera 02/22/23 1158 [facility] Evaluation [facility]* Encounter Date Diagnosis Assessment Notes Treatment Notes Treatment Clinical Notes Dec, Cough (ICD-10 - R05.9) Dec,OVID-19 (ICD-10 - U07.1) COVID test performed in [...] treatment plan. Patient left in stable condition [employer] Other 07-30-2022 Evaluation note* Encounter Date Diagnosis Assessment Notes Treatment Notes Treatment Clinical Notes Aug, Cough (ICD-10 - R05.9) 30 Aug, 2021Viral URI (ICD-10 - J06.9) Advised patient that [...] treatment plan. Patient left in stable condition [employer] Other Evaluation note* Diagnosis Plantar fasciitis- Primary Plantar fascial fibromatosis Rupture of muscle, nontraumatic Right foot pain Pain in soft tissues of limb Equinus contracture of right ankle [facility] Primary osteoarthritis of right knee- Primary [facility] Diagnosis Localized osteoarthritis of right knee- Primary [facility] Diagnosis Osteoarthritis of knee- Primary Osteoarthrosis, unspecified whether generalized or localized, lower leg Lumbosacral spondylosis without myelopathy- Primary Disc displacement, lumbar Displacement of lumbar intervertebral disc without myelopathy Disorder of sacrum Disorders of sacrum Primary osteoarthritis of right knee [facility] Diagnosis Localized osteoarthritis of right knee- Primary [facility] Diagnosis Osteoarthritis of knee- Primary Osteoarthrosis, unspecified whether generalized or localized, lower leg 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 ([facility])- Primary Essential hypertension Unspecified essential hypertension Mixed hyperlipidemia Adult BMI 36.0-36.9 kg/sq m Body Mass Index 36.0-36.9, adult Mild intermittent asthma without complication Primary osteoarthritis of right knee Primary osteoarthritis of right knee [facility] Diagnosis Lumbosacral spondylosis without myelopathy- Primary [facility] Diagnosis Localized osteoarthritis of right knee- Primary [facility] Diagnosis Special screening for malignant neoplasm of colon- Primary Special screening for malignant neoplasms, colon [facility] Diagnosis Depressive disorder Depressive disorder, not elsewhere classified 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 ([facility]) [facility] Diagnosis Localized osteoarthritis of right knee- Primary Localized osteoarthritis of right knee- Primary Localized osteoarthritis of right knee [facility] Diagnosis Localized osteoarthritis of right knee- Primary Acute cystitis without hematuria- Primary 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 ([facility]) Depressive disorder Depressive disorder, not elsewhere classified Type 2 diabetes mellitus with hyperglycemia, without long-term current use of insulin ([facility]) Localized osteoarthritis of right knee [facility] Diagnosis 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 ([facility])- Primary Type 2 diabetes mellitus with hyperglycemia, without long-term current use of insulin ([facility]) Depressive disorder Depressive disorder, not elsewhere classified Primary osteoarthritis of both knees Change in color of pigmented skin lesion Encounter for screening mammogram for malignant neoplasm of breast documented [facility] Diagnosis Type 2 diabetes mellitus with hyperglycemia, without long-term current use of insulin ([facility])- Primary 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 ([facility]) Class 3 severe obesity due to excess calories with serious comorbidity and body mass index (BMI) of40.0 to 44.9 in adult ([facility]) Mild intermittent asthma without complication Depressive disorder Depressive disorder, not elsewhere classified documented [facility] Diagnosis Primary osteoarthritis of right knee- Primary Osteoarthritis of knee- Primary Osteoarthrosis, unspecified whether generalized or localized, lower leg Primary osteoarthritis of right knee [facility] Diagnosis CKD stage 2 due to type 2 diabetes mellitus ([facility])- Primary DM type 2 with diabetic mixed hyperlipidemia ([facility]) Depressive disorder Depressive disorder, not elsewhere classified Essential hypertension Unspecified essential hypertension [facility] Diagnosis Primary osteoarthritis of right knee- Primary [facility] in this [facility] Diagnosis DM type 2 with diabetic mixed hyperlipidemia ([facility]) [facility]* Diagnosis Conjunctival hemorrhage of left eye- Primary Essential hypertension Unspecified essential hypertension Ocular migraine Variants of migraine, not elsewhere classified, without mention of intractable migraine without mention of status migrainosus documented in this [facility]* Diagnosis DM type 2 with diabetic mixed hyperlipidemia ([facility])- Primary Essential hypertension Unspecified essential hypertension 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 ([facility]) Type 2 diabetes mellitus with hyperglycemia, without long-term current use of insulin ([facility]) Depressive disorder Depressive disorder, not elsewhere classified Encounter for screening mammogram for malignant neoplasm of breast Class 2 obesity due to excess calories without serious comorbidity with body mass index (BMI) of 37.0 to 37.9 in adult documented in this encounter [facility] SystemHistory general Narrative - Reported* Type Description Date Medical History Depression Medical HistoryHypercholesterolemiaMedical HistoryDiabetesMedical Historyasthma Medical HistoryHx of pneumonia I1Ptydxjil HistorycholecystectomySurgical History tubal ligationSurgical Historyknee arthroscopySurgical Historygastric sleeve Hospitalization Historysee above [employer] Other InstructionsNot on filedocumented in this encounter [facility] on filedocumented in this encounter [facility]Not on filedocumented in this encounter [facility] on filedocumented in this encounter [facility]ructionsNot on filedocumented in this encounter [facility]ructionsNot on filedocumented in this encounter [facility]InstructionsNot on filedocumented in this encounter [facility]* Attachments The following attachments cannot be sent through Care Everywhere. * Diabetes and diet (Dutch) documented in [facility]* Attachments The following attachments cannot be sent through Care Everywhere. * Moles on the Skin (Dutch) documented in this encounterPro[facility] SystemInstructionsNot on file documented in this [facility]ructions* Attachments The following attachments cannot be sent through Care Everywhere. * Body Mass Index, Adult (Dutch) [facility] this [facility] Attachments The following attachments cannot be sent through Care Everywhere. * Diabetes and diet (Dutch) documented in this encounterCos[facility] CenterInstructions* Attachments The following attachments cannot be sent through Care Everywhere. * Diabetes and diet (Dutch) documented in this encounterCoshocton [facility] CenterInstructionsNot on file documented in this encounterCoshocton [facility] Medical CenterInstructionsNot on file documented in this encounterCoshoct[facility] CenterInstructions* Attachments The following attachments cannot be sent through Care Everywhere. * Diabetes and diet (Dutch) documented in this encounterCoshocton [facility] Medical CenterReason for referral (narrative)* Consultation (Routine) - Pending ReviewSpecialtyDiagnoses / ProceduresReferred By ContactReferred To ContactDermatology Diagnoses Change in color of pigmented skin lesion Yasmine Villa [facility] [address] [place] [address] Tali Dunn MD [address] , [address] [address] Referral IDStatus[facility] DateExpiration DateVisits RequestedVisits [id number] Review Specialty Services Required * Misc (Routine) - Pending ReviewSpecialtyDiagnoses / ProceduresReferred By ContactReferred To Contact Diagnoses Primary osteoarthritis of both knees Procedures Disability/Handicap Yasmine Ortega [facility] [address] [place] [address] Referral IDStatusReasonStart DateExpiration DateVisits RequestedVisits [id number] [id number] [facility] Summary Purpose Family History No Family History Records FoundNo Family History Records FoundNo Family History Records FoundNo Family History Records FoundNo Family History Records Found Advance Directives No Advanced Directives Records FoundNo Advanced Directives Records FoundNo Advanced Directives Records FoundNo Advanced Directives Records FoundNo Advanced Directives Records Found Reason for Referral SpecialtyDiagnoses / ProceduresReferred By ContactReferred To Contact Diagnoses Localized osteoarthritis of right knee Procedures Case request operating room: RADIOFREQUENCY ABLATION GENICULAR: right Jose Roberto Corona PA [address], [address] [place] [address] Referral IDStatusReasonStart DateExpiration DateVisits RequestedVisits [id number] Review/[id number] / Procedures Referred By ContactReferred To ContactRadiology Diagnoses Disc displacement, lumbar Procedures MR lumbar spine without contrast Jose Roberto Corona PA [address], [address] [place] [address] Referral IDStatusReasonStart DateExpiration DateVisits RequestedVisits [id number] Review/[id number] / ProceduresReferred By ContactReferred To Contact Diagnoses Primary osteoarthritis of right knee Procedures Case request operating room: INJECTION BLOCK NERVE KNEE - right Jose Roberto Corona PA [address], [address] [place] [address] Referral IDStatusReasonStart DateExpiration DateVisits RequestedVisits [id number] Review/ Additional Source Comments INFORMATION SOURCE (unrecogn ized section and content) DATE CREATED AUTHOR 04/21/2021 [facility] DATE CREATED AUTHOR AUTHOR'S ORGANIZ ATION 05/22/2021 [facility] DATE CREATED AUTHOR AUTHOR'S ORGANIZ ATION 12/12/2023 [facility] DATE CREATED AUTHOR AUTHOR'S ORGANIZ ATION 11/03/2024 [facility] DATE CREATED AUTHOR AUTHOR'S ORGANIZ ATION 12/17/2024 [facility] REASON FOR VISIT (unrecogniz ed section and content) ReasonCommentsFoot PainRhonda Rochester 68yo New patient relates right foot pain, patient heard a pop while walking 12/09/2023. Icing, voltaren, resting. Patient typically wears tennis shoes, slippers with powersteps because of Plantar Fasciitis history. BS 6.4 Yuhas 12/10/2023 DP2EnhlryQmwxlhxvLzd PainKnee Pain ReasonCommentsKnee PainHip PainBack PainReasonCommentsKnee PainReasonComments Diabetes6 months. Lower back trouble 8 monthsReasonCommentsMed RefillReason CommentsBack PainReasonCommentsBack PainReasonCommentsdiscuss medicationReason CommentsDiabetesReasonCommentsmedicationsReasonCommentsDiabetesReasonComments Back PainHip PainKnee PainReasonCommentsteaching about ozempicReasonComments Follow-upBlood vessel burst in right eye. OCT- 8ReasonCommentsDiabetes Care Teams (unrecognized sec tion and content) Team MemberRelationshipSpecialtyStart DateEnd Date Pawel Culver MD [address] [place] [address] PCP - GeneralInternal Qzbigeca77/18/24Team MemberRelationshipSpecialtyStart Date End Date Pawel Culver MD [address] [place] [address] PCP - GeneralInternal Ppijvhqf13/18/24Team MemberRelationshipSpecialtyStart Date End Date Liliana Gomez, [facility] [address] [place] [address] PCP - General05/25/17Team MemberRelationshipSpecialtyStart DateEnd Date Liliana Gomez, POOLROOM TABLE ATTENDANT-TAKER OFF [employer] [address] [place] [facility] [address] PCP - General05/25/17Team MemberRelationshipSpecialtyStart DateEnd Date Liliana Gomez, POOLROOM TABLE ATTENDANT-TAKER [employer] [address] [place] [facility] [address] PCP - General05/25/17Team MemberRelationshipSpecialtyStart DateEnd Date Liliana Gomez, POOLROOM TABLE ATTENDANT-TAKER [employer] [address] [place] [facility] [address] PCP - General05/25/17Team MemberRelationshipSpecialtyStart DateEnd Date Liliana Gomez, POOLROOM TABLE ATTENDANT-TAKER [employer] [address] [place] [facility] [address] PCP - General05/25/17Team MemberRelationshipSpecialtyStart DateEnd Date Liliana Gomez, POOLROOM TABLE ATTENDANT-TAKER [employer] [address] [place] [facility] [place] [address] PCP - General05/25/17Team MemberRelationshipSpecialtyStart DateEnd Date Liliana Gomez, POOLROOM TABLE ATTENDANT-TAKER [employer] [address] [place] [facility] [place] [address] PCP - General3Team MemberRelationshipSpecialtyStart DateEnd Date Liliana Gomez, POOLROOM TABLE ATTENDANT-TAKER [employer] [address] [place] [facility] [place] [address] PCP - General05/25/17Team MemberRelationshipSpecialtyStart DateEnd Date Liliana Gomez, POOLROOM TABLE ATTENDANT-[facility] [address] [facility] [place] [address] PCP - General05/25/17Team MemberRelationshipSpecialtyStart DateEnd Date Liliana Gomez, POOLROOM TABLE ATTENDANT-[facility] [address] RETIRED 08/27/20[address] [place] [address] PCP - General05/25/17Team MemberRelationshipSpecialtyStart DateEnd Date Ai Martinez POOLROOM TABLE ATTENDANT-[facility] [address] [place] [address] PCP - GeneralInternal Medicine09/03/23Team MemberRelationshipSpecialtyStart Date End Date Ai Martinez POOLROOM TABLE ATTENDANT-WHEEL ALIGNER [address] [place] [address] PCP - GeneralInternal Medicine09/03/23Team MemberRelationshipSpecialtyStart Date End Date Ai Martinez POOLROOM TABLE ATTENDANT-WHEEL ALIGNER [address] [place] [address] PCP - GeneralInternal Medicine09/03/23Team MemberRelationshipSpecialtyStart Date End Date Yasmine Villa, POOLROOM TABLE ATTENDANT-WHEEL ALIGNER [address] [place] [address] PCP - Generalmily Medicine10/15/23Team MemberRelationshipSpecialtyStart DateEnd Date Yasmine Villa, POOLROOM TABLE ATTENDANT-WHEEL ALIGNER [address] [place] [address] PCP - GeneralFamily Medicine10/15/23Team MemberRelationshipSpecialtyStart DateEnd Date Yasmine Villa, POOLROOM TABLE ATTENDANT-WHEEL ALIGNER [address] [place] [address] PCP - GeneralFamily Medicine10/15/23Team MemberRelationshipSpecialtyStart DateEnd Date Yasmine Villa, POOLROOM TABLE ATTENDANT-WHEEL ALIGNER [address] [place] [address] PCP - Generalmily Medicine10/15/23Team MemberRelationshipSpecialtyStart DateEnd Date Yasmine Villa, POOLROOM TABLE ATTENDANT-WHEEL ALIGNER [address] [place] [address] PCP - GeneralFamily Medicine10/15/23Team MemberRelationshipSpecialtyStart DateEnd Date Yasmine Villa, POOLROOM TABLE ATTENDANT-WHEEL ALIGNER [address] [place] [address] PCP - GeneralFamily Medicine10/15/23Team MemberRelationshipSpecialtyStart DateEnd Date Yasmine Villa, POOLROOM TABLE ATTENDANT-WHEEL ALIGNER [address] [place] [address] PCP - GeneralFamily Medicine10/15/23Team MemberRelationshipSpecialtyStart DateEnd Date Yasmine Villa, POOLROOM TABLE ATTENDANT-WHEEL ALIGNER [address] [place] [address] PCP - GeneralFamily Medicine10/15/23Team MemberRelationshipSpecialtyStart DateEnd Date Yasmine Villa, POOLROOM TABLE ATTENDANT-[facility] [address] [place] [address] PCP - GeneralFamily Medicine10/15/23Team MemberRelationshipSpecialtyStart DateEnd Date Yasmine Villa, POOLROOM TABLE ATTENDANT-[facility] [address] [place] [address] PCP - GeneralFamily Medicine10/15/23Team MemberRelationshipSpecialtyStart DateEnd Date Yasmine Villa POOLROOM TABLE ATTENDANT-[facility] [address] [place] [address] PCP - GeneralFamily Medicine10/15/23Team MemberRelationshipSpecialtyStart DateEnd Date Yasmine Villa, POOLROOM TABLE ATTENDANT-[facility] [address] LEFT PM 08/25/24 [place] [address] PCP - GeneralFamily Medicine10/15/23Team MemberRelationshipSpecialtyStart DateEnd Date Payton Payton, POOLROOM TABLE ATTENDANT-WHEEL ALIGNER [address] [place] [address] PCP - GeneralInternal Medicine11/03/24Team MemberRelationshipSpecialtyStart Date End Date Payton Payton, POOLROOM TABLE ATTENDANT-WHEEL ALIGNER [address] [place] [address] PCP - GeneralV[facility] Medicine11/03/24 FOR RECORDS PERTAINING TO PATIENTS WHO ARE [...] BE BASED ON THE PRIMARY CLINICAL RECORDS. [employer] [facility]. provides no warranty or guarantee of the accuracy or completeness of information in this document.
--- NOTE | 2025-01-14 07:58 | MM_ITS ---
Patient Name: SEVERIANO ROBERSON MR#: [id number] : 1955 Exam Date: 01/14/2025 Ordering Doctor: DR PAWEL CULVER RADIOLOGY REPORT PROCEDURE: MM TOMOSYNTHESIS SCREENING BI COMPARISON: MM TOMOSYNTHESIS SCREENING BI, 01/02/2024. MM TOMOSYNTHESIS SCREENING BI, 12/27/2022. MG MAMM SCREEN 3D DANAY CAD, 04/20/2021. MG MAMM DANAY SCRN W CAD DIG, 12/31/2012. INDICATIONS: Screening Calculator Name NCI Breast Cancer Risk Assessment Tool 5 Year Breast Cancer Risk 1.70% Lifetime Breast Cancer Risk 4.70% Personal Breast Cancer No Personal Ovarian Cancer No Treatments None Family Cancers Mother with brain cancer at age 57; Sister with lymphoma cancer at age 19; Sister with uterine cancer at age 40. LOCATION: [facility] BREAST COMPOSITION: There are scattered areas of fibroglandular density. FINDINGS: RIGHT BREAST: No significant suspicious finding. Benign-appearing calcifications are present. LEFT BREAST: No significant suspicious finding. Benign-appearing calcifications are present. DIAGNOSTIC CATEGORY 2--BENIGN FINDING. NO CHANGE FROM COMPARISON. RECOMMENDATIONS: ROUTINE MAMMOGRAM AND CLINICAL EVALUATION IN 12 MONTHS. Dictated by: Noe Lind MD on 01/14/2025 at 14:31 Approved by: Noe Lind MD on 01/14/2025 at 15:06
--- OUTSIDE RECORDS SUMMARY | 2025-01-14 07:59 | XMS_ITS | CCD ---
Author Organization [facility] Team Providers Care Infantry Assaultman Name Role Phone FURLONG, DR JYOTI Fatima Primary Care Unavailable PATRICIA, DR LILIANA Bergman Attending Unavailable PATRICIA, DR LILIANA Bergman Admitting Unavailable ZIEBER, DR MARK Bergman Consulting Unavailable PATRICIA, DR LILIANA Bergman Consulting Unavailable Alix Tavera Unavailable LILIANA GOMEZ Referring Unavailable LILIANA GOMEZ Primary Care Unavailable YASMINE VILLA Referring Unavailable YASMINE VILLA Primary Care Unavailable YASMINE VILLA Referring Unavailable YASMINE VILLA Primary Care Unavailable Pawel Culver MD Primary Care Provider Patricia PACKAGE WINDER-CUSTOMER SERVICE ANALYSTLiliana Primary Care Provider Patricia PACKAGE WINDER-CUSTOMER SERVICE ANALYSTLiliana Primary Care Provider Roberta PACKAGE WINDER-LEMON GROWERAi Primary Care Provider Allen PACKAGE WINDER-LEMON GROWERYasmine Primary Care Provid er Allen PACKAGE WINDER-LEMON GROWERYasmine Primary Care Provid er Allen PACKAGE WINDER-LEMON GROWERYasmine Primary Care Provid er YASMINE VILLA Primary [...] J Primary Care Unavailable WHEELER, MARCEL Pedro Admitting Unavailable WHEELER, MARCEL Pedro Attending Unavailable [...] Unavailable VILLA, YASMINE J Primary Care Unavailable PWAEL CULVER Attending Unavailable KROTZER, PAYTON D Referring Unavailable KROTZER, PAYTON D Primary Care Unavailable KROTZER, PAYTON D Attending Unavailable KROTZER, PAYTON D Referring Unavailable KROTZER, PAYTON D Primary Care Unavailable Allergies Allergy ClassificationReported Allergen(s)Allergy TypeDate of OnsetReaction(s) Facility (20 sources)Codeine; Translations: [CODEINE]Drug Aaoettg29-93-9787Uksdl (See Comments)[facility] (20 sources)Succinylcholine; Translations: [SUCCINYLCHOLINE]Drug Allergy 08-93-3033hipdodxjphd, Other (See Comments), painPro[facility]ica [facility] (2 sources)SuccinylcholineDrug Tuhhhft55-84-7277[facility] (9 sources)Acetaminophen / oxyCODONE; Translations: [OXYCODONE-ACETAMINOPHEN] Drug Nxbtjtr98-16-3924OrtempdVxdLvlitr Health System Medications Current Medications MedicationDrug Class(es)DatesSig (Normalized)Sig (Original)acetaminophen 325 mg oral tablet (20 sources)acetaminophen (TYLENOL) 325 mg tablet Take 2 tablets (650 mg total) by mouth as needed. As needed [id number] 200 actuat albuterol 0.09 mg/actuat metered dose inhaler (1 source)beta2-Adrenergic AgonistStart: 52-37-7214bsvn 2 puff(s) by inhalation every four to six hours as neededAlbuterol Sulfate HFA 108 (90 Base) MCG/ACT 2 puffs as needed Inhalation every 4-6 hours for 14 days Dec, Active amLODIPine 5 mg oral tablet (4 sources)Dihydropyridine Calcium Channel BlockerStart: 57-73-6853jyuj 1 tablet by mouth in the morningamLODIPine (NORVASC) 5 mg tablet Indications: Essential hypertension Take 1 tablet (5 mg total) by mouth in the morning. REFILL. 90 tablet 1 12/16/2024 ActiveStart: 11-03-2024 End: 76-73-3654dsen 1 tablet by mouth in the morningamLODIPine (NORVASC) 5 mg tablet Take 1 tablet (5 mg total) by mouth in the morning for 10 days. 10tablet 11/03/2024 11/13/2024 Activebenzonatate 100 mg oral capsule (2 sources)Non-narcotic AntitussiveStart: 76-31-9160uqbt 1 capsule by mouth every eight hoursTessalon Perles 100 MG 1 capsule as needed Orally Three times a day for 7 days Dec, ActiveStart: 41-14-7762uhsr 1 capsule by mouth three times daily as neededTessalon Perles 100 MG 1 capsule as needed Orally Three times a day for 7 days Aug, ActiveBudesonide / formoterol (20 sources)Corticosteroid, beta2-Adrenergic AgonistStart: 74-31-2821tdbs 2 puff(s) by inhalation in the morningbudesonide-formoteroL (SYMBICORT) 160-4.5 mcg/actuation inhaler Indications: Mild intermittent asthma without complication Inhale 2 puffs in the morning and 2 puffs before bedtime. 10.2 g 5 01/01/2025 ActiveStart: 04-14-2024 End: 10-99-7080taeb 2 puff(s) by inhalation in the morningbudesonide-formoteroL (SYMBICORT) 160-4.5 mcg/actuation inhaler Indications: Mild intermittent asthma without complication Inhale 2 puffs in the morning and 2 puffs before bedtime. 10.2 g 5 04/14/2024 01/01/2025 Discontinued (Reorder)Start: 02-72-6450jmvt 2 puff(s) by inhalation in the morningbudesonide-formoteroL (SYMBICORT) 160-4.5 mcg/actuation inhaler Indications: Mild intermittent asthma without complication Inhale 2 puffs in the morning and 2 puffs before bedtime. 10.2 g 5 04/14/2024 ActiveStart: 05-23-2022 End: 28-83-0708hgdi 2 puff(s) by inhalation in the morningbudesonide-formoteroL (SYMBICORT) 160-4.5 mcg/actuation inhaler Indications: Mild intermittent asthma without complication Inhale 2 puffs in the morning and 2 puffs before bedtime. 10.2 g 5 05/23/2022 04/14/2024 Discontinued (Reorder)Start: 29-24-9104qudz 2 puff(s) by inhalation in the morningbudesonide-formoteroL [...] oral tablet (20 sources)Angiotensin 2 Receptor BlockerStart: 86-14-1770wowhvotp (COZAAR) 25 mg tablet Indications: 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 2 diabetes me llitus ([facility]) Take 1 tablet (25 mg total) by mouth in the morning. 90 tablet 1 12/16/2024 ActiveStart: 11-13-2022 End: 67-82-9316dbsmlvsh (COZAAR) 25 mg tablet Indications: 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 ([facility]) Take 1 tablet (25 mg total) by mouth in the morning. 90 tablet 1 04/14/2024 12/16/2024 Discontinued methylPREDNISolone (6 sources)CorticosteroidStart: 13-66-5097shpuzhFAKYFNCmlcpt (Medrol Dospak) 4 MG tablets Indications: Plantar fasciitis Take as directed on package. 21 tablet 12/18/2023 ActiveStart: 01-04-2023 End: 99-21-4448teubkmTRBJNQPlqjzq (MEDROL, RICHA,) 4 mg tablet follow package directions 21 tablet 0 01/04/2023 04/12/2023 Discontinued (Therapy completed) Start: 67-13-7185fzmtkqOCQNGBRsstcv (MEDROL, RICHA,) 4 mg tablet follow package directions 21 tablet 0 01/04/2023 Activenitrofurantoin, macrocrystals 25 mg / nitrofurantoin, monohydrate 75 mg oral capsule (1 source)Nitrofuran AntibacterialStart: 10-15-2023 End: 91-73-5143heda 1 capsule by mouth in the morning, [...] mg oral tablet (20 sources)HMG-CoA Reductase InhibitorStart: 07-38-4342ning 1 tablet by mouth once daily in the morningrosuvastatin (CRESTOR) 20 mg tablet Indications: Type 2 diabetes mellitus with hyperglycemia, without long-term current use of insulin ([facility]) Take 1 tablet (20 mg total) by mouth every morning. 90tablet 1 12/16/2024 ActiveStart: 12-11-2022 End: 05-76-6065rywj 1 tablet by mouth once daily in the morningrosuvastatin (CRESTOR) 20 mg tablet Indications: Type 2 diabetes mellitus with hyperglycemia, without long-term current use of insulin ([facility]) Take 1 tablet (20 mg total) by mouth every morning. 90tablet 1 04/14/2024 12/16/2024 Discontinuedtake 1 tablet by mouth every twenty-four hoursCrestor 20 MG 1 tablet Orally Once a day Activesemaglutide (OZEMPIC) 0.25 mg or 0.5 mg (2 mg/3 mL) pen injector (14 sources)Start: 74-21-3688wwwila 0.5 mg by subcutaneous injection every week semaglutide (OZEMPIC) 0.25 mg or 0.5 mg (2 mg/3 mL) pen injector Indications: DM type 2 with diabetic mixed hyperlipidemia (CMS-HCC) Inject 0.5 mg under the skin once a week. 3 mL 6 01/01/2025 ActiveStart: 07-03-2024 End: 67-56-5661hegezw 0.5 mg by subcutaneous injection every weeksemaglutide (OZEMPIC) 0.25 mg or 0.5 mg (2 mg/3 mL) pen injector Indications: DM type 2 with diabetic mixed hyperlipidemia (CMS-HCC) Inject 0.5 mg under the skin once a week. 3 mL 6 07/03/2024 01/01/2025 Discontinued (Reorder)Start: 00-01-4893zfycba 0.5 mg by subcutaneous injection every weeksemaglutide (OZEMPIC) 0.25 mg or 0.5 mg (2 mg/3 mL) pen injector Indications: DM type 2 with diabetic mixed hyperlipidemia (CMS-HCC) Inject 0.5 mg under the skin once a week. 3 mL 6 07/03/2024 ActiveStart: 06-09-2024 End: 61-49-3694lwibqi 0.5 mg by subcutaneous injection every weeksemaglutide (OZEMPIC) 0.25 mg or 0.5 mg (2 mg/3 mL) pen injector Indications: DM type 2 with diabetic mixed hyperlipidemia (CMS-HCC) Inject 0.5 mg under the skin once a week. 3 mL 06/09/2024 07/03/2024 Discontinued (Reorder)Start: 86-90-7250zkfcgd 0.5 mg by subcutaneous injection every weeksemaglutide (OZEMPIC) 0.25 mg or 0.5 mg (2 mg/3 mL) pen injector Indications: DM type 2 with diabetic mixed hyperlipidemia (CMS-HCC) Inject 0.5 mg under the skin once a week. 3 mL 06/09/2024 ActiveStart: 04-14-2024 End: 58-77-2865atmzcbeqloi (OZEMPIC) 0.25 mg or 0.5 mg (2 mg/3 mL) pen injector Indications: Type 2 diabetes mellitus with hyperglycemia, without long-term current use of insulin ([facility] Inject 0.5 mg under the skin every 7 days. 3 mL 1 04/14/2024 06/09/2024 Discontinued (Duplicate Listing)Start: 04-14-2024 semaglutide (OZEMPIC) 0.25 mg or 0.5 mg (2 mg/3 mL) pen injector Indications: Type 2 diabetes mellitus with hyperglycemia, without long-term current use of insulin ([facility]) Inject 0.5 mg under the skin every 7 days. 3 mL 1 04/14/2024 Activesertraline 100 mg oral tablet (20 sources)Serotonin Reuptake InhibitorStart: 60-77-5455yhor 1 tablet by mouth in the morningsertraline (ZOLOFT) 100 mg tablet Indications: Depressive disorder Take 1 tablet (100 mg total) by mouth in the morning. 90 tablet 1 12/16/2024 ActiveStart: 11-13-2022 End: 01-65-0811ivii 1 tablet by mouth in the morningsertraline [...] (20 sources)Sodium-Glucose Cotransporter 2 InhibitorStart: 11-13-2022 End: 03-82-1748waljdqdsslmmv (JARDIANCE) 25 mg tablet tablet Indications: 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 ([facility]) Take 1 tablet (25 mg total) by mouth in the morning. 90 tablet 1 04/14/2024 07/03/2024 Discontinued (Therapy completed)Jardiance Active Problems Active Problems Problem ClassificationProblemDateDocumented DateEpisodic/ChronicAnxiety disorders (20 sources)Anxiety; Translations: [Anxiety disorder, unspecified]Onset: 051039-78-5648GeqibhcZbhgqw (20 sources)Asthma; Translations: [Unspecified asthma, uncomplicated]Onset: 522756-21-1340HmcqwweBiluqvb kidney disease (2 sources)Chronic kidney disease, stage 2 (mild); Translations: [Chronic kidney disease, stage 2 (mild)]Onset: 95-07-0005DrwnwuaWihztprcrg associated with dizziness or vertigo (2 sources)Dizziness and giddiness; Translations: [Dizziness]Onset: 11-03-2024 EpisodicConditions associated with dizziness or vertigo (1 source)Conditions associated with dizziness or vertigoOnset: 11-03-2024 Diabetes mellitus with complications (20 sources)Type 2 diabetes mellitus with diabetic chronic kidney disease; Translations: [Chronic kidney disease stage 2 due to type 2 diabetes mellitus] Onset: 107171-00-3166OjmsatcAmmzwgse mellitus without complication (1 source)Diabetes mellitusOnset: 13-43-0190MatcyufWcocpdnfi of lipid metabolism (20 sources)Mixed hyperlipidemia; Translations: [Hyperlipidemia]Onset: 238985-38-6990DicvvyiQyguosptjsxfty and diverticulitis (20 sources)Diverticulosis of large intestine; Translations: [Diverticulosis of large intestine without perforation or abscess without bleeding]Onset: 859690-83-1235ZlmujxkZcghidgov hypertension (20 sources)Essential hypertension; Translations: [Essential (primary) hypertension]Onset: 002406-95-8904KscxtibJpcoefid; including migraine (20 sources)Migraine; Translations: [Migraine, unspecified, not intractable, without status migrainosus]Onset: 293380-88-1305DgrnttbCfbhbteb; including migraine (1 source)HeadacheOnset: 98-63-0660KgwagdnlFssilybnjzcs with complications and secondary hypertension (20 sources)Chronic kidney disease stage 2 due to hypertension; Translations: [Hypertensive chronic kidney disease with stage 1 through stage 4 chronic kidney disease, or unspecified chronic kidney disease]Onset: ChronicOsteoarthritis (20 sources)Osteoarthritis of right knee joint; Translations: [Unilateral primary osteoarthritis, right knee]Onset: 619707-86-8990RwjfbmpCysux acquired deformities (2 sources)Equinus contracture of the ankle; Translations: [Contracture, right ankle]22-02-0299OhsrvnmBtnat connective tissue disease (2 sources)Plantar fasciitis; Translations: [Plantar fascial fibromatosis] 87-65-7097YrppcwblIbgch connective tissue disease (2 sources)Nontraumatic rupture of muscle; Translations: [Other rupture of muscle (nontraumatic), unspecified site]34-42-0782JalbdferKshtm connective tissue disease (2 sources)Pain in right foot; Translations: [Pain in right foot]12-18-2023 EpisodicOther eye disorders (2 sources)Conjunctival hemorrhage, left eye; Translations: [Conjunctival hemorrhage, left eye]Onset: 32-10-1494ZlihfkbyAmzlz eye disorders (1 source)Conjunctival hemorrhage of left eye; Translations: [Conjunctival hemorrhage, left eye]99-67-4042IrentqurXfizd non-traumatic joint disorders (1 source)Hip painOnset: 71-50-9817CvidwmrzLuacf non-traumatic joint disorders (1 source)Knee painOnset: 90-50-2244MbfvagnrFuppi nutritional; endocrine; and metabolic disorders (19 sources)Obesity; Translations: [Obesity, unspecified]Onset: 11-14-2021 16-29-2644RjdqfyuSoayd nutritional; endocrine; and metabolic disorders (1 source)Body mass index 30+ - obesity; Translations: [Body mass index (BMI) 36.0-36.9, adult]17-19-2150KvgeewuEbfuh nutritional; endocrine; and metabolic disorders (13 sources)Severe obesity; Translations: [Class 3 severe obesity due to excess calories with serious comorbidity and body mass index (BMI) of 40.0 to 44.9 in adult ([facility])]Onset: 163367-12-0393RqjfjlkHbdmn nutritional; endocrine; and metabolic disorders (1 source)Obesity caused by energy imbalance; Translations: [Class 2 obesity due to excess calories without serious comorbidity with body mass index (BMI) of 37.0 to 37.9 in adult]21-78-8197UfblecyKlkag nutritional; endocrine; and metabolic disorders (1 source)Other obesity due to excess calories; Translations: [Other obesity due to excess calories]Onset: 91-70-6342YxcirpxBmyyx nutritional; endocrine; and metabolic disorders (1 source)Body mass index (BMI) 37.0-37.9, adult; Translations: [Body mass index (BMI) 37.0-37.9, adult]Onset: 94-62-4501KhfmobeCwndg nutritional; endocrine; and metabolic disorders (1 source)Morbid (severe) obesity due to excess calories; Translations: [Morbid (severe) obesity due to excess calories]Onset: 60-16-4226HggdlpsBkwed nutritional; endocrine; and metabolic disorders (1 source)Body mass index (BMI) 40.0-44.9, adult; Translations: [Body mass index (BMI) 40.0-44.9, adult]Onset: 24-38-6763HgpjqgaXtauu screening for suspected conditions (not mental disorders or infectious disease) (8 sources)Encounter for screening mammogram for malignant neoplasm of breast; Translations: [Patient encounter status]Onset: 19-37-8155QlbngbxhFinnm upper respiratory disease (2 sources)Seasonal allergic rhinitis; Translations: [Seasonal allergic rhinitis]ChronicResidual codes; unclassified (20 sources)Obstructive sleep apnea syndrome; Translations: [Obstructive sleep apnea (adult) (pediatric)]Onset: 930016-74-5143XibsippSrfwiqbm codes; unclassified (1 source)Family history of malignant neoplasm of other genital organs; Translations: [FAM HX MALIG NEOPLSM OTH GENIT ORGN]Onset: 95-76-3222Hulmvomj Residual codes; unclassified (1 source)Family history of other malignant neoplasms of lymphoid, hematopoietic and related tissues; Translations: [FAM HX OTH MAL ALEXIA LYMPH HEMATPOETC]Onset: 26-69-3779TasiqsueJkgrubqt codes; unclassified (1 source)Family history of malignant neoplasm of other organs or systems; Translations: [FAM HX MALIG NEOPLASM OTH ORGN/SYS]Onset: 22-99-8158Nvcyrhci Spondylosis; intervertebral disc disorders; other back problems (3 sources)Lumbosacral spondylosis without myelopathy; Translations: [Spondylosis without myelopathy or radiculopathy, lumbosacral region]06-21-2023 ChronicUnclassified (1 source)Eye PainOnset: 08-34-6618Ahkgammjdbwh (1 source)Obesity, class 2; Translations: [Obesity, class 2]Onset: 12-16-2024 Unclassified (1 source)Obesity, class 3; Translations: [Obesity, class 3]Onset: 04-14-2024 Unclassified (1 source)medicationsOnset: 98-76-0631Rnajmyw tract infections (2 sources)Acute cystitis without hematuria; Translations: [Acute cystitis] Onset: 103827-45-0586KnuidpjoWwpfu infection (2 sources)Viral disease; Translations: [Viral illness]Episodic Past or Other Problems Problem ClassificationProblemDateDocumented DateEpisodic/ChronicJoint disorders and dislocations; trauma-related (20 sources)Tear of meniscus of knee; Translations: [Unspecified tear of unspecified meniscus, current injury, unspecified knee, initial encounter]Onset: 342093-36-7817OlnaeakzBrtk disorders (20 sources)Depressive disorder; Translations: [Depressive disorder]Onset: 11-14-2021 Resolved: 430482-03-1368LsfoivoGhtb disorders (20 sources)Mood disorders; Translations: [Depression, unspecified]Onset: 12-11-2022 Resolved: Other and unspecified benign neoplasm (20 sources)Polyp of ascending colon; Translations: [Polyp of colon]Onset: 573645-77-4014DcuhnxjbYbaxz and unspecified benign neoplasm (20 sources)Polyp of transverse colon; Translations: [Polyp of colon]Onset: 898009-34-6033UambzmnoYxpht bone disease and musculoskeletal deformities (20 sources)Osteopenia; Translations: [Other specified disorders of bone density and structure, unspecified site]Onset: 140026-54-7831LygdyiowIpoth skin disorders (1 source)Changing color of pigmented skin lesion; Translations: [Disorder of pigmentation, unspecified]43-56-8455QxgtjeynXtqad upper respiratory infections (1 source)Acute upper respiratory infection, unspecifiedOnset: 09-24-2021 Resolved: 90-37-6502YmdkcwbuZswvjuzvorc; intervertebral disc disorders; other back problems (2 sources)Disorder of sacrum; Translations: [Sacrococcygeal disorders, not elsewhere classified]Onset: 697549-92-4503UnikhoghAaegiydadqtc (2 sources)Cough R05.9Onset: 09-24-2021 Resolved: 32-37-6538Impxlwvmbnca (20 sources)Onset: 12-11-2022 Resolved: Viral infection (1 source)COVID-19 Results Test NameValueInterpretationReference RangeFacilityPOCT Hemoglobin A1con 14-01-7658DyS9s (Bld) [Mass fraction]6.0 %4 - 7 %[facility] PittsburghAPTTon 23-27-5212lRXF Coag (Bld) [Time]27 gUjatab52-49 [facility] - WestComment on above:Performed By: #### PTT #### [facility] ([address] [place] [address] VIRBASIC METABOLIC PANELon 31-26-9237Ynlud gap [Moles/Vol]7 mmol/LNormal5-15[facility] - WestComment on above:Performed By: #### BMP #### [facility] ([address] [place] [address] VIRCalcium [Mass/Vol]9.0 mg/dLNormal8.5-10.5PCleveland Clinic FoundationComment on above:Performed By: #### BMP #### [facility] ([address] [place] [address] VIRChloride [Moles/Vol]104 mmol/ELwsihm45-845LmdDzzhqdJoint Venture Between Adventhealth And [facility] Health ResourcesComment on above:Performed By: #### BMP #### [facility] ([address] [address] VIRCO2 [Moles/Vol]29 mmol/EGhrjcp76-15TtcYwfkcdCleveland Clinic FoundationComment on above:Performed By: #### BMP #### [facility] ([address] [address] VIRCreatinine [Mass/Vol]0.80 mg/dLNormal0.40-1.00[facility] - WestComment on above:Result Comment: METHOD TRACEABLE TO IDMS STANDARDPerformed By: #### BMP #### [facility] ([address] [address] VIRGFR/1.73 sq M.predicted among non-blacks MDRD (S/P/Bld) [Vol rate/Area]79 mL/min/{1.73_m2}Normal>=60[facility] - WestComhawthorn center on above:Result Comment: eGFR not reported due to non-numeric value for Creatinine. Reported eGFR is based on the CKD-EPI 2020 equation that does not use a race coefficient.Performed By: #### BMP #### [facility] ([address] [address] VIRGlucose [Mass/Vol]107 mg/oKOvuq46-91DsdAcoayoJoint Venture Between Adventhealth And [facility] Health ResourcesComment on above:Performed By: #### BMP #### [address] [address] VIRPotassium [Moles/Vol]4.0 mmol/LNormal3.5-5.0ProJoint Venture Between Adventhealth And [facility] Health ResourcesComment on above:Performed By: #### BMP #### [address] [address] VIRSodium [Moles/Vol]140 mmol/NXznolm128-712EobUhyzwx [facility]remont HospitalComment on above:Performed By: #### BMP #### [address] [address] VIRUrea nitrogen [Mass/Vol]11 mg/dLNormal5-27ProJoint Venture Between [facility]health And [facility] Health ResourcesComment on above:Performed By: #### BMP #### [facility] ([address] [place] [address] VIRBEDSIDE GLUCOSEon 87-15-8758Qiejwyl [Mass/Vol]112 mg/dLHigh 65-99ProJoint Venture Between [facility]health And [facility] Health ResourcesComment on above:Performed By: #### BEDG #### [facility] ([address] [place] [address] VIRC-REACTIVE PROTEINon 62-81-0355VRV [Mass/Vol]mg/LNormal <=0.7ProJoint Venture Between [facility] And [facility] Health ResourcesComment on above:Performed By: #### CRP ####[address] [address] VIRCBC WITH AUTO DIFFERENTIALon 87-87-5793RPIZWRGGY ABSOLUTE COUNT (10*3/UL) BY AUTOMATED COUNT0.1 10*3/uLNormal0.0-0.2PCleveland Clinic Foundation Comment on above:Performed By: #### CBCA #### [facility] ([address] [address] VIRBASOPHILS RELATIVE PERCENT BY AUTOMATED COUNT1.0 %Normal [facility] - WestComment on above:Performed By: #### CBCA #### [address] [address] VIRCELLAVISION DIFFERENTIAL TYPEAUTOMATED DIFFERENTIALNormal [facility] - WestComment on above:Performed By: #### CBCA #### [facility] ([address] [address] VIREosinophils (Bld) [#/Vol]0.2 10*3/uLNormal0.0-0.4ProJoint Venture Between [facility] And [facility] Health ResourcesComment on above:Performed By: #### CBCA #### [facility] ([address] [address] VIREOSINOPHILS RELATIVE PERCENT BY AUTOMATED COUNT4.1 %Normal [facility] - WestComment on above:Performed By: #### CBCA #### [facility] ([address] [address] VIRErythrocyte distribution width (RBC) [Ratio]16.0 %High 11.5-15ProJoint Venture Between [facility] And [facility] Health ResourcesComment on above:Performed By: #### CBCA #### [facility] ([address] [address] VIRHematocrit (Bld) [Volume fraction]37.1 %Ksxbtn24-06 [facility] - WestComment on above:Performed By: #### CBCA #### [facility] ([address] [address] VIRHemoglobin (Bld) [Mass/Vol]12.0 g/wIAaxmgc75.7-15.5 [facility] - WestComment on above:Performed By: #### CBCA #### [facility] ([address] [address] VIRLYMPHOCYTES ABSOLUTE COUNT (10*3/UL) BY AUTOMATED COUNT1.6 10*3/uLNormal1.0-3.5Pro[facility] Foundation HospitalComment on above:Performed By: #### CBCA #### [facility] ([address] [address] VIRLYMPHOCYTES RELATIVE PERCENT BY AUTOMATED COUNT28.6 %Normal [facility] - WestComment on above:Performed By: #### CBCA #### [facility] ([address] [address] VIRMCH (RBC) [Entitic mass]25.7 pkDum50-85JgkPhidjpLake County Memorial Hospital - WestComment on above:Performed By: #### CBCA #### [facility] ([address] [place] [address] VIRMCHC (RBC) [Mass/Vol]32.3 g/yPDofbzx38-43AmiCcpzilJoint Venture Between Adventhealth And [facility] Health ResourcesComment on above:Performed By: #### CBCA #### [facility] ([address] [place] [address] VIRMCV (RBC) [Entitic vol]80 fYZhossl44-461ChyEmxhai [facility]ont HospitalComment on above:Performed By: #### CBCA #### [facility] ([address] [place] [address] VIRMONOCYTES ABSOLUTE COUNT (10*3/UL) BY AUTOMATED COUNT0.4 10*3/uLNormal0.0-0.9[facility] - WestComment on above:Performed By: #### CBCA #### [facility] ([address] [place] [address] VIRMONOCYTES RELATIVE PERCENT BY AUTOMATED COUNT7.8 %Normal [facility] - WestComment on above:Performed By: #### CBCA #### [facility] ([address] [place] [address] VIRNEUTROPHILS ABSOLUTE COUNT BY AUTOMATED COUNT3.2 10*3/uL Normal1.5-6.6[facility] WestComhawthorn center on above:Performed By: #### CBCA #### [facility] ([address] [place] [address] VIRNEUTROPHILS RELATIVE PERCENT BY AUTOMATED COUNT58.5 %Normal [facility] - WestComment on above:Performed By: #### CBCA #### [facility] ([address] [place] [address] VIRPlatelet mean volume (Bld) [Entitic vol]9.0 fLNormal7-12 [facility] - WestComment on above:Performed By: #### CBCA #### [facility] [address] [place] [address] VIRPlatelets (Bld) [#/Vol]251 10*3/dCMvtlyu772-390DvlZwrcwu [facility] HospitalComment on above:Performed By: #### CBCA #### [facility] ([facility]) [address] [place] [address] [place] [address] VIRRBC COUNT4.66 X10E12/LNormal3.8-5.2[facility] Kaiser Foundation HospitalComment on above:Performed By: #### CBCA #### [facility] ([address] [place] [address] VIRWBC (Bld) [#/Vol]5.5 10*3/uLNormal4-11ProJoint Venture Between Adventhealth And Texas Health ResourcesComment on above:Performed By: #### CBCA #### [facility] ([address] [place] [address] VIRCT BRAIN WO CONT STROKE ALERTon 16-95-5753SJ BRAIN WO CONT STROKE ALERTCT BRAIN WO [...] by Jonh Liao MD on 11/03/2024 6:53 AMNormalLake County Memorial Hospital - WestCT CTA CAROTIDon 72-81-1939HZ CTA CAROTIDCT CTA CAROTID Examination: CTA carotids [...] Automated exposure control was utilized. The [place] Symptomatic Carotid Endarterectomy Trial (NASCET)calculation of ICA [...] by Francesco Champagne MD on 11/03/2024 7:07 [facility] CT CTA HEADon 44-57-8286UJ CTA HEADCT CTA HEAD History: L decreased vision, headache, hypertension, dizziness, eval stroke Procedure: CT CTA HEAD Multidetector CT angiogram performed with IV contrast through the [place] using 3 -D Maximum intensity [...] aneurysm or major vessel occlusion of the [place] of [place], within limitations of CT. Flow is demonstrated within the vertebral arteries, basilar artery, bilateral posterior cerebral arteries, middle cerebral arteries and anterior cerebral arteries. 3D reformatted images confirm the source data findings. IMPRESSION: * Unremarkable CT angiogram [place]. * If you have high clinical suspicion for occult process such as an infarct consider CT perfusion and brain MRI and MRA. Finalized by Francesco Champagne MD on 11/03/2024 7:11 [facility] ERYTHROCYTE SEDIMENTATION RATE (ESR)on 40-11-1094WRQ, ERYTHROCYTE SEDIMENTATION RATE42 mm/hHigh0-30[facility] - WestComment on above:Performed By: #### ESR ####[facility] ([facility])[address] [address] VIRLIVER PANELon 00-04-3500Ieewfwc [Mass/Vol]3.9 g/dLNormal3.2-5.3 [facility] - WestComment on above:Performed By: #### LIVR ####[facility] ([place] [address], [id number] VIRALP [Catalytic activity/Vol]85 U/ECsvkrn11-162ZyuKoczegJoint Venture Between Adventhealth And Texas Health ResourcesComment on above:Performed By: #### LIVR ####[facility] ([place] [address], [id number] VIRALT [Catalytic activity/Vol]25 U/LNormal<=31 ProMLodi Memorial HospitalComment on above:Performed By: #### LIVR ####[facility] ([place] [address] [id number] VIRAST [Catalytic activity/Vol]24 U/LNormal<=41ProJoint Vent[facility] Between [facility]health And [facility] Health ResourcesComment on above:Performed By: #### LIVR ####[facility] ([place] [id number] VIRBilirubin [Mass/Vol]0.5 mg/dLNormal0.3-1.2 [facility] - WestComment on above:Performed By: #### LIVR ####[facility] ([place] [address], [id number] VIR Bilirubin.indirect [Mass/Vol]0.1 mg/dLNormal<=0.4[facility] on above:Performed By: #### LIVR ####[facility] ([place] [address], [id number] VIRProtein [Mass/Vol]7.4 g/dLNormal 6.0-8.0[facility] - WestComment on above:Performed By: #### LIVR ####[facility] ([place] [address], [id number] VIRMAGNESIUMon 93-92-2855Dimyzoffv [Mass/Vol]2.2 mg/dLNormal1.8-2.6ProJoint [facility] Between [facility]health And Texas Health ResourcesComment on above:Performed By: #### MG #### [facility] ([address] [place] [address] VIRPROTIME AND INRon 79-59-7778FKA4.4Evnmpg1.9-1.2PCleveland Clinic FoundationComment on above:Performed By: #### PINR #### [facility] ([address] [place] [address] VIRPT Coag (PPP) [Time]10.8 sNormal9.8-13.2PCleveland Clinic FoundationComment on above:Performed By: #### PINR #### [facility] ([address] [place] [address] VIRTROP I, HIGH SENSITIVITY 1 HOURon 83-86-2705OLVPKLUH I, HIGH SENSITIVITY5 ng/LNormal<16ProJoint [facility] And [facility] Health ResourcesComment on above: Performed By: #### TNIHS1 ####[facility] ([address] [place] [address] VIRTROPONIN I, HIGH SENSITIVITY 0 HOURon 11-03-2024 TROPONIN I, HIGH SENSITIVITY5 ng/LNormal<16ProJoint [facility] Health ResourcesComment on above:Performed By: #### TNIHS0 ####[facility] ([address] [place] [address] VIRBEDSIDE GLUCOSEon 51-89-0085Bhkofhd [Mass/Vol]115 mg/sBJeyu96-88SriVfeyszLake County Memorial Hospital - WestComment on above:Performed By: #### BEDG #### [facility] ([address] [address] VIRPOCT Hemoglobin A1con 39-45-2303YjW4y (Bld) [Mass fraction] 6.9 %4 - 7 %[facility] SystemGlucose Glucometer (BldC) [Mass/Vol]on 25-34-2817Bptfccc [Mass/Vol]88 mg/lKAduprm82-23CmsAqqgntJoint Venture Between Adventhealth And Texas Health ResourcesXR Foot - left 3 Viewson 41-71-3640Tinpmcb Result: AP, medial oblique, lateral views are weight-bearing. Small enthesophyte at the insertion of the plantar fascia. Mild joint space narrowing and periarticular osteophytes as well as subchondral sclerosis of the midfoot especially the 2nd and 3rd tarsometatarsal joints. Slight metatarsus adductus.Critical access hospitalRadiology Study observation (narrative) SouthPointe HospitalCB AND AUTO DIFFon 81-90-4259AXOBEAIU BASOPHIL0.0 X10E9/LNormal 0.0-0.2ProMedica Gibbon HospitalComment on above:Performed By: #### JULIAN RUCKER, 07254-8, 3016-3 #### [facility] ([id number]) [address], [address] [place], [place] [address]DSGAXHQH NEUTROPHIL2.5 X10E9/LNormal1.5-6.6ProChildren'S Hospital For Rehabilitation HospitalComment on above:Performed By: #### JULIAN RUCKER, 79200-4, 3016-3 #### [facility] ([id number]) [address], [address] [place], [place] [address]Csylnbsko/100 WBC (Bld)0.7 %[facility] Comment on above:Performed By: #### JULIAN RUCKER, 70512-7, 3016-3 #### [facility] ([id number]) [address], [address] [place], [place] [address]Mhbldnbeobw (Bld) [#/Vol]0.1 10*3/uLNormal0.0-0.4ProCincinnati Children'S Hospital Medical CenterComment on above:Performed By: #### CBCKaren CMP, 19542-3, 3016-3 #### [facility] ([id number]) [address], [address] [place], [place] [address]Izmzuygumip/100 WBC (Bld)1.9 %[facility] Comment on above:Performed By: #### CBCA, CMP, 84856-7, 6-3 #### [facility] ([id number]) [address], [address] [place], [place] [address]Ymniynssino distribution width (RBC) [Ratio]17.3 %High11.5-15.0 ProMedica Gibbon HospitalComment on above:Performed By: #### CBCA, CMP, 34668-1, 3015-3 #### [facility] ([id number]) [address], [address] [place], [place] [address]Qyceqrxvcr (Bld) [Volume fraction]38.3 %Mpeftp75-63UxrDrjnzt [facility]bon HospitalComment on above:Performed By: #### CBCA, CMP, 15054-5, 3015- #### [facility] ([id number]) [address], [address] [place], [place] [address]Iujvhvbhil (Bld) [Mass/Vol]12.3 g/oOKxggqm43.7-15.5ProMedProMedica Memorial Hospital HospitalComment on above:Performed By: #### CBCA, CMP, 81377-2, 3015-3 #### [facility] ([id number]) [address], [address] [place], [place] [address]Bqhsimdguhx (Bld) [#/Vol]1.0 10*3/uLNormal1.0-3.5ProMedProMedica Memorial Hospital HospitalComment on above:Performed By: #### CBCA, CMP, 08611-3, 3015-3 #### [facility] ([id number]) [address], [address] [place], [place] [address]Ijstltvlfvb/100 WBC (Bld)26.3 %NormalProChildren'S Hospital For Rehabilitation Hospital Comment on above:Performed By: #### CBCA, CMP, 82192-1, 6-3 #### [facility] ([id number]) [address], [address] [place], [place] [address]RAD (RBC) [Entitic mass]25.8 ycPgw73-95BfiOrqnxsAshtabula General Hospital Comment on above:Performed By: #### CBCA, CMP, 95730-4, 3015-3 #### [facility] ([id number]) [address], [address] [place], [place] [address]ZGGT (RBC) [Mass/Vol]32.0 g/vGZsnqlw27-25HnaWblyyp [place] HospitalComment on above:Performed By: #### CBCA, CMP, 91096-2, 3015-3 #### [facility] ([id number]) [address], [address] [place], [place] [address]XFW (RBC) [Entitic vol]81 sVIgaozt22-154EqbPqpbmk [place] HospitalComment on above:Performed By: #### CBCA, CMP, 73742-2, 3015-3 #### [facility] ([id number]) [address], [address] [place], [place] [address]Acapwfmtd (Bld) [#/Vol]0.3 10*3/uLNormal0-0.9[facility] HospitalComment on above:Performed By: #### CBCA, CMP, 76027-3, 3 #### [facility] ([id number]) [address], [address] [place], [place] [address]Xhxehddjc/100 WBC (Bld)7.0 %NormalAshtabula General Hospital Comment on above:Performed By: #### CBCA, CMP, 71250-2, 3015-3 #### [facility] ([id number]) [address], [address] [place], [place] [address]Vsrnbmkhwsh/100 WBC (Bld)64.1 %[facility] Comment on above:Performed By: #### CBCA, CMP, 34265-0, 3015-3 #### [facility] ([id number]) [address], [address] [place] [address]Bkedfcja mean volume (Bld) [Entitic vol]9.7 fLNormal7-12 ProMtaylor hardin secure medical facilitya Gibbon HospitalComment on above:Performed By: #### JULIAN RUCKER, 15615-0, 3015-3 #### [facility] ([id number]) [address], [address] [place] [address]Pokpmucpx (Bld) [#/Vol]196 10*3/dRKlfxwv117-615CzhYnzhbh [facility] HospitalComment on above:Performed By: #### JULIAN RUCKER, 23829-6, 3015-3 #### [facility] ([id number]) [address], [address] [place], [place] [address]EKK COUNT4.76 X10E12/LNormal3.80-5.20ProChildren'S Hospital For Rehabilitation Hospital Comment on above:Performed By: #### JULIAN RUCKER, 49117-4, 3015- #### [facility] ([id number]) [address], [address] [place], [place] [address]JUC (Bld) [#/Vol]4.0 10*3/uLNormal4.0-11.0ProChildren'S Hospital For Rehabilitation HospitalComment on above:Performed By: #### JULIAN RUCKER, 12219-5, 3015-3 #### [facility] ([id number]) [address], [address] [place], [place] [address]CRSUYQXHDEHHG METABOLIC PANELon 94-00-4674Aueymhg [Mass/Vol]4.1 g/dLNormal3.2-5.3ProMedica Gibbon HospitalComment on above:Performed By: #### JULIAN RUCKER, 97167-3, 3015-3 #### [facility] ([id number]) [address], [address] [place], [place] [address]DNP [Catalytic activity/Vol]71 U/KXsgwpz16-501YoiYdekvt [facility] HospitalComment on above:Performed By: #### JULIAN RUCKER, 46983-9, 3015-3 #### [facility] ([id number]) [address], [address] [place], [place] [address]HIV [Catalytic activity/Vol]20 U/LNormal0-31ProMedProMedica Memorial Hospital HospitalComment on above:Performed By: #### JULIAN RUCKER, 15307-7, 3015-3 #### [facility] ([id number]) [address], [address] [place], [place] [address]Avcue gap [Moles/Vol]8 mmol/LNormal5-15ProChildren'S Hospital For Rehabilitation Hospital Comment on above:Performed By: #### JULIAN RUCKER, 58780-6, 3015-3 #### [facility] ([id number]) [address], [address] [place], [place] [address]IMM [Catalytic activity/Vol]21 U/LNormal0-41ProChildren'S Hospital For Rehabilitation HospitalComment on above:Performed By: #### JULIAN RUCKER, 09891-6, 3015-3 #### [facility] ([id number]) [address], [address] [place], [place] [address]Vivmbmnvz [Mass/Vol]0.3 mg/dLNormal0.3-1.2POhioHealth Grove City Methodist Hospital HospitalComment on above:Performed By: #### JULIAN RUCKER, 80027-5, 3015-3 #### [facility] ([id number]) [address], [address] [place], [place] [address]Jguzfcg [Mass/Vol]9.1 mg/dLNormal8.5-10.5ProMedProMedica Memorial Hospital HospitalComment on above:Performed By: #### JULIAN RUCKER, 94690-6, 6-3 #### [facility] ([id number]) [address], [address] [place], [place] [address]Rpdhjxmz [Moles/Vol]104 mmol/RSecvwx97-042EypUocvln [place] HospitalComment on above:Performed By: #### JULIAN RUCKER, 63642-9, 3015-3 #### [facility] ([id number]) [address], [address] [place], [place] [address] [Moles/Vol]30 mmol/UKgstrn70-37VitGltlylFairfield Medical Center Comment on above:Performed By: #### JULIAN RUCKER, 61048-2, 3015-3 #### [facility] ([id number]) [address], [address] [place], [place] [address]Zhizyuhxxd [Mass/Vol]0.76 mg/dLNormal0.40-1.00ProCincinnati Children'S Hospital Medical CenterComment on above:Result Comment: METHOD TRACEABLE TO IDMS STANDARD Performed By: #### JULIAN RUCKER, 63374-1, 3015-3 #### [facility] ([id number]) [address], [address] [place], [place] [address]QNJ/1.73 sq M.predicted among non-blacks MDRD (S/P/Bld) [Vol rate/Area]84 mL/min/{1.73_m2}Normal>59ProCincinnati Children'S Hospital Medical CenterComment on above: Result Comment: Reported eGFR is based on the CKD-EPI 2020 equation that does not use a race coefficient.Performed By: #### JULIAN RUCKER, 44828-4, 3015-3 #### [facility] ([id number]) [address], [address] [place], [place] [address]Llgcoau [Mass/Vol]94 mg/oBVcaivh17-25GkzBtlynxAshtabula General Hospital Comment on above:Performed By: #### JULIAN RUCKER, 60495-3, 3015-3 #### [facility] ([id number]) [address], [address] [place], [place] [address]Zuxcsvtaz [Moles/Vol]3.8 mmol/LNormal3.5-5.0ProCincinnati Children'S Hospital Medical CenterComment on above:Performed By: #### JULIAN RUCKER, 13620-4, 3016-3 #### [facility] ([id number]) [address] [place], [place] [address]Zvztfvu [Mass/Vol]6.8 g/dLNormal6.0-8.0[facility] Comment on above:Performed By: #### JULIAN RUCKER, 71608-8, 6-3 #### [facility] ([id number]) [address], [address] [place], [place] [address]Mzrcur [Moles/Vol]142 mmol/DKnatys769-526DvjNszaez [place] HospitalComment on above:Performed By: #### JULIAN RUCKER, 25819-2, 3016-3 #### [facility] ([id number]) [address], [address] [place], [place] [address]Edem nitrogen [Mass/Vol]12 mg/dLNormal5-27ProCincinnati Children'S Hospital Medical CenterComment on above:Performed By: #### JULIAN RUCKER, 21534-4, 6-3 #### [facility] ([id number]) [address], [address] [place], [place] [address]Czgkz 1996 panelon 32-74-2555Gqszilcfmez [Mass/Vol]223 mg/dLHigh 150-200ProCincinnati Children'S Hospital Medical CenterComment on above:Performed By: #### JULIAN RUCKER, 67460-0, 3016-3 #### [facility] ([id number]) [address], [address] [place], [place] [address]Iikryobpuox in HDL [Mass/Vol]99 mg/dLNormal>39ProCincinnati Children'S Hospital Medical CenterComment on above:Result Comment: HDL <40 mg/dL - High Risk HDL > or = 40mg/dL- Desirable HDL >60 mg/dL - Negative Risk Performed By: ###Chandler RUCKER CMP, 11389-6, 6-3 #### [facility] ([id number]) [address], [address] [place], [place] [address]Abipcewevph in LDL [Mass/Vol]103 mg/dLNormal<130ProMedica Gibbon HospitalComment on above:Result Comment: LDL <100 mg/dL - Desirable LDL >160 mg/dL - High Risk Performed By: #### JULIAN RUCKER, 87055-1, 6-3 #### [facility] ([id number]) [address], [address] [place], [place] [address]Hppnkvkibrr in VLDL [Mass/Vol]21 mg/dLNormal0-30ProFirelands Regional Medical Center South Campusca Gibbon HospitalComment on above:Performed By: #### JULIAN RUCKER, 98432-3, 6-3 #### [facility] ([id number]) [address], [address] [place], [place] [address]QGNFRCLAELJ:HDL2.0Yhibkh6.0-5.0ProFirelands Regional Medical Center South Campusca Gibbon HospitalComment on above:Performed By: ###Chandler RUCKER CMP, 17601-8, 6-3 #### [facility] ([id number]) [address], [address] [place], [place] [address]Ddohlzabljqw [Mass/Vol]103 mg/vUMvadlw98-932JisXlubew [facility] HospitalComment on above:Performed By: #### JULIAN RUCKER, 28607-1, 3016-3 #### [facility] ([id number]) [address], [address] [place], [place] [address]AUCONQUPGDIH - ALBUMIN:CREATININE URINE RATIOon 12-10-2023 ALB/CREAT RATIO16.8 mg/g creatNormal0.0-30.0[facility] HospitalComment on above:Performed By: #### MALBU #### [facility] ([id number]) [address], [address] [place] [address]Sgofyee DL <= 20 mg/L (U) [Mass/Vol]2.1 mg/dLHigh0.0-1.9 [facility] HospitalComment on above:Performed By: #### MALBU #### [facility] ([id number]) [address] [place] [address]O ZRQFI368.87 mg/dLNormalProChildren'S Hospital For Rehabilitation HospitalComment on above:Performed By: #### MALBU #### [facility] ([id number]) [address] [facility], [address] [place] [address]VZPT Hemoglobin C9yBlvyptc By: Corin Felder on 29-27-8748UcF5z (Bld) [Mass fraction]6.4 %4 - 7 %[facility] TSH Qnon 50-52-3590RQL9.07 uIU/mLNormal0.49-4.67ProCincinnati Children'S Hospital Medical CenterComment on above:Performed By: #### CBCA, [facility], 649[address]-8, 3016-3 #### [facility] ([id number]) [address], [address] [place] [address]Eooqxfu Glucometer (BldC) [Mass/Vol]on 20-79-6035Krkwtkn [Mass/Vol]101 mg/gTSrca35-58UajWayjdvLake County Memorial Hospital - WestPOIA urinalysis dipstick onlyOrdered By: Corin Felder on 23-30-5347Qzwbypptgv (U)clearTriHealth Bethesda Butler Hospital SystemExternal Poct Urine BilirubinNegativeCleveland Clinic Marymount HospitalExternal Poct Urine BloodNegativeTriHealth Bethesda Butler Hospital SystemExternal Poct Urine Coloryellow [facility] HospitalExternal Poct Urine Glucose1+[facility] Comment on above:1000mgExternal Poct Urine KetonesNegativeProAultman Hospital SystemExternal Poct Urine Leukocyte EsteraseTracePAshtabula County Medical Center SystemExternal Poct Urine NitriteNegativeProAultman Hospital SystemExternal Poct Urine Ph5.5 ProMCincinnati Shriners HospitalExternal Poct Urine ProteinNegativeProAultman Hospital SystemExternal Poct Urine Specific Gravity1.015ProAultman Hospital SystemExternal Poct Urine Urobilinogen0.2PBarix Clinics of PennsylvaniaURINE CULTUREon 94-79-6803Tvirxlbc identified Cx Nom (U)CULTURE RESULTS >100,000 ORGANISMS/mL STREPTOCOCCUS AGALACTIAE (GROUP B) <10,000 ORGANISMS/mL NORMAL URO GENITAL FLORANormalProCincinnati Children'S Hospital Medical CenterComment on above: Performed By: #### 630-4 #### [facility] ([id number]) [address], [address] [place], [place] [address]TKJMRECFQGZXI METABOLIC PANELon 80-36-6614Forllnb [Mass/Vol]4.3 g/dLNormal3.2-5.3PFairfield Medical CenterComment on above:Performed By: #### JULIAN, 12411-5, 3016-3, HA1C #### [facility] ([id number]) [address], [address] [place], [place] [address]BTO [Catalytic activity/Vol]74 U/CAwtsgo56-009HjiYrvthj [place] HospitalComment on above:Performed By: #### JULIAN, 11583-9, 3016-3, HA1C #### [facility] ([id number]) [address] [place], [place] [address]QLJ [Catalytic activity/Vol]20 U/LNormal0-31POhioHealth Grove City Methodist Hospital HospitalComment on above:Performed By: #### JULIAN, 95136-8, 3016-3, HA1C #### [facility] ([id number]) [address], [address] [place], [place] [address]Nyial gap [Moles/Vol]11 mmol/LNormal5-15Pro[facility] Jesus HospitalComment on above:Performed By: #### JULIAN, 65649-5, 3015-3, HA1C #### [facility] ([id number]) [address], [address] [place], [place] [address]KSG [Catalytic activity/Vol]21 U/LNormal0-41Pro[facility] HospitalComment on above:Performed By: #### JULIAN, 58265-3, 3015-3, HA1C #### [facility] ([id number]) [address], [address] [place], [place] [address]Ikuvcxcfb [Mass/Vol]0.4 mg/dLNormal0.3-1.2Pro[facility]ica [facility] Jesus HospitalComment on above:Performed By: #### JULIAN, 49783-8, 3015-3, HA1C #### [facility] ([id number]) [address], [address] [place], [place] [address]Jjtglbd [Mass/Vol]9.1 mg/dLNormal8.5-10.5ProMed[facility] HospitalComment on above:Performed By: #### JULIAN, 31665-7, 3015-3, HA1C #### [facility] ([id number]) [address], [address] [place], [place] [address]Nuukolxe [Moles/Vol]104 mmol/NDnoata65-624RncDmanbo De Jesus HospitalComment on above:Performed By: #### JULIAN, 24608-3, 3015-3, HA1C #### [facility] ([id number]) [address], [address] [place], [place] [address]AW5 [Moles/Vol]28 mmol/SPrsazj46-38AvdDdydlf [facility] Comment on above:Performed By: #### JULIAN, 48961-3, 3015-3, HA1C #### [facility] ([id number]) [address], [address] [place], [place] [address]Vmaaidxirp [Mass/Vol]0.79 mg/dLNormal0.40-1.00ProChildren[facility] For Rehabilitation HospitalComment on above:Result Comment: METHOD TRACEABLE TO IDMS STANDARD Performed By: #### JULIAN, 32516-5, 3015-04, NABEEL #### [facility] ([id number]) [address], [address] [place], [place] [address]LVG/1.73 sq M.predicted among non-blacks MDRD (S/P/Bld) [Vol rate/Area]80 mL/min/{1.73_m2}Normal>59ProChildren[facility] Hospital For Rehabilitation HospitalComment on above: Result Comment: Reported eGFR is based on the CKD-EPI 2020 equation that does not use a race coefficient.Performed By: #### JULIAN, 58694-4, 3015-04, NABEEL #### [facility] ([id number]) [address] [place], [place] [address]Kqdoubn [Mass/Vol]96 mg/uAQxtqba68-87SikUqkgvp [facility] Comment on above:Performed By: #### JULIAN, 54185-9, 3015-04, NABEEL #### [facility] ([id number]) [address] [place], [place] [address]Pvohjmdwr [Moles/Vol]4.0 mmol/LNormal3.5-5.0ProCincinnati Children'S Hospital Medical CenterComment on above:Performed By: #### JULIAN, 90514-9, 3015-04, SPENCER1C #### [facility] ([id number]) [address] [place], [place] [address]Huyyspp [Mass/Vol]7.0 g/dLNormal6.0-8.0[facility] Comment on above:Performed By: #### JULIAN, 66604-9, 3, SPENCER1C #### [facility] ([id number]) [address], [address] [place], [place] [address]Oprdct [Moles/Vol]143 mmol/FCrfekk694-804KzcXqwdiu De Jesus HospitalComment on above:Performed By: #### CMP, 99048-5, 3016-3, HA1C #### [facility] ([id number]) [address], [address] [place], [place] [address]Ztps nitrogen [Mass/Vol]15 mg/dLNormal5-27[facility] HospitalComment on above:Performed By: #### JULIAN, 33265-5, 3016-3, HA1C #### [facility] ([id number]) [address], [address] [place], [place] [address]Wmxtohwbrqzpu metabolic panelon 97-31-1859Ilhzbrz [Mass/Vol]4.3 g/dL3.2 - 5.3 g/dLProAultman Hospital SystemALP [Catalytic activity/Vol]74 U/L39 - 130 U/[facility] SystemALT No additional P-5'-P [Catalytic activity/Vol] 20 U/L0 - 31 U/[facility] SystemAnion gap [Moles/Vol]11 mmol/L5 - 15 mmol/[facility] SystemAST [Catalytic activity/Vol]21 U/L0 - 41 U/L ProMRiver's Edge Hospital SystemBilirubin [Mass/Vol]0.4 mg/dL0.3 - 1.2 mg/dLTriHealth Bethesda Butler Hospital SystemCalcium [Mass/Vol]9.1 mg/dL8.5 - 10.5 mg/dLCleveland Clinic Marymount Hospital Chloride [Moles/Vol]104 mmol/L98 - 109 mmol/[facility] SystemCO2 [Moles/Vol]28 mmol/L22 - 32 mmol/[facility] SystemCreatinine [Mass/Vol] 0.79 mg/dL0.40 - 1.00 mg/dLCleveland Clinic Marymount HospitalComment on above:METHOD TRACEABLE TO [facility] STANDARDeGFR (CKD-EPI)non-race kysygbqzw46- [facility] Medical CenterComment on above: Reported eGFR is based on the CKD-EPI 2020 equation that does not use a race coefficient. Glucose [Mass/Vol]96 mg/dL65 - 99 mg/dLTriHealth Bethesda Butler Hospital SystemPotassium [Moles/Vol]4.0 mmol/L3.5 - 5.0 mmol/LProMedica Health SystemProtein [Mass/Vol] 7.0 g/dL6.0 - 8.0 g/dLProHolmes County Joel Pomerene Memorial Hospitalodium [Moles/Vol]143 mmol/L134 - 146 mmol/LPrBarnes-Jewish Saint Peters Hospitalica Health SystemUrea nitrogen [Mass/Vol]15 mg/dL5 - 27 mg/dL [facility] HospitalHGB A1C (GLYCO-HGB)on 12-06-1982Omeaekk [Mass/Vol]137 mg/dLNormalAshtabula General HospitalComment on above:Performed By: #### JULIAN, 51911-0, 3016-3, HA1C #### [facility] ([id number]) [address] [place] [address], [address] [address]MgL3x (Bld) [Mass fraction]6.4 %High4.4-5.6Ashtabula General HospitalComment on above:Result Comment: NOTE ADA Guidelines Result HgbA1c Normal : less than 5.7 % Prediabetes : 5.7 % to 6.4 % Diabetes : > 6.4 % Use with caution in patients with abnormal hemoglobin variants as the half-life of red blood cells and in vivo glycation rates are affected.Performed By: #### JULIAN, 94964-5, 3016-3, HA1C #### [facility] ([id number]) [address] [place] [address], [facility] [address] [place], [place] [address]Lqvmrxdhbg A1con 56-61-5078Maqdqpn glucose Estimated from glycated hemoglobin (Bld) [Mass/Vol]137 mg/dLCleveland Clinic Marymount HospitalHbA1c (Bld) [Mass fraction]6.4 %High4.4 - 5.6 %[facility] HospitalComment on above:NOTE ADA Guidelines Result HgbA1c Normal : less than 5.7 % Prediabetes : 5.7 % to 6.4 % Diabetes : > 6.4 % Use with caution in patients with abnormal hemoglobin variants as the half-life of red blood cells and in vivo glycation rates are affected. Interpretation and review of laboratory resultsAbFormerly named [facility] Oak[facility] Care CenterLipid 1996 panelon 85-51-5610Hlhsdjzuynv [Mass/Vol]206 mg/uYIoti306 - 200 mg/dLCleveland Clinic Marymount HospitalCholesterol in HDL [Mass/Vol]94 mg/dL39 - PINF mg/dLCleveland Clinic Marymount HospitalComment on above: HDL <40 mg/dL - High Risk HDL > or = 40mg/dL- Desirable HDL >60 mg/dL - Negative Risk Cholesterol in LDL [Mass/Vol]95 mg/dLNINF - 130 mg/dLCleveland Clinic Marymount Hospital Comment on above: LDL <100 mg/dL - Desirable LDL >160 mg/dL - High Risk Cholesterol in VLDL [Mass/Vol]17 mg/dL0 - 30 mg/dLCleveland Clinic Marymount Hospital Cholesterol.total/Cholesterol in HDL [Mass ratio]2.2 {ratio}1.0 - 5.0[facility] HospitalInterpretation and review of laboratory resultsAbClaxton-Hepburn Medical CenterTriglyceride [Mass/Vol]85 mg/dL27 - 150 mg/dLCleveland Clinic Marymount HospitalCholesterol [Mass/Vol]206 mg/lZVlvq724-491KibWqgllyAshtabula General HospitalComment on above:Performed By: #### CMP, 31605-3, 3016-3, HA1C #### [facility] ([id number]) [address] [place], [place] [address]Nenwtwfsfog in HDL [Mass/Vol]94 mg/dLNormal>39ProCincinnati Children'S Hospital Medical CenterComment on above:Result Comment: HDL <40 mg/dL - High Risk HDL > or = 40mg/dL- Desirable HDL >60 mg/dL - Negative Risk Performed By: ###Chandler JORDAN, 70607-1, 6-3, NABEEL #### [facility] ([id number]) [address], [address] [place], [place] [address]Bbpxqdwpjxx in LDL [Mass/Vol]95 mg/dLNormal<130ProMedica Gibbon HospitalComment on above:Result Comment: LDL <100 mg/dL - Desirable LDL >160 mg/dL - High Risk Performed By: ###Chandler JORDAN, 30510-5, 3015-3, NABEEL #### [facility] ([id number]) [address], [address] [place], [place] [address]Ppnvwhmmszy in VLDL [Mass/Vol]17 mg/dLNormal0-30ProChildren'S Hospital For Rehabilitation HospitalComment on above:Performed By: ###Chandler JORDAN, 19426-8, 3015-3, NABEEL #### [facility] ([id number]) [address], [facility] [address] [place], [place] [address]LZXMQEOFOTG:HDL2.9Udldag9.0-5.0ProChildren'S Hospital For Rehabilitation HospitalComment on above:Performed By: ###Chandler JORDAN, 72186-9, 3015-3, HAJc #### [facility] ([id number]) [address], [address] [place], [place] [address]Nzpoteukymyt [Mass/Vol]85 mg/wKTsodmb16-676BqtCwfkvx [place] HospitalComment on above:Performed By: ###Chandler JORDAN, 53578-2, 6-3, NABEEL #### [facility] ([id number]) [address], [address] [place], [place] [address]Xe Panel Informationon 12-85-6158LmzHnvhtwKindred HealthcareTSH Qnon 32-95-8436WTL1.49 uIU/mLNormal0.49-4.67ProMedica [facility] Shelby HospitalComment on above:Performed By: #### CMP, 80567-8, 3016-3, HA1C #### [facility] ([id number]) [address] [facility], [address] [place], [place] [address]BCTST/FLU/RSV RT-PCRon 18-00-4388DCSL-CoV-2 (COVID-19) RNA DOMINIC+probe Ql (Unsp spec)PositiveNocrittenton behavioral health [facility] Other COVID/FLU/RSV RT-PCRNegativePutnam [facility] Other COVID/FLU/RSV RT-PCRNocrittenton behavioral health [facility] Other COVID Quick Testingon 98-66-6344SasexgVciwhnfkAckuh [facility] Other COMPREHENSIVE METABOLIC PANELon 46-99-9157Bufexju [Mass/Vol]4.2 g/dLNormal3.6-5.1Quest DiagnosticsComment on above:Performed By: #### 0430, 40467, 496 #### [facility] [place] [address] Class B Driver: Madhav Ornelas MDAlbumin/Globulin [Mass ratio]1.8 {ratio}Normal 1.0-2.5Quest DiagnosticsComment on above:Performed By: #### 9390, 93752, 496 #### [facility] [address] Class B Driver: Madhav Ornelas MDALP [Catalytic activity/Vol]115 U/LNormal 37-153Quest DiagnosticsComment on above:Performed By: #### 7320, 67252, 496 #### [place] [address] Class B Driver: Madhav Ornelas MDALT [Catalytic activity/Vol]14 U/LNormal6-29 Quest DiagnosticsComment on above:Performed By: #### 7600, 39886, 496 #### [facility] of [address], [address] [place] [address] Class B Driver: Madhav Ornelas MDAST [Catalytic activity/Vol]16 U/ZLzsitj77-68 Quest DiagnosticsComment on above:Performed By: #### 7600, 38575, 496 #### [facility] of [address], [address] [place] [address] Class B Driver: Madhav Ornelas MDBilirubin [Mass/Vol]0.4 mg/dLNormal0.2-1.2 Quest DiagnosticsComment on above:Performed By: #### 7600, 78994, 496 #### [facility] of [address], [address] [place] [address] Class B Driver: Madhav Ornelas MDBUN/CREATININE RATIONOT APPLICABLENormal6-22 Quest DiagnosticsComment on above:Performed By: #### 7600, 78985, 496 #### [facility] of [address], [address] [place] [address] Class B Driver: Madhav Ornelas MDCalcium [Mass/Vol]9.5 mg/dLNormal8.6-10.4Quest DiagnosticsComment on above:Performed By: #### 7600, 82886, 496 #### [facility] of [address], [address] [place] [address] Class B Driver: Madhav Ornelas MDChloride [Moles/Vol]103 mmol/DVavpuv97-253 Quest DiagnosticsComment on above:Performed By: #### 7600, 33459, 496 #### [facility] of [address], [address] [place] [address] Class B Driver: Madhav Ornelas MDCO2 [Moles/Vol]33 mmol/BXwji38-55Omftb DiagnosticsComment on above:Performed By: #### 7600, 13117, 496 #### [facility] [place] [address] Class B Driver: Madhav ANDREWreatinine [Mass/Vol]0.74 mg/dLNormal0.50-0.99 Quest DiagnosticsComment on above:Result Comment: For patients >49 years of age, the reference limit for Creatinine is approximately 13% higher for people identified as -Serbian.Performed By: #### 7600, 62602, 496 #### [facility] [address], [address] [place] [address] Class B Driver: Madhav Ornelas MDeGFR NON-AFR. YZISYXTX66 mL/min/1.01q3Dwimau> OR = 60Quest DiagnosticsComment on above:Performed By: #### 7600, 00338, 496 #### [facility] [address], [address] [place] [address] Class B Driver: Madhav Ornelas MDGFR/1.73 sq M.predicted among blacks MDRD (S/P/Bld) [Vol rate/Area]96 mL/min/{1.73_m2}Normal> OR = 60[facility] Comment on above:Performed By: #### 7600, 83173, 496 #### [facility] [place] [address] Class B Driver: Madhav Ornelas MDGlobulin (S) [Mass/Vol]2.4 g/dLNormal1.9-3.7 Quest DiagnosticsComment on above:Performed By: #### 7600, 40383, 496 #### [facility] [place] [address] Class B Driver: Madhav Ornelas MDGlucose [Mass/Vol]95 mg/rAXobcan41-28Wsgon DiagnosticsComment on above:Result Comment: Fasting reference intervalPerformed By: #### 7600, 77249, 496 #### [facility] [place] [address] [place] [address] Class B Driver: Madhav Ornelas MDPotassium [Moles/Vol]3.8 mmol/LNormal3.5-5.3 Quest DiagnosticsComment on above:Performed By: #### 7600, 65209, 496 #### [facility] [address], [address] [place] [address] Class B Driver: Madhav Ornelas MDProtein [Mass/Vol]6.6 g/dLNormal6.1-8.1Quest DiagnosticsComment on above:Performed By: #### 7600, 61494, 496 #### [facility] [address], [address] [place] [address] Class B Driver: Madhav Ornelas MDSodium [Moles/Vol]141 mmol/YAklwra396-668Puimz DiagnosticsComment on above:Performed By: #### 7600, 08815, 496 #### [facility] [place] [address] Class B Driver: Madhav Ornelas MDUrea nitrogen [Mass/Vol]11 mg/dLNormal7-25 Quest DiagnosticsComment on above:Performed By: #### 7600, 32744, 496 #### [facility] [place] [address] Class B Driver: Madhav Ornelas MDHEMOGLOBIN A1con 30-38-5506TGKQJQOEGT A1c6.2 % of total HgbHigh<5.7Quest DiagnosticsComment on [...] of diabetes for children.Performed By: #### 7600, 41469, 496 #### [facility] [address], [address] [place] [address] Class B Driver: Madhav Ornelas MDLIPID PANEL, [facility] 20-71-8678Fqbkdiajqxq [Mass/Vol]303 mg/dLHigh<200Quest DiagnosticsComment on above:Order Comment: FASTING:YES FASTING: YESPerformed By: #### 7600, 78264, 496 #### [facility] [address], [address] [place] [address] Class B Driver: Madhav Ornelas MDCholesterol in HDL [Mass/Vol]88 mg/dLNormal> OR = 50Quest DiagnosticsComment on above:Order Comment: FASTING:YES FASTING: YESPerformed By: #### 7600, 48330, 496 #### [facility] [address], [address] [place] [address] Class B Driver: Madhav Ornelas MDCholesterol in LDL [Mass/Vol]193 mg/dLHigh Quest DiagnosticsComment on above:Order Comment: FASTING:YES FASTING: YESResult Comment: LDL-C levels > or = 190 mg/dL may indicate familial hypercholesterolemia (FH). Clinical assessment and measurement of blood lipid levels should be considered for all first degree relatives of patients with an FH diagnosis. For questions about testing for familial hypercholesterolemia, please call [employer] [facility] at 1.449.Inmobiliarie.INFO. Iza T, et al. J National Lipid [...] LDL-C. Ash CRAWLEY et al. LISBETH. 2013;310(19): 4356-9122 (http://education.BioAmber.Max Rumpus/faq/DXH849)Performed By: #### 7600, 97253, 496 #### [facility] [address], [address] [place] [address] Class B Driver: Madhav ANDREWholesterol.total/Cholesterol in HDL [Mass ratio]3.4 {ratio}Normal<5.0Quest DiagnosticsComment on above:Order Comment: FASTING:YES FASTING: YESPerformed By: #### 7600, 07953, 496 #### [facility] [address], [address] [place] [address] Class B Driver: Madhav OROURKE HDL EVHBBXLSJBJ902 mg/dL (calc)High<130 Quest DiagnosticsComment on above:Order Comment: FASTING:YES FASTING: YESResult Comment: For patients with diabetes plus 1 major ASCVD risk factor, treating to a non-HDL-C goal of <100 mg/dL (LDL-C of <70 mg/dL) is considered a therapeutic option.Performed By: #### 7600, 64850, 496 #### [facility] [address], [address] [place] [address] Class B Driver: Madhav Ornelas MDTriglyceride [Mass/Vol]97 mg/dLNormal<150Quest DiagnosticsComment on above:Order Comment: FASTING:YES FASTING: YESPerformed By: #### 7600, 32059, 496 #### [facility] [address], [address] [place] [address] Class B Driver: Madhav Ornelas [facility] SCREEN 3D BALJIT CADon 16-01-6010LU MAMM SCREEN 3D BALJIT CADPatient: SEVERIANO PEACE Exam Date: 04/20/2021 : 1955 Gender:F Ordering : DR LILIANA GOMEZ Admission #: [id number] Family : Order #: [id number] CLICK HERE TO VIEW EXAM RADIOLOGY REPORT [...] uterine cancer at age 38. LOCATION: [facility] BREAST COMPOSITION: Scattered areas fibroglandular density. FINDINGS: [...] by: Mark Rosales M.D. on 04/20/2021 at 10:56[facility] HospitalALBUMIN, RANDOM URINE W/CREATININEon 44-19-2000NOWVJVQ, URINE1.2 mg/dL NormalSee Note:Quest DiagnosticsComment on above:Result Comment: Reference Range: Reference Range Not establishedPerformed By: #### 36443, 6830, 6517 #### [facility] [place] [address] Class B Driver: Madhav Ornelas MD #### 45709, 48808 #### [facility] [address] Class B Driver: Madhav Ornelas MDALBUMIN/CREATININE RATIO, RANDOM URINE5 mcg/mg [...] be within a diagnostic category.Performed By: #### 98276, 4970, 6517 #### [facility] [place] [address] Class B Driver: Madhav Ornelas MD #### 86661, 33300 #### [facility]-[address], [address] [place] [address] Class B Driver: Madhav ANDREWreatinine (U) [Mass/Vol]228 mg/eJMqawqg41-004 [facility] DiagnosticsComment on above:Performed By: #### 35348, 0, 6517 #### [facility] [address], [address] [place] [address] Class B Driver: Madhav Ornelas MD #### 79100, 96140 #### [facility]-[place] [address] Class B Driver: Madhav ANDREWOMPREHENSIVE METABOLIC PANELon 11-11-2020 Albumin [Mass/Vol]4.3 g/dLNormal3.6-5.1Quest DiagnosticsComment on above: Performed By: #### 18065, 7599, 6517 #### [facility] [address], [address] [place] [address] Class B Driver: Madhav Ornelas MD #### 37302, 85897 #### [facility] [address] Class B Driver: Madhav Ornelas MDAlbumin/Globulin [Mass ratio]1.8 {ratio}Normal 1.0-2.5Quest DiagnosticsComment on above:Performed By: #### 73789, 7599, 6517 #### [facility] [place] [address] Class B Driver: Madhav Ornelas MD #### 56671, 80493 #### [facility]-[place] [address] Class B Driver: Madhav Ornelas MDALP [Catalytic activity/Vol]107 U/LNormal 37-153Quest DiagnosticsComment on above:Performed By: #### 68257, 760, 6517 #### [facility] [address] [place] [address] Class B Driver: Madhav Ornelas MD #### 79519, 07876 #### [facility] [address] Class B Driver: Madhav Ornelas MDALT [Catalytic activity/Vol]14 U/LNormal6-29 [facility] DiagnosticsComment on above:Performed By: #### 74330, 3440, 6517 #### [facility] [address], [address] [place] [address] Class B Driver: Madhav Ornelas MD #### 37305, 42031 #### [facility], [address] [place] [address] Class B Driver: Madhav Ornelas MDAST [Catalytic activity/Vol]16 U/PCwvuax58-64 [facility] DiagnosticsComment on above:Performed By: #### 98183, 758, 6517 #### [facility] [address], [address] [place] [address] Class B Driver: Madhav Ornelas MD #### 97616, 77533 #### [facility], [address] [place] [address] Class B Driver: Madhav Ornelas MDBilirubin [Mass/Vol]0.4 mg/dLNormal0.2-1.2 Quest DiagnosticsComment on above:Performed By: #### 15235, 682, 6517 #### [facility] [address], [address] [place] [address] Class B Driver: Madhav Ornelas MD #### 74293, 17515 #### [facility], [address] [place] [address] Class B Driver: Madhav Ornelas MDBUN/CREATININE RATIONOT APPLICABLENormal6-22 [facility] DiagnosticsComment on above:Performed By: #### 40817, 172, 6517 #### [facility] [address], [address] [place], [place] [address] Class B Driver: Madhav Ornelas MD #### 79332, 15868 #### [facility] Class B Driver: Madhav Ornelas MDCalcium [Mass/Vol]9.6 mg/dLNormal8.6-10.4Quest DiagnosticsComment on above:Performed By: #### 50715, 7600, 6517 #### [facility] [address], [address] [place], [place] [address] Class B Driver: Madhav Ornelas MD #### 87968, 99303 #### [facility], [address] [place], [place] [address] Class B Driver: Madhav Ornelas MDChloride [Moles/Vol]105 mmol/TPjyhus45-259 [facility] DiagnosticsComment on above:Performed By: #### 64190, 7600, 6517 #### [facility] [address], [address] [place] [address] Class B Driver: Madhav Ornelas MD #### 31168, 92317 #### [facility] Class B Driver: Madhav Ornelas MDCO2 [Moles/Vol]29 mmol/PSzevmx36-31Klsxs DiagnosticsComment on above:Performed By: #### 29265, 7600, 6517 #### [facility] [address], [address] [place], [place] [address] Class B Driver: Madhav Ornelas MD #### 41346, 21039 #### [facility] Class B Driver: Madhav Ornelas MDCreatinine [Mass/Vol]0.94 mg/dLNormal0.50-0.99 [facility] DiagnosticsComment on above:Result Comment: For patients >49 years of age, the reference limit for Creatinine is approximately 13% higher for people identified as -Serbian.Performed By: #### 18691, 7599, 6517 #### [facility] [address], [address] [place] [address] Class B Driver: Madhav Ornelas MD #### 26399, 96176 #### [facility]-[address], [address] [place] [address] Class B Driver: Madhav Ornelas MDeGFR NON-AFR. NJSEIRYK17 mL/min/1.90w7Lyubiw> OR = 60Quest DiagnosticsComment on above:Performed By: #### 87043, 7599, 6517 #### [facility] [address], [address] [place] [address] Class B Driver: Madhav Ornelas MD #### 17306, 98053 #### [facility], [address] [place] [address] Class B Driver: Madhav Ornelas MDGFR/1.73 sq M.predicted among blacks MDRD (S/P/Bld) [Vol rate/Area]73 mL/min/{1.73_m2}Normal> OR = 60[facility] Comment on above:Performed By: #### 34755, 7599, 6517 #### [facility] [address], [address] [place] [address] Class B Driver: Madhav Ornelas MD #### 08020, 03779 #### [facility]-[address], [address] [place] [address] Class B Driver: Madhav Ornelas MDGlobulin (S) [Mass/Vol]2.4 g/dLNormal1.9-3.7 [facility] DiagnosticsComment on above:Performed By: #### 47937, 7599, 6517 #### [facility] [address], [address] [place] [address] Class B Driver: Madhav Ornelas MD #### 97359, 04756 #### [facility]-[place] [address] Class B Driver: Madhav Ornelas MDGlucose [Mass/Vol]100 mg/aOTaqe73-28Bxzuk DiagnosticsComment on above:Result Comment: Fasting reference interval For someone without known diabetes, a glucose value between 100 and 125 mg/dL is consistent with prediabetes and should be confirmed with a follow-up test.Performed By: #### 40574, 7600, 6517 #### [facility] [address], [address] [place] [address] Class B Driver: Madhav rOnelas MD #### 60215, 83702 #### [facility], [address] [place] [address] Class B Driver: Madhav Ornelas MDPotassium [Moles/Vol]4.0 mmol/LNormal3.5-5.3 [facility] DiagnosticsComment on above:Performed By: #### 45209, 760, 6517 #### [facility] [address], [address] [place] [address] Class B Driver: Madhav Ornelas MD #### 33031, 78798 #### [facility], [address] [place] [address] Class B Driver: Madhav Ornelas MDProtein [Mass/Vol]6.7 g/dLNormal6.1-8.1Quest DiagnosticsComment on above:Performed By: #### 77712, 7600, 6517 #### [facility] [address], [address] [place] [address] Class B Driver: Madhav Ornelas MD #### 91991, 92877 #### [facility], [address] [place] [address] Class B Driver: Madhav Ornelas MDSodium [Moles/Vol]142 mmol/FUsvyqc956-444Kjmez DiagnosticsComment on above:Performed By: #### 33004, 7600, 6517 #### [facility] [address], [address] [place] [address] Class B Driver: Madhav Ornelas MD #### 52192, 03167 #### [facility]-[address], [address] [place] [address] Class B Driver: Madhav Ornelas MDUrea nitrogen [Mass/Vol]13 mg/dLNormal7-25 [facility] DiagnosticsComment on above:Performed By: #### 30447, 7600, 6517 #### [facility] [address], [address] [place] [address] Class B Driver: Madhav Ornelas MD #### 51641, 17945 #### [facility], [address] [place] [address] Class B Driver: Madhav Ornelas MDIMAGE-GUIDED PAP W/AGE BASED SCR PROTOCOLSon 16-60-1612VTVEDZLDprxpmMdtbs DiagnosticsComment on above:Result Comment: This order for age-based cervical cancer and STI screening follows ACOG guidelines(PB 168, 140, XKD708). See individual assays for performing site location.Performed By: #### 65751, 7600, 6517 #### [facility] [address], [address] [place] [address] Class B Driver: Madhav Ornelas MD #### 01430, 50193 #### [facility]-[address], [address] [place] [address] Class B Driver: Madhav GENAOesult Comment: EXPLANATORY NOTE: The Pap is a [...] INCORRECT, PLEASE CONTACT CLIENT SERVICES. PHONE NUMBER: [phone] LEOLA STANDARDon [id number] [Mass/Vol]234 mg/dLHigh<200Quest DiagnosticsComment on above:Performed By: #### 22466, 7600, 6517 #### [facility] [address], [address] [place] [address] Class B Driver: Madhav Ornelas MD #### 21249, 31830 #### [facility], [address] [place] [address] Class B Driver: Madhav Ornelas MDCholesterol in HDL [Mass/Vol]100 mg/dLNormal> OR = 50Quest DiagnosticsComment on above:Performed By: #### 08638, 7600, 6517 #### [facility] [address], [address] [place] [address] Class B Driver: Madhav Ornelas MD #### 38875, 31919 #### [facility], [address] [place] [address] Class B Driver: Madhav Ornelas MDCholesterol in LDL [Mass/Vol]112 mg/dLHigh [...] LDL-C. Ash CRAWLEY et al. LISBETH. 2013;310(19): 8731-5960 (http://education.BioAmber.Max Rumpus/faq/HIH650)Performed By: #### 59753, 7600, 6517 #### [facility] [address], [address] [place] [address] Class B Driver: Madhav Ornelas MD #### 02133, 32994 #### [facility] [place] [address] Class B Driver: Madhav ANDREWholesterol.total/Cholesterol in HDL [Mass ratio]2.3 {ratio}Normal<5.0Quest DiagnosticsComment on above:Performed By: #### 98820, 7599, 5217 #### [facility] [address], [address] [place] [address] Class B Driver: Madhav Ornelas MD #### 40571, 74383 #### [facility]-[address], [address] [place] [address] Class B Driver: Madhav Ornelas MDNON HDL KCBUWPQITUJ190 mg/dL (calc)High<130 [facility] DiagnosticsComment on above:Result Comment: For patients with diabetes plus 1 major ASCVD risk factor, treating to a non-HDL-C goal of <100 mg/dL (LDL-C of <70 mg/dL) is considered a therapeutic option.Performed By: #### 49010, 7599, 0217 #### [facility] [address], [address] [place] [address] Class B Driver: Madhav Ornelas MD #### [id number], [id number] #### [facility]-[address], [address] [place] [address] Class B Driver: Madhav Ornelas MDTriglyceride [Mass/Vol]110 mg/dLNormal<150 [facility]osticsComment on above:Performed By: #### 88660, 7599, 7117 #### [facility] [address], [address] [place] [address] Class B Driver: Madhav Ornelas MD #### [id number], [id number] #### [facility]-[address], [address] [place] [address] Class B Driver: Madhav Coleman [id number] INFORMATION:NormalQuest DiagnosticsComment on above:Result Comment: Routine exam Performed By: #### [id number], 0, 6517 #### [facility] [address], [address] [place] [address] Class B Driver: Madhav Ornelas MD #### [id number], [id number] #### [facility], [address] [place] [address] Class B Driver: Madhav Ornelas MDCOMMENT:NormalQuest DiagnosticsComment on above:Result Comment: This Pap test has been evaluated with computer assisted technology. Parabasal cells in smears that lack maturation due to atrophy or other hormonal reasons cannot be differentiated from transformation zone cells. Accordingly, presence or absence of endocervical or transformation zone components cannot be reported in this patient.Performed By: #### [id number], 0, 6517 #### [facility] [address], [address] [place] [address] Class B Driver: Madhav Ornelas MD #### [id number], 50304 #### [facility], [address] [place] [address] Class B Driver: Madhav Ornelas MDCYTOTECHNOLOGIST:NormalQuest [facility]ostics Comment on above:Result Comment: BGG, SCT(ASCP) CT screening location: [place] [address].Performed By: #### [id number], 0, 6517 #### [facility] [address], [address] [place] [address] Class B Driver: Madhav Ornelas MD #### [id number], [id number] #### [facility], [address] [place] [address] Class B Driver: Madhav Ornelas MDINTERPRETATION/RESULT:Normal[facility] Comment on above:Result Comment: Negative for intraepithelial lesion or malignancy. Atrophic pattern; predominantly parabasal cellsPerformed By: #### 63747, 2840, 6517 #### [facility] [address], [address] [place] [address] Class B Driver: Madhav Ornelas MD #### [id number], 53809 #### [facility]-[address], [address] [place] [phone] Class B Driver: Madhav Ornelas MDLMP:NormalQuest DiagnosticsComment on above: Result Comment: None givenPerformed By: #### 79672, 7600, 6517 #### [facility] [address], [address] [place] [phone] Class B Driver: Madhav Ornelas MD #### 40279, 65033 #### [facility]-[address], [address] [place] [phone] Class B Driver: Madhav ALVARADO. BX:NormalQuest DiagnosticsComment on above:Result Comment: None givenPerformed By: #### 47103, 7600, 6517 #### [facility] [address], [address] [place], [place] [address] Class B Driver: Madhav Ornelas MD #### [id number], 65283 #### [facility], [address] [place] [phone] Class B Driver: Madhav ALVARADO. PAP:NormalQuest DiagnosticsComment on above:Result Comment: None givenPerformed By: #### 31609, 0, 6517 #### [facility] [address], [address] [place], [place] [address] Class B Driver: Madhav Ornelas MD #### 52731, 80123 #### [facility]-[address], [address] [place] [address] Class B Driver: Madhav FRANCO MUCKER COFFERDAM:NormalQuest DiagnosticsComment on above:Result Comment: MARYAM CT(ASCP) CT screening location: [place] [address].Performed By: #### 32547, 7600, 6517 #### [facility] [address], [address] [place] [address] Class B Driver: Madhav Ornelas MD #### 95410, 02985 #### [facility], [address] [place] [address] Class B Driver: Madhav Ornelas MDSOURCE:NormalQuest DiagnosticsComment on above:Result Comment: None givenPerformed By: #### 67877, 7600, 6517 #### [facility] [address], [address] [place] [address] Class B Driver: Madhav Ornelas MD #### 90446, 29420 #### [facility], [address] [place] [address] Class B Driver: Madhav Ornelas MDSTATEMENT OF ADEQUACY:Normal[facility] Comment on above:Result Comment: SATISFACTORY FOR EVALUATIONPerformed By: #### 86489, 7600, 6517 #### [facility] [address], [address] [place] [address] Class B Driver: Madhav Ornelas MD #### 54244, 31007 #### [facility], [address] [place] [address] Class B Driver: Madhav Ornelas MD Vital Signs Date TimeVital SignValuePerforming HpqnyecteYtsbxmwa44-10-9443 08:54-0400Body cmPayton Payton [employer]ACKAGE [employer] Work Phone: [facility]10-21-2025 08:54-0400Body mass index (BMI) [Ratio]37.67 kg/m2Payton Mendezmarni [employer] Work Phone: [facility]10-21-2025 08:54-0400Body gmvvbpyavne21.01 [degF]Payton Rousejosy [employer]AGE [employer] Work Phone: [facility] HospitalLqcvbm36-90-9140 08:54-0400Body .44 kgPayton Rousejosy [employer] Work Phone: [facility]-21-2025 08:54-0400Diastolic blood zxdxywxg49 mm[Hg]Payton Payton [employer] Work Phone: [facility]-21-2025 08:54-0400Heart rate 76 /minKyle Nasimotzer [employer] Work Phone: [facility]-21-2025 08:54-0400 Respiratory rate18 /minaPyton Mendezzer [employer] Work Phone: [facility]10-21-2025 08:54-8069JbE2% (BldA) [Mass fraction]94 %Payton Mendezzer [employer] Work Phone: [facility]10-21-2025 08:54-0400Systolic blood sgpkzzji054 mm[Hg]Payton Payton [employer] Work Phone: [facility] [employer] [facility] Jqlsmo06-23-7800 13:30-0400Diastolic blood kjdvjnoa12 mm[Hg]Pawel Culver DO Work Phone: [facility] [employer]09-10-2025 13:30-0400Systolic blood ocvmdvdf934 mm[Hg]Pawel Culver DO Work Phone: [facility] [employer]09-10-2025 12:37-0400Body bdepku232 cmJodamon Culver DO Work Phone: [facility] [employer]09-10-2025 12:37-0400Body mass index (BMI) [Ratio]37.81 kg/m2Jodamon Culver DO Work Phone: [facility] [employer]09-10-2025 12:37-0400Body jvnzjeypece01.49 [degF]Pawel Culver DO Work Phone: [facility] [employer]09-10-2025 12:37-0400Body dlkupc03.8 kgPawel Culver DO Work Phone: [facility] Wsaxpp15-15-1046 12:37-0400Heart rate 75 /minJohn Martins DO Work Phone: [facility] Agdlok84-77-0295 12:37-0400 Respiratory rate20 /minJohn Martins DO Work Phone: [facility] Zngbve28-49-1304 12:37-4324MaE6% (BldA) [Mass fraction]96 %Pawel Culver DO Work Phone: [facility] [employer] Sunrlf09-86-6804 08:39-0400Body mass index (BMI) [Ratio]38.2 kg/k8Dpwiogi Nienberg PA Work Phone: [facility] Jdyvct20-34-7169 08:39-0400Body tpkonn67.8 kgMatthew Juliethenberg PA Work Phone: [facility] [employer] Allhty42-55-9722 08:39-0400Diastolic blood exfmvznz72 mm[Hg]Jose Roberto Corona PA Work Phone: [facility] Ijjdtd91-15-0807 08:39-0400Heart rate 70 /minMatthew Nienberg PA Work Phone: [facility] Mmvgls87-17-8623 08:39-0400 Respiratory rate20 /minMatthew Nienberg PA Work Phone: [facility] Irtwqm28-40-0718 08:39-5486RsI0% (BldA) [Mass fraction]94 %Jose Roberto Corona PA Work Phone: [facility] [employer] Yxuyqi61-24-4095 08:39-0400Systolic blood rwybzffg142 mm[Hg]Jose Roberto Corona PA Work Phone: [facility] [employer] [facility] Asvxvu00-90-5066 11:07-0400Body cmValejoshua Villa [employer] Work Phone: [facility] Sagcys67-49-5210 11:07-0400Body mass index (BMI) [Ratio]39.46 kg/h2TylijflYasmine Villa APRN-[employer] Work Phone: [facility] [employer] Bxuztn51-75-4715 11:07-0400Body ikuwnftmwbo69.01 [degF]Yasmine Villa APRN-[employer] Work Phone: [facility] [employer] Ivdioo95-35-9424 11:07-0400Body nnvokx754.02 kgYasmine Villa APRN-[employer] Work Phone: [facility] [employer] Muxdux80-30-4358 11:07-0400Diastolic blood otsmrrtj18 mm[Hg]Yasmine Villa APRN[employer] Work Phone: [facility] [employer] Cjfczg63-84-3324 11:07-0400Heart rate 73 /minYasmine Villa APRN[employer] Work Phone: [facility] [employer] Ihhonj31-44-4656 11:07-0400 Respiratory rate18 /minYasmine Villa APRN-ALEKSANDR Work Phone: [facility] [employer] Fmwhzq24-52-0901 11:07-0269LmD9% (BldA) [Mass fraction]96 %Yasmine Villa APRN-ALEKSANDR Work Phone: [facility] [employer] Xnjjyl72-96-1785 11:07-0400Systolic blood xbygctcl334 mm[Hg]Yasmine Villa APRN[employer] Work Phone: [facility] [employer] Ijhmak60-21-9015 08:23-0400Body ltumvz123 cmMatthew Nimarj PA Work Phone: [facility] [employer] [facility] Ubfmqj38-34-9337 08:23-0400Body mass index (BMI) [Ratio]39.68 kg/u2Ominybs Nienberg PA Work Phone: [facility] [employer] Nlzmbu42-66-2022 08:23-0400Body yvumoh395.61 kgMatthew Nienberg PA Work Phone: [facility] Hydrys86-29-0217 08:23-0400Diastolic blood krteejee07 mm[Hg]Jose Roberto CASEY Work Phone: [facility] [employer] Gachaf09-01-4680 08:23-0400Heart rate 70 /minMatthew Earnestine PA Work Phone: [facility]04-24-2025 08:23-0400 Respiratory rate18 /minMatthew Earnestine PA Work Phone: [facility]04-24-2025 08:23-8988SqY8% (BldA) [Mass fraction]99 %Jose Roberto Corona PA Work Phone: [facility] [employer] Brphmp54-24-0432 08:23-0400Systolic blood bpxilftc962 mm[Hg]Jose Roberto CASEY Work Phone: [facility] [employer] Qwvkzz98-53-9993 08:24-0400Body ibcovn699 cmValejoshua Villa [employer] Work Phone: [facility] [employer] Mfkfwd96-47-9099 08:24-0400Body mass index (BMI) [Ratio]39.53 kg/q2UrawbfkYasmine Villa [employer] Work Phone: [facility] [employer] Akyjcw54-48-2080 08:24-0400Body zozcryaydgg46.2 [degF]Yasmine Villa [employer] Work Phone: [facility] [employer] Jkrtvo45-44-9900 08:24-0400Body durqpw473.2 kgYasmine Hartillo [employer] Work Phone: [facility] [employer] Jquymc95-96-7295 08:24-0400Diastolic blood omxgxdrn02 mm[Hg]Yasmine Villa [employer] Work Phone: [facility] [employer] Basoqz25-22-2199 08:24-0400Heart rate 71 /minYasmine Hartillo [employer] Work Phone: [facility] [employer] Pjcisk33-87-2353 08:24-0400 Respiratory rate18 /minValerie Villa [employer] Work Phone: [facility] [employer] Pjgmhm98-26-4069 08:24-2486UfV9% (BldA) [Mass fraction]96 %Yasmine Villa APRN[employer] Work Phone: [facility] [employer] Rafwex33-57-4435 08:24-0400Systolic blood wmyxxkpi019 mm[Hg]Yasmine Villa APRN[employer] Work Phone: [facility] [employer] Lsqvva64-04-7416 13:20-0400Diastolic blood pbatrgmv91 mm[Hg]Jose Roberto CASEY Work Phone: [facility] [employer] Dqacmd00-35-9350 13:20-0400Heart rate 67 /minMatthew Earnestine CASEY Work Phone: [facility] [employer] Jdqumh96-20-2961 13:20-4252HaI5% (BldA) [Mass fraction]95 %Jose Robetro CASEY Work Phone: [facility] [employer] Yoxzlx85-83-9212 13:20-0400Systolic blood dvnqmlit989 mm[Hg]Jose Roberto CASEY Work Phone: [facility] [employer] Pzlxvm47-55-1746 08:45-0500Body ioowws214 cmVjoão Villa APRN[employer] Work Phone: [facility] [employer] Nfepnc56-34-8711 08:45-0500Body mass index (BMI) [Ratio]38.72 kg/m6HbtxnhpYasmine Villa APRN[employer] Work Phone: [facility] [employer] Rxjwxw71-06-3330 08:45-0500Body deerecdeizm75.81 [degF]Yasmine Villa APRN[employer] Work Phone: [facility] [employer] Jlbmcz50-52-0526 08:45-0500Body drmoai88.16 kgYasmine Villa [employer] Work Phone: [facility] [employer] Ubxohp67-59-5181 08:45-0500Diastolic blood ttkfvwod40 mm[Hg]Yasmine Villa APRN[employer] Work Phone: [facility]02-17-2025 08:45-0500Heart rate 65 /minYasmine Villa APRN[employer] Work Phone: [facility]02-17-2025 08:45-0500 Respiratory rate18 /minYasmine Villa APRN[employer] Work Phone: [facility]02-17-2025 08:45-1613XcQ8% (BldA) [Mass fraction]99 %Yasmine Villa APRN[employer] Work Phone: [facility]02-17-2025 08:45-0500Systolic blood bfmiyebs516 mm[Hg]Yasmine Villa APRN[employer] Work Phone: [facility]10-22-2024 15:16-0400Body khcuey209 cmAnthogiselle Church DPM Work Phone: [facility]Xnafvnqvop82-49-2143 15:16-0400Body mass index (BMI) [Ratio]36.31 kg/i3XqfzvikJosue Clarkeher DPM Work Phone: [phone] HospitalIaqneypreg91-87-6199 15:16-0400Body hwopwd69.99 kgJosue Clarkeher DPM Work Phone: [facility] HospitalHgfxqgaajl98-82-9722 09:06-0400Body ftbkel474 cm Yasmine Villa APRN[employer] Work Phone: [facility]10-14-2024 09:06-0400Body mass index (BMI) [Ratio]37.06 kg/h2QecrnbjYasmine Villa APRN-[employer] Work Phone: [facility]10-14-2024 09:06-0400Body ryrssaoibyj67.9 [degF]Yasmine Villa APRN[employer] Work Phone: [facility]10-14-2024 09:06-0400Body ehdrrk88.89 kgValerie Villa [employer] Work Phone: [facility] [employer] Sfowno22-43-9857 09:06-0400Diastolic blood mm[Hg]Yasmine Villa APRN[employer] Work Phone: [facility]10-14-2024 09:06-0400Heart rate 55 /minYasmine Villa APRN-[employer] Work Phone: [facility] [employer] Twjpbw36-45-2643 09:06-0400 Respiratory rate18 /minYasmine Villa APRN[employer] Work Phone: [facility]10-14-2024 09:06-6209XaI1% (BldA) [Mass fraction]98 %Yasmine Villa APRN[employer] Work Phone: [facility] [employer] Xjktqu76-83-3415 09:06-0400Systolic blood pkehmmxz984 mm[Hg]Yasmine Villa APRN[employer] Work Phone: [facility] [employer] Borvud45-16-6517 10:56-0400Body smpunb153 cmValejoshua Villa APRN[employer] Work Phone: [facility] [employer] Xvxdwp41-35-8684 10:56-0400Body mass index (BMI) [Ratio]36.88 kg/u4ChuwwamYasmine Villa APRN[employer] Work Phone: [facility]08-19-2024 10:56-0400Body kumusagevuk69.71 [degF]Yasmine Villa APRN[employer] Work Phone: [facility] [employer] Qsqsjh82-90-7061 10:56-0400Body cipaqo60.44 kgYasmine Villa APRN[employer] Work Phone: [facility]08-19-2024 10:56-0400Diastolic blood jpvlehru01 mm[Hg]Yasmine Villa APRN[employer] Work Phone: [facility]08-19-2024 10:56-0400Heart rate 70 /minAnnettee Allen [employer] Work Phone: [facility]08-19-2024 10:56-0400 Respiratory rate18 /minYasmine Villa [employer] Work Phone: [facility]08-19-2024 10:56-9837AhS0% (BldA) [Mass fraction]96 %Yasmine Villa APRN[employer] Work Phone: [facility]08-19-2024 10:56-0400Systolic blood londgwvb022 mm[Hg]Yasmine Villa [employer] Work Phone: [facility]07-23-2024 09:22-0400Body xovsle738 cmMatthew Nienberg PA Work Phone: [facility]07-23-2024 09:22-0400Body mass index (BMI) [Ratio]36.67 kg/e6Dkankgv Nienberg PA Work Phone: [facility] [employer] Agrwhw42-76-4120 09:22-0400Body tuaqir16.89 kgMatthew Nienberg PA Work Phone: [facility] [employer] Dgenix96-62-4745 09:22-0400Diastolic blood ypfczirk86 mm[Hg]Jose Roberto Corona PA Work Phone: [facility] [employer] Hnwhzj73-53-3206 09:22-0400Heart rate 70 /minMatthew Nienberg PA Work Phone: [facility] [employer] Soxafx07-61-8836 09:22-0400 Respiratory rate18 /minMatthew Nienberg PA Work Phone: [facility]07-23-2024 09:22-9827ApH8% (BldA) [Mass fraction]95 %Jose Roberto Nienberg PA Work Phone: [facility] [employer] Deuvgt36-21-9230 09:22-0400Systolic blood rijgqsou886 mm[Hg]Jose Roberto CASEY Work Phone: [facility] [employer] Mfcloe15-52-4899 09:40-0400Diastolic blood dzngzour39 mm[Hg]Jose Roberto CASEY Work Phone: [facility] [employer] Aqnuek94-55-6245 09:40-0400Heart rate 60 /minMatthew Earnestine PA Work Phone: [facility] [employer] Sksens06-41-4981 09:40-0400 Respiratory rate18 /minMatthew Earnestine PA Work Phone: [facility] [employer] Gzmwzt62-12-2281 09:40-7457YjE0% (BldA) [Mass fraction]95 %Jose Roberto CASEY Work Phone: [facility] [employer] Gpryza34-91-3749 09:40-0400Systolic blood mm[Hg]Jose Roberto CASEY Work Phone: [facility] [employer] Ouqlxv40-82-7801 08:02-0400Body iksifi500 cmLiliana Gomez PACKAGE W[employer]ER-CUSTOMER SERVICE ANALYST Work Phone: [facility] Tpdqbu62-46-6604 08:02-0400Body mass index (BMI) [Ratio]36.53 kg/m2Liliana Gomez P[employer] W[employer]CUSTOMER SERVICE ANALYST Work Phone: [facility] [employer] Xzsenu75-53-0720 08:02-0400Body kiaaehqpfcv26.4 [degF]Liliana Gomez P[employer] W[employer]-CUSTOMER SERVICE ANALYST Work Phone: [facility] Ivwapz36-59-0100 08:02-0400Body upgjst40.53 kgLiliana Gomez PACKAGE W[employer]ER-CUSTOMER SERVICE ANALYST Work Phone: [facility] Llwthn90-80-3105 08:02-0400Diastolic blood mm[Hg]Liliana Gomez PACKAGE W[employer]ER-CUSTOMER SERVICE ANALYST Work Phone: [facility] [employer] [facility] Ccrqzs07-96-9131 08:02-0400Heart rate 73 /minLindaeris Gomez PACKAGE W[employer]ER-CUSTOMER SERVICE ANALYST Work Phone: [facility] [employer] [facility] Smxdyd37-59-2602 08:02-0400 Respiratory rate24 /minLiliana Gomez APRN-CUSTOMER SERVICE ANALYST Work Phone: [facility] [employer] Hnoces53-30-2576 08:02-7233EdZ7% (BldA) [Mass fraction]97 %Liliana Gomez APRN-CUSTOMER SERVICE ANALYST Work Phone: [facility] [employer] Dlnpoq79-89-7223 08:02-0400Systolic blood mm[Hg]Liliana Gomez APRN-CUSTOMER SERVICE ANALYST Work Phone: [facility] [employer] Zsrgqv38-63-3155 12:14-0400Body rahgyy487 cmMatthew Nienberg PA Work Phone: [facility] [employer] Wboayb08-48-9817 12:14-0400Body mass index (BMI) [Ratio]36.31 kg/t8Oyofzsy Nienberg PA Work Phone: [facility] [employer] Itznht98-20-5401 12:14-0400Body pjboro73.99 kgMatthew Nienberg PA Work Phone: [facility] Abnudn85-43-2522 12:14-0400Diastolic blood yldvwsij49 mm[Hg]Jose Roberto Corona PA Work Phone: [facility] Trgcvr55-57-9089 12:14-0400Heart rate 78 /minMatthew Nienberg PA Work Phone: [facility] Cpghzi38-99-4247 12:14-0400 Respiratory rate18 /minMatthew Nienberg PA Work Phone: [facility] Hvulim62-27-9514 12:14-9559YvV1% (BldA) [Mass fraction]99 %Jose Roberto Corona PA Work Phone: [facility] Shsibb42-64-3515 12:14-0400Systolic blood opsecjwn759 mm[Hg]Jose Roberto Corona PA Work Phone: [facility]02-15-2024 09:19-0500Diastolic blood qixmkkqp27 mm[Hg]Jose Roberto Nienberg PA Work Phone: [facility]02-15-2024 09:19-0500Systolic blood muibhpce482 mm[Hg]Jose Roberto Nienberg PA Work Phone: [facility]02-15-2024 09:10-0500Body dpawjr515 cmMatthew Nienberg PA Work Phone: [facility]02-15-2024 09:10-0500Body mass index (BMI) [Ratio]35.61 kg/g4Fczvepr Nienberg PA Work Phone: [facility]02-15-2024 09:10-0500Body hnzfik01.17 kgMatthew Nienberg PA Work Phone: [facility]02-15-2024 09:10-0500Heart rate 66 /minMatthew Nienberg PA Work Phone: [facility]02-15-2024 09:10-0500 Respiratory rate18 /minMatthew Nienberg PA Work Phone: [facility]02-15-2024 09:10-1268SeM7% (BldA) [Mass fraction]98 %Jose Roberto Clancyenberg PA Work Phone: [facility]01-04-2024 08:11-0500Diastolic blood ckvsegzz76 mm[Hg]Jose Roberto Nienberg PA Work Phone: [facility]01-04-2024 08:11-0500Heart rate 57 /minMatthew Nienberg PA Work Phone: [facility]01-04-2024 08:11-0500 Respiratory rate20 /minMatthew Nienberg PA Work Phone: [facility]01-04-2024 08:11-0500Systolic blood yozetmyu319 mm[Hg]Jose Roberto Clancyenberg PA Work Phone: [facility]12-21-2023 09:48-0500Body tcindv414 cmMatthew Nienberg PA Work Phone: [facility]-2023 09:48-0500Body mass index (BMI) [Ratio]34.72 kg/w3Etqeivf Nienberg PA Work Phone: [facility]12-21-2023 09:48-0500Body .91 kgMatthew Nienberg PA Work Phone: [facility]12-21-2023 09:48-0500Diastolic blood zdgbetcf17 mm[Hg]Jose Roberto Corona PA Work Phone: [facility]12-21-2023 09:48-0500Heart rate 62 /minMatthew Nienberg PA Work Phone: [facility]12-21-2023 09:48-9619RiX3% (BldA) [Mass fraction]95 %Jose Roberto Nienberg PA Work Phone: [facility]12-21-2023 09:48-0500Systolic blood mm[Hg]Jose Roberto Juliethenberg PA Work Phone: [facility] HospitalFjuul11-10-2022 12:20-0500Body utolpw722.02 cmAelijah Tavera Other noSolid State [employer] Other 11-10-2022 12:20-0500Body mass index (BMI) [Ratio] 38.97 kg/u9OnywiAlix Tavera Other noShareight Other 11-10-2022 12:20-0500Body symyznxaskd49.7 [degF]Alix Tavera Other noSolid [employer] Other 11-10-2022 12:20-0500Body lovilq56.79 kgAlix Tavera Other noShareight Other 11-10-2022 12:20-0500Respiratory rate18 /minAmber Tavera Other noShareight Other 11-10-2022 12:20-9641SqS0% (BldA) [Mass fraction]92 % Alix Tavera Other noShareight Other 07-30-2022 10:15-0400Body .02 cmAmber Tavera Other noShare[employer] Other 07-30-2022 10:15-0400Body hjlimqjwupf81.1 [degF]Alix Tavera Other noShareight Other 07-30-2022 10:15-0400Respiratory rate18 /minAmber Tavera Other noShareight Other 07-30-2022 10:15-8662TmZ0% (BldA) [Mass fraction]93 % Alix Tavera Other noShareight Other Encounters Encounter DateEncounter TypeCare ProviderFacilityStart: 01-01-2025 End: 63-13-6627TahlsqPjukeb Gullett [facility] STREETProMedica Physicians Internal Medicine - Family MedicineComment on above:Mild intermittent asthma without complication; DM type 2 with diabetic mixed hyperlipidemia ([facility])Start: 12-16-2024 End: 65-77-8019Mggdzk outpatient visit 25 minutesPayton Payton APRN-LEMON GROWER Work Phone: [facility] - Family MedicineComment on above:DM type 2 with diabetic mixed hyperlipidemia ([facility]) (Primary Dx); Essential hypertension; 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 ([facility]); Type 2 diabetes mellitus with hyperglycemia, without long-term current use of insulin ([facility]); Depressive disorder; Encounter for screening mammogram for malignant neoplasm of breast; Class 2 obesity due to excess calories without serious comorbidity with body mass index (BMI) of 37.0 to 37.9 in adultStart: 12-16-2024 End: 63-44-8881enfotrmfdyIJIK D [facility] Ambulatory PPGStart: 11-05-2024 End: 16-80-5762klkxyycabyXEEO L [facility] Ambulatory PPGStart: 11-05-2024 End: 45-84-4794Mvykrm outpatient visit 25 minutesPawel Culver DO Work Phone: [facility] Internal Medicine - Family MedicineComment on above:Conjunctival hemorrhage of left eye (Primary Dx); Essential hypertension; Ocular migraineStart: 11-03-2024 End: 55-15-6342Ngcvphtfj department patient visitARCANUMJOSHUA Nunez [facility] Hospitaltart: 09-16-2024 End: 31-10-0012Jgxumj outpatient visit 15 Ari CASEY Work Phone: [facility] - Pain Management ClinicComment on above:Localized osteoarthritis of right knee (Primary Dx)Start: 09-16-2024 End: 53-79-8138hsxomdvlktGWGDJIJ S NIENBERGTrumbull Memorial Hospitaltart: 08-15-2024 End: 03-87-0645ojfapbefciACAWMAG E HOGANTrumbull Memorial Hospitaltart: 08-07-2024 End: 07-92-3407Aiheqgjto encounterAnnabonnie Carter [facility] - Pain Management ClinicStart: 07-03-2024 End: 90-57-4137gixgruvszlQQQISARUniversity of [facility] PPG Start: 07-03-2024 End: 59-60-3740Hiteka outpatient visit 15 minutesYasmine Villa PACKAGE W[employer]ER-[employer] Work Phone: [facility] Internal Medicine - Family MedicineComment on above:DM type 2 with diabetic mixed hyperlipidemia ([facility]) Start: 06-24-2024 End: 74-85-4770Iqeaospvy encounterJerri Crump [facility] - Pain Management ClinicStart: 06-19-2024 End: 59-91-8440qsxuskfwszSWMTZUKGlendale Adventist Medical Centertart: 06-19-2024 End: 24-43-4075Nakcdj outpatient visit 25 minutesJose Roberto CASEY Work Phone: [facility] - Pain Management ClinicComment on above:Primary osteoarthritis of right knee (Primary Dx)Start: 06-09-2024 End: 15-87-8416Jxhnvw outpatient visit 25 minutesYasmine ROSAS Work Phone: [facility] - Family [facility] HospitalComment on above:CKD stage 2 due to type 2 diabetes mellitus ([facility]) (Primary Dx); DM type 2 with diabetic mixed hyperlipidemia ([facility]) ; Depressive disorder; Essential hypertensionStart: 06-09-2024 End: 61-34-9242anyiwbdvrcXJDXMYH J [facility] Ambulatory PPG Start: 06-06-2024 End: 56-26-0373gbgiqlzkchZJXAJSESelect [facility]ty [facility] UPMCtart: 05-22-2024 End: 31-68-4265Pvbwxf outpatient visit 25 minutesJose Roberto CASEY Work Phone: [facility] - Pain Management ClinicComment on above:Primary osteoarthritis of right knee (Primary Dx)Start: 05-22-2024 End: 71-90-1396ytklwtpmxkBULTKARGlendale Adventist Medical Centertart: 04-17-2024 End: 40-13-6921Lcbvjuwcn encounterYasmine ROSAS Work Phone: [facility] - Family [facility] Centertart: 04-14-2024 End: 76-76-8776Qfvvhq outpatient visit 25 minutesYasmine ROSAS Work Phone: [facility] - Family MedicineComment on above:Type 2 diabetes mellitus with hyperglycemia, without long-term current use of insulin ([facility]) (Primary Dx); 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 Physicians Internal Medicine - Family [facility] Centertart: 12-18-2023 End: 45-85-1366Otsnum outpatient new 45 minutesJosue Church DPM Work Phone: noms PODIATRYComment on above:Plantar fasciitis (Primary Dx); Rupture of muscle, nontraumatic; Right foot pain; Equinus contracture of right ankleStart: 12-18-2023 End: 31-59-6214Ljazzm Franklin Church DPM Work Phone: noms PODIATRYStart: 12-18-2023 End: 57-32-2930Rmkarl Franklin Church DPM Work Phone: noms PODIATRYStart: 12-10-2023 End: 83-41-9804gtklumgvnfICZUYQTUniversity Hospitals Cleveland Medical Centertart: 12-10-2023 End: 52-69-8584Nklnzi outpatient visit 25 minutesYasmine Villa [employer]AGE W[employer] Work Phone: [facility] Physicians Internal Medicine - Family 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 ([facility]) (Primary Dx); Type 2 diabetes mellitus with hyperglycemia, without long-term current use of insulin ([facility]); Depressive disorder; Primary osteoarthritis of both knees; Change in color of pigmented skin lesion; Encounter for screening mammogram for malignant neoplasm of breastStart: 11-10-2023 End: 03-97-6941kksylpakmgAIZRRMR S JURGENOLOProMediCapital Region Medical Center HospitalStart: 11-09-2023 End: 64-61-4892mmtgqkfrkkUXBSOFY E HOGANProCleveland Clinic [facility] HospitalStart: 10-15-2023 End: 75-85-7860kewrpoayarHYVOYIT J CASTILLOProChildren'S Hospital For Rehabilitation HospitalStart: 10-15-2023 End: 49-27-7358Wvqpxs outpatient visit 15 minutesYasmine Enrique Allen [employer] Work Phone: [facility] Physicians Internal Medicine - Family MedicineComment on above:Acute cystitis without hematuria (Primary Dx); 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 ([facility]) ; Depressive disorder; Type 2 diabetes mellitus with hyperglycemia, without long-term current use of insulin ([facility])Start: 10-05-2023 End: 85-07-9090Pcoltl Solo Martinez P[employer] W[employer]ER-[employer] Work Phone: [facility] Internal Medicine - Family MedicineStart: 10-02-2023 End: 90-92-1251Izucacdct encounterBrigette NavarroFlower Hospital - Pain Management ClinicStart: 09-18-2023 End: 11-61-9047Qihjcm outpatient visit 25 minutesJose Roberto CASEY Work Phone: [facility] - Pain Management ClinicComment on above:Localized osteoarthritis of right knee (Primary Dx)Start: 08-29-2023 End: 03-06-7031Tdibphwry encounterLiliana Gomez PACKAGE WINDER-CUSTOMER SERVICE ANALYST Work Phone: [facility] Physicians Internal Medicine - Family MedicineStart: 08-25-2023 End: 27-70-6407KvpewmYfqp Rose Kuns PACKAGE WINDER-CUSTOMER SERVICE ANALYST Work Phone: [facility] Physicians Internal Medicine - Family MedicineStart: 08-02-2023 End: 46-72-4430Xmhkrw outpatient visit 15 minutesJose Roberto CASEY Work Phone: [facility] - Pain Management ClinicComment on above:Lumbosacral spondylosis without myelopathy (Primary Dx) Start: 06-25-2023 End: 90-86-5216tstjpggwkvWMMP ROSE KeiryGood Samaritan Hospitaltart: 06-25-2023 End: 09-92-2396Vvmevw outpatient visit 25 Prince Galindo Patricia PACKAGE WINDER-CUSTOMER SERVICE ANALYST Work Phone: [facility] Internal Medicine - Family MedicineComment on above: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 ([facility]) (Primary Dx); Essential hypertension; Mixed hyperlipidemia; Adult BMI 36.0-36.9 kg/sq m; Mild intermittent asthma without complication; Primary osteoarthritis of right kneeStart: 06-21-2023 End: 14-90-1552Krgzfa outpatient visit 25 Ari CASEY Work Phone: [facility] Pain Management ClinicComment on above:Lumbosacral spondylosis without myelopathy (Primary Dx); Disc displacement, lumbar; Disorder of sacrumStart: 14-21-9979MwgvmkNsma Qian Patricia PACKAGE W[employer]ER-CUSTOMER SERVICE ANALYST Work Phone: [facility] Internal Medicine - Family MedicineStart: 78-22-3472CvvewtKpcd Qian Patricia PACKAGE WINDER-CUSTOMER SERVICE ANALYST Work Phone: [facility] Internal Medicine - Family MedicineComment on above:Depressive disorder; 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 ([facility])Start: 90-23-8822Jdibvc Rojelioeris Galindo Patricia PACKAGE W[employer]ER-CUSTOMER SERVICE ANALYST Work Phone: [facility] Internal Medicine - Family MedicineComment on above:Special screening for malignant neoplasm of colon (Primary Dx)Start: 04-13-2023 End: 10-17-3621Ssvxlkjau encounterJose Roberto CASEY Work Phone: [facility] Pain Management ClinicStart: 04-12-2023 End: 43-58-2687Xxyosx outpatient visit 15 Ari CASEY Work Phone: [facility] - Pain Management ClinicComment on above:Localized osteoarthritis of right knee (Primary Dx)Start: 58-81-1689JnpfmbLnsz Rose Kuns PACKAGE WINDER-CUSTOMER SERVICE ANALYST Work Phone: [facility] Physicians Internal Medicine - Family MedicineStart: 03-01-2023 End: 08-42-9538Plwkoy outpatient visit 25 minutesMajamie CASEY Work Phone: [facility] - Pain Management ClinicComment on above:Localized osteoarthritis of right knee (Primary Dx)Start: 02-15-2023 End: 14-61-4927Dwjfne outpatient visit 15 minutesMajamie CASEY Work Phone: [facility] - Pain Management ClinicComment on above:Localized osteoarthritis of right knee (Primary Dx)Start: 01-05-2022 End: 31-59-0491jaldgjitcyZqvvu Keller Other [employer] Other Start: 30-48-3742Ifvlgx outpatient visit 25 minutes Alix NapoloenlerFPG Urgent Care ClydeStart: 09-24-2021 End: 44-52-4944gegtavebjvFngqs Keller Other [employer] Other Start: 70-77-6882Ahcayp outpatient visit 25 minutes Alix KellerFPG Urgent Care ClydeStart: 04-20-2021 End: 11-31-9812bwkfnrvsojCV JYOTI Fatima FURLONGFacility:H1 Procedures DateProcedureProcedure DetailPerforming ClinicianStart: 52-40-9111Voeuzfmxxg glycosylated h9yOvbk Corrine Payton [employer] W[employer] Work Phone: Start: 67-08-5715Ltdvo depression screening assessment Payton Payton [employer] Work Phone: Start: 40-75-1776Dzsfmq-up visitFollow-upPAWEL CULVER Start: 62-65-0125Wstzc depression screening assessmentPawel Culver DO Work Phone: Start: 64-96-0062Cwqfe depression screening assessment Yasmine Villa [facility] Work Phone: Start: 11-50-0306Ahircbmeej glycosylated t4kQdmbdluruben Villa [facility] Work Phone: Start: 78-76-3994Csgqc depression screening assessment Yasmine Villa [facility] Work Phone: Start: 59-03-5085Uafcd depression screening assessment Yasmine Villa [facility] Work Phone: Start: 44-95-8267NstugtjgburGrtmtta Forrider CMAStart: 10-84-1029Nrcwp foot complete minimum 3 viewsAnthcolby Church DPM Work Phone: Start: 95-98-8740Uehkprubzp glycosylated f0jWewbjugjoshua Villa [facility] Work Phone: Start: 36-71-5327Zmfnrjkyahwo [Mass/volume] in Urine by Test stripYasmine Villa [facility] Work Phone: Start: 35-84-8272Wrsof dip stick/tablet rgnt non-auto w/o micrscpValeriruben Enrique Villa [facility] Work Phone: Start: 26-07-9169Wixmh depression screening assessment Liliana Gomez [facility] Work Phone: Start: 30-08-3689CgffctvvxdrYpfaktf Nienberg PA Work Phone: Start: 30-38-9632Pylnn depression screening assessment Jose Roberto CASEY Work Phone: Start: 64-26-5487Foyfbzyj retinal eye examMajamie CASEY Work Phone: Start: 35-50-0591JrdwzdnfvrsNbrhypv Nienberg PA Work Phone: Plan of Treatment DateCare ActivityDetailAuthorStart: 21-12-1765Kfolyozxu for malignant neoplasm of colonNOMS HealthcareStart: 34-84-2272Vcnbc BMI ScreeningAdult BMI Screening [facility] Mercytart: 94-88-3612Sywpntywlk ScreeningDepression Screening [facility] SystemStart: 09-84-4232Adtd Risk ScreeningFall Risk Screening [facility] Mercytart: 48-21-0909Bwcjcd Use: DiabeticStatin Use: Diabetic [facility] SystemStart: 39-45-1760Ktoyfzp ScreeningTobacco Screening [facility]cytart: 81-46-8894Uoomm BMI ScreeningAdult BMI Screening [facility]cytart: 44-85-9091Gwbqbxqodi ScreeningDepression Screening [facility] SystemStart: 62-65-6310Ybuy Risk ScreeningFall Risk Screening [facility] SystemStart: 49-79-1570Sethbif ScreeningTobacco Screening [facility]cytart: 86-26-7209ZXxL,Tdap and Td Vaccines (2 - Td or Tdap)DTaP,Tdap and Td Vaccines (2 - Td or Tdap)[facility] SystemStart: 60-76-6177Fnvna BMI ScreeningAdult BMI ScreeningTriHealth [facility] SystemStart: 00-52-1138Pjlurel ScreeningTobacco ScreeningTriHealth [facility] SystemStart: 47-28-1925Yzrvuzm ScreeningTobacco ScreeningTriHealth [facility] SystemStart: 88-08-3143Pkgvm BMI Follow Up PlanAdult BMI Follow Up PlanTriHealth Bet[facility] Hospital SystemStart: 70-31-9988Exkrb BMI ScreeningAdult BMI ScreeningTriHealth [facility] SystemStart: 44-93-5056Mdrnaebsjf ScreeningDepression ScreeningTriHealth [facility] SystemStart: 09-08-7546Dxkb Risk ScreeningFall Risk ScreeningAtrium Health Mercytart: 68-48-1837Uddqvvw ScreeningTobacco ScreeningC[facility] Clinic [facility] Start: 87-74-2677Rhewx BMI ScreeningAdult BMI ScreeningTriHealth [facility] Start: 19-69-5065Dbxfbzx ScreeningTobacco ScreeningFirelands Regional Medical Centerca Health SystemStart: 88-95-2900Nfdsh BMI Follow Up PlanAdult BMI Follow Up PlanTriHealth [facility] Hospital SystemStart: 44-29-8798Ppdkk BMI ScreeningAdult BMI ScreeningTriHealth [facility] SystemStart: 76-82-0699Htwsrgfoje ScreeningDepression ScreeningTriHealth [facility] SystemStart: 17-84-0468Adpn Risk ScreeningFall Risk ScreeningTri[facility] SystemStart: 77-47-1319Iquivbq ScreeningTobacco ScreeningTriHealth [facility] Start: 43-08-8716Ebceipu ScreeningTobacco ScreeningTriHealth [facility] SystemStart: 13-93-8423Xlznu BMI Follow Up PlanAdult BMI Follow Up PlanTriHealth Bethes[facility] Hospital SystemStart: 55-60-6952Mdica BMI ScreeningAdult BMI ScreeningTriHealth [facility] SystemStart: 80-14-2787Cenhfpxawm ScreeningDepression ScreeningTriHealth [facility] SystemStart: 48-36-3153Zfamwc Use: DiabeticStatin Use: DiabeticTriHealth Bethesda Butler Hospital SystemStart: 50-53-3932Rawsvnz ScreeningTobacco ScreeningC[facility] Clinic [facility] Start: 03-19-2025 End: 24-51-0256Dwqtaol encounter ixgnlkwsp55/22/2026 7:30 AM EST Office Visit [facility] Physicians Internal Medicine - Family Medicine [address] [place] [address] Payton Payton, PACKAGE WINDER-LEMON GROWER [address], [address] [address] [facility] Physicians Internal Medicine - Family MedicineStart: 02-05-2025 End: 07-67-4236Mczzruz encounter qavihvwev67/11/2025 8:30 AM EST Office Visit [facility] - [facility] [address] [place] [address] Jose Roberto Corona PA [address] [place] [address] [facility] - Pain Management ClinicStart: 48-33-8171Xcqwnmtve for malignant neoplasm of breastMammogramProMedica Health SystemStart: 12-16-2024 End: 32-13-3762PDS Breast - bilateral screeningMammography screening bilateral with CAD Imaging Routine Encounter for screening mammogram for malignant neoplasm of breast Expected: 12/16/2024, Expires: 12/16/2025[facility] Work Phone: Comment on above:Expected: 12/16/2024, Expires: 12/16/2025Start: 12-16-2024 End: 39-58-8617Rynvsie encounter ovwifiwoz95/21/2025 9:00 AM EDT Office Visit [facility] [address] [place] [address] Payton Payton, [employer]ACKAGE W[employer]ER[employer]OWER [address], [address] [place] [address] [facility] - Family MedicineStart: 44-19-2810Vqmha BMI Follow Up PlanAdult BMI Follow Up PlanProFirelands Regional Medical Center South Campusca Health SystemStart: 01-24-3123Pnpsc BMI ScreeningAdult BMI ScreeningProFirelands Regional Medical Center South Campusca Health SystemStart: 65-11-5187Pwyoqpg ScreeningTobacco ScreeningProFirelands Regional Medical Center South Campusca Health SystemStart: 23-63-9407Puktl screening for proteinUrine MicroalbuminProMedica Health SystemStart: 11-08-2024 Tobacco ScreeningTobacco ScreeningProMedica Health SystemStart: 34-11-4252Mquay BMI Follow Up PlanAdult BMI Follow Up PlanFirelands Regional Medical Centerca Health SystemStart: 41-58-6708Wayfz BMI ScreeningAdult BMI ScreeningProMedica Health SystemStart: 63-80-3041Tocffim ScreeningTobacco ScreeningProMedica Health SystemStart: 08-29-7662Royat BMI ScreeningAdult BMI ScreeningProMedica Health SystemStart: 91-42-7696Cxibsem ScreeningTobacco ScreeningFirelands Regional Medical Centerca Health SystemStart: 09-09-2024 End: 54-30-5994Emokulv encounter /15/2025 8:00 AM EDT Office Visit [facility] Physicians Internal Medicine - Family Medicine [address] [place] [address] Yasmine Villa, PACK[employer] W[employer]ER[employer]OWER [address] [place] [address] [facility] Physicians Internal Medicine - Family MedicineStart: 09-02-2024 End: 33-69-0491Hwljpit encounter bxeophrgt57/08/2025 1:15 PM EDT Office Visit [facility] [address] [place] [address] Jose Roberto Corona PA [address] [place] [address] [facility] - Pain Management ClinicStart: 57-26-6971Pypjpcw Screening Tobacco ScreeningTriHealth [facility] SystemStart: 08-01-2024 End: 32-69-4796Hdmbbvycu to same day surgery znoeug7108/01/2024 12:07 PM EDT - 08/01/2024 12:19 PM EDT Surgery [facility] - Pain Procedures [address] [place] [address] Marcel Wheeler MD [address] [place] [address] RADIOFREQUENCY ABLATION GENICULAR [62670 (CPT )][facility] - Pain ProceduresComment on above:RADIOFREQUENCY ABLATION GENICULAR [54620 (CPT )]Start: 08-01-2024 End: 96-50-3483Qmfpwizocdv neurolytic agt genicular nerve w/imgRADIOFREQUENCY ABLATION GENICULAR Primary osteoarthritis of right knee 08/01/2024 12:07 PM EDT [facility] PAINStart: 21-37-4560Lvlwtiydpo hospital visit by ygfwjvrff29/06/2025 12:07 PM EDT Hospital Encounter [facility] - Pain Procedures [address] [place] [address] Marcel Wheeler MD [address] [place] [id number] [facility] - Pain ProceduresStart: 33-58-3886Eqohh BMI Follow Up PlanAdult BMI Follow Up PlanProAultman Hospital SystemStart: 06-24-2024 Adult BMI ScreeningAdult BMI ScreeningTriHealth [facility] SystemStart: 06-24-2024 Depression ScreeningDepression ScreeningTriHealth [facility] SystemStart: 06-24-2024 Diabetic foot examinationDiabetic Foot ExamTriHealth [facility]hes[facility] Hospital SystemStart: 27-02-2683Lobk Risk ScreeningFall Risk ScreeningProAultman Hospital SystemStart: 41-02-8255Fbbya BMI ScreeningAdult BMI ScreeningProAultman Hospital SystemStart: 55-91-3608Gttkixx ScreeningTobacco ScreeningProAultman Hospital SystemStart: 06-19-2024 End: 54-31-9700Llfpjiu encounter tnttstuxm51/24/2025 8:15 AM EDT Office Visit [facility] [address] [place] [address] Jose Roberto Corona PA [address], [address] [place], [place] [address] [facility] - Pain Management ClinicStart: 06-09-2024 End: 02-09-7338Kauuoep encounter kgjowkcll57/14/2025 8:20 AM EDT Office Visit [facility] Internal Medicine - Family Medicine [address] [place] [address] Yasmine Villa, PACK[employer] W[employer]ER[employer]LEMON GROWER [address] [place] [address] [facility] Phys[facility] Internal Medicine - Family MedicineStart: 06-06-2024 End: 19-97-1159Tsensszwm to same day surgery mdqigs9206/06/2024 10:37 AM EDT - 06/06/2024 10:47 AM EDT Surgery [facility] - Pain Procedures [address] [place] [phone] Marcel Wheeler MD [address] [place] [id number] INJECTION BLOCK NERVE KNEE Right Genicular [20734 (CPT )][facility] - Pain ProceduresComment on above:INJECTION BLOCK NERVE KNEE Right Genicular [07241 (CPT )]Start: 06-06-2024 End: 22-27-9146Vqyunaavu aa&/strd genicular nrv branches w/imgINJECTION BLOCK NERVE KNEE Primary osteoarthritis of right knee 06/06/2024 10:37 AM EDTFREMONT PAINStart: 13-91-3726Ilonstlqio hospital visit by lxsrvyxrg46/11/2025 10:37 AM EDT Hospital Encounter [facility] - Pain Procedures [address] [place] [address] Marcel Wheeler MD [address] [place] [address] [facility] - Pain ProceduresStart: 19-96-2396Kqdsp BMI ScreeningAdult BMI ScreeningProMedica Health SystemStart: 77-22-7729Dscxeba ScreeningTobacco ScreeningProFirelands Regional Medical Center South Campusca Health SystemStart: 23-86-3775Uvpikh Use: DiabeticStatin Use: DiabeticProFirelands Regional Medical Center South Campusca Health SystemStart: 49-23-1504Obzosjy ScreeningTobacco ScreeningProMedica Health SystemStart: 48-46-5262Quonk BMI ScreeningAdult BMI ScreeningProFirelands Regional Medical Center South Campusca Health SystemStart: 2024 End: 94-22-0322Jnxrytn encounter toydqkizl87/19/2024 3:15 PM EST Office Visit [facility] [address] [place] [address] Josue Church DPM [address] [place] [address] [facility]ODIATRYStart: 02-07-2349Mnfrqdf ScreeningTobacco Screening [facility] SystemStart: 03-49-4199Irnwsngfv for malignant neoplasm of breastMammogramNOUT HealthcareStart: 12-18-2023 End: 57-39-0266Zozwfzf encounter tuyqglcny41/22/2024 3:15 PM EDT [facility] [address] [place] [address] Josue Church DPM [address] [place] [id number] ArrivedDOCTORS HOSPITAL PODIATRYComment on above:ArrivedStart: 84-32-8556Qbnpg BMI Follow Up PlanAdult BMI Follow Up PlanTriHealth Bethesda Butler Hospital SystemStart: 12-12-2023 Depression ScreeningDepression ScreeningProAultman Hospital SystemStart: 12-12-2023 Fall Risk ScreeningFall Risk ScreeningAtrium Health Mercytart: 12-10-2023 End: 57-01-3712WSO Breast - bilateral screeningMammography screening bilateral with CAD Imaging Routine Encounter for screening mammogram for malignant neoplasm of breast Expected: 12/10/2023, Expires: 12/09/2024ProAultman Hospital SystemComment on above:Expected: 12/10/2023, Expires: 12/09/2024Start: 10-14-2024Medicare Annual Wellness VisitMedicare Annual Wellness VisitTriHealth Bethesda Butler Hospital SystemComment on above:Postponed from 1955 (Patient Refused)Start: 12-10-2023 End: 68-75-4138Hdtswmp encounter ifclgpogn79/14/2024 9:00 AM EDT Office Visit [facility] - [facility] [address] [place] [address] Yasmine Villa, PACKAGE WINDER-LEMON GROWER [address] [place] [address] [facility] MedicineStart: 12-06-2023 End: 51-64-1868Srrmmvr encounter rjkaypiya07/10/2024 8:40 AM EDT Office Visit [facility] [address] [place] [address] Ai Martinez, PACKAGE WINDER-LEMON GROWER [address] [place] [address] [facility] MedicineStart: 11-29-2023 End: 82-55-1141Firxftt encounter reyfsfrpd93/03/2024 8:45 AM EDT Office Visit [facility] [address] [place] [address] Jose Roberto Corona PA [address] [facility], [address] [place] [address] [facility] - Pain Management ClinicStart: 11-09-2023 End: 97-21-3967Tdkfuhehj to same day surgery oqhjdd7711/09/2023 8:03 AM EDT - 11/09/2023 8:12 AM EDT Surgery [facility] - Pain P rocedures [address] [place] [address] Marcel Wheeler MD [address] [place] [address] INJECTION BLOCK NERVE KNEE: right genicular [49682 (CPT )][facility] - Pain ProceduresComment on above:INJECTION BLOCK NERVE KNEE: right genicular [94999 (CPT )]Start: 11-09-2023 End: 18-37-3149Tnzqwmtzx aa&/strd genicular nrv branches w/imgINJECTION BLOCK NERVE KNEE Localized osteoarthritis of right knee 11/09/2023 8:03 AM EDTFREMONT PAINStart: 51-64-7089Ayyxlnmeze hospital visit by ffqqotcub44/13/2024 8:03 AM EDT Hospital Encounter [facility] - Pain Procedures [address] [place] [address] Marcel Wheeler MD [address] [place] [address] [facility] - Pain ProceduresStart: 11-08-2023 End: 81-07-6167Jorrlyb encounter fqzyqcadr90/12/2024 8:45 AM EDT Office Visit [facility] [address] [place] [address] Jose Roberto Corona PA [address] [facility], 2nd [address] [place], [place] [address] [facility] - Pain Management ClinicStart: 76-70-6332Ayvuqutck vaccination Influenza Vaccine (#1)[facility] HealthcareStart: 10-12-2023 End: 31-76-2413Qhpispalf to same day surgery [facility] - Pain ProceduresComment on above:INJECTION BLOCK NERVE KNEE: right genic [81433 (CPT )]INJECTION BLOCK NERVE KNEE: right genicular [28105 (CPT )] Start: 10-12-2023 End: 92-75-9641Magatovyj aa&/strd genicular nrv branches w/imgFREMONT PAINStart: 07-04-1632Jovsforyom hospital visit by physicianC[facility] - Pain ProceduresStart: 09-18-2023 End: 13-92-1417Gxwrtot encounter /23/2024 9:15 AM EDT Office Visit [facility] [address] [place] [address] Jose Roberto Corona PA [address] [place] [address] [facility] - Pain Management ClinicStart: 08-02-2023 End: 60-17-9918Amytvcy encounter xrmyfehxj09/06/2024 9:30 AM EDT Office Visit [facility] [address] [place] [address] Jose Roberto Corona PA [address] [place] [address] [facility] - Pain Management ClinicStart: 31-36-4596Skaewnxo screening Diabetic Ophthalmology ExamTriHealth Bet[facility] Hospital SystemStart: 07-03-2023 End: 62-34-2055Kwefsag encounter zymblsgng76/07/2024 7:15 AM EDT Appointment [facility] - MRI Imaging [address] [facility] [address] Jose Roberto Corona, PA [address] [place] [address] [facility] - MRI ImagingStart: 06-29-2023 End: 66-42-8150Awbgoekgy to same day surgery hucdhv4406/29/2023 12:42 PM EDT - 06/29/2023 12:50 PM EDT Surgery [facility] - Pain Procedures [address] [place] [address] Marcel Wheeler MD [address] [place] [address] INJECTION BLOCK NERVE KNEE Right Genicular - Therapeutic [76409 (CPT )][facility] - Pain ProceduresComment on above:INJECTION BLOCK NERVE KNEE Right Genicular - Therapeutic [18883 (CPT )]Start: 06-29-2023 End: 29-35-9968Zwpkczset aa&/strd genicular nrv branches w/imgINJECTION BLOCK NERVE KNEE Primary osteoarthritis of right knee 06/29/2023 12:42 PM EDTFREMONT PAINStart: 05-50-7625Yayqvtmkit hospital visit by ghfuhlvoy27/03/2024 12:42 PM EDT Hospital Encounter [facility] - Pain Procedures [address] [place] [address] Marcel Wheeler MD [address] [place], [place] [address] [facility] - Pain ProceduresStart: 06-25-2023 End: 25-00-8767Qgisyuq encounter jvgqzyjwl54/29/2024 8:00 AM EDT Office Visit [facility] Internal Medicine - Family Medicine [address] [place] [address] Liliana Gomez, PACKAGE WINDER-CUSTOMER SERVICE ANALYST [address] [place] [address] [facility] Physicians Internal Medicine - Family MedicineStart: 85-43-8528Actxrqouqkgpar of varicella zoster vaccineZoster (Shingles) Vaccine (2 of 3)[facility] HospitalComment on above:Postponed from 04/02/2013 (Insurance / Financial)Start: 00-10-0511Bmubadrh foot examinationDiabetic Foot ExamTriHealth [facility] System Start: 03-29-2023 End: 64-85-1336Spsobcd encounter imuqndawu97/01/2024 9:30 AM EST Office Visit [facility] Pain Management Clinic [address] [place] [address] Jose Roberto Corona PA [address], [address] [place], [place] [address] [facility] - Pain Management ClinicStart: 13-02-7619Xezlcncuu for malignant neoplasm of colonSkyline Medical CenterStart: 23-20-6112Bdifasmirwmf Vaccine: 65+ Years (3 of 3 - PPSV23 or PCV20)Pneumococcal Vaccine: 65+ Years (3 of 3 - PPSV23 or PCV20)[facility] HealthcareStart: 19-14-3762Jzymzvxjhrptuv of varicella zoster vaccineZoster (Shingles) Vaccine (2 of 3)[facility] SystemStart: 91-56-4695EAC ( or age 60+ yrs) (1 - Risk 60-74 years 1- dose series)RSV ( or age 60+ yrs) (1 - Risk 60-74 years 1-dose series) [facility] SystemStart: 04-63-7521Lclrpcxpn for malignant neoplasm of breastMammogramNOMS HealthcareStart: 24-34-6045Drlmseicm for malignant neoplasm of colonNOMS Healthcare End: 32-56-1617Pwiivbqc identified in Urine by CultureUrine culture (clean catch) Microbiology Routine Acute cystitis without hematuria 1 Occurrences star ting 10/15/2023 until 10/14/2024[facility] Work Phone: Comment on above:1 Occurrences starting 10/15/2023 until 10/14/2024 End: 96-28-2356ZGQ W Auto Differential panel - BloodCBC auto differential Lab Routine 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 ([facility]) 1 Occurrences starting 12/10/2023 until 12/09/2024ProAultman Hospital SystemComment on above:1 Occurrences starting 12/10/2023 until 12/09/2024ologuard Non-ProMedicaCologuard Non-[facility] Lab Routine Special screening for malignant neoplasm of colon Ordered: 4[facility] Work Phone: Comment on above:Ordered: 04/20/2023 End: 28-29-9715Odpxtzhhgwuxt metabolic 2000 panel - Serum or PlasmaComprehensive metabolic panel Lab Routine 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 ([facility]) 1 Occurrences starting 12/10/2023 until 12/09/2024 [facility] Work Phone: Comment on above:1 Occurrences starting 12/10/2023 until 12/09/2024Destruction neurolytic agt genicular nerve w/imgRADIOFREQUENCY ABLATION GENICULAR Localized osteoarthritis of right kneeProAultman Hospital System Destruction neurolytic agt genicular nerve w/imgRADIOFREQUENCY ABLATION GENICULAR Primary osteoarthritis of right kneeFREMONT PAINInjection aa&/strd genicular nrv branches w/imgINJECTION BLOCK NERVE KNEE Primary osteoarthritis of right kneeCleveland Clinic [facility] Hospital End: 11-62-7019Mmdrl 1996 panel - Serum or PlasmaLipid profile Lab Routine 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 ([facility]) 1 Occurrences starting 12/10/2023 until 12/09/2024[facility] SystemComment on above:1 Occurrences starting 12/10/2023 until 12/09/2024 End: 94-86-0564Vvqjoufwbylo - Albumin: Creatinine Urine RatioMicroalbumin - Albumin: Creatinine Urine Ratio Lab Routine 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 ([facility]) 1 Occurrences starting 12/10/2023 until 12/09/2024ProAultman Hospital SystemComment on above:1 Occurrences starting 12/10/2023 until 12/09/2024 End: 91-66-3678LI Lumbar spine WO contrastMR lumbar spine without contrast Imaging Routine Disc displacement, lumbar 1 Occurrences starting 06/21/2023 until 06/20/2024[facility] Work Phone: Comment on above:1 Occurrences starting 06/21/2023 until 06/20/2024 End: 88-80-6510Vajwscmmapb [Units/volume] in Serum or PlasmaTSH Lab Routine 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 ([facility]) 1 Occurrences starting 12/10/2023 until 12/09/2024[facility] HospitalComment on above:1 Occurrences starting 12/10/2023 until 12/09/2024 Immunizations Immunization DateImmunizationNotesCare AgidgmsxCfioqtrj59-62-2286Alxwgcdan, High-dose, QuadrivalentMatttali CASEY Work Phone: ProTrihealth Bethes[facility] Butler HospitalCpgmcb83-04-3733vpvkwbucw virus vaccine, unspecified formulationJosue Church DPM Work Phone: [facility] HospitalMfvbiysqbg71-81-4801YTMYG-34, mRNA, LNP-S, PF, 30mcg/0.3mL DoseMatthew Nienberg PA Work Phone: [facility] HospitalQiorpz09-07-3760WVCLU-85, mRNA, LNP- S, PF, 30mcg/0.3mL DoseMatthew Nienberg PA Work Phone: [facility] HospitalPxuiwr16-37-0553XVVWR-03, mRNA, LNP- S, PF, 30mcg/0.3mL DoseMatthew Nienberg PA Work Phone: [facility] HospitalEbjwzz10-78-5074LGEDP-18, mRNA, LNP- S, PF, 30mcg/0.3mL DoseMatthew Nienberg PA Work Phone: [facility] HospitalYnsibx54-33-1143Htjrurqvk, injectable, Madin Dukedom Canine Kidney, preservative free, quadrivalentMatthew Nienberg PA Work Phone: [facility] HospitalQborgn35-93-0305nvdqukpvdsqz polysaccharide vaccine, 23 valentMatthew Nienberg PA Work Phone: [facility] HospitalBuwdat53-31-5445Vcweucsds, injectable, Madin Cristiane Canine Kidney, preservative free, quadrivalentMatthew Nienberg PA Work Phone: [facility] HospitalZgefna72-81-0499qvbgpmhdo, injectable, quadrivalent, preservative freeMatthew Nienberg PA Work Phone: [facility] HospitalYdoqux99-60-2181rlriiasnd, seasonal, injectable, preservative freeMatthew Nienberg PA Work Phone: [facility] HospitalOdlmvj51-82-1871amkbbwypg, injectable, quadrivalent, preservative freeMatthew Nienberg PA Work Phone: [facility]07-29-2016tetanus toxoid, reduced diphtheria toxoid, and acellular pertussis vaccine, adsorbedMatthew Nienberg PA Work Phone: [facility] CenterShanghai Soco SoftwareRrxbcy55-33-7662hlsfbksoj, seasonal, injectable, preservative freeMatthew Nienberg PA Work Phone: [facility] CenterShanghai Soco SoftwareRllghf57-22-7339zodfiojoojdu conjugate vaccine, 13 valentMatthew Nienberg PA Work Phone: [facility] CenterShanghai Soco SoftwareDzxldp92-88-0885kanwrk vaccine, live Jose Roberto Nienberg PA Work Phone: [facility] CenterShanghai Soco SoftwareQpbewr67-36-9085dofssu vaccine, unspecified formulationMatthew Nienberg PA Work Phone: [facility] CenterShanghai Soco SoftwareBzxisc34-84-8722pqcnql vaccine, live Jose Roberto Nienberg PA Work Phone: [facility] CenterShanghai Soco SoftwareWextar23-47-2593hwpkxsbrd virus vaccine, unspecified formulationMatthew Nienberg PA Work Phone: [facility] CenterShanghai Soco SoftwareQpwroe24-06-0438ztstp evmgdvdau-C5M0-33, preservative-free, injectableMatthew Nienberg PA Work Phone: [facility] HospitalFjuulAljwwi11-57-1312sunlzymunpik polysaccharide vaccine, 23 valentMatthew Nienberg PA Work Phone: [facility] [employer] Payers DatePayer CategoryPayerPolicy [id number] Care Other (unspecified) [id number] Health Insurance [employer] [id number] 2018MedicareMEDICARE [id number] [id number] 01-60-7631Yburxqdkqk Managed Care - O 1.2.840.885357.1.13.424.2.7.9.610015.402.87163-69-4179Gmwoxlj 1.2.840.364655.1.13.424.2.7.3.110892.31398-13-5815Coynkqd05248669585407-42-6174 ZunoaycT9870292[id number] 2.0.1.033145.3.579.2.593 [id number] 2.0.1.619904.3.579.2.053357-73-9593Trfnowd [id number] 2.0.1.407505.3.579.[id number] 2.0.1.834813.3.57[id number] 2.0.1.976824.3.579.2.[id number] 2.0.1.106243.3.57[id number] 2.16.840.1.949444.3.57[id number] 2.16.840.1.357614.3.579.[id number] 2.16.840.1.712586.3.57[id number] 2.16.840.1.979337.3.579.2.2[id number] 2.840.1.777050.3.579.[id number] 2.16.840.1.891947.3.57[id number] 2.840.1.364076.3.57[id number] 2.840.1.618929.3.579.2.820746-89-5527Bilkznt86144073 2.16.840.1.673992.3.57[id number] 2.16840.1.156322.3.57[id number] 2.16.840.1.773016.3.579.2.[id number] 2.16.840.1.324452.3.579.2.1[id number] 2.16.840.1.568957.3.579.2.187505-60-9837Aktsxcl841343271 2.16.840.1.571209.3.579.[id number] 2.16.840.1.866206.3.579.2.1286 Social History DateTypeDetailFacilityUnknown if ever smokedNort Clear Vascular Other Start: 11-23-2021 End: 15-08-5324Yls Assigned At BirthTriHealth [facility] Hospital SystemStart: 11-14-2021 End: 95-87-3251Vnnpoge smoking status NHISNever smoked tobaccoUINTAH BASIN MEDICAL [facility]ENTER Healthcare Start: 11-24-2022 End: 31-88-5909Kjinqemxu beverage intakeLifetime non-drinker (finding)[facility] Mercytart: 53-47-7173Juy assigned at birthNot on fileTriHealth Bethesda Butler Hospital SystemStart: 66-31-4981Jlqdyie use and exposureSmokeless tobacco non-user [facility] SystemStart: 11-23-2021 End: 93-47-5241Ymrfyrw of Social functionProAultman Hospital SystemDo you belong to any clubs or organizations such as anabaptist groups, unions, fraternal or athletic groups, or school groups?YesProAultman Hospital SystemAre you now , , , , never or living with a partner? [facility] SystemHow often to you have a drink containing alcohol?Never [facility] Health SystemHow many standard drinks containing alcohol do you have on a typical day?Patient does not drinkProTrihealth Bethesda Butler HospitalDo you feel stress - tense, restless, nervous, or anxious, or unable to sleep at night because yourmind is troubled all the time - these days [OSQ]Not at allTriHealth Bethesda Butler Hospital SystemStart: 33-27-2305Qwvnbfing82VcyDlhfbm Health SystemStart: 13-53-6319Efs Female (finding)[facility] Clinical Notes 09-24-2021 to 12-16-2024 Note Date & EifaGtnoIwzraafn40-28-2404 History of Present illness Narrative* Payton Payton APRN-ALEKSANDR - 12/16/2024 9:00 AM EDT IM PROGRESS NOTE Patient - Severiano R Kobi Age - 69 y.o. - 1955 [facility] - [phone] ASSESSMENT & PLAN 1. DM type 2 with diabetic mixed hyperlipidemia ([facility]) (Primary) -A1c 6. Previous A1c 6.9. -significant improvement with Ozempic - POCT Hemoglobin A1c 2. Essential hypertension -normotensive -continue losartan amlodipine - amLODIPine (NORVASC) 5 mg tablet; Take 1 tablet (5 mg total) by mouth in the morning. REFILL. Dispense: 90 tablet; Refill: 1 3. 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 ([facility]) -refill - losartan (COZAAR) 25 mg tablet; Take 1 tablet (25 mg total) by mouth in the morning. Dispense: 90tablet; Refill: 1 4. Type 2 diabetes mellitus with hyperglycemia, without long-term current use of insulin ([facility]) -refill -we will get lipid panel at [...] Annual physical, A1c and labs. [place] [facility] Office: [phone] This note is dictated with the use of M*Modal. Please note that this dictation was completed with computer voice recognition software. Quite often unanticipated grammatical, syntax, homophones, and other interpretive errors are inadvertently transcribed by the computer software. Please disregard these errors. Please excuse any errors that have escaped final proofreading. ALISON Gilliam 12/16/24 0929 documented in this encounterFirelands Regional Medical CenterBountysource Select Specialty [id number] History of Present illness Narrative* Pawel Culver DO - 11/05/2024 12:30 PM EDT IM [...] Imitrex or similar agent Subjective FOLLOW-UP: EMERGENCY DEPARTMENT-[place] Patient was discharged from the facility on: [...] Testing No results found. Pawel Culver DO., [facility] Office: [phone] documented in this encounterCleveland Clinic Marymount Hospital07-22-2025 History of Present illness Narrative* CARMELA Loera - 09/16/2024 8:[address] [facility] [address] [place] [address] Patient: Severiano Peace Sex: female : 1955 Age: 69 y.o. PCP: Yasmine Villa APRN-LEMON GROWER 09/16/2024 Severiano Peace is here for a(n) [...] 2 due to type 2 diabetes mellitus ([facility]) Depression Hyperlipidemia Joint pain Migraine Neck pain Obesity Osteoarthritis of knee Osteopenia Rheumatoid arthritis ([facility]) Skin cancer Stage 2 chronic kidney disease due to benign hypertension Tear of meniscus of knee Visual impairment Past Surgical History: Procedure Laterality Date COLONOSCOPY 07/15/2009 COLONOSCOPY N/A 12/02/2021 Performed by Pawel Culver DO at [facility] GASTRIC BYPASS 09/11/2017 INJECTION BLOCK NERVE KNEE Right Genicular - Therapeutic Right 06/29/2023 Performed by Marcel Wheeler MD at [facility] INJECTION BLOCK NERVE KNEE Right Genicular Right 06/06/2024 Performed by Marcel Wheeler MD at [facility] INJECTION BLOCK NERVE KNEE Right Genicular Right 12/08/2022 Performed by Marcel Wheeler MD at [facility] INJECTION BLOCK NERVE KNEE Right Genicular Right 09/15/2022 Performed by Marcel Wheeler MD at [facility] INJECTION BLOCK NERVE KNEE: right genicular Right 11/09/2023 Performed by Marcel Wheeler MD at [facility] KNEE ARTHROSCOPY Right 01/2005 OTHER SURGICAL HISTORY 10/07/2019 Repair of Left Retina RADIOFREQUENCY ABLATION GENICULAR Right 08/15/2024 Performed by Marcel Wheeler MD at [facility] SKIN CANCER EXCISION TUBAL LIGATION 07/03/2000 [...] min Stress: No Stress Concern Present (11/23/2021) [employer] [employer] - Occupational Stress Questionnaire Feeling of Stress : Not at all Social Connections: Socially Integrated (11/23/2021) Social Connection and Isolation Panel [NHANES] Frequency of Communication with Friends and Family: More than three times a week Frequency of Social Gatherings with Friends and Family: Twice a week Attends Gnosticism Services: More than 4 times per year [...] CARMELA Loera 09/16/24 0857 documented in this encounterFirelands Regional Medical CenterBountysource Select Specialty HospitalAhqikz36-64-0896 Miscellaneous Notes* Telephone Encounter - Jerri Crump RN - 08/07/2024 12:22 PM EDT Courtesy call placed to remind patient of the need to hold their Ozempic x 7 days. The last dose will be 08/07/2024. Patient is to resume Ozempic after 07/2024 Right genicular RFA. No answer. Message left with the above information. documented in this encounterCleveland Clinic Marymount Hospital06-12-2025 Telephone encounter Note* Telephone Encounter - Jerri Crump RN - 08/07/2024 12:22 PM EDT Courtesy call placed to remind patient of the need to hold their Ozempic x 7 days. The last dose will be 08/07/2024. Patient is to resume Ozempic after 07/2024 Right genicular RFA. No answer. Message left with the above information. [facility]05-08-2025 History of Present illness Narrative* Yasmine Villa APRN-LEMON GROWER - 07/03/2024 11:00 AM EDT Images from the original note were not included. [address] [facility] [address] SUBJECTIVE: Patient ID: Severiano Peace is a [...] 12/02/2021 Performed by Pawel Culver DO at [facility] GASTRIC BYPASS 09/11/2017 INJECTION BLOCK NERVE KNEE Right Genicular - Therapeutic Right 06/29/2023 Performed by Marcel Wheeler MD at [facility] INJECTION BLOCK NERVE KNEE Right Genicular Right 06/06/2024 Performed by Marcel Wheeler MD at [facility] INJECTION BLOCK NERVE KNEE Right Genicular Right 12/08/2022 Performed by Marcel Wheeler MD at [facility] INJECTION BLOCK NERVE KNEE Right Genicular Right 09/15/2022 Performed by Marcel Wheeler MD at [facility] INJECTION BLOCK NERVE KNEE: right genicular Right 11/09/2023 Performed by Marcel Wheeler MD at [facility] KNEE ARTHROSCOPY Right 01/2005 OTHER SURGICAL HISTORY 10/07/2019 Repair of Left Retina SKIN CANCER EXCISION TUBAL LIGATION 07/03/2000 Past Medical History: Diagnosis Date Asthma Chronic pain disorder CKD stage 2 due to type 2 diabetes mellitus ([facility]) Depression Hyperlipidemia Joint pain Migraine Neck pain Obesity Osteoarthritis of knee Osteopenia Rheumatoid arthritis ([facility]) Skin cancer Stage 2 chronic kidney disease [...] ALISON Ruano 07/03/24 1229 documented in this encounterCleveland Clinic [facility]04-29-2025 Miscellaneous Notes* Telephone Encounter - Jerri Crump [...] until after her procedure documented in this encounterCleveland Clinic Marymount Hospital04-29-2025 Telephone encounter Note* Telephone Encounter - Jerri Crump RN - 06/24/2024 2:09 PM EDT Approval received for patient to hold Ozempic x 7 days prior to ordered procedure with MAC (right genicular RFA). Await approval to hold Jardiance x 3 days prior to procedure with MAC sedation. [facility] [employer] [id number] Telephone encounter Note* Telephone Encounter - Jerri Crump RN - 06/24/2024 2:09 PM EDT Per PCP note, patient is no longer on Jardiance. May schedule patient for procedure. [facility] [employer] [id number] Telephone encounter Note* Telephone Encounter - Sylvia Mahan CNA - 06/24/2024 2:09 PM EDT Seveirano is scheduled 08/01. Severiano confirmed that she is no longer taking Jardiance. Her last dose of Ozempic was 07/24 and she will hold until after her procedure [facility]04-24-[facility]25 History of Present illness Narrative* CARMELA Loera - 06/19/2024 8:[address] [facility] [address] [place] [address] Patient: Severiano Peace Sex: female : 1955 Age: 69 y.o. PCP: Yasmine Villa APRN-ALEKSANDR 06/19/2024 Severiano Peace is here for a(n) [...] see above Pain scale after treatment: 1-2 10 Chief Complaint Patient presents with Back Pain [...] 2 due to type 2 diabetes mellitus ([facility]) Depression Hyperlipidemia Joint pain Migraine Neck pain Obesity Osteoarthritis of knee Osteopenia Rheumatoid arthritis ([facility]) Skin cancer Stage 2 chronic kidney disease due to benign hypertension Tear of meniscus of knee Visual impairment Past Surgical History: Procedure Laterality Date COLONOSCOPY 07/15/2009 COLONOSCOPY N/A 12/02/2021 Performed by Pawel Culver DO at [facility] GASTRIC BYPASS 09/11/2017 INJECTION BLOCK NERVE KNEE Right Genicular - Therapeutic Right 06/29/2023 Performed by Marcel Wheeler MD at [facility] INJECTION BLOCK NERVE KNEE Right Genicular Right 06/06/2024 Performed by Marcel Wheeler MD at [facility] INJECTION BLOCK NERVE KNEE Right Genicular Right 12/08/2022 Performed by Marcel Wheeler MD at [facility] INJECTION BLOCK NERVE KNEE Right Genicular Right 09/15/2022 Performed by Marcel Wheeler MD at [facility] INJECTION BLOCK NERVE KNEE: right genicular Right 11/09/2023 Performed by Marcel Wheeler MD at [facility] KNEE ARTHROSCOPY Right 01/2005 OTHER SURGICAL [...] min Stress: No Stress Concern Present (11/23/2021) [employer] - Occupational Stress Questionnaire Feeling of Stress : Not at all Social Connections: Socially Integrated (11/23/2021) Social Connection and Isolation Panel [NHANES] Frequency of Communication with Friends and Family: More than three times a week Frequency of Social Gatherings with Friends and Family: Twice a week Attends Gnosticism Services: More than 4 times per year [...] for further evaluation. OARRS: Reviewed. Scribe Statement: IBonnie CNA, scribed for and in the presence of CARMELA LOERA who performed the above service. Bonnie Farah CNA 06/19/24 0952 Bonnie Farah CNA 06/19/24 1030 CARMELA Loera 06/24/24 1432 documented in this encounterCleveland Clinic Marymount Hospital04-24-2025 Instructions* Patient Instructions* Bonnie Farah CNA - [...] it back to normal. documented in this encounterFirelands Regional Medical CenterBountysource Select Specialty [id number] History of Present illness Narrative* Yasmine Nunez Allen, PACKAGE WINDER-LEMON GROWER - 06/09/2024 8:20 AM EDT Images from the original note were not included. [address] [place] [id number] SUBJECTIVE: Patient ID: Severiano Peace is a [...] 12/02/2021 Performed by Pawel Culver DO at [facility] 09/11/2017 INJECTION BLOCK NERVE KNEE Right Genicular - Therapeutic Right 06/29/2023 Performed by Marcel Wheeler MD at [facility] INJECTION BLOCK NERVE KNEE Right Genicular Right 06/06/2024 Performed by Marcel Wheeler MD at [facility] INJECTION BLOCK NERVE KNEE Right Genicular Right 12/08/2022 Performed by Marcel Wheeler MD at [facility] INJECTION BLOCK NERVE KNEE Right Genicular Right 09/15/2022 Performed by Marcel Wheeler MD at [facility] INJECTION BLOCK NERVE KNEE: right genicular Right 11/09/2023 Performed by Marcel Wheeler MD at [facility] KNEE ARTHROSCOPY Right 01/2005 OTHER SURGICAL HISTORY 10/07/2019 Repair of Left Retina SKIN CANCER EXCISION TUBAL LIGATION 07/03/2000 Past Medical History: Diagnosis Date Asthma Chronic pain disorder CKD stage 2 due to type 2 diabetes mellitus ([facility]) Depression Hyperlipidemia Joint pain Migraine Neck pain Obesity Osteoarthritis of knee Osteopenia Rheumatoid arthritis ([facility]) Skin cancer Stage 2 chronic kidney disease [...] 2 due to type 2 diabetes mellitus ([facility]) DM type 2 with diabetic mixed hyperlipidemia ([facility]) - POCT Hemoglobin A1c - semaglutide (OZEMPIC) [...] ALISON Ruano 06/09/24 0902 documented in this encounterCleveland Clinic Mary[facility] Hospital03-27-2025 History of Present illness Narrative* CARMELA Loera - 05/22/2024 1:[address] [facility] [address] [place] [address] Patient: Severiano Peace Sex: female : 1955 Age: 69 y.o. PCP: ALISON Ruano 05/22/2024 Severiano Peace is here for a(n) [...] 2 due to type 2 diabetes mellitus ([facility]) Depression Hyperlipidemia Joint pain Migraine Neck pain Obesity Osteoarthritis of knee Osteopenia Rheumatoid arthritis ([facility]) Skin cancer Stage 2 chronic kidney disease due to benign hypertension Tear of meniscus of knee Visual impairment Past Surgical History: Procedure Laterality Date COLONOSCOPY 07/15/2009 COLONOSCOPY N/A 12/02/2021 Performed by Pawel Culver DO at [facility] 09/11/2017 INJECTION BLOCK NERVE KNEE Right Genicular - Therapeutic Right 06/29/2023 Performed by Marcel Wheeler MD at [facility] INJECTION BLOCK NERVE KNEE Right Genicular Right 12/08/2022 Performed by Marcel Wheeler MD at [facility] INJECTION BLOCK NERVE KNEE Right Genicular Right 09/15/2022 Performed by Marcel Wheeler MD at [facility] INJECTION BLOCK NERVE KNEE: right genicular Right 11/09/2023 Performed by Marcel Wheeler MD at [facility] KNEE ARTHROSCOPY Right 01/2005 OTHER SURGICAL [...] min Stress: No Stress Concern Present (11/23/2021) [employer] - Occupational Stress Questionnaire Feeling of Stress : Not at all Social Connections: Socially Integrated (11/23/2021) Social Connection and Isolation Panel [NHANES] Frequency of Communication with Friends and Family: More than three times a week Frequency of Social Gatherings with Friends and Family: Twice a week Attends Gnosticism Services: More than 4 times per year [...] the above service. Jerri Crump RN 05/22/24 7812 CARMELA Loera 05/22/24 7463 documented in this encounterCleveland Clinic [facility] Hospital03-27-2025 Instructions* Patient Instructions* Jerri Crump RN - [...] a safety precaution, you must have a trencher driver after a lumbar nerve root injection, [...] it back to normal. documented in this encounterFirelands Regional Medical CenterKnickerbocker Hospital02-20-2025 Miscellaneous Notes* Telephone Encounter - Sunshine Gregory - 04/17/2024 8:53 AM EST Jose De Jesusempic needs a PA, I will look into it documented in this encounterCleveland Clinic Mary[facility] Hospital02-20-2025 Telephone encounter Note* Telephone Encounter - Sunshine Gregory - 04/17/2024 8:53 AM EST Jose De Jesusempic needs a PA, I will look into it [facility]02-17-2025 History of Present illness Narrative* Yasmine Villa APRN-[facility] - 04/14/2024 8:40 AM EST Images from the original note were not included. [address] [facility] [facility] [address] SUBJECTIVE: Patient ID: Severiano Peace is [...] 12/02/2021 Performed by Pawel Culver DO at [facility] 09/11/2017 INJECTION BLOCK NERVE KNEE Right Genicular - Therapeutic Right 06/29/2023 Performed by Marcel Wheeler MD at [facility] INJECTION BLOCK NERVE KNEE Right Genicular Right 12/08/2022 Performed by Marcel Wheeler MD at [facility] INJECTION BLOCK NERVE KNEE Right Genicular Right 09/15/2022 Performed by Marcel Wheeler MD at [facility] INJECTION BLOCK NERVE KNEE: right genicular Right 11/09/2023 Performed by Marcel Wheeler MD at [facility] KNEE ARTHROSCOPY Right 01/2005 OTHER SURGICAL HISTORY 10/07/2019 Repair of Left Retina TUBAL LIGATION 07/03/2000 Past Medical History: Diagnosis Date Asthma Chronic pain disorder CKD stage 2 due to type 2 diabetes mellitus ([facility]) Depression Hyperlipidemia Joint pain Migraine Neck pain Obesity Osteoarthritis of knee Osteopenia Rheumatoid arthritis ([facility]) Stage 2 chronic kidney disease due to [...] hyperglycemia, without long-term current use of insulin ([facility]) - semaglutide (OZEMPIC) 0.25 mg or 0.5 mg (2 mg/3 mL) pen injector; Inject 0.5 mg under the skin every 7 days. - rosuvastatin (CRESTOR) 20 mg tablet; Take 1 tablet (20 mg total) by mouth every morning. 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 ([facility]) - empagliflozin (JARDIANCE) 25 mg tablet tablet; Take 1 tablet (25 mg total) by mouth in the morning. - losartan (COZAAR) 25 mg tablet; Take 1 tablet (25 mg total) by mouth in the morning. Class 3 severe obesity due to excess calories with serious comorbidity and body mass index (BMI) of40.0 to 44.9 in adult ([facility]) Mild intermittent asthma without complication - budesonide-formoteroL [...] Ordering medications, tests, or procedures Follow-up: May DM ALISON Ruano 04/14/24 0917 documented in this encounterCleveland Clinic [facility] Hospital11-12-2024 Miscellaneous Notes* Telephone Encounter - Meeta Lisa CMA - 01/08/2024 10:11 AM EST ----- Message from ALISON Angulo sent at 01/08/2024 8:51 AM EST ----- Reviewed. Inform patient mammogram is normal. * Telephone Encounter - Sunshine Jenkins - 01/08/2024 10:11 AM EST Patient notified documented in this encounterCleveland Clinic Mary[facility] Hospital11-12-2024 Telephone encounter Note* Telephone Encounter - Meeta Lisa CMA - 01/08/2024 10:11 AM EST ----- Message from ALISON Angulo sent at 01/08/2024 8:51 AM EST ----- Reviewed. Inform patient mammogram is normal. [facility]11-12-2024 Telephone encounter Note* Telephone Encounter - Sunshine Jenkins - 01/08/2024 10:11 AM EST Patient notified [facility]10-22-20[facility] History of Present illness Narrative* Josue Church DPM - 12/18/2023 3:15 PM EDT Images from the original note were not included. Subjective Patient ID: Severiano Peace is a 68 y.o. female who presents for Foot Pain (Severiano Peace 68yo New patient relates right foot pain, patient heard a pop while walking 12/09/2023. Icing, nicolásn, resting. Patient typically wears tennis shoes, slippers [...] History Past Medical History: Diagnosis Date Asthma ([facility]) Diabetes ([facility]) Diverticulitis History of bariatric surgery 08/2017 Hyperlipidemia ([facility]) Medications Current Outpatient Medications: empagliflozin (Jardiance) 25 [...] Laterality Date CHOLECYSTECTOMY COLONOSCOPY 5 polyps removed [place] KNEE SCOPE,DIAGNOSTIC Right 2005 Dr. Jimenez STEROID [...] understanding. Josue Church DPM documented in this encounterSouthPointe [id number] History of Present illness Narrative* Yasmine Villa APRN-[employer] - 12/10/2023 9:20 AM EDT Images from the original note were not included. [address] [facility] [address] SUBJECTIVE: Patient ID: Severiano Peace is a [...] 12/02/2021 Performed by Pawel Culver DO at [facility] 09/11/2017 INJECTION BLOCK NERVE KNEE Right Genicular - Therapeutic Right 06/29/2023 Performed by Marcel Wheeler MD at [facility] INJECTION BLOCK NERVE KNEE Right Genicular Right 12/08/2022 Performed by Marcel Wheeler MD at [facility] INJECTION BLOCK NERVE KNEE Right Genicular Right 09/15/2022 Performed by Marcel Wheeler MD at [facility] INJECTION BLOCK NERVE KNEE: right genicular Right 11/09/2023 Performed by Marcel Wheeler MD at [facility] KNEE ARTHROSCOPY Right 01/2005 OTHER SURGICAL HISTORY 10/07/2019 Repair of Left Retina TUBAL LIGATION 07/03/2000 Past Medical History: Diagnosis Date Asthma Chronic pain disorder CKD stage 2 due to type 2 diabetes mellitus ([facility]) Depression Hyperlipidemia Joint pain Migraine Neck pain Obesity Osteoarthritis of knee Osteopenia Rheumatoid arthritis ([facility]) Stage 2 chronic kidney disease due to [...] disease due to type 2 diabetes mellitus ([facility]) - POCT Hemoglobin A1c - Comprehensive metabolic [...] hyperglycemia, without long-term current use of insulin ([facility]) - rosuvastatin (CRESTOR) 20 mg tablet; Take [...] ALISON Cat 12/10/23 1010 documented in this encounterCleveland Clinic [facility] Hospital08-19-2024 History of Present illness Narrative* ALISON Ruano - 10/15/2023 11:00 AM EDT Images from the original note were not included. [place] [id number] SUBJECTIVE: Patient ID: Severiano Peace is a [...] 12/02/2021 Performed by Pawel Culver DO at [facility] 09/11/2017 INJECTION BLOCK NERVE KNEE Right Genicular - Therapeutic Right 06/29/2023 Performed by Marcel Wheeler MD at [facility] INJECTION BLOCK NERVE KNEE Right Genicular Right 12/08/2022 Performed by Marcel Wheeler MD at [facility] INJECTION BLOCK NERVE KNEE Right Genicular Right 09/15/2022 Performed by Marcel Wheeler MD at [facility] KNEE ARTHROSCOPY Right 01/2005 OTHER SURGICAL HISTORY 10/07/2019 Repair of Left Retina TUBAL LIGATION 07/03/2000 Past Medical History: Diagnosis Date Asthma Chronic pain disorder CKD stage 2 due to type 2 diabetes mellitus ([facility] Depression Hyperlipidemia Joint pain Migraine Neck pain Obesity Osteoarthritis of knee Osteopenia Rheumatoid arthritis ([facility]) Stage 2 chronic kidney disease due to [...] disease due to type 2 diabetes mellitus ([facility]) - losartan (COZAAR) 25 mg tablet; Take [...] hyperglycemia, without long-term current use of insulin ([facility]) - rosuvastatin (CRESTOR) 20 mg tablet; Take [...] Has an thomas with [facility]. Switch to ut as I will be her provider. ALISON Ruano 10/15/23 1241 documented in this encounterCleveland Clinic [facility] Hospital08-09-2024 History of Present illness Narrative* ALISON Horan - 10/05/2023 1:48 PM EDT PM requests a stop on her Jardiance for 3 days before injection. I have not seen this pt yet - she is from [facility] and needs to establish care first w/ ut before this decision is made. ALISON Horan 10/05/23 1355 documented in this encounterCleveland Clinic [facility] Hospital08-06-2024 Miscellaneous Notes* Telephone Encounter - Brigette Sevilla [...] call back with confirmation. documented in this encounterCleveland Clinic Marymount Hospital08-06-2024 Telephone encounter Note* Telephone Encounter - Brigette Sevilla RN - 10/02/2023 3:21 PM EDT Pt is on jardiance oral medication. Letter sent to [employer] for approval to hold jardiance due to new recommendations regarding MAC sedation in pts taking . Will need to f/u if not received soon. [facility] [employer] [id number] Telephone encounter Note* Telephone Encounter - Sylvia Mahan CNA - 10/02/2023 3:21 PM EDT Please see iA's note placed 10/03 [facility]08-06-2024 Telephone encounter Note* Telephone Encounter - Brigette Sevilla RN - 10/02/2023 3:21 PM EDT Received approval to hold jardiance x3 days. Last dose 11/04 [facility] [employer] [id number] Telephone encounter Note* Telephone Encounter - Brigette Sevilla RN - 10/02/2023 3:21 PM EDT Called pt to remind last dose of jardiance is today and will restart after 11/09/2023 procedure. No answer. LM with information and requested pt call back with confirmation. [facility]07-23-2024 History of Present illness Narrative* Jose Roberto Owens Earnestine, CARMELA - 09/18/2023 9:[address] [facility] [address] [place] [address] Patient: Severiano Peace Sex: female : 1955 Age: 68 y.o. PCP: AI MARTINEZ APRN-ALEKSANDR 09/18/2023 Severiano Peace is here for a(n) [...] 2 due to type 2 diabetes mellitus ([facility] Depression Hyperlipidemia Joint pain Migraine Neck pain Obesity Osteoarthritis of knee Osteopenia Rheumatoid arthritis ([facility]) Stage 2 chronic kidney disease due to benign hypertension Tear of meniscus of knee Visual impairment Past Surgical History: Procedure Laterality Date COLONOSCOPY 07/15/2009 COLONOSCOPY N/A 12/02/2021 Performed by Pawel Culver DO at [facility] 09/11/2017 INJECTION BLOCK NERVE KNEE Right Genicular - Therapeutic Right 06/29/2023 Performed by Marcel Wheeler MD at [facility] INJECTION BLOCK NERVE KNEE Right Genicular Right 12/08/2022 Performed by Marcel Wheeler MD at [facility] INJECTION BLOCK NERVE KNEE Right Genicular Right 09/15/2022 Performed by Marcel Wheeler MD at [facility] KNEE ARTHROSCOPY Right 01/2005 OTHER SURGICAL [...] min Stress: No Stress Concern Present (11/23/2021) [employer] - Occupational Stress Questionnaire Feeling of Stress : Not at all Social Connections: Socially Integrated (11/23/2021) Social Connection and Isolation Panel [NHANES] Frequency of Communication with Friends and Family: More than three times a week Frequency of Social Gatherings with Friends and Family: Twice a week Attends Gnosticism Services: More than 4 times per year [...] CARMELA Loera 09/18/23 1012 documented in this encounterCleveland Clinic [facility] Hospital07-23-2024 Instructions* Patient Instructions* Bonnie Farah CNA - [...] a safety precaution, you must have a trencher driver after a lumbar nerve root injection, [...] it back to normal. documented in this encounterKerbs Memorial HospitalFjuul07-03-2024 Miscellaneous Notes* Telephone Encounter - Sunshine Jenkisn - 08/29/2023 8:49 AM EDT Please set her up for a 6 mo DM in Oct or with provider of choice. * Telephone Encounter - Sunshine Jenkins - 08/29/2023 8:49 AM EDT LM on VM * Telephone Encounter - Sunshine Jenkins - 08/29/2023 8:49 AM EDT LM on VM * Telephone Encounter - Sunshine Jenkins - 08/29/2023 8:49 AM EDT Scheduled documented in this encounterCleveland Clinic [facility] Hospital07-03-2024 Telephone encounter Note* Telephone Encounter - Sunshine Jenkins - 08/29/2023 8:49 AM EDT Please set her up for a 6 mo DM in Oct or with provider of choice. [facility]07-03-2024 Telephone encounter Note* Telephone Encounter - Sunshine Jenkins - 08/29/2023 8:49 AM EDT LM on VM [facility]07-03-2024 Telephone encounter Note* Telephone Encounter - Sunshine Jenkins - 08/29/2023 8:49 AM EDT LM on VM [facility]07-03-2024 Telephone encounter Note* Telephone Encounter - Sunshine Jenkins - 08/29/2023 8:49 AM EDT Scheduled [facility]06-29-[facility]24 Miscellaneous Notes* Telephone Encounter - ALISON Horan - 08/25/2023 9:47 AM EDT Please set her up for a 6 mo DM in Nov or with provider of choice. documented in this encounterCleveland Clinic Mary[facility] Hospital06-29-2024 Telephone encounter Note* Telephone Encounter - ALISON Horan - 08/25/2023 9:47 AM EDT Please set her up for a 6 mo DM in Nov or with provider of choice. [facility]06-06-[facility] History of Present illness Narrative* CARMELA Loera - 08/02/2023 9:[address] [facility] [address] 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 Tear of meniscus of knee Visual impairment Past Surgical History: Procedure Laterality Date COLONOSCOPY 07/15/2009 COLONOSCOPY N/A 12/02/2021 Performed by Pawel Culver DO at [facility] 09/11/2017 INJECTION BLOCK NERVE KNEE Right Genicular - Therapeutic Right 06/29/2023 Performed by Marcel Wheeler MD at [facility] INJECTION BLOCK NERVE KNEE Right Genicular Right 12/08/2022 Performed by Marcel Wheeler MD at [facility] INJECTION BLOCK NERVE KNEE Right Genicular Right 09/15/2022 Performed by Marcel Wheeler MD at [facility] KNEE ARTHROSCOPY Right 01/2005 OTHER SURGICAL [...] min Stress: No Stress Concern Present (11/23/2021) [employer] - Occupational Stress Questionnaire Feeling of Stress : Not at all Social Connections: Socially Integrated (11/23/2021) Social Connection and Isolation Panel [NHANES] Frequency of Communication with Friends and Family: More than three times a week Frequency of Social Gatherings with Friends and Family: Twice a week Attends Gnosticism Services: More than 4 times per year [...] complete. Bonnie Farah CNA 08/02/23 1123 CARMELA Leora 08/02/23 1523 documented in this encounterFirelands Regional Medical CenterBountysource Select Specialty [id number] History of Present illness Narrative* Liliana Sandovaljing, PACKAGE WINDER-CUSTOMER SERVICE ANALYST - 06/25/2023 8:00 AM EDT Subjective Patient [...] disease due to type 2 diabetes mellitus ([facility]) - Diabetic foot exam performed - Hemoglobin [...] improvement with current medication in the fall of Her bmi while still elevated has improved [...] EFRAIN Crystal 06/25/23 1230 documented in this encounterFirelands Regional Medical CenterBountysource Select Specialty [id number] History of Present illness Narrative* Jose Roberto Corona, CARMELA - 06/21/2023 12:[address] [facility] [address] [place] [address] Patient: Severiano Peace Sex: female : 1955 [...] 2 due to type 2 diabetes mellitus ([facility] Depression Hyperlipidemia Joint pain Migraine Neck pain Obesity Osteoarthritis of knee Osteopenia Rheumatoid arthritis ([facility] Stage 2 chronic kidney disease due to benign hypertension Tear of meniscus of knee Visual impairment Past Surgical History: Procedure Laterality Date COLONOSCOPY 07/15/2009 COLONOSCOPY N/A 12/02/2021 Performed by Pawel Culver DO at [facility] BYPASS 09/11/2017 INJECTION BLOCK NERVE KNEE Right Genicular Right 12/08/2022 Performed by Marcel Wheeler MD at [facility] INJECTION BLOCK NERVE KNEE Right Genicular Right 09/15/2022 Performed by Marcel Wheeler MD at [facility] K[facility]EE ARTHROSCOPY Right 01/2005 OTHER SURGICAL [...] min Stress: No Stress Concern Present (11/23/2021) [employer] - Occupational Stress Questionnaire Feeling of Stress : Not at all Social Connections: Socially Integrated (11/23/2021) Social Connection and Isolation Panel [NHANES] Frequency of Communication with Friends and Family: More than three times a week Frequency of Social Gatherings with Friends and Family: Twice a week Attends Gnosticism Services: More than 4 times per year [...] CARMELA Loera 06/21/23 1353 documented in this encounterC[facility]24 Miscellaneous Notes* Telephone Encounter - Will Matos [...] for review and signature. documented in this encounterCleveland Clinic [facility]02-16-2024 Telephone encounter Note* Telephone Encounter - Will Matos - 04/13/2023 7:33 AM EST REVIEW DENIAL LETTER BROUGHT IN BY PATIENT, PEER TO PEER DONE BY RONNY 03/21/23. WILL AWAIT APPEAL RESULTS THAT PATIENT STARTED [facility] [id number] Telephone encounter Note* Telephone Encounter - Jerri [...] patient. How would you like to proceed? [facility] [id number] Telephone encounter Note* Telephone Encounter - CARMELA Loera - 04/13/2023 7:33 AM EST Nothing further. Denied because it is experimental which means there is no recourse. They will not approve. Can submit for therapeutic right genicular nerve block. [facility] [id number] Telephone encounter Note* Telephone Encounter - Jerri Crump RN - 04/13/2023 7:33 AM EST Call placed to patient and she was informed of provider's response. Patient verbalized understanding and is agreeable to therapeutic genicular nerve block. Case requested pended for review and signature. [facility] History of Present illness Narrative* Jose Roberto Corona, CARMELA - 04/12/2023 9:[address] [facility] [address] [place] [address] Patient: Severiano Peace Sex: female : 1955 Age: 68 y.o. PCP: EFRAIN MOLINA 04/12/2023 Severiano Peace is here for a(n) follow [...] 2 due to type 2 diabetes mellitus ([facility] Depression Hyperlipidemia Joint pain Migraine Neck pain Obesity Osteoarthritis of knee Osteopenia Rheumatoid arthritis ([facility]) Stage 2 chronic kidney disease due to benign hypertension Tear of meniscus of knee Visual impairment Past Surgical History: Procedure Laterality Date COLONOSCOPY 07/15/2009 COLONOSCOPY N/A 12/02/2021 Performed by Pawel Culver DO at [facility] GASTRIC BYPASS 09/11/2017 INJECTION BLOCK NERVE KNEE Right Genicular Right 12/08/2022 Performed by Marcel Wheeler MD at [facility] INJECTION BLOCK NERVE KNEE Right Genicular Right 09/15/2022 Performed by Marcel Wheeler MD at [facility] KNEE ARTHROSCOPY Right 01/2005 OTHER SURGICAL [...] min Stress: No Stress Concern Present (11/23/2021) [employer] - Occupational Stress Questionnaire Feeling of Stress : Not at all Social Connections: Socially Integrated (11/23/2021) Social Connection and Isolation Panel [NHANES] Frequency of Communication with Friends and Family: More than three times a week Frequency of Social Gatherings with Friends and Family: Twice a week Attends Gnosticism Services: More than 4 times per year [...] accurate and complete. Bonnie Farah CNA 04/12/23 2850 CARMELA Loera 04/12/23 1205 documented in this encounterFirelands Regional Medical CenterBountysource [facility] [id number] History of Present illness Narrative* CARMELA Loera - 03/01/2023 8:[address] [facility] [address] [place] [address] Patient: Severiano Peace Sex: female : 1955 [...] 2 due to type 2 diabetes mellitus [place] Depression Hyperlipidemia Joint pain Migraine Neck pain Obesity Osteoarthritis of knee Osteopenia Rheumatoid arthritis ([facility] Stage 2 chronic kidney disease due to benign hypertension Tear of meniscus of knee Visual impairment Past Surgical History: Procedure Laterality Date COLONOSCOPY 07/15/2009 COLONOSCOPY N/A 12/02/2021 Performed by Pawel Culver DO at [facility] BYPASS 09/11/2017 INJECTION BLOCK NERVE KNEE Right Genicular Right 12/08/2022 Performed by Marcel Wheeler MD at [facility] INJECTION BLOCK NERVE KNEE Right Genicular Right 09/15/2022 Performed by Marcel Wheeler MD at [facility] KNEE ARTHROSCOPY Right 01/2005 OTHER SURGICAL [...] min Stress: No Stress Concern Present (11/23/2021) [employer] - Occupational Stress Questionnaire Feeling of Stress : Not at all Social Connections: Socially Integrated (11/23/2021) Social Connection and Isolation Panel [NHANES] Frequency of Communication with Friends and Family: More than three times a week Frequency of Social Gatherings with Friends and Family: Twice a week Attends Gnosticism Services: More than 4 times per year [...] Endocrine: Negative. Genitourinary: Negative. Musculoskeletal: Rt knee, Balijt Hips Skin: Negative. Allergic/Immunologic: Negative. Neurological: Negative. [...] LOERA by Bonnie Farah CNA. Provider Statement: JOSE ROBERTO Larose PA, personally performed the services described in the documentation, as scribed by Bonnie Farah CNA in my presence, and it is both accurate and complete. Bonnie Farah CNA 03/01/23 0923 CARMELA Loera 03/01/23 1420 documented in this encounterC[facility] Clinic [facility]01-04-2024 Instructions* Patient Instructions* Bonnie Farah CNA - 03/01/2023 8:00 AM EST [...] it back to normal. documented in this encounterFirelands Regional Medical CenterBountysource [facility] [id number] History of Present illness Narrative* CARMELA Loera - 02/15/2023 9:[address] [facility] [address] 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 ([facility]) Depression Hyperlipidemia Joint pain Migraine Neck pain Obesity Osteoarthritis of knee Osteopenia Rheumatoid arthritis ([facility]) Stage 2 chronic kidney disease due to benign hypertension Tear of meniscus of knee Visual impairment Past Surgical History: Procedure Laterality Date COLONOSCOPY 07/15/2009 COLONOSCOPY N/A 12/02/2021 Performed by Pawel Culver DO at [facility] BYPASS 09/11/2017 INJECTION BLOCK NERVE KNEE Right Genicular Right 12/08/2022 Performed by Marcel Wheeler MD at [facility] INJECTION BLOCK NERVE KNEE Right Genicular Right 09/15/2022 Performed by Marcel Wheeler MD at [facility] KNEE ARTHROSCOPY Right 01/2005 OTHER SURGICAL [...] min Stress: No Stress Concern Present (11/23/2021) [employer] - Occupational Stress Questionnaire Feeling of Stress : Not at all Social Connections: Socially Integrated (11/23/2021) Social Connection and Isolation Panel [NHANES] Frequency of Communication with Friends and Family: More than three times a week Frequency of Social Gatherings with Friends and Family: Twice a week Attends Gnosticism Services: More than 4 times per year [...] CARMELA Loera 02/22/23 1158 documented in this encounterCleveland Clinic [facility]11-10-2022 Evaluation note* Encounter Date Diagnosis Assessment Notes [...] treatment plan. Patient left in stable condition [facility] Other 07-30-2022 Evaluation note* Encounter Date Diagnosis Assessment Notes Treatment Notes Treatment Clinical Notes Aug, Cough (ICD-10 - R05.9) Aug,Viral URI (ICD-10 - J06.9) Advised patient that [...] treatment plan. Patient left in stable condition [facility] Other Evaluation note* Diagnosis Plantar fasciitis- Primary Plantar fascial fibromatosis Rupture of muscle, nontraumatic Right foot pain Pain in soft tissues of limb Equinus contracture of right ankle documented in this encounter [facility] HealthcareEvaluation [facility]* Diagnosis Primary osteoarthritis of right knee- Primary documented in this encounter [facility]* Diagnosis Localized osteoarthritis of right knee- Primary documented in this encounter [facility]Evaluation [facility]* Diagnosis Osteoarthritis of knee- Primary Osteoarthrosis, unspecified whether generalized or localized, lower leg Lumbosacral spondylosis without myelopathy- Primary Disc displacement, lumbar Displacement of lumbar intervertebral disc without myelopathy Disorder of sacrum Disorders of sacrum Primary osteoarthritis of right knee documented in this encounter [facility]* Diagnosis Localized osteoarthritis of right knee- Primary documented in this encounter [facility]* Diagnosis Osteoarthritis of knee- Primary Osteoarthrosis, unspecified whether generalized or localized, lower leg 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 ([facility] Primary Essential hypertension Unspecified essential hypertension Mixed hyperlipidemia Adult BMI 36.0-36.9 kg/sq m Body Mass Index 36.0-36.9, adult Mild intermittent asthma without complication Primary osteoarthritis of right knee Primary osteoarthritis of right knee documented in this encounter [facility]* Diagnosis Lumbosacral spondylosis without myelopathy- Primary documented in this encounter [facility]* Diagnosis Localized osteoarthritis of right knee- Primary documented in this encounter [facility]* Diagnosis Special screening for malignant neoplasm of colon- Primary Special screening for malignant neoplasms, colon documented in this encounter [facility]* Diagnosis Depressive disorder Depressive disorder, not elsewhere classified 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 ([facility]) documented in this encounter [facility]* Diagnosis Localized osteoarthritis of right knee- Primary Localized osteoarthritis of right knee- Primary Localized osteoarthritis of right knee documented in this encounter [facility]* Diagnosis Localized osteoarthritis of right knee- Primary Acute cystitis without hematuria- Primary 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 ([facility] Depressive disorder Depressive disorder, not elsewhere classified Type 2 diabetes mellitus with hyperglycemia, without long-term current use of insulin ([facility]) Localized osteoarthritis of right knee documented in this encounter [facility]* Diagnosis 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 ([facility])- Primary Type 2 diabetes mellitus with hyperglycemia, without long-term current use of insulin ([facility]) Depressive disorder Depressive disorder, not elsewhere classified Primary osteoarthritis of both knees Change in color of pigmented skin lesion Encounter for screening mammogram for malignant neoplasm of breast documented in this encounter [facility]* Diagnosis Type 2 diabetes mellitus with hyperglycemia, without long-term current use of insulin ([facility] Primary 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 ([facility]) Class 3 severe obesity due to excess calories with serious comorbidity and body mass index (BMI) of40.0 to 44.9 in adult ([facility]) Mild intermittent asthma without complication Depressive disorder Depressive disorder, not elsewhere classified documented in this encounter [facility]* Diagnosis Primary osteoarthritis of right knee- Primary Osteoarthritis of knee- Primary Osteoarthrosis, unspecified whether generalized or localized, lower leg Primary osteoarthritis of right knee [facility]* Diagnosis CKD stage 2 due to type 2 diabetes mellitus ([facility] Primary DM type 2 with diabetic mixed hyperlipidemia ([facility]) Depressive disorder Depressive disorder, not elsewhere classified Essential hypertension Unspecified essential hypertension documented in this [facility]* Diagnosis Primary osteoarthritis of right knee- Primary documented in this [facility]* Diagnosis DM type 2 with diabetic mixed hyperlipidemia ([facility]) documented in this encounter [facility]* Diagnosis Conjunctival hemorrhage of left eye- Primary Essential hypertension Unspecified essential hypertension Ocular migraine Variants of migraine, not elsewhere classified, without mention of intractable migraine without mention of status migrainosus documented in this encounter [facility]* Diagnosis DM type 2 with diabetic mixed hyperlipidemia ([facility])- Primary Essential hypertension Unspecified essential hypertension 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 ([facility]) Type 2 diabetes mellitus with hyperglycemia, without long-term current use of insulin ([facility]) Depressive disorder Depressive disorder, not elsewhere classified Encounter for screening mammogram for malignant neoplasm of breast Class 2 obesity due to excess calories without serious comorbidity with body mass index (BMI) of 37.0 to 37.9 in adult documented in this encounter [facility]* Diagnosis Mild intermittent asthma without complication DM type 2 with diabetic mixed hyperlipidemia ([facility]) documented in this encounter [facility] SystemHistory general Narrative - Reported* Type Description Date Medical History Depression Medical HistoryHypercholesterolemiaMedical HistoryDiabetesMedical Historyasthma Medical HistoryHx of pneumonia [id number] HistorycholecystectomySurgical History tubal ligationSurgical Historyknee arthroscopySurgical Historygastric sleeve Hospitalization Historysee above [facility] Other InstructionsNot on filedocumented in this encounter [facility] SystemInstructionsNot on filedocumented in this encounter [facility] SystemInstructionsNot on filedocumented in this encounter [facility] SystemInstructionsNot on filedocumented in this encounter [facility] SystemInstructionsNot on filedocumented in this encounter [facility] SystemInstructionsNot on filedocumented in this encounter [facility] SystemInstructionsNot on filedocumented in this encounter [facility] SystemInstructions* Attachments The following attachments cannot be sent through Care Everywhere. * Diabetes and diet (Nauruan) documented in this encounterTri[facility] SystemInstructions* Attachments The following attachments cannot be sent through Care Everywhere. * Moles on the Skin (Nauruan) documented in this encounterTriHealth [facility] SystemInstructionsNot on file documented in this encounterTriHealth [facility] SystemInstructions* Attachments The following attachments cannot be sent through Care Everywhere. * Body Mass Index, Adult (Nauruan) documented in this encounterTriHealth [facility] SystemInstructions* Attachments The following attachments cannot be sent through Care Everywhere. * Diabetes and diet (Nauruan) documented in this encounterTri[facility] SystemInstructions* Attachments The following attachments cannot be sent through Care Everywhere. * Diabetes and diet (Nauruan) documented in this encounterProAultman Hospital SystemInstructionsNot on file documented in this encounterTriHealth [facility] SystemInstructionsNot on file documented in this encounterTriHealth [facility] SystemInstructions* Attachments The following attachments cannot be sent through Care Everywhere. * Diabetes and diet (Nauruan) documented in this encounterTri[facility] SystemInstructionsNot on file documented in this encounterTriHealth [facility] SystemReason for referral (narrative)* Consultation (Routine) - Pending ReviewSpecialtyDiagnoses / ProceduresReferred By ContactReferred To ContactDermatology Diagnoses Change in color of pigmented skin lesion Yasmine Villa APRN-[facility] [address] [place] [address] Tali Dunn MD [address] , [address] [address] Referral IDStatusReasonStart DateExpiration DateVisits RequestedVisits [id number] Review Specialty Services Required * Misc (Routine) - Pending ReviewSpecialtyDiagnoses / ProceduresReferred By ContactReferred To Contact Diagnoses Primary osteoarthritis of both knees Procedures Disability/Handicap Yasmine Ortega, PACKAGE WINDER-ALEKSANDR [address] [place] [address] Referral IDStatusReasonStart DateExpiration DateVisits RequestedVisits [id number] [facility] Summary Purpose Family History No Family History [...] Jose Roberto Corona PA [address], [address] [place] [address] Referral IDStatusReasonStart DateExpiration DateVisits RequestedVisits [id number] Review/[id number] / Procedures Referred By ContactReferred To ContactRadiology Diagnoses Disc displacement, lumbar Procedures MR lumbar spine without contrast Jose Roberto Corona PA [address], [address] [place] [address] Referral IDStatusReasonStart DateExpiration DateVisits RequestedVisits [id number] Review/[id number] / ProceduresReferred By ContactReferred To Contact Diagnoses Primary osteoarthritis of right knee Procedures Case request operating room: INJECTION BLOCK NERVE KNEE - right Jose Roberto Corona PA [address] [place] [address] Referral IDStatusReasonStart DateExpiration DateVisits RequestedVisits [id number] Review Additional Source Comments INFORMATION SOURCE (unrecogn ized section and content) DATE CREATED AUTHOR 04/21/2021 [facility] DATE CREATED AUTHOR AUTHOR'S ORGANIZ ATION 05/22/2021 [facility] DATE CREATED AUTHOR AUTHOR'S ORGANIZ ATION 12/12/2023 [facility] DATE CREATED AUTHOR AUTHOR'S ORGANIZ ATION 11/03/2024 [facility] DATE CREATED AUTHOR AUTHOR'S ORGANIZ ATION 12/17/2024 [facility] REASON FOR VISIT (unrecogniz ed section and content) ReasonCommentsFoot PainRhonda Seibert 68yo New patient relates right foot pain, patient heard a pop while walking 12/09/2023. Icing, voltaren, resting. Patient typically wears tennis shoes, slippers with powersteps because of Plantar Fasciitis history. BS 6.4 Martins 12/10/2023 [id number] PainKnee Pain ReasonCommentsKnee PainHip PainBack PainReasonCommentsKnee PainReasonComments Diabetes6 months. Lower back trouble 8 monthsReasonCommentsMed RefillReason CommentsBack PainReasonCommentsBack PainReasonCommentsdiscuss medicationReason CommentsDiabetesReasonCommentsmedicationsReasonCommentsDiabetesReasonComments Back PainHip PainKnee PainReasonCommentsteaching about ozempicReasonComments Follow-upBlood vessel burst in right eye. OCT- 8ReasonCommentsDiabetesReason Onset DateCommentsMed Nrblgr0401/01/2025 Care Teams (unrecognized sec tion and content) Team MemberRelationshipSpecialtyStart DateEnd Date Pawel Culver MD [address] [place] [address] PCP - GeneralInternal Gocmbevp26/18/24Team MemberRelationshipSpecialtyStart Date End Date Pawel Culver MD [address] [place] [facility] [place] [address] PCP - GeneralDignity [facility] Hospitalnal Jeiahhkt99/18/24Team MemberRelationshipSpecialtyStart Date End Date Liliana Gomez, PACKAGE WINDER-CUSTOMER SERVICE ANALYST [address] [facility] [place] [address] PCP - General05/25/17Team MemberRelationshipSpecialtyStart DateEnd Date Liliana Gomez, PACKAGE WINDER-CUSTOMER SERVICE ANALYST [address] [facility] [place] [address] PCP - General05/25/17Team MemberRelationshipSpecialtyStart DateEnd Date Liliana Gomez, PACKAGE WINDER-CUSTOMER SERVICE ANALYST [address] [facility] [place] [address] PCP - General05/25/17Team MemberRelationshipSpecialtyStart DateEnd Date Liliana Gomez, PACKAGE WINDER-CUSTOMER SERVICE ANALYST [address] [facility] [place] [address] PCP - General05/25/17Team MemberRelationshipSpecialtyStart DateEnd Date Liliana Gomez, PACKAGE WINDER-CUSTOMER SERVICE ANALYST [address] [facility] [place] [address] PCP - General05/25/17Team MemberRelationshipSpecialtyStart DateEnd Date Liliana Gomez, PACKAGE WINDER-CUSTOMER SERVICE ANALYST [address] [facility] [place] [address] PCP - General05/25/17Team MemberRelationshipSpecialtyStart DateEnd Date Liliana Gomez, PACKAGE WINDER-CUSTOMER SERVICE ANALYST [address] [facility] [address] PCP - General05/25/17Team MemberRelationshipSpecialtyStart DateEnd Date Liliana Gomez, PACKAGE WINDER-CUSTOMER SERVICE ANALYST [address] [facility] [address] PCP - General05/25/17Team MemberRelationshipSpecialtyStart DateEnd Date Liliana Gomez, PACKAGE WINDER-CUSTOMER SERVICE ANALYST [address] [facility] [place] [address] PCP - General05/25/17Team MemberRelationshipSpecialtyStart DateEnd Date Liliana Gomez, PACKAGE WINDER-CUSTOMER SERVICE ANALYST [address] [facility] 08/27/2023 [place] [address] PCP - General05/25/17Team MemberRelationshipSpecialtyStart DateEnd Date Ai Martinez APRN-[facility] [address] [place] [address] PCP - GeneralInternal Medicine09/03/23Team MemberRelationshipSpecialtyStart Date End Date Ai Martinez APRN-[facility] [address] [place] [address] PCP - GeneralInternal Medicine09/03/23Team MemberRelationshipSpecialtyStart Date End Date Ai Martinez APRN-[facility] [address] [place] [address] [facility] - [facility]09/03/23Team MemberRelationshipSpecialtyStart Date End Date Yasmine Villa PACKAGE WINDER-[facility] [address] [place] [address] PCP - [facility] Medicine10/15/23Team MemberRelationshipSpecialtyStart DateEnd Date Yasmine Villa PACKAGE WINDER-[facility] [address] [place] [address] PCP - [facility]10/15/23Team MemberRelationshipSpecialtyStart DateEnd Date Yasmine Villa PACKAGE WINDER-[facility] [address] [place] [address] PCP - [facility] Medicine10/15/23Team MemberRelationshipSpecialtyStart DateEnd Date Yasmine Villa PACKAGE WINDER-[facility] [address] [place] [address] [facility]10/15/23Team MemberRelationshipSpecialtyStart DateEnd Date Yasmine Villa PACKAGE WINDER-[facility] [address] [place] [address] [facility] - [facility] Medicine10/15/23Team MemberRelationshipSpecialtyStart DateEnd Date Yasmine Villa, [employer] [facility] [address] [place] [address] PCP - Generalmi Medicine10/15/23Team MemberRelationshipSpecialtyStart DateEnd Date Yasmine Villa, [employer] [facility] [address] [place] [address] PCP - [facility] Medicine10/15/23Team MemberRelationshipSpecialtyStart DateEnd Date Yasmine Villa, [employer] [facility] [address] [place] [address] PCP - [facility]10/15/23Team MemberRelationshipSpecialtyStart DateEnd Date Yasmine Villa, [employer] [facility] [address] [place] [address] PCP - [facility] Medicine10/15/23Team MemberRelationshipSpecialtyStart DateEnd Date Yasmine Villa, [employer] [facility] [address] [place] [address] PCP - [facility] Medicine10/15/23Team MemberRelationshipSpecialtyStart DateEnd Date Yasmine Villa, [employer] [facility] [address] [place] [address] PCP - [facility] Medicine10/15/23Team MemberRelationshipSpecialtyStart DateEnd Date Yasmine Villa, [employer] [facility] [address] [place] LEFT PM 08/25/24 [place] [address] [facility]23Team MemberRelationshipSpecialtyStart DateEnd Date Payton Payton, [employer] [facility] [address] [place] [address] [address] - [address] [facility]11/03/24Team MemberRelationshipSpecialtyStart Date End Date Payton Payton, [employer] [facility] [address] [place] [address] [facility] - [facility]11/03/24Team MemberRelationshipSpecialtyStart Date End Date Payton Payton, [employer] [facility] [address] [place] [address] [facility]24 FOR RECORDS PERTAINING TO PATIENTS WHO ARE [...] BE BASED ON THE PRIMARY CLINICAL RECORDS. [facility] [employer] [facility]. provides no warranty or guarantee of the accuracy or completeness of information in this document.
== END 2025-01-14 07:56 | disposition home or self-care (01) ==
LOC: MAMMO 07:55
PROVIDERS: PCP Internal Medicine; Visit Provider Internal Medicine
DX: Z12.31 Encounter for screening mammogram for malignant neoplasm of breast (principal); Z80.49 Family history of malignant neoplasm of other genital organs; Z80.7 Family history of other malignant neoplasms of lymphoid, hematopoietic and related tissues; Z80.8 Family history of malignant neoplasm of other organs or systems
CPT/HCPCS: 77063; 77067